=== PATIENT | female | born 1950 | race Caucasian/White ===

== ENCOUNTER 2016-06-18 16:47 | Inpatient (IN) | payer OTHER ==
[~2016-06-18] VITALS: Ht 152.4 cm; Wt 99.0 kg
[~2016-06-18 16:47] MED LIST: AMOX500T3 PO; ASPI81TA28 PO; ATOR-24 PO; BTP80 PO; FURO-85 PO; POTA20TA13 PO; PRED20TA PO; PRLSR20 PO; RAMI2.5C PO; VENL-273 PO; WARF-246 PO
[2016-06-18] MEDS ORDERED: METOPROLOL TARTRATE 1 MG/ML VIAL IV STA ×2 (17:16→17:58)
[2016-06-18] MEDS ORDERED: SODIUM CHLORIDE 0.9% 1000ML 500 ML IV STA (17:16)
[2016-06-18 17:29] LABS: HEMATOCRIT 42.3 % (37-47); MEAN CELL VOLUME 95.5 fL (80-100); MEAN CORPUSCULAR HEMOGLOBIN 33.2 pg (25-34); MEAN CORPUSCULAR HGB CONC 34.8 g/dl (32-36); MEAN PLATELET VOLUME 10.2 fL (7.4-10.4); PLATELET COUNT 221 K/uL (130-400); RED BLOOD COUNT 4.43 M/uL (4.2-5.4); WHITE BLOOD COUNT 7.07 K/uL (4.8-10.8)
--- NOTE | 2016-06-18 17:30 | EMERGENCY ROOM VISIT NOTE ---
History Report prepared by Arlen: Alexander Carcamo Under the Supervision of: Dr. Darin Thakur M.D. First contact with patient: 17:12 Chief Complaint: CARDIAC ASSESSMENT Stated Complaint: CARDIAC HISTORY, SOB, A FIB, HEART POUNDING Nursing Triage Summary: felt like her heart was beating fast and SOB; Hx afib and asthma; denies CP at this time. History of Present Illness The patient is a 65 year old female who presents to the Emergency Room with complaints of an episode of elevated heart rate beginning earlier today. She states she woke up this morning and became short of breath and lightheaded while walking around. She has had atrial fibrillation in the past, most recently about 1 year ago. She admits to having a cough, but denies any fever. She reports taking Sotalol and Warfarin. The patient states her great grandchildren are sick, and thinks her symptoms might be the result of her worry for them. She has just recovered from a cold. She denies taking any thyroid medications. Source of History: patient Onset: earlier today Position: other (heart) Quality: other (elevated heart rate) Timing: other (episode) Associated Symptoms: + SOB, + cough, No chest pain, No fevers Review of Systems See HPI for pertinent positives & negatives. A total of 10 systems reviewed and were otherwise negative. Past Medical & Surgical Medical Problems: (1) Aortic valve disorder (2) Atrial fibrillation with RVR (3) Chronic anticoagulation (4) Dyslipidemia (5) History of asthma (6) History of cardioversion (7) Major depression (8) Paroxysmal atrial fibrillation Surgical Problems: (1) H/O aortic valve replacement using Ross procedure (2) History of carpal tunnel surgery Family History Hypertension Social History Smoking Status: Current Every Day Smoker Current/Historical Medications Scheduled Aspirin (Aspirin Ec), 81 MG PO DAILY Atorvastatin (Lipitor), 40 MG PO HS Fluticasone Prop/Salmeterol (Advair Diskus 250/50 60 Dose), 1 PUFF INH BID Furosemide (Lasix), 20 MG PO DAILY Omeprazole (Prilosec), 20 MG PO DAILY Potassium Chloride Microencaps (Potassium Chloride Er), 20 MEQ PO DAILY Ramipril (Ramipril), 2.5 MG PO DAILY Sotalol HCl (Sotalol HCl), 80 MG PO BID17 Venlafaxine Hcl (Venlafaxine Hcl Er), 75 MG PO HS Warfarin Sodium (Warfarin Sodium), 5 MG PO 5XWK Warfarin Sodium (Warfarin Sodium), 7.5 MG PO 2XWK Scheduled PRN Albuterol Hfa (Ventolin Hfa), 2 PUFFS INH Q4H PRN for SOB/Wheezing Allergies Coded Allergies: Prednisone (Unverified Allergy, Unknown, a-fib, 06/18/16) Physical Exam Vital Signs Date Time Temp Pulse Resp B/P Pulse Ox O2 Delivery O2 Flow Rate FiO2 06/18/16 18:07 117 27 121/65 95 Room Air 06/18/16 18:06 126 121/65 06/18/16 17:36 123 23 121/62 95 Room Air 06/18/16 17:32 96 Room Air 06/18/16 17:25 142 124/71 06/18/16 17:12 134 06/18/16 17:04 95 Room Air 06/18/16 16:52 37.0 112 18 124/90 94 Room Air Physical Exam GENERAL: Patient is in no acute distress. HEENT: No acute trauma, normocephalic atraumatic, mucous membranes moist, no nasal congestion, no scleral icterus. NECK: No stridor, no adenopathy, no meningismus, trachea is midline. LUNGS: Clear to auscultation bilaterally, no wheeze, no rhonchi, breath sounds equal. HEART: Irregular rhythm and tachycardic. No murmurs. ABDOMEN: Soft, nontender, bowel sounds positive, no hernias, no peritonitis. EXTREMITIES: No cyanosis or edema, full range of motion of all the joints without pain or difficulty, no signs for acute trauma. NEUROLOGIC: Oriented x 3, no acute motor or sensory deficits, no focal weakness. SKIN: No rash, no jaundice, no diaphoresis. Medical Decision & Procedures ER Provider Diagnostic Interpretation: X-ray results as stated below per interpretation by me and the radiologist: CHEST ONE VIEW PORTABLE FINDINGS: There are median sternotomy wires. Mild cardiomegaly is unchanged. There is no evidence of pulmonary edema. No consolidation is identified. The appearance of the chest is unchanged. IMPRESSION: No acute cardiopulmonary findings. Electronically signed by: Paddy Esparza M.D. 06/18/2016 6:03 PM Dictated Date/Time: 06/18/2016 6:03 PM Laboratory Results 06/18/16 17:05 06/18/16 17:05 Test 06/18/16 17:05 Red Blood Count 4.43 M/uL (4.2-5.4) Mean Corpuscular Volume 95.5 fL (80-100) Mean Corpuscular Hemoglobin 33.2 pg (25-34) Mean Corpuscular Hemoglobin Concent 34.8 g/dl (32-36) RDW Standard Deviation 45.1 fL (36.4-46.3) RDW Coefficient of Variation 12.9 % (11.5-14.5) Mean Platelet Volume 10.2 fL (7.4-10.4) Prothrombin Time 16.4 SECONDS (9.0-12.0) Prothromb Time International Ratio 1.5 (0.9-1.1) Activated Partial Thromboplast Time 31.1 SECONDS (21.0-31.0) Partial Thromboplastin Ratio 1.2 Anion Gap 7.0 mmol/L (3-11) Est Creatinine Clear Calc Drug Dose 73.6 ml/min Estimated GFR () 87.0 Estimated GFR (Non- 75.0 BUN/Creatinine Ratio 13.4 (10-20) Calcium Level 8.9 mg/dl (8.5-10.1) Magnesium Level 1.9 mg/dl (1.8-2.4) Total Bilirubin 0.6 mg/dl (0.2-1) Aspartate Amino Transf (AST/SGOT) 17 U/L (15-37) Alanine Aminotransferase (ALT/SGPT) 21 U/L (12-78) Alkaline Phosphatase 132 U/L (45-117) Total Creatine Kinase 112 U/L (26-192) Creatine Kinase MB 1.6 ng/ml (0.5-3.6) Creatine Kinase MB Ratio 1.4 (0-3.0) Troponin I < 0.015 ng/ml (0-0.045) Total Protein 7.4 gm/dl (6.4-8.2) Albumin 3.5 gm/dl (3.4-5.0) Globulin 3.9 gm/dl (2.5-4.0) Albumin/Globulin Ratio 0.9 (0.9-2) Thyroid Stimulating Hormone (TSH) 1.760 uIu/ml (0.300-4.500) Laboratory results reviewed by me. Medications Administered Medications (Trade) Dose Ordered Sig/Nichol Route Start Time Stop Time Status Last Admin Dose Admin Sodium Chloride (Nss 1000ml) 500 ml @ 999 mls/hr Q31M STAT IV 06/18/16 17:16 06/18/16 17:46 DC 06/18/16 17:24 999 MLS/HR Metoprolol Tartrate (Lopressor Iv) 5 mg NOW STAT IV 06/18/16 17:16 06/18/16 17:19 DC 06/18/16 17:25 5 MG Metoprolol Tartrate (Lopressor Iv) 5 mg NOW STAT IV 06/18/16 17:58 06/18/16 17:59 DC 06/18/16 18:06 5 MG ECG Indication: other (cardiac assessment) Rate (beats per minute): 135 Rhythm: atrial fibrillation (rapid) Findings: other (nonspecific T wave change diffusely) ED Course 1715: The patient was evaluated in room B11B. A complete history and physical exam was performed. 1716: Ordered Metoprolol Tartrate 5 mg IV, and NSS 500 ml 2 999 mls/hr IV. 1758: Ordered Metoprolol tartrate 5 mg IV. 1805: Discussed the patient's case with Tashia Ochoa PA-C, [facility]. The patient will be evaluated for further management. 1806: I updated the patient and family about admission. 1810: Upon reexamination the patient is hemodynamically stable. I discussed results and treatment plan with the patient. She verbalizes agreement and understanding. The patient will be evaluated for further management. Medical Decision Differentials include rapid atrial fibrillation, LA, anemia, electrolyte imbalance, thyroid disorder, and CHF. There is no leukocytosis or worrisome anemia. No significant electrolyte abnormality, kidney failure or hepatitis. INR is somewhat low for someone using Coumadin. EKG shows rapid A. fib without any acute ischemia. Cardiac enzyme testing times one is not suggestive of acute cardiac injury. Chest x- ray shows no pneumonia or CHF. The patient appears to be in a euthyroid state. The patient was in rapid A. fib, she has had this issue before. She received IV saline and IV Lopressor with a decrease in her heart rate. Given her findings, admission/observation is warranted. I spoke to the patient and case management. The on-call hospitalist was consulted. Consults Time Called: 1754 Consulting Physician: Tashia Ochoa PA-C, [facility] Returned Call: 1805 Discussed the patient's case with Tashia Ochoa PA-C, [facility]. The patient will be evaluated for further management. Impression Primary Impression: Rapid atrial fibrillation Additional Impression: Weakness Scribe Attestation The scribe's documentation has been prepared under my direction and personally reviewed by me in its entirety. I confirm that the note above accurately reflects all work, treatment, procedures, and medical decision making performed by me. Departure Information Dispostion Being Evaluated By Hospitalist Referrals Emerson Hernandez M.D. (PCP) Patient Instructions A Signature Page, My [facility] [address] Problem Qualifiers
[2016-06-18 17:37] LABS: ALT/SGPT 21 U/L (12-78); AST/SGOT 17 U/L (15-37); BLOOD UREA NITROGEN 11 mg/dl (7-18); BUN/CREATININE RATIO 13.4 (10-20); CALCIUM 8.9 mg/dl (8.5-10.1); CARBON DIOXIDE 29 mmol/L (21-32); CHLORIDE 108 mmol/L (98-107); CREATININE 0.83 mg/dl (0.60-1.20); GLUCOSE 130 mg/dl (70-99); MAGNESIUM 1.9 mg/dl (1.8-2.4); POTASSIUM 4.2 mmol/L (3.5-5.1); SODIUM 144 mmol/L (136-145)
[2016-06-18 17:38] LABS: INR 1.5 (0.9-1.1); PARTIAL THROMBOPLASTIN RATIO 1.2; PROTHROMBIN TIME (PATIENT) 16.4 SECONDS (9.0-12.0)
[2016-06-18 17:42] LABS: ALB/GLOB RATIO 0.9 (0.9-2); ALKALINE PHOSPHATASE 132 U/L (45-117); CKMB/CK RATIO 1.4 (0-3.0)
--- NOTE | 2016-06-18 18:05 | DIAGNOSTIC IMAGING REPORT ---
CHEST ONE VIEW PORTABLE CLINICAL HISTORY: Chest pain. COMPARISON STUDY: Chest radiograph December 24, 2015. FINDINGS: There are median sternotomy wires. Mild cardiomegaly is unchanged. There is no evidence of pulmonary edema. No consolidation is identified. The appearance of the chest is unchanged. IMPRESSION: No acute cardiopulmonary findings. Electronically signed by: Paddy Esparza M.D. 06/18/2016 6:03 PM Dictated Date/Time: 06/18/2016 6:03 PM
[2016-06-18] MEDS ORDERED: VNTHFA/IN INH (18:29)
[2016-06-18] MEDS ORDERED: ADVIN25/60 INH (18:29)
[2016-06-18] MEDS ORDERED: WARFARIN SOD 7.5 MG TAB PO ONE (18:42)
[2016-06-18] MEDS ORDERED: ONDANSETRON INJ 2 MG/ML 2 ML VIAL IV PRN (18:45)
[2016-06-18] MEDS ORDERED: NITROGLYCERIN 0.4 MG SL PER TAB CHARGE SL PRN (18:45)
[2016-06-18] MEDS ORDERED: ACETAMINOPHEN 325 MG TAB PO PRN (18:45)
--- NOTE | 2016-06-18 19:00 | History and Physical ---
History & Physical Date & Time of Service: Jun 18, 2016 at 18:47 Chief Complaint: Cardiac History, Sob, A Fib, Heart Pounding Primary Care Physician: Emerson Hernandez M.D. History of Present Illness Source: patient, family, clinic records, hospital records Patient seen and examined. 65 year old female with PMHx of Afib on Coumadin, h/ o AVR with ross procedure, and tobacco abuse presents to the ED complaining of palpitations x 1 day. Patient reports that she wokeup this morning feeling like her heart was racing. When she got up to walk around she became SOB and dizzy. This continued throughout most of the day so she presented to the ED. She denies fevers, chills, URI symptoms, chest pain, nausea, vomiting, diarrhea, dysuria, calf pain and edema. Patient has a history of Afib and was admitted in Jul 2015 with afib with RVR after presenting with similar symptoms. At that time she was started on sotalol, Coumadin and cardioversion successfully converted the patient to NSR. She reports she has not had any episodes of palpitations since then until today. She reports she has been compliant with her medications. In the ED patient's HR was in the 140s on arrival, INR was 1.5. She received Lopressor and HR is now in the 120s. She will be admitted for further workup and treatment. Past Medical/Surgical History Medical Problems: (1) Aortic valve disorder Status: Chronic (2) Chronic anticoagulation Status: Chronic (3) Dyslipidemia Status: Chronic (4) History of cardioversion Status: Chronic (5) Major depression Status: Chronic (6) Paroxysmal atrial fibrillation Status: Chronic Surgical Problems: (1) H/O aortic valve replacement using Ross procedure Status: Chronic (2) History of carpal tunnel surgery Status: Chronic Family History Hypertension Social History Smoking Status: Current Every Day Smoker Drug Use: none Housing status: lives with family Occupational Status: retired Immunizations History of Influenza Vaccine: N/A History of Tetanus Vaccine?: Yes Tetanus Immunization Date: October 14, 2003 History of Pneumococcal: Yes Pneumococcal Date: May 15, 2008 History of Hepatitis B Vaccine: No Allergies Coded Allergies: Prednisone (Unverified Allergy, Unknown, a-fib, 06/18/16) Home Medications Scheduled Aspirin (Aspirin Ec), 81 MG PO DAILY Atorvastatin (Lipitor), 40 MG PO HS Fluticasone Prop/Salmeterol (Advair Diskus 250/50 60 Dose), 1 PUFF INH BID Furosemide (Lasix), 20 MG PO DAILY Omeprazole (Prilosec), 20 MG PO DAILY Potassium Chloride Microencaps (Potassium Chloride Er), 20 MEQ PO DAILY Ramipril (Ramipril), 2.5 MG PO DAILY Sotalol HCl (Sotalol HCl), 80 MG PO BID17 Venlafaxine Hcl (Venlafaxine Hcl Er), 75 MG PO HS Warfarin Sodium (Warfarin Sodium), 5 MG PO 5XWK Warfarin Sodium (Warfarin Sodium), 7.5 MG PO 2XWK Scheduled PRN Albuterol Hfa (Ventolin Hfa), 2 PUFFS INH Q4H PRN for SOB/Wheezing Review of Systems Constitutional: No chills, No fever Eyes: No worsening of vision ENT: No nasal symptoms Respiratory: + dyspnea on exertion, + shortness of breath, No cough Cardiovascular: + palpitations, No chest pain, No edema Abdomen: No constipation, No diarrhea, No nausea, No pain, No vomiting Musculoskeletal: No calf pain, No swelling Genitourinary - Female: No dysuria Neurologic: + vertigo, No numbness/tingling Psychiatric: No anxiety Endocrine: No excessive thirst, No fatigue Hematologic / Lymphatic: No abnormal bleeding/bruising, No clotting problems Integumentary: No itch, No rash Allergic / Immunologic: No environmental allergies Physical Exam Vital Signs Date Time Temp Pulse Resp B/P Pulse Ox O2 Delivery O2 Flow Rate FiO2 06/18/16 18:07 117 27 121/65 95 Room Air 06/18/16 18:06 126 121/65 06/18/16 17:36 123 23 121/62 95 Room Air 06/18/16 17:32 96 Room Air 06/18/16 17:25 142 124/71 06/18/16 17:12 134 06/18/16 17:04 95 Room Air 06/18/16 16:52 37.0 112 18 124/90 94 Room Air General Appearance: + pertinent finding (WD/WN 65 year old female lying in bed in NAD with family at bedside ) Head: normocephalic, atraumatic Eyes: PERRL, EOMI, sclerae normal ENT: hearing grossly normal, pharynx normal Neck: supple, no JVD, trachea midline Respiratory/Chest: chest non-tender, lungs clear, normal breath sounds, no respiratory distress, no accessory muscle use Cardiovascular: no gallop, no JVD, no murmur, normal peripheral pulses, + irregularly irregular (rate 120s) Abdomen/GI: normal bowel sounds, non tender, soft Back: normal inspection, no muscle spasm Extremities/Musculoskelatal: no calf tenderness, normal capillary refill, + pedal edema (trace) Neurologic/Psych: alert, oriented x 3, + pertinent finding (no motor or sensory deficits noted on gross exam ) Skin: normal color, warm/dry, no rash Lymphatic: no adenopathy Diagnostics Laboratory Results Results Past 24 Hours Test 06/18/16 17:05 Range/Units White Blood Count 7.07 4.8-10.8 K/uL Red Blood Count 4.43 4.2-5.4 M/uL Hemoglobin 14.7 12.0-16.0 g/dL Hematocrit 42.3 37-47 % Mean Corpuscular Volume 95.5 80-100 fL Mean Corpuscular Hemoglobin 33.2 25-34 pg Mean Corpuscular Hemoglobin Concent 34.8 32-36 g/dl RDW Standard Deviation 45.1 36.4-46.3 fL RDW Coefficient of Variation 12.9 11.5-14.5 % Platelet Count 221 130-400 K/uL Mean Platelet Volume 10.2 7.4-10.4 fL Prothrombin Time 16.4 9.0-12.0 SECONDS Prothromb Time International Ratio 1.5 0.9-1.1 Activated Partial Thromboplast Time 31.1 21.0-31.0 SECONDS Partial Thromboplastin Ratio 1.2 Sodium Level 144 136-145 mmol/L Potassium Level 4.2 3.5-5.1 mmol/L Chloride Level 108 98-107 mmol/L Carbon Dioxide Level 29 21-32 mmol/L Anion Gap 7.0 3-11 mmol/L Blood Urea Nitrogen 11 7-18 mg/dl Creatinine 0.83 0.60-1.20 mg/dl Est Creatinine Clear Calc Drug Dose 73.6 ml/min Estimated GFR () 87.0 Estimated GFR (Non- 75.0 BUN/Creatinine Ratio 13.4 10-20 Random Glucose 130 70-99 mg/dl Calcium Level 8.9 8.5-10.1 mg/dl Magnesium Level 1.9 1.8-2.4 mg/dl Total Bilirubin 0.6 0.2-1 mg/dl Aspartate Amino Transf (AST/SGOT) 17 15-37 U/L Alanine Aminotransferase (ALT/SGPT) 21 12-78 U/L Alkaline Phosphatase 132 45-117 U/L Total Creatine Kinase 112 26-192 U/L Creatine Kinase MB 1.6 0.5-3.6 ng/ml Creatine Kinase MB Ratio 1.4 0-3.0 Troponin I < 0.015 0-0.045 ng/ml Total Protein 7.4 6.4-8.2 gm/dl Albumin 3.5 3.4-5.0 gm/dl Globulin 3.9 2.5-4.0 gm/dl Albumin/Globulin Ratio 0.9 0.9-2 Thyroid Stimulating Hormone (TSH) 1.760 0.300-4.500 uIu/ml Diagnostic Radiology CXR Per radiologist read: IMPRESSION: No acute cardiopulmonary findings. EKG Afib with RVR 135 BPM, QTc 453 Impression Assessment and Plan 65 year old female with known history of Afib presents to the ED complaining of palpitations, SOB, dizziness beginning this morning ATRIAL FIBRILLATION WITH RVR - known history of Afib -Admit to Telemetry -Received 10mg IV Lopressor in ED - will monitor response and give additional doses as necessary -Is on Sotalol as outpatient - will give evening dose tonight will defer additional dosing to cardiology -INR 1.5 - will start Lovenox and bridge to Coumadin -increase Coumadin to 7.5mg daily -Serial Renetta, EKGs -Cardiology consult for further recommendations input appreciated -AHA diet npo after midnight if Cardioversion is needed in AM. -TSH pending -CBC, PRP, Mg, INR daily SUBTHERAPEUTIC INR -Lovenox bridge -increase Coumadin to 7.5 mg daily -follow INR H/O AVR -Ross procedure in 2000 HLD -continue Statin TOBACCO ABUSE -Cessation counseling given -Nicotine patch ordered -no formal pulmonary diagnosis - continue Advair DEPRESSION -continue Effexor GERD -continue PPI DVT PROPHYLAXIS: Therapeutic dose Lovenox CODE STATUS: FULL CODE DISPO:In my clinical judgment this beneficiary meets acute admission criteria, established by [facility], that includes being hospitalized through two midnights. Patient seen in collaboration with Dr. Cohn ATTENDING NOTE Patient seen & examined at bedside. Reviewed the History & Physical and confirmed the findings in person. Patient with known history of Atrial Fibrillation comes to ED with RVR. Has been taking all her medications as per directions. No recent triggering factor as per history. Is hemodynamically stable. Given Lopressor in ED. She is S/P AVR and INR is not therapeutic. have started on Therapeutic Lovenox for now and increased dose of Coumadin. Requested a Cardiology evaluation. Patient is FULL CODE. DVT Prophylaxis: Sq Lovenox. Patient will be followed by Dr. Angeles in AM. Damian Cohn MD Level of Care Telemetry Resuscitation Status FULL RESUSCITATION VTE Prophylaxis VTE Risk Assessment Done? Y/N: Yes Risk Level: Moderate Given or contraindicated: Enoxaparin (Lovenox)SQ
[2016-06-18 20:10] VITALS: BP 129/81; PULSE 130; TEMP 36.8; O2SAT 95; Ht 152.4 cm; Wt 99.0 kg
[2016-06-18] MEDS: ENOXAPARIN 100 MG/1ML SYR SQ SCH (20:35)
[2016-06-18] MEDS: FLUTICASONE/SALMETEROL 250/50 (ADVAIR) 14 PUFF/1 INHALER INH SCH (20:37)
[2016-06-18] MEDS ORDERED: VENLAFAXINE HCL XR 75 MG CAPXR PO SCH (21:00)
[2016-06-18] MEDS ORDERED: SOTALOL HCL 80 MG TAB PO ONE (21:00)
[2016-06-18] MEDS ORDERED: ATORVASTATIN 40 MG TAB PO SCH (21:00)
[2016-06-18] MEDS ORDERED: METOPROLOL TARTRATE 1 MG/ML VIAL IV PRN (22:30)
[2016-06-18 23:45] VITALS: BP 118/78; PULSE 114; TEMP 36.7; O2SAT 96
[2016-06-19] VITALS: O2SAT 95
[2016-06-19 00:08] LABS: CKMB/CK RATIO 1.3 (0-3.0)
[2016-06-19 03:22] VITALS: BP 99/63; PULSE 70; TEMP 36.6; O2SAT 96
[2016-06-19 04:00] VITALS: O2SAT 95
[2016-06-19 05:34] LABS: HEMATOCRIT 39.4 % (37-47); MEAN CELL VOLUME 96.1 fL (80-100); MEAN CORPUSCULAR HEMOGLOBIN 32.2 pg (25-34); MEAN CORPUSCULAR HGB CONC 33.5 g/dl (32-36); MEAN PLATELET VOLUME 9.8 fL (7.4-10.4); PLATELET COUNT 184 K/uL (130-400); WHITE BLOOD COUNT 6.55 K/uL (4.8-10.8)
[2016-06-19 05:42] LABS: INR 1.4 (0.9-1.1); PARTIAL THROMBOPLASTIN RATIO 1.3; PROTHROMBIN TIME (PATIENT) 15.4 SECONDS (9.0-12.0)
[2016-06-19 05:58] LABS: BLOOD UREA NITROGEN 13 mg/dl (7-18); BUN/CREATININE RATIO 16.4 (10-20); CALCIUM 8.5 mg/dl (8.5-10.1); CARBON DIOXIDE 31 mmol/L (21-32); CHLORIDE 108 mmol/L (98-107); CREATININE 0.81 mg/dl (0.60-1.20); GLUCOSE 92 mg/dl (70-99); POTASSIUM 3.9 mmol/L (3.5-5.1); SODIUM 145 mmol/L (136-145)
[2016-06-19 06:03] LABS: CKMB/CK RATIO 1.4 (0-3.0)
[2016-06-19 07:58] VITALS: BP 120/72; PULSE 63; TEMP 36.8; O2SAT 96
[2016-06-19] MEDS: FLUTICASONE/SALMETEROL 250/50 (ADVAIR) 14 PUFF/1 INHALER INH SCH (08:44)
[2016-06-19] MEDS: ENOXAPARIN 100 MG/1ML SYR SQ SCH (08:46)
[2016-06-19] MEDS ORDERED: ENALAPRIL MALEATE 10 MG TAB PO SCH (09:00)
[2016-06-19] MEDS ORDERED: POTASSIUM CHLORIDE 20 MEQ TABCR PO SCH (09:00)
[2016-06-19] MEDS ORDERED: NICOTINE 14 MG/24 HR TDSY TD SCH (09:00)
[2016-06-19] MEDS ORDERED: FUROSEMIDE 20 MG TAB PO SCH (09:00)
[2016-06-19] MEDS ORDERED: ASPIRIN 81 MG ECTAB PO SCH (09:00)
[2016-06-19] MEDS ORDERED: PANTOprazole SOD 40 MG TAB PO SCH (09:00)
[2016-06-19] MEDS ORDERED: SOTALOL HCL 80 MG TAB PO ONE ×2 (10:46→21:00)
[2016-06-19] MEDS ORDERED: LVNIS100 SQ (11:59)
[2016-06-19] MEDS ORDERED: CMD75 PO (12:01)
--- NOTE | 2016-06-19 12:02 | CARDIOLOGY CONSULTATION ---
DATE OF CONSULTATION: 06/19/2016 HISTORY OF PRESENT ILLNESS: Melissa Ramírez is a 65-year-old female who had last been seen in outpatient cardiology clinic by Mr. Bourgeois of our practice in May of 2016. She iss seen in cardiology consultation per the request of Tashia Ochoa PA-C, for evaluation of recurrent atrial fibrillation with rapid ventricular rate. The patient reports that she has had a recent upper respiratory tract infection with cold symptoms including chest congestion and cough. She is just getting over this. She has multiple sick contacts at home, but several sick children who also have respiratory tract illness. She was actually feeling improved personally when she felt her heart rate increase yesterday with associated dizziness. She took her medications including her sotalol as per her typical routine, but the symptoms persisted and ultimately she presented to the Emergency Room last night, with the initial EKG having been performed on 06/18/2016 at 1702 hours revealing atrial fibrillation with rapid ventricular rate at 135 beats per minute. She received IV metoprolol with improved rate control, and ultimately she spontaneously converted back to sinus rhythm last night at 2051 hours. She received her evening dose of sotalol. This morning, her EKG reveals stable sinus rhythm with the stable corrected QT interval of 451 milliseconds. Electrolytes are stable this morning. Serial cardiac enzymes were stable overnight last night. The patient has a history of atrial fibrillation having presented in July 2015. She stayed in the hospital for sotalol initiation at that time followed by direct current cardioversion and has had no significant atrial fibrillation episode since. She typically follows with the anticoagulation clinic at [facility] regularly. Her INR however, was noted to be subtherapeutic during this admission. PAST MEDICAL HISTORY: 1. History of severe aortic regurgitation and aortic root aneurysm for which the patient underwent Ross procedure and aortic root repair in 2000. 2. Diagnostic cardiac catheterization in 2000 prior to valve surgery revealed normal coronary arteries with no obstructive coronary artery disease observed. 3. Paroxysmal atrial fibrillation. The patient admitted to [facility] in July 2015 with atrial fibrillation with rapid ventricular response following a respiratory tract infection treated with prednisone and amoxicillin. She was seen in consultation by Dr. Lopez at that time, and which at that time the propranolol and digoxin were discontinued, and sotalol and Coumadin were initiated with direct current cardioversion during that admission. 4. Hypertension. 5. Dyslipidemia. 6. Ongoing cigarette smoking. 7. Obesity. PAST SURGICAL HISTORY: 1. Cardiac catheterization as outlined above. 2. Aortic valve replacement/Ross procedure and aortic aneurysm repair and thoracic aortic aneurysm repair at the same time. 3. Carpal tunnel surgery. 4. Direct current cardioversion July 2015. FAMILY HISTORY: Hypertension. SOCIAL HISTORY: The patient continues to smoke daily. She lives with her family. ALLERGIES: PAST INTOLERANCE OF PREDNISONE HAVING HAD ATRIAL FIBRILLATION AFTER A COURSE OF PREDNISONE. HOME MEDICATIONS: Aspirin 81 mg by mouth daily, atorvastatin 40 mg by mouth daily, Advair 250/50 one puff inhaled b.i.d., furosemide 20 mg daily, omeprazole 20 mg daily, potassium chloride 20 mEq daily, Altace 2.5 mg daily, sotalol 80 mg b.i.d., Effexor 75 mg at bedtime, Coumadin 5 mg alternating with 7.5 mg. COMPREHENSIVE REVIEW OF SYSTEMS: A 10-point review of systems was performed and is negative with the exception of that outlined above. PHYSICAL EXAMINATION: VITAL SIGNS: Temperature 36.8, heart rate 63, respiration rate 18, blood pressure 120/72, pulse oximetry 97% on room air. GENERAL APPEARANCE: Awake and oriented x3 in no acute distress. HEENT: Extraocular muscles were intact. Pupils equal and reactive to light. NECK: No bruits or cervical lymphadenopathy. CARDIOVASCULAR: Regular rhythm. No murmurs, rubs or gallops. ABDOMEN: Soft, nontender. EXTREMITIES: No edema. NEUROLOGIC: No focal deficits. The most recent echocardiogram was performed in May 2015 as an outpatient at [facility] revealed normal LVEF. The aortic valve and pulmonic valve gradients were normal. Mild pulmonic regurgitation was noted. The aortic root and proximal ascending aorta were normal in size. INR 1.4 today. EKG tracings as noted above. IMPRESSION: A 65-year-old female. 1. History of paroxysmal atrial fibrillation, with breakthrough event, spontaneously converted back to sinus rhythm after being in atrial fibrillation for about 12 hours yesterday. 2. History of aortic valve regurgitation and ascending aortic aneurysm for which the patient underwent remote Ross procedure. 3. Subtherapeutic INR. RECOMMENDATIONS: Recommend continuing the patient's home dose of sotalol 80 mg by mouth b.i.d. This was reinitiated. Agree with increasing her dose of Coumadin to 7.5 mg daily instead of alternating 7.5 mg with 5 mg. I recommend Lovenox bridge to therapeutic INR given her breakthrough atrial fibrillation and close anticoagulation with clinic followup as an outpatient. I am going to arrange clinic followup with the patient at [facility] within the next 1-4 weeks. At her outpatient followup, will consider updating transthoracic echocardiogram as her last study was in 2014. MARIOLA
--- NOTE | 2016-06-19 12:04 | Discharge Instructions ---
Discharge Instructions Admission Reason for Admission: Rapid Atrial Fibrillation Discharge Discharge Diagnosis / Problem: AFIB RVR Discharge Goals Goal(s): Improve disease control, Diagnostic testing, Therapeutic intervention Activity Recommendations Activity Limitations: resume your previous activity . Instructions / Follow-Up Instructions / Follow-Up COAGULATION CLINIC FOLLOW UP AT [facility] ON FridayJUN 21 @ 11 AM FOR PT/INR CHECK SUB Q LOVENOX WILL BE DISCONTINUED ONCE INR ~2 PLEASE FOLLOW UP WITH COAGULATION CLINIC FOR RECOMMENDATION HOSPITAL FOLLOW UP WITH DR ANDERSON ON Jun @ 12: 50 PM, CARDIOLOGY FOLLOW UP WITH SHANIQUE TINEO PA-C IN 2-3 WEEKS , OFFICE WILL CALL WITH APPOINTMENT Current Hospital Diet Patient's current hospital diet: AHA Diet (Heart Healthy) Discharge Diet Recommended Diet: AHA Diet (Heart Healthy) Pending Studies Studies pending at discharge: yes List of pending studies: OUT PATIENT ECHO WILL BE DONE AT [facility] Medical Emergencies . Who to Call and When: Medical Emergencies: If at any time you feel your situation is an emergency, please call 911 immediately. . Non-Emergent Contact Non-Emergency issues call your: Primary Care Provider . . "Provider Documentation" section prepared by Birdie Angeles. VTE Core Measure Inpt VTE Proph given/why not?: Enoxaparin (Lovenox)SQ
[2016-06-19 12:19] VITALS: BP 105/67; PULSE 68; TEMP 36.7; O2SAT 98
[2016-06-19 14:50] VITALS: BP 105/67; PULSE 68; TEMP 36.7; O2SAT 98
[2016-06-19] MEDS ORDERED: WARFARIN SOD 7.5 MG TAB PO SCH (16:00)
--- NOTE | 2016-06-19 16:33 | Progress Note ---
Internal Med Progress Note Date of Service: Jun 19, 2016. Provider Documentation: SUBJECTIVE: no complain of chest pain or SOB no palpitation or dizzy spell converted to NSR spontaneously feels fine ,evaluated by cardiology no cardiac intervention needed, cont out pt dose of Sotalol 80 mg BID Lovenox bridge tx due to sub therapeutic INR stable to be discharged home OBJECTIVE: Vital Signs-as noted below Exam: General-pleasant, no sign of distress Eyes-sclera non icteric , PERRLA/EOMI ENT-hearing normal ,moist oral mucosa , no erythema or congestion in oropharynx Neck-no thyromegaly , trachea midline Lungs-clear to auscultate , no wheeze or rales Heart-regular S1/S2, no lower ext edema , no JVD Abdomen-soft, non tender Extremities-no rash or deformity Neuro-no focal neurological deficit , Lab data as noted below. ASSESSMENT & PLAN: ATRIAL FIBRILLATION WITH RVR - known history of Afib -converted to sinus rhythm with rate controlled spontaneously -appreciate input form cardiology pt will continue with put pt Sotalol dose 80 mg BID does not have any symptom of dizzy spell or palpitation cont therapeutic sub q Lovenox bridge with Coumadin -Coumadin dose to 7.5mg daily -stable to be discharged home with Lovenox bridge appointment scheduled to follow up with Coagulation clinic on Friday06/21/16 out pt follow up with Cardiology in 2-3 weeks will be scheduled for out pt ECHO at [facility] SUBTHERAPEUTIC INR INR 1.4 today ( goal 2-3 ) -Lovenox bridge-as pt was in Afib > 12 hrs -increased Coumadin to 7.5 mg daily -will be discharged home with Lovenox bridge , Coumadin 7.5 mg PO Daily close follow up with Coag clinic H/O AVR hx of severe aortic regurgitation /aortic root aneurysm -s/p Ross procedure in 2000 HLD -continue Statin TOBACCO ABUSE -Cessation counseling given -Nicotine patch ordered - DEPRESSION -continue Effexor GERD -continue PPI CODE STATUS: FULL CODE DVT PROPHYLAXIS Coumadin /Lovenox bridge DISPOSITION Discharge home today Vital Signs: Date Time Temp Pulse Resp B/P Pulse Ox O2 Delivery O2 Flow Rate FiO2 06/19/16 14:50 36.7 68 20 98 Room Air 06/19/16 12:19 36.7 68 20 105/67 98 Room Air 06/19/16 12:00 Room Air 06/19/16 08:00 Room Air 06/19/16 07:58 36.8 63 18 120/72 96 Room Air 06/19/16 04:00 95 Room Air 06/19/16 03:22 36.6 70 18 99/63 96 Room Air 06/19/16 00:00 95 Room Air 06/18/16 23:45 36.7 114 20 118/78 96 Room Air 06/18/16 20:10 36.8 130 18 129/81 06/18/16 20:10 95 Room Air 06/18/16 19:47 117 21 109/70 95 06/18/16 19:33 117 21 109/70 95 Room Air 06/18/16 18:07 117 27 121/65 95 Room Air 06/18/16 18:06 126 121/65 06/18/16 17:36 123 23 121/62 95 Room Air 06/18/16 17:32 96 Room Air 06/18/16 17:25 142 124/71 06/18/16 17:12 134 06/18/16 17:04 95 Room Air 06/18/16 16:52 37.0 112 18 124/90 94 Room Air Lab Results: Results Past 24 Hours Test 06/18/16 17:05 06/18/16 23:22 06/19/16 05:20 Range/Units White Blood Count 7.07 6.55 4.8-10.8 K/uL Red Blood Count 4.43 4.10 4.2-5.4 M/uL Hemoglobin 14.7 13.2 12.0-16.0 g/dL Hematocrit 42.3 39.4 37-47 % Mean Corpuscular Volume 95.5 96.1 80-100 fL Mean Corpuscular Hemoglobin 33.2 32.2 25-34 pg Mean Corpuscular Hemoglobin Concent 34.8 33.5 32-36 g/dl RDW Standard Deviation 45.1 45.8 36.4-46.3 fL RDW Coefficient of Variation 12.9 13.0 11.5-14.5 % Platelet Count 221 184 130-400 K/uL Mean Platelet Volume 10.2 9.8 7.4-10.4 fL Prothrombin Time 16.4 15.4 9.0-12.0 SECONDS Prothromb Time International Ratio 1.5 1.4 0.9-1.1 Activated Partial Thromboplast Time 31.1 33.0 21.0-31.0 SECONDS Partial Thromboplastin Ratio 1.2 1.3 Sodium Level 144 145 136-145 mmol/L Potassium Level 4.2 3.9 3.5-5.1 mmol/L Chloride Level 108 108 98-107 mmol/L Carbon Dioxide Level 29 31 21-32 mmol/L Anion Gap 7.0 6.0 3-11 mmol/L Blood Urea Nitrogen 11 13 7-18 mg/dl Creatinine 0.83 0.81 0.60-1.20 mg/dl Est Creatinine Clear Calc Drug Dose 73.6 75.4 ml/min Estimated GFR () 87.0 89.6 Estimated GFR (Non- 75.0 77.3 BUN/Creatinine Ratio 13.4 16.4 10-20 Random Glucose 130 92 70-99 mg/dl Calcium Level 8.9 8.5 8.5-10.1 mg/dl Magnesium Level 1.9 2.0 1.8-2.4 mg/dl Total Bilirubin 0.6 0.2-1 mg/dl Aspartate Amino Transf (AST/SGOT) 17 15-37 U/L Alanine Aminotransferase (ALT/SGPT) 21 12-78 U/L Alkaline Phosphatase 132 45-117 U/L Total Creatine Kinase 112 92 90 26-192 U/L Creatine Kinase MB 1.6 1.2 1.3 0.5-3.6 ng/ml Creatine Kinase MB Ratio 1.4 1.3 1.4 0-3.0 Troponin I < 0.015 < 0.015 < 0.015 0-0.045 ng/ml Total Protein 7.4 6.4-8.2 gm/dl Albumin 3.5 3.4-5.0 gm/dl Globulin 3.9 2.5-4.0 gm/dl Albumin/Globulin Ratio 0.9 0.9-2 Thyroid Stimulating Hormone (TSH) 1.760 0.300-4.500 uIu/ml
--- NOTE | 2016-06-19 16:35 | Discharge Summary ---
Discharge Summary Admission Date: Jun 18, 2016 at 18:36 Discharge Date: Jun 19, 2016 Discharge Disposition: Home Principal Diagnosis: Rapid Atrial Fibrillation Consultations: CARDIOLOGY -JOE -DR NICOLAS Pending Studies/Follow-Up: PLEASE SEE DISCHARGE INSTRUCTION Medication Reconciliation New Medications: Enoxaparin (Enoxaparin Sodium) 100 Mg/Ml Inj 100 MG SQ Q12 for 3 Days, #6 EA 4 Refills Warfarin Sod (Coumadin) 7.5 Mg Tab 7.5 MG PO DAILY for 30 Days, #30 TAB Continued Medications: Albuterol Hfa (Ventolin Hfa) 200 Puffs/16580 Mcg Aers 2 PUFFS INH Q4H PRN for SOB/Wheezing, #1 INHALER Aspirin (Aspirin Ec) 81 Mg Tab 81 MG PO DAILY Atorvastatin (Lipitor) 40 Mg Tab 40 MG PO HS, TAB Fluticasone Prop/Salmeterol (Advair Diskus 250/50 60 Dose) 1 Ea Aerp 1 PUFF INH BID, INHALER Furosemide (Lasix) 20 Mg Tab 20 MG PO DAILY, TAB Omeprazole (Prilosec) 20 Mg Capcr 20 MG PO DAILY, CAP Potassium Chloride Microencaps (Potassium Chloride Er) 20 Meq Tab 20 MEQ PO DAILY, TAB Ramipril (Ramipril) 2.5 Mg Cap 2.5 MG PO DAILY, CAP Sotalol HCl (Sotalol HCl) 80 Mg Tab 80 MG PO BID17 for 30 Days, #60 TAB Venlafaxine Hcl (Venlafaxine Hcl Er) 75 Mg Tab 75 MG PO HS Discontinued Medications: Warfarin Sodium (Warfarin Sodium) 5 Mg Tab 5 MG PO 5XWK, TAB TAKE 5 MG EVERYDAY EXCEPT FRIDAY AND FRIDAY. Warfarin Sodium (Warfarin Sodium) 5 Mg Tab 7.5 MG PO 2XWK, TAB TAKE A TABLET AND A HALF (7.5MG) EVERY FRIDAY AND FRIDAY. Referrals At Discharge Follow up Referrals: Physician Referral - Please Call For Appointment with Shanique Tineo PA-C Admission Information HPI (per Admitting provider): Patient seen and examined. 65 year old female with PMHx of Afib on Coumadin, h/ o AVR with ross procedure, and tobacco abuse presents to the ED complaining of palpitations x 1 day. Patient reports that she wokeup this morning feeling like her heart was racing. When she got up to walk around she became SOB and dizzy. This continued throughout most of the day so she presented to the ED. She denies fevers, chills, URI symptoms, chest pain, nausea, vomiting, diarrhea, dysuria, calf pain and edema. Patient has a history of Afib and was admitted in Jul 2015 with afib with RVR after presenting with similar symptoms. At that time she was started on sotalol, Coumadin and cardioversion successfully converted the patient to NSR. She reports she has not had any episodes of palpitations since then until today. She reports she has been compliant with her medications. In the ED patient's HR was in the 140s on arrival, INR was 1.5. She received Lopressor and HR is now in the 120s. She will be admitted for further workup and treatment. Physical Exam (per Admitting): General Appearance: + pertinent finding (WD/WN 65 year old female lying in bed in NAD with family at bedside ) Head: normocephalic, atraumatic Eyes: PERRL, EOMI, sclerae normal ENT: hearing grossly normal, pharynx normal Neck: supple, no JVD, trachea midline Respiratory/Chest: chest non-tender, lungs clear, normal breath sounds, no respiratory distress, no accessory muscle use Cardiovascular: no gallop, no JVD, no murmur, normal peripheral pulses, + irregularly irregular (rate 120s) Abdomen/GI: normal bowel sounds, non tender, soft Back: normal inspection, no muscle spasm Extremities/Musculoskelatal: no calf tenderness, normal capillary refill, + pedal edema (trace) Neurologic/Psych: alert, oriented x 3, + pertinent finding (no motor or sensory deficits noted on gross exam ) Skin: normal color, warm/dry, no rash Lymphatic: no adenopathy Hospital Course ATRIAL FIBRILLATION WITH RVR - known history of Afib -converted to sinus rhythm with rate controlled spontaneously -appreciate input form cardiology pt will continue with put pt Sotalol dose 80 mg BID does not have any symptom of dizzy spell or palpitation cont therapeutic sub q Lovenox bridge with Coumadin -Coumadin dose to 7.5mg daily -stable to be discharged home with Lovenox bridge appointment scheduled to follow up with Coagulation clinic on Friday06/21/16 out pt follow up with Cardiology in 2-3 weeks will be scheduled for out pt ECHO at [facility] SUBTHERAPEUTIC INR INR 1.4 today ( goal 2-3 ) -Lovenox bridge-as pt was in Afib > 12 hrs -increased Coumadin to 7.5 mg daily -will be discharged home with Lovenox bridge , Coumadin 7.5 mg PO Daily close follow up with Coag clinic H/O AVR hx of severe aortic regurgitation /aortic root aneurysm -s/p Ross procedure in 2000 HLD -continue Statin TOBACCO ABUSE -Cessation counseling given -Nicotine patch ordered - DEPRESSION -continue Effexor GERD -continue PPI CODE STATUS: FULL CODE DVT PROPHYLAXIS Coumadin /Lovenox bridge DISPOSITION Discharge home today Total time spent on discharge = 40 mins This includes examination of the patient, discharge planning, medication reconciliation, and communication with other providers. Discharge Instructions DI: Medical v4 Discharge Instructions Admission Reason for Admission: Rapid Atrial Fibrillation Discharge Discharge Diagnosis / Problem: AFIB RVR Discharge Goals Goal(s): Improve disease control, Diagnostic testing, Therapeutic intervention Activity Recommendations Activity Limitations: resume your previous activity . Instructions / Follow-Up Instructions / Follow-Up COAGULATION CLINIC FOLLOW UP AT [facility] ON FridayJUN 21 @ 11 AM FOR PT/INR CHECK SUB Q LOVENOX WILL BE DISCONTINUED ONCE INR ~2 PLEASE FOLLOW UP WITH COAGULATION CLINIC FOR RECOMMENDATION HOSPITAL FOLLOW UP WITH DR ANDERSON ON Jun @ 12: 50 PM, CARDIOLOGY FOLLOW UP WITH SHANIQUE TINEO PA-C IN 2-3 WEEKS , OFFICE WILL CALL WITH APPOINTMENT Current Hospital Diet Patient's current hospital diet: AHA Diet (Heart Healthy) Discharge Diet Recommended Diet: AHA Diet (Heart Healthy) Pending Studies Studies pending at discharge: yes List of pending studies: OUT PATIENT ECHO WILL BE DONE AT [facility] Medical Emergencies . Who to Call and When: Medical Emergencies: If at any time you feel your situation is an emergency, please call 911 immediately. . Non-Emergent Contact Non-Emergency issues call your: Primary Care Provider . . "Provider Documentation" section prepared by Birdie Angeles. VTE Core Measure Inpt VTE Proph given/why not?: Enoxaparin (Lovenox)SQ Additional Copies To Emerson Hernandez M.D. Lombardo, Mark, PA-C
--- NOTE | 2017-03-10 11:51 | PROGRESS NOTE ---
DATE: 03/10/2017 CARDIOLOGY CONSULTATION FOLLOWUP NOTE The patient seen and examined. Chart, medications, telemetry reviewed. SUBJECTIVE: The patient feels well, underwent synchronized electrical cardioversion earlier this morning, is wide awake now, notes no focal complaints and notes no chest pains or discomfort. OBJECTIVE: VITAL SIGNS: Heart rate is 68, blood pressure is 105/67. HEENT: Normocephalic, atraumatic. Nares without discharge. Throat was clear. NECK: Supple. There is no thyromegaly, lymphadenopathy. There is no jugular venous distention. LUNGS: Clear to auscultation. CARDIOVASCULAR: Regular with a grade 2/6 systolic ejection murmur. There is no diastolic murmur. ABDOMEN: Soft, nontender. There is no palpable hepatosplenomegaly. EXTREMITIES: Without cyanosis or clubbing. There is trace pedal edema. DATA: EKG post-cardioversion demonstrated sinus rhythm at a rate of 65 with normal tracing, QT corrected was 453. IMPRESSION AND PLAN: A 66-year-old female with paroxysmal atrial fibrillation, admitted with atrial fibrillation with rapid ventricular response, now status post successful synchronized electrical cardioversion. Sotalol has been increased to 120 mg twice per day. Plan on maintaining in hospital on telemetry an additional 24 hours, anticipated discharge in a.m. with no further arrhythmias and QT interval remains without significant prolongation. The patient is agreeable to plan. INR is therapeutic at 2.0, would continue usual dosing of anticoagulation. Other underlying issues include history of Ross procedure with stable cardiac anatomy.
== END 2016-06-19 16:32 | disposition home or self-care (01) | DRG 309 ==
LOC: ENRESERVTM → ENRESERVDT → C.EDB 16:48 → C.2T 18:36
PROVIDERS: ADMIT Emergency Medicine; ATTEND Hospitalist
DX: I48.0 Paroxysmal atrial fibrillation (principal); Z68.42 Body mass index [BMI] 45.0-49.9, adult; F32.9 Major depressive disorder, single episode, unspecified; F17.210 Nicotine dependence, cigarettes, uncomplicated; K21.9 Gastro-esophageal reflux disease without esophagitis; E78.5 Hyperlipidemia, unspecified; I10 Essential (primary) hypertension; E66.9 Obesity, unspecified; R79.1 Abnormal coagulation profile; Z95.4 Presence of other heart-valve replacement; Z86.79 Personal history of other diseases of the circulatory system; Z79.82 Long term (current) use of aspirin; Z79.51 Long term (current) use of inhaled steroids; Z79.01 Long term (current) use of anticoagulants; Z79.899 Other long term (current) drug therapy

== ENCOUNTER 2017-03-08 18:05 | Inpatient (IN) | payer OTHER ==
[~2017-03-08] VITALS: Ht 152.4 cm; Wt 95.8 kg
[~2017-03-08 18:05] MED LIST changes: +ADVIN25/60 INH; -AMOX500T3 PO; +CMD75 PO; +LVNIS100 SQ; -PRED20TA PO; +VNTHFA/IN INH; -WARF-246 PO
[2017-03-08] MEDS ORDERED: SODIUM CHLORIDE 0.9% 1000ML 1,000 ML IV STA (18:17)
--- NOTE | 2017-03-08 18:37 | EMERGENCY ROOM VISIT NOTE ---
History Report prepared by Arlen: Sascha Zayas Under the Supervision of: Dr. Bradley Zapata D.O. First contact with patient: 18:13 Chief Complaint: CARDIAC ASSESSMENT Stated Complaint: POSSIBLE ATRIAL FIBRILATION History of Present Illness The patient is a 66 year old female who presents to the Emergency Room with complaints of possible atrial fibrillation that began this morning. At this time , she states that her heart began to feel irregular. This has happened to her in the past with her heart going into atrial fibrillation. She states that her symptoms feel similar to her past symptoms. She takes Sotalol 2 times a day and is on Coumadin. She is having some mild shortness of breath without any chest pain. She has chronic lower extremity edema but is not having any leg pain. She has been eating and drinking well and denies any known problems with her thyroid. She has a history of asthma and multiple heart conditions. Last week she had bronchitis and notes that she increased her regular inhaler use. Source of History: patient Onset: this morning Position: other (Heart) Symptom Intensity: moderate Quality: other (Palpitations) Timing: constant Associated Symptoms: + SOB, No chest pain Note: She denies any leg pain. Review of Systems See HPI for pertinent positives & negatives. A total of 10 systems reviewed and were otherwise negative. Past Medical & Surgical Medical Problems: (1) Aortic valve disorder (2) Atrial fibrillation with RVR (3) Chronic anticoagulation (4) Dyslipidemia (5) History of asthma (6) History of cardioversion (7) Major depression (8) Paroxysmal atrial fibrillation (9) Rapid atrial fibrillation Surgical Problems: (1) H/O aortic valve replacement using Ross procedure (2) History of carpal tunnel surgery Family History Hypertension Social History Smoking Status: Current Every Day Smoker Drug Use: none Occupation Status: retired Current/Historical Medications Scheduled Aspirin (Aspirin Ec), 81 MG PO DAILY Atorvastatin (Lipitor), 40 MG PO HS Fluticasone Prop/Salmeterol (Advair Diskus 250/50 60 Dose), 1 PUFF INH BID Furosemide (Lasix), 20 MG PO DAILY Omeprazole (Prilosec), 20 MG PO DAILY Potassium Chloride Microencaps (Potassium Chloride Er), 20 MEQ PO DAILY Ramipril (Ramipril), 2.5 MG PO DAILY Sotalol HCl (Sotalol HCl), 80 MG PO BID17 Venlafaxine Hcl (Venlafaxine Hcl Er), 75 MG PO HS Warfarin Sod (Jantoven), 7.5 MG PO 3XWK Warfarin Sod (Jantoven), 1.5 TAB PO 4XWK Scheduled PRN Albuterol Hfa (Ventolin Hfa), 2 PUFFS INH Q4H PRN for SOB/Wheezing Allergies Coded Allergies: Prednisone (Unverified Allergy, Unknown, a-fib, 06/18/16) Physical Exam Vital Signs Date Time Temp Pulse Resp B/P (MAP) Pulse Ox O2 Delivery O2 Flow Rate FiO2 03/08/17 20:30 112 20 123/90 93 Room Air 03/08/17 19:38 117 20 154/88 95 Room Air 03/08/17 18:35 96 Room Air 03/08/17 18:28 135 18 171/82 96 Room Air 03/08/17 18:25 138 03/08/17 18:20 98 Room Air 03/08/17 18:10 36.4 141 20 161/82 94 Room Air Physical Exam GENERAL: Patient is awake, alert, and in no acute distress. Patient is resting comfortably and showing no signs of anxiety EYES: The conjunctivae are clear. The pupils are round and reactive. EARS, NOSE, MOUTH AND THROAT: The nose is without any evidence of any deformity. Mucous membranes are moist tongue is midline NECK: The neck is nontender and supple. RESPIRATORY: Normal respiratory effort is noted there is no evidence of wheezing rhonchi or rales CARDIOVASCULAR: Tachycardic rate and irregular rhythm noted to auscultation. There are no definite murmurs rubs or gallops normal S1 normal S2 GASTROINTESTINAL: The abdomen is soft. Bowel sounds are present in all quadrants. Abdomen is nontender MUSCULOSKELETAL/EXTREMITIES: There is no evidence of gross deformity full range of motion is noted in the hips and shoulders SKIN: Pedal edema bilaterally. There is no obvious evidence of any rash. There are no petechiae, pallor or cyanosis noted. NEUROLOGIC: Patient is awake alert and oriented x3 Medical Decision & Procedures ER Provider Diagnostic Interpretation: Radiology results as stated below per my review and radiologist interpretation: CHEST ONE VIEW PORTABLE CLINICAL HISTORY: 66 years-old Female presenting with CHEST PAIN. TECHNIQUE: Portable upright AP view of the chest was obtained. COMPARISON: 06/18/2016. FINDINGS: Median sternotomy wires intact. Mildly prominent cardiac silhouette. Atherosclerosis of aortic arch. Lungs and pleural spaces clear. Degenerative changes of the thoracic spine. Upper abdomen normal. IMPRESSION: 1. Mild cardiomegaly. Otherwise no acute cardiopulmonary disease. Electronically signed by: Christopher Bass M.D. 03/08/2017 7:07 PM Dictated Date/Time: 03/08/2017 7:06 PM Laboratory Results Test 03/08/17 18:27 Activated Partial Thromboplast Time 35.5 SECONDS (21.0-31.0) Partial Thromboplastin Ratio 1.4 Magnesium Level 2.0 mg/dl (1.8-2.4) Total Bilirubin 0.5 mg/dl (0.2-1) Direct Bilirubin 0.1 mg/dl (0-0.2) Aspartate Amino Transf (AST/SGOT) 19 U/L (15-37) Alanine Aminotransferase (ALT/SGPT) 23 U/L (12-78) Alkaline Phosphatase 123 U/L (45-117) Total Protein 8.2 gm/dl (6.4-8.2) Albumin 3.7 gm/dl (3.4-5.0) Lipase 89 U/L (73-393) Thyroid Stimulating Hormone (TSH) 1.490 uIu/ml (0.300-4.500) Laboratory results per my review. Medications Administered Medications (Trade) Dose Ordered Sig/Nichol Route Start Time Stop Time Status Last Admin Dose Admin Sodium Chloride 1,000 ml @ 999 mls/hr Q1H1M STAT IV 03/08/17 18:17 03/08/17 19:17 DC 03/08/17 18:25 999 MLS/HR Sotalol HCl (Betapace Tab) 80 mg NOW ONCE PO 03/08/17 19:30 03/08/17 19:31 DC 03/08/17 19:38 80 MG Diltiazem HCl (Cardizem Inj) 10 mg NOW STAT IV 03/08/17 20:21 03/08/17 20:22 DC 03/08/17 20:46 10 MG ECG Indication: palpitations Rate (beats per minute): 141 Rhythm: atrial fibrillation Findings: other (RVR, no STS abnormalities) Comparison ECG Date: 19 Jun 2016 Change: A-fib is new compared to now. ED Course 1812: The patient was evaluated in room B7. A complete history and physical examination were performed. 1816: Ordered NSS 1,000 ml @ 999 mls/hr IV 1929: Ordered Betapace Tab 80 mg PO 2020: Ordered Cardizem Inj 10 mg IV 2021: Upon reevaluation, the patient is resting. I discussed results and treatment plan with her. She verbalizes agreement and understanding. I spoke with Dr. Capps of the [facility]. The patient will be evaluated for further management and care. Medical Decision Differential diagnosis: Etiologies such as premature contractions, electrolyte abnormality, cardiac dysrhythmia, thyroid dysfunction, pulmonary embolism, infection, gastrointestinal, as well as others were entertained. Nursing notes reviewed. The patient is a 66-year-old female who presented to the emergency department for evaluation of palpitations. The patient was found have atrial fibrillation with rapid ventricular response. The patient has had similar episodes in the past. She states that she has been compliant with her medications. She was treated with IV fluids as well as medications for rate control while she is in the emergency department. She was reevaluated multiple times. I discussed the patient's laboratory and radiographic studies with her. Because the degree of symptoms I also discussed her case with the on-call [facility]ist. They' ve agreed to evaluate the patient in emergency department for further management and disposition. Medication Reconcilliation Current Medication List: was personally reviewed by me Blood Pressure Screening Patient's blood pressure: Elevated blood pressure Blood pressure will be addressed during the patient's in patient stay. Consults Consulting Physician: Dr Don Impression Primary Impression: Atrial fibrillation with rapid ventricular response Scribe Attestation The scribe's documentation has been prepared under my direction and personally reviewed by me in its entirety. I confirm that the note above accurately reflects all work, treatment, procedures, and medical decision making performed by me. Departure Information Dispostion Being Evaluated By Hospitalist Referrals Emerson Hernandez M.D. (PCP) Patient Instructions My [facility]
[2017-03-08 18:42] LABS: BASO % 0.6 %; BASO ABS # 0.04 K/uL (0-0.2); COMPLETE YES; EOS % 2.6 %; HEMATOCRIT 46.4 % (37-47); IG% 0.1 %; LYMPH % 33.6 %; LYMPH ABS # 2.44 K/uL (1.2-3.4); MEAN CELL VOLUME 96.7 fL (80-100); MEAN CORPUSCULAR HEMOGLOBIN 31.5 pg (25-34); MEAN CORPUSCULAR HGB CONC 32.5 g/dl (32-36); MEAN PLATELET VOLUME 9.5 fL (7.4-10.4); MONO % 4.1 %; PLATELET COUNT 245 K/uL (130-400); WHITE BLOOD COUNT 7.27 K/uL (4.8-10.8)
[2017-03-08 18:53] LABS: INR 2.1 (0.9-1.1); PARTIAL THROMBOPLASTIN RATIO 1.4; PROTHROMBIN TIME (PATIENT) 23.4 SECONDS (9.0-12.0)
[2017-03-08] MEDS ORDERED: WARF7.5T4 PO ×2 (18:53)
[2017-03-08 19:00] LABS: ALT/SGPT 23 U/L (12-78); BLOOD UREA NITROGEN 13 mg/dl (7-18); BUN/CREATININE RATIO 15.2 (10-20); CALCIUM 9.7 mg/dl (8.5-10.1); CARBON DIOXIDE 26 mmol/L (21-32); CHLORIDE 107 mmol/L (98-107); CREATININE 0.85 mg/dl (0.60-1.20); GLUCOSE 112 mg/dl (70-99); POTASSIUM 4.1 mmol/L (3.5-5.1); SODIUM 140 mmol/L (136-145)
[2017-03-08 19:05] LABS: ALKALINE PHOSPHATASE 123 U/L (45-117); AST/SGOT 19 U/L (15-37)
--- NOTE | 2017-03-08 19:08 | DIAGNOSTIC IMAGING REPORT ---
CHEST ONE VIEW PORTABLE CLINICAL HISTORY: 66 years-old Female presenting with CHEST PAIN. TECHNIQUE: Portable upright AP view of the chest was obtained. COMPARISON: 06/18/2016. FINDINGS: Median sternotomy wires intact. Mildly prominent cardiac silhouette. Atherosclerosis of aortic arch. Lungs and pleural spaces clear. Degenerative changes of the thoracic spine. Upper abdomen normal. IMPRESSION: 1. Mild cardiomegaly. Otherwise no acute cardiopulmonary disease. Electronically signed by: Christopher Bass M.D. 03/08/2017 7:07 PM Dictated Date/Time: 03/08/2017 7:06 PM
[2017-03-08] MEDS ORDERED: SOTALOL HCL 80 MG TAB PO ONE (19:30)
[2017-03-08] MEDS ORDERED: DILTIAZEM HCL 5 MG/ML 5 ML VIAL IV STA (20:21)
[2017-03-08] MEDS ORDERED: LEVALBUTEROL/IPRATROPIUM NEB INH PRN (21:00)
[2017-03-08] MEDS ORDERED: TRAMADOL HCL 50 MG TAB PO PRN (21:00)
[2017-03-08] MEDS ORDERED: ACETAMINOPHEN 325 MG TAB PO PRN (21:00)
[2017-03-08] MEDS ORDERED: NITROGLYCERIN 0.4 MG SL PER TAB CHARGE SL PRN (21:00)
[2017-03-08] MEDS ORDERED: IV FLUIDS COMPLETED PRN (21:45)
[2017-03-08] MEDS ORDERED: LEVALBUTEROL 1.25MG/0.5ML NEB INH PRN (22:00)
[2017-03-08] MEDS ORDERED: IPRATROPIUM BROMIDE NEB SOLN 0.02% 2.5 ML VIAL INH PRN (22:00)
[2017-03-08] MEDS ORDERED: WARFARIN SOD 2 MG TAB PO ONE (22:45)
[2017-03-08 23:30] VITALS: BP 139/82; PULSE 90; TEMP 36.6; O2SAT 95; Ht 152.4 cm; Wt 95.8 kg
[2017-03-08] MEDS: ATORVASTATIN 40 MG TAB PO SCH (23:39)
[2017-03-08] MEDS: VENLAFAXINE HCL XR 75 MG CAPXR PO SCH (23:40)
--- NOTE | 2017-03-08 23:40 | HISTORY & PHYSICAL EXAMINATION ---
DATE OF ADMISSION: 03/08/2017 PRIMARY CARE DOCTOR: Emerson Hernandez MD CHIEF COMPLAINT: Palpitations, AFib. HISTORY OF PRESENT ILLNESS: History obtained from patient and records. Medical history significant for paroxysmal AFib, chronic right-sided CHF as per records, subacute bacterial endocarditis per records, hypertension, arthritis, ongoing tobacco abuse, severe AR sp Ross procedure 2000. Recent confinement on June 2016 for rapid AFib. Patient had spontaneous conversion. A few weeks ago, patient had episode of bronchitis. Px recovering from illness. This morning she woke up w/ palpitations, irregular heartbeat, little short of breath than usual, no actual chest pain, legs are little more swollen than usual. Denies caffeine intake. Compliant with home meds. Inhaler use limited to twice a day Denies unusual stress at home. Patient does not check blood pressure at home. Denies dietary discretion. At the Emergency Room, px noted to be in rapid AFib, heart rate in the 130s. Patient was given her nighttime Sotalol and Cardizem IV. Patient currently comfortable. MEDICAL HISTORY: As above. 2D echo from August 2016 showed EF 55%, grade 2 diastolic dysfunction, status post Ross procedure, mild AVR, mild PV stenosis, moderate LAE. PAST SURGICAL HISTORY: She has had Ross procedure, knee surgery, carpal tunnel surgery. HOME MEDICATIONS: Include Ventolin, aspirin, Lipitor, Advair, Lasix, Prilosec, Coumadin, potassium, ramipril, venlafaxine. ALLERGIES: PREDNISONE. FAMILY HISTORY: Hypertension. PERSONAL AND SOCIAL HISTORY: Half pack daily. No chronic intake of alcoholic beverages. Retired [employer]. REVIEW OF SYSTEMS: As per HPI, all other ROS negative. PHYSICAL EXAMINATION: VITAL SIGNS: Blood pressure was noted to be 161/82 later 136/76; pulse rate 135, later 112; RR 18; temperature 36.4; sats 94 on room air. GENERAL: Noted to be obese, comfortable, no respiratory distress, unkempt. SKIN: Normal color, dry. HEENT: [place]on palpebral conjunctivae. Dry mucosa. NECK: Short neck. Midline trachea. Nontender. LUNGS: Decreased breath sounds. No tenderness. Healed scars. CARDIOVASCULAR: irregular. Palpable pulses. ABDOMEN: Soft, nontender. EXTREMITIES: Minimal LE edema, no tenderness. NEUROLOGIC: No gross focality, coherent. LABORATORY DATA: Hemoglobin was noted to be 15.1, hematocrit 46.4, white cells 7.7, platelets 245. Sodium 140, potassium 4.1, chloride 107, CO2 26, BUN 13, creatinine 0.8, glucose 112. INR noted to be 2.1. Chest x-ray showed cardiomegaly. EKG as per my interpretation, rate 140, AFib, ST depression in the inferior leads. QTc 420 ASSESSMENT: 1. Rapid atrial fibrillation ? precipitated by uncontrolled blood pressure. INR therapeutic. 2. hx RSHF as per records 3. History of aortic valve regurgitation/aortic root aneurysm sp Ross procedure /repair. 4. Ongoing tobacco abuse. 5. Leg swelling, rule out deep venous thrombosis. PLAN: Observation PCU. Monitor heart rate response to initial ER intervention. Continue home Sotalol, may need to increase dose from 80 BID to 120 BID while following QTc Consider increasing lisinopril if blood pressure still uncontrolled. Cardio consult in AM if no improvement in the morning. Patient known to G. Lower extremity Dopplers ro DVT. Nicotine patch. DVT prophylaxis.Coumadin, INR 2-3. Full code. MTDD
[2017-03-08 23:41] VITALS: BP 132/72; PULSE 92; TEMP 36.5; O2SAT 96
[2017-03-08] MEDS: FLUTICASONE/SALMETEROL 250/50 (ADVAIR) 14 PUFF/1 INHALER INH SCH (23:42)
[2017-03-09 02:52] VITALS: BP 127/86; PULSE 110; TEMP 36.6; O2SAT 95
--- NOTE | 2017-03-09 06:49 | DIAGNOSTIC IMAGING REPORT ---
BILATERAL LOWER EXTREMITY VENOUS DOPPLER HISTORY: Acute bilateral lower extremity pain and swelling. leg swelling COMPARISON STUDY: None. FINDINGS: There is normal compressibility, flow, and augmentation within the bilateral lower extremity deep venous systems. IMPRESSION: No sonographic evidence of deep venous thrombosis within the right or left lower extremity. Electronically signed by: Ravi Clement M.D. 03/09/2017 6:48 AM Dictated Date/Time: 03/09/2017 6:47 AM
[2017-03-09 07:37] LABS: BASO % 0.7 %; BASO ABS # 0.04 K/uL (0-0.2); COMPLETE YES; HEMATOCRIT 40.3 % (37-47); LYMPH % 42.5 %; LYMPH ABS # 2.28 K/uL (1.2-3.4); MEAN CELL VOLUME 96.6 fL (80-100); MEAN CORPUSCULAR HEMOGLOBIN 31.9 pg (25-34); NEUT % 48.8 %; PLATELET COUNT 191 K/uL (130-400); RED BLOOD COUNT 4.17 M/uL (4.2-5.4); WHITE BLOOD COUNT 5.36 K/uL (4.8-10.8)
[2017-03-09 07:54] VITALS: BP 144/84; PULSE 130; TEMP 36.9; O2SAT 94
[2017-03-09] MEDS: FLUTICASONE/SALMETEROL 250/50 (ADVAIR) 14 PUFF/1 INHALER INH SCH ×2 (07:55→20:55)
[2017-03-09] MEDS: ASPIRIN 81 MG ECTAB PO SCH (07:55)
[2017-03-09] MEDS: NICOTINE 14 MG/24 HR TDSY TD SCH (07:56)
[2017-03-09] MEDS: PANTOprazole SOD 40 MG TAB PO SCH (07:56)
[2017-03-09] MEDS: ENALAPRIL MALEATE 10 MG TAB PO SCH (07:56)
[2017-03-09 07:59] LABS: BLOOD UREA NITROGEN 13 mg/dl (7-18); BUN/CREATININE RATIO 18.7 (10-20); CALCIUM 8.9 mg/dl (8.5-10.1); CARBON DIOXIDE 26 mmol/L (21-32); CHLORIDE 111 mmol/L (98-107); CREATININE 0.67 mg/dl (0.60-1.20); GLUCOSE 93 mg/dl (70-99); POTASSIUM 3.9 mmol/L (3.5-5.1); SODIUM 144 mmol/L (136-145)
[2017-03-09] MEDS ORDERED: PNEUMOCOCCAL POLYSACCHARIDES 25 MCG/0.5 ML VIAL/SYR IM. ONE (08:00)
[2017-03-09] MEDS ORDERED: INFLUENZA ADMINISTRATION CHARGE ONE (08:00)
[2017-03-09] MEDS ORDERED: INFLUENZA VIRUS QUAD VACCINE 0.5 ML SYR IM. ONE (08:00)
[2017-03-09] MEDS ORDERED: PNEUMOCOCCAL ADMINISTRATION CHARGE ONE (08:00)
[2017-03-09 08:05] LABS: PROTHROMBIN TIME (PATIENT) 22.2 SECONDS (9.0-12.0)
[2017-03-09] MEDS ORDERED: SOTALOL HCL 80 MG TAB PO SCH (09:00)
[2017-03-09 11:17] VITALS: BP 120/83; PULSE 98; TEMP 36.5; O2SAT 95
[2017-03-09] MEDS ORDERED: POTASSIUM CHLORIDE 10 MEQ TABCR PO ONE (12:00)
[2017-03-09] MEDS ORDERED: SOTALOL HCL 80 MG TAB PO ONE (12:00)
[2017-03-09 15:17] VITALS: BP 135/83; PULSE 115; TEMP 36.3; O2SAT 96
[2017-03-09] MEDS ORDERED: WARFARIN SOD 7.5 MG TAB PO SCH (16:00)
[2017-03-09] MEDS: SOTALOL HCL 80 MG TAB PO SCH (16:40)
--- NOTE | 2017-03-09 18:14 | Progress Note ---
Internal Med Progress Note Date of Service: Mar 09, 2017. Provider Documentation: SUBJECTIVE: at present no complain of SOB or palpitation no dizzy spell or lightheadedness OBJECTIVE: Vital Signs-as noted below Exam: General-no sign of distress Eyes-sclera non icteric ENT-NAD Neck-no JVD Lungs-CTA ,no wheeze or rales Heart irregular Abdomen-soft . non tender Extremities-no lower ext edema , no rash or deformity Neuro-no focal deficit Lab data as noted below. ASSESSMENT & PLAN: AFIB RVR : hx of paroxysmal Afib has been rate controlled on Sotalol on 80 mg BID presented with rapid Afib , Sotalol dose increased to 120 mg BID Failed DC Cardioversion on Jul 2015 appreciate input form Cardiology plan for DC Cardioversion in AM cont anticoagulation with Coumadin HX OF VALVULAR HEART DISEASE : hx of severe aortic insufficiency/aortic root aneurysm S/P ROSS Procedure in 2000 , with autograft of pulmonary valve to the aortic position Homograft to pulmonary valve position pre -operative cardiac cath in 2000 -showed non obstructive coronaries HTN : BP stable on Vasotec HYPERLIPIDEMIA : cont statin DVT PROPHYLAXIS on Coumadin DISPOSITION expected to be discharge home when medically stable Vital Signs: Date Time Temp Pulse Resp B/P (MAP) Pulse Ox O2 Delivery O2 Flow Rate FiO2 03/10/17 20:39 36.7 73 18 126/79 (95) 98 Room Air 03/10/17 20:00 Room Air 03/10/17 18:04 76 115/62 (79) 03/10/17 16:00 96 Room Air 03/10/17 15:43 36.5 75 20 115/70 (85) 96 Room Air 03/10/17 12:30 36.4 78 16 129/64 (85) 97 Room Air 03/10/17 12:00 Room Air 03/10/17 11:15 68 103/68 (80) 96 Room Air 03/10/17 10:46 36.7 70 18 98/66 (77) 95 Room Air 03/10/17 10:31 73 16 108/58 (75) 95 Room Air 03/10/17 10:26 71 16 96/55 (69) 95 Room Air 03/10/17 10:21 70 16 91/52 (65) 94 Room Air 03/10/17 10:16 76 16 84/45 (58) 94 Room Air 03/10/17 10:11 71 16 90/56 (67) 94 Room Air 03/10/17 10:05 64 16 86/52 100 Nasal Cannula 6 03/10/17 10:02 68 16 97/56 100 Nasal Cannula 6 03/10/17 10:01 70 16 135/88 100 Nasal Cannula 6 03/10/17 10:00 123 16 144/87 100 Nasal Cannula 6 03/10/17 08:00 Room Air 03/10/17 07:41 36.7 116 18 113/65 (81) 95 Room Air 03/10/17 04:00 Room Air 03/10/17 04:00 36.8 135 18 136/82 (100) 95 03/10/17 00:09 36.5 95 18 133/79 (97) 96 03/10/17 00:00 Room Air Lab Results: Results Past 24 Hours Test 03/10/17 05:38 Range/Units Prothrombin Time 22.1 9.0-12.0 SECONDS Prothromb Time International Ratio 2.0 0.9-1.1 Magnesium Level 2.0 1.8-2.4 mg/dl
[2017-03-09 19:22] VITALS: BP 120/75; PULSE 102; TEMP 36.7; O2SAT 96
[2017-03-09] MEDS: VENLAFAXINE HCL XR 75 MG CAPXR PO SCH (20:55)
[2017-03-09] MEDS: ATORVASTATIN 40 MG TAB PO SCH (20:55)
--- NOTE | 2017-03-09 23:06 | CARDIOLOGY CONSULTATION ---
DATE OF CONSULTATION: 03/09/2017 REFERRING PHYSICIAN: Birdie Angeles MD INDICATIONS: Atrial fibrillation with rapid ventricular response. HISTORY OF PRESENT ILLNESS: The patient is a complex 66-year-old female, whose history is notable for prior Ross procedure and aortic root repair in 2000 with autograft of the pulmonary valve in to the aortic valve position and homograft in to the pulmonary valve position for severe aortic insufficiency and aortic root aneurysm. Preoperative cardiac catheterization in 2000 revealed no obstructive coronary disease. She carries a history of paroxysmal atrial fibrillation, currently controlled, in sinus rhythm with sotalol. The patient required prior synchronized cardioversion in July 2015. Underlying issues include hypertension, dyslipidemia and chronic tobacco use as well as obesity. The patient presents now noting no acute changes; however, was treated for an upper respiratory infection bronchitis in late January. On this day of admission, however, the patient awakened and found she was feeling "out of sorts" and noticed her heart racing throughout the day. She presented to the Emergency Room where she was found to be in atrial fibrillation with elevated ventricular response rate, though minimally symptomatic. She was given a single dose of IV diltiazem and is referred now for further evaluation. She denies fevers, chills, sweats, cough, hoarseness, wheeze or hemoptysis. She notes no changes in medications. She is chronically anticoagulated. She notes no melena, hematochezia, dysuria or hematuria. She notes no rash or arthritic complaints. She has been taking medications as prescribed. Weight has been stable. She notes no sleep disruptions. ALLERGIES: NOTED TO BE PREDNISONE; WITH PREDNISONE RESULTING IN RELAPSE IN ATRIAL FIBRILLATION IN THE PAST. MEDICATIONS: Prior to hospitalization were per list, albuterol inhaler 2 puffs q. 4 hours p.r.n. wheezing, aspirin 81 mg per day, atorvastatin 40 mg at bedtime, Advair Diskus inhaler 1 puff b.i.d., furosemide 20 mg p.o. daily, omeprazole 20 mg p.o. every day, potassium chloride 20 mEq p.o. every day, ramipril 2.5 mg p.o. daily, sotalol 80 mg b.i.d., venlafaxine 75 mg at bedtime, warfarin 7.5 mg three days per week and 1-1/2 tablets of 7.5 mg four days per week PAST SURGICAL HISTORY: As described notable for prior Ross procedure, knee surgeries and carpal tunnel surgery. FAMILY HISTORY: Positive for hypertension and diabetes. SOCIAL HISTORY: The patient is a one-half pack per day smoker. She lives in [place]. 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 She uses no significant alcoholic beverages. PHYSICAL EXAMINATION: GENERAL: The patient is a pleasant, age-appropriate female. VITAL SIGNS: Heart rate is 110-130 and blood pressure is 144/84. HEENT: Normocephalic and atraumatic. Throat is edentulous. NECK: Thick. There is no distinct jugular venous distention. LUNGS: Notable for mildly diminished breath sounds, but are predominantly clear. CARDIOVASCULAR: Irregularly irregular with a grade 1/6 systolic murmur. There is no diastolic murmur. ABDOMEN: Obese, soft and nontender. There is no palpable hepatosplenomegaly. There is no hepatojugular reflux. EXTREMITIES: Without cyanosis or clubbing. There is trace pedal edema only. DATA: Venous duplex of lower extremities; negative. INR is 2.0. EKG reveals atrial fibrillation with rapid ventricular response, rate 141 beats per minute on presentation. Chest x-ray reveals no infiltrate or edema. White cell count is 5.3, hemoglobin is 13.3, sodium is 144, potassium is 3.9, chloride is 111, bicarbonate is 26, BUN is 13, creatinine is 0.67 and TSH is 1.5. IMPRESSION: A 66-year-old female, with a history of complex prior surgical intervention for aortic valve disease with Ross procedure and aortic root repair in 2000, history of paroxysmal atrial fibrillation generally controlled in sinus rhythm with sotalol. She is admitted having lapsed back into atrial fibrillation with mild symptoms of tachy palpitations. She has been appropriately anticoagulated with warfarin. RECOMMENDATIONS: Continue warfarin, increase sotalol to 120 mg twice per day. We will keep patient n.p.o. for consideration of possible synchronized cardioversion in the a.m if no spontaneous conversion. We will supplement potassium. Follow patient in the hospital. [facility]
[2017-03-10] VITALS (15 sets, daily range): BP systolic 86–144; BP diastolic 52–88; PULSE 64–135; TEMP 36.4–36.8; O2SAT 95–100
[2017-03-10 06:19] LABS: PROTHROMBIN TIME (PATIENT) 22.1 SECONDS (9.0-12.0)
[2017-03-10] MEDS: FLUTICASONE/SALMETEROL 250/50 (ADVAIR) 14 PUFF/1 INHALER INH SCH ×2 (08:10→20:07)
[2017-03-10] MEDS: SOTALOL HCL 80 MG TAB PO SCH ×2 (08:10→18:08)
[2017-03-10] MEDS: NICOTINE 14 MG/24 HR TDSY TD SCH (08:11)
[2017-03-10] MEDS: ENALAPRIL MALEATE 10 MG TAB PO SCH (08:11)
[2017-03-10] MEDS: ASPIRIN 81 MG ECTAB PO SCH (08:11)
[2017-03-10] MEDS: PANTOprazole SOD 40 MG TAB PO SCH (08:11)
[2017-03-10] MEDS ORDERED: PROPOFOL IV EMULSION 10 MG/ML 20 ML VIAL IV ONE (09:55)
--- NOTE | 2017-03-10 10:08 | Cardiology Procedure Brief Nt ---
Preliminary Cardiology Note Procedure Date Mar 10, 2017. 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
[2017-03-10] MEDS ORDERED: ATROPINE SULFATE 0.1 MG/ML 5ML SYR IV PRN (10:15)
[2017-03-10] MEDS ORDERED: EpHEDrine SULFATE INJ 50 MG/ML AMP IV PRN (10:15)
--- NOTE | 2017-03-10 10:17 | Anesthesiology Progress Note ---
Anesthesia Post Op Note Date & Time Mar 10, 2017 at 10:17 Vital Signs Pain Intensity: 0 Vital Signs Past 12 Hours Date Time Temp Pulse Resp B/P (MAP) Pulse Ox O2 Delivery O2 Flow Rate FiO2 03/10/17 10:05 64 16 86/52 100 Nasal Cannula 6 03/10/17 10:02 68 16 97/56 100 Nasal Cannula 6 03/10/17 10:01 70 16 135/88 100 Nasal Cannula 6 03/10/17 10:00 123 16 144/87 100 Nasal Cannula 6 03/10/17 08:00 Room Air 03/10/17 07:41 36.7 116 18 113/65 (81) 95 Room Air 03/10/17 04:00 Room Air 03/10/17 04:00 36.8 135 18 136/82 (100) 95 03/10/17 00:09 36.5 95 18 133/79 (97) 96 03/10/17 00:00 Room Air Notes Mental Status: alert / awake / arousable, participated in evaluation Pt Amnestic to Procedure: Yes Nausea / Vomiting: adequately controlled Pain: adequately controlled Airway Patency, RR, SpO2: stable & adequate BP & HR: stable & adequate Hydration State: stable & adequate Anesthetic Complications: no major complications apparent
--- NOTE | 2017-03-10 13:39 | CARDIOVERSION ---
DATE OF OPERATION: 03/10/2017 SYNCHRONIZED ELECTRICAL CARDIOVERSION INDICATIONS: Atrial fibrillation with rapid ventricular response. BRIEF HISTORY: The patient is a 66-year-old female with history of prior Ross procedure in 2000 for severe aortic insufficiency, history of past paroxysmal atrial fibrillation with lapse into atrial fibrillation symptomatic. She is referred now for synchronized electrical cardioversion. PROCEDURE IN DETAIL: After procedure and risks were explained in detail to the patient, informed consent was obtained. The patient was sedated by anesthesia consultation, Dr. Schaffer. Single synchronized electrical cardioversion shock was administered with a 150-joule biphasic countershock with successful conversion to sinus rhythm. Postprocedure the patient aroused, having tolerated well. RECOMMENDATIONS: Continued medical therapy with notable recent increase in sotalol to 120 mg twice per day. I attest to the content of the Intraoperative Record and any orders documented therein. Any exception s are noted below.
[2017-03-10] MEDS ORDERED: WARFARIN SOD 5 MG TAB PO SCH (16:00)
[2017-03-10] MEDS: VENLAFAXINE HCL XR 75 MG CAPXR PO SCH (20:08)
[2017-03-10] MEDS: ATORVASTATIN 40 MG TAB PO SCH (20:08)
--- NOTE | 2017-03-10 21:04 | Progress Note ---
Internal Med Progress Note Date of Service: Mar 10, 2017. Provider Documentation: SUBJECTIVE: no complain of chest pain or SOB s/p cardioversion today remains in normal sinus with rate controlled rhythm OBJECTIVE: Vital Signs-as noted below Exam: General-no sign of distress Eyes-sclera non icteric ENT-NAD Neck-no JVD Lungs-CTA ,no wheeze or rales Heart irregular Abdomen-soft . non tender Extremities-no lower ext edema , no rash or deformity Neuro-no focal deficit Lab data as noted below. ASSESSMENT & PLAN: PAROXYSMAL AFIB s/p synchronized D/c Cardioversion today -successfully cardioverted to sinus presented with rapid Afib , Sotalol dose increased to 120 mg BID ( was on 80 mg BID ) remains in NSR post cardioversion cont anticoagulation with Coumadin HX OF VALVULAR HEART DISEASE : hx of severe aortic insufficiency/aortic root aneurysm S/P ROSS Procedure in 2000 , with autograft of pulmonary valve to the aortic position Homograft to pulmonary valve position pre -operative cardiac cath in 2000 -showed non obstructive coronaries HTN : BP stable on Vasotec HYPERLIPIDEMIA : cont statin DVT PROPHYLAXIS on Coumadin DISPOSITION expected to be discharge home when medically stable Vital Signs: Date Time Temp Pulse Resp B/P (MAP) Pulse Ox O2 Delivery O2 Flow Rate FiO2 03/10/17 20:39 36.7 73 18 126/79 (95) 98 Room Air 03/10/17 20:00 Room Air 03/10/17 18:04 76 115/62 (79) 03/10/17 16:00 96 Room Air 03/10/17 15:43 36.5 75 20 115/70 (85) 96 Room Air 03/10/17 12:30 36.4 78 16 129/64 (85) 97 Room Air 03/10/17 12:00 Room Air 03/10/17 11:15 68 103/68 (80) 96 Room Air 03/10/17 10:46 36.7 70 18 98/66 (77) 95 Room Air 03/10/17 10:31 73 16 108/58 (75) 95 Room Air 03/10/17 10:26 71 16 96/55 (69) 95 Room Air 03/10/17 10:21 70 16 91/52 (65) 94 Room Air 03/10/17 10:16 76 16 84/45 (58) 94 Room Air 03/10/17 10:11 71 16 90/56 (67) 94 Room Air 03/10/17 10:05 64 16 86/52 100 Nasal Cannula 6 03/10/17 10:02 68 16 97/56 100 Nasal Cannula 6 03/10/17 10:01 70 16 135/88 100 Nasal Cannula 6 03/10/17 10:00 123 16 144/87 100 Nasal Cannula 6 03/10/17 08:00 Room Air 03/10/17 07:41 36.7 116 18 113/65 (81) 95 Room Air 03/10/17 04:00 Room Air 03/10/17 04:00 36.8 135 18 136/82 (100) 95 03/10/17 00:09 36.5 95 18 133/79 (97) 96 03/10/17 00:00 Room Air Lab Results: Results Past 24 Hours Test 03/10/17 05:38 Range/Units Prothrombin Time 22.1 9.0-12.0 SECONDS Prothromb Time International Ratio 2.0 0.9-1.1 Magnesium Level 2.0 1.8-2.4 mg/dl
[2017-03-11 03:29] VITALS: BP 116/62; PULSE 67; TEMP 36.5; O2SAT 94
[2017-03-11 06:11] LABS: INR 2.1 (0.9-1.1); PROTHROMBIN TIME (PATIENT) 23.7 SECONDS (9.0-12.0)
[2017-03-11 06:31] LABS: BUN/CREATININE RATIO 19.3 (10-20); CREATININE 0.82 mg/dl (0.60-1.20); POTASSIUM 4.2 mmol/L (3.5-5.1)
[2017-03-11 07:45] VITALS: BP 128/72; PULSE 76; TEMP 37.1; O2SAT 95
[2017-03-11 08:00] VITALS: O2SAT 95
[2017-03-11] MEDS: FLUTICASONE/SALMETEROL 250/50 (ADVAIR) 14 PUFF/1 INHALER INH SCH (09:24)
[2017-03-11] MEDS: SOTALOL HCL 80 MG TAB PO SCH (09:24)
[2017-03-11] MEDS: ENALAPRIL MALEATE 10 MG TAB PO SCH (09:24)
[2017-03-11] MEDS: ASPIRIN 81 MG ECTAB PO SCH (09:25)
[2017-03-11] MEDS: NICOTINE 14 MG/24 HR TDSY TD SCH (09:25)
[2017-03-11] MEDS: PANTOprazole SOD 40 MG TAB PO SCH (09:25)
--- NOTE | 2017-03-11 10:22 | CARDIOLOGY PROGRESS NOTE ---
DATE: 03/11/2017 The patient was seen and examined. Chart, medications, and telemetry were reviewed. SUBJECTIVE: She feels well this morning. She underwent synchronized cardioversion yesterday without difficulty. She has predominantly remained in sinus rhythm and did have a short run of atrial flutter last evening asymptomatically. EKG today reveals sinus without QT prolongation. Overall, feels well. She has been ambulatory in the hallway. OBJECTIVE: VITAL SIGNS: Heart rate is 75. Blood pressure is 128/72. HEENT: Normocephalic and atraumatic. NECK: Thin. There is no jugular venous distention. LUNGS: Clear. CARDIOVASCULAR: Regular. There is no S3 gallop. ABDOMEN: Soft and nontender. EXTREMITIES: Without cyanosis or clubbing. There is no peripheral edema. DATA: EKG today demonstrates sinus rhythm with a rate of 66 with a QT corrected at 463. IMPRESSION: A 66-year-old female with complex history of Ross procedure for aortic insufficiency, history of paroxysmal atrial fibrillation with recent lapse. She has now undergone synchronized electrical cardioversion and remains in sinus rhythm. PLAN: The patient may be discharged to home on sotalol 120 mg twice per day. She has a followup scheduled with Kylee Dinh from [facility] on 03/25/2017. MARIOLA
[2017-03-11 11:06] VITALS: BP 130/73; PULSE 70; TEMP 36.5; O2SAT 95
[2017-03-11] MEDS ORDERED: BTP80 PO (11:58)
[2017-03-11 12:00] VITALS: O2SAT 96
--- NOTE | 2017-03-11 12:02 | Discharge Instructions ---
Discharge Instructions Date of Service Mar 11, 2017. Admission Reason for Admission: Rapid Atrial Fibrillation Discharge Discharge Diagnosis / Problem: RAPID AFIB Discharge Goals Goal(s): Decrease discomfort, Increase independence, Improve disease control, Diagnostic testing, Therapeutic intervention Activity Recommendations Activity Limitations: resume your previous activity . Instructions / Follow-Up Instructions / Follow-Up HOSPITAL FOLLOW UP : 03/14/2017 1:20 PM Emerson Hernandez MD Internal Medicine [facility] CARDIOLOGY FOLLOW UP ; 03/25/2017 2:15 PM Kylee Dinh PA-C Cardiology [facility] MEDICATION CHANGE : Sotalol dose increased to 120 mg twice daily ( was on 80 mg twice daily ) Current Hospital Diet Patient's current hospital diet: AHA Diet (Heart Healthy) Discharge Diet Recommended Diet: AHA Diet (Heart Healthy) Pending Studies Studies pending at discharge: no Medical Emergencies . Who to Call and When: Medical Emergencies: If at any time you feel your situation is an emergency, please call 911 immediately. . Non-Emergent Contact Non-Emergency issues call your: Primary Care Provider . . "Provider Documentation" section prepared by Birdie Angeles. . VTE Core Measure Inpt VTE Proph given/why not?: Warfarin (Coumadin)
[2017-03-11 12:13] VITALS: BP 130/73; PULSE 70; TEMP 36.5; O2SAT 95
--- NOTE | 2017-03-11 12:44 | Progress Note ---
Internal Med Progress Note Date of Service: Mar 11, 2017. Provider Documentation: SUBJECTIVE: no complain of chest pain or SOB HR remains stable in sinus with rate controlled no complain of palpitation and dizzy spell evaluated by Cardiology today stable to be discharged home OBJECTIVE: Vital Signs-as noted below Exam: General-no sign of distress Eyes-sclera non icteric ENT-NAD Neck-no JVD Lungs-CTA ,no wheeze or rales Heart regular Abdomen-soft . non tender Extremities-no lower ext edema , no rash or deformity Neuro-no focal deficit Lab data as noted below. ASSESSMENT & PLAN: PAROXYSMAL AFIB s/p synchronized D/c Cardioversion -successfully cardioverted to sinus remain in sinus with rate controlled presented with rapid Afib , Sotalol dose increased to 120 mg BID ( was on 80 mg BID ) remains in NSR post cardioversion cont anticoagulation with Coumadin INR therapeutic appreciate input from cardiology stable to be discharged home with above dose of Sotalol schedule to have out pt cardiology follow up on 03/25/17 HX OF VALVULAR HEART DISEASE : hx of severe aortic insufficiency/aortic root aneurysm S/P ROSS Procedure in 2000 , with autograft of pulmonary valve to the aortic position Homograft to pulmonary valve position pre -operative cardiac cath in 2000 -showed non obstructive coronaries HTN : BP stable on Vasotec HYPERLIPIDEMIA : cont statin DVT PROPHYLAXIS on Coumadin DISPOSITION stable to be discharged home today Vital Signs: Date Time Temp Pulse Resp B/P (MAP) Pulse Ox O2 Delivery O2 Flow Rate FiO2 03/11/17 12:13 36.5 70 16 95 Room Air 03/11/17 11:06 36.5 70 16 130/73 (92) 95 Room Air 03/11/17 09:08 Room Air 03/11/17 08:00 95 Room Air 03/11/17 07:45 37.1 76 18 128/72 (90) 95 Room Air 03/11/17 04:00 Room Air 03/11/17 03:29 36.5 67 18 116/62 (80) 94 Room Air 03/10/17 23:59 Room Air 03/10/17 23:28 36.5 67 20 112/63 (79) 96 Room Air 03/10/17 20:39 36.7 73 18 126/79 (95) 98 Room Air 03/10/17 20:00 Room Air 03/10/17 18:04 76 115/62 (79) 03/10/17 16:00 96 Room Air 03/10/17 15:43 36.5 75 20 115/70 (85) 96 Room Air Lab Results: Results Past 24 Hours Test 03/11/17 05:21 Range/Units Prothrombin Time 23.7 9.0-12.0 SECONDS Prothromb Time International Ratio 2.1 0.9-1.1 Sodium Level 140 136-145 mmol/L Potassium Level 4.2 3.5-5.1 mmol/L Chloride Level 106 98-107 mmol/L Carbon Dioxide Level 27 21-32 mmol/L Anion Gap 7.0 3-11 mmol/L Blood Urea Nitrogen 16 7-18 mg/dl Creatinine 0.82 0.60-1.20 mg/dl Est Creatinine Clear Calc Drug Dose 72.0 ml/min Estimated GFR () 87.6 Estimated GFR (Non- 75.6 BUN/Creatinine Ratio 19.3 10-20 Random Glucose 98 70-99 mg/dl Calcium Level 9.0 8.5-10.1 mg/dl Magnesium Level 2.0 1.8-2.4 mg/dl
--- NOTE | 2017-03-11 12:47 | Discharge Summary ---
Discharge Summary Date of Service Mar 11, 2017. Discharge Summary Admission Date: Mar 10, 2017 at 12:43 Discharge Date: Mar 11, 2017 Discharge Disposition: Home Principal Diagnosis: Rapid Atrial Fibrillation Procedures: SYNCHRONIZED DC CARDIOVERSION Consultations: [facility] CARDIOLOGY DR PERALTA Medication Reconciliation New Medications: Sotalol HCl (Sotalol HCl) 80 Mg Tab 120 MG PO BID17 for 30 Days, #90 TAB 3 Refills Continued Medications: Albuterol Hfa (Ventolin Hfa) 200 Puffs/34366 Mcg Aers 2 PUFFS INH Q4H PRN for SOB/Wheezing, #1 INHALER Aspirin (Aspirin Ec) 81 Mg Tab 81 MG PO DAILY Atorvastatin (Lipitor) 40 Mg Tab 40 MG PO HS, TAB Fluticasone Prop/Salmeterol (Advair Diskus 250/50 60 Dose) 1 Ea Aerp 1 PUFF INH BID, INHALER Furosemide (Lasix) 20 Mg Tab 20 MG PO DAILY, TAB Omeprazole (Prilosec) 20 Mg Capcr 20 MG PO DAILY, CAP Potassium Chloride Microencaps (Potassium Chloride Er) 20 Meq Tab 20 MEQ PO DAILY, TAB Ramipril (Ramipril) 2.5 Mg Cap 2.5 MG PO DAILY, CAP Venlafaxine Hcl (Venlafaxine Hcl Er) 75 Mg Tab 75 MG PO HS Warfarin Sod (Jantoven) 7.5 Mg Tab 7.5 MG PO 3XWK, TAB TAKE TU, THUR, SAT Warfarin Sod (Jantoven) 7.5 Mg Tab 1.5 TAB PO 4XWK, TAB SUN, MON, WED, FRI Discontinued Medications: Sotalol HCl (Sotalol HCl) 80 Mg Tab 80 MG PO BID17 for 30 Days, #60 TAB Referrals At Discharge Follow up Referrals: [employer]per Referral - 03/25/17 with Kylee Dinh PA-C Physician Referral - 03/14/17 with Emerson Hernandez M.D. Admission Information HPI (per Admitting provider): DATE OF ADMISSION: 03/08/2017 PRIMARY CARE DOCTOR: Emerson Hernandez MD CHIEF COMPLAINT: Palpitations, AFib. HISTORY OF PRESENT ILLNESS: History obtained from patient and records. Medical history significant for paroxysmal AFib, chronic right-sided CHF as per records, subacute bacterial endocarditis per records, hypertension, arthritis, ongoing tobacco abuse, severe AR sp Ross procedure 2000. Recent confinement on June 2016 for rapid AFib. Patient had spontaneous conversion. A few weeks ago, patient had episode of bronchitis. Px recovering from illness. This morning she woke up w/ palpitations, irregular heartbeat, little short of breath than usual, no actual chest pain, legs are little more swollen than usual. Denies caffeine intake. Compliant with home meds. Inhaler use limited to twice a day Denies unusual stress at home. Patient does not check blood pressure at home. Denies dietary discretion. At the Emergency Room, px noted to be in rapid AFib, heart rate in the 130s. Patient was given her nighttime Sotalol and Cardizem IV. Patient currently comfortable. MEDICAL HISTORY: As above. 2D echo from August 2016 showed EF 55%, grade 2 diastolic dysfunction, status post Ross procedure, mild AVR, mild PV stenosis, moderate LAE. PAST SURGICAL HISTORY: She has had Ross procedure, knee surgery, carpal tunnel surgery. HOME MEDICATIONS: Include Ventolin, aspirin, Lipitor, Advair, Lasix, Prilosec, Coumadin, potassium, ramipril, venlafaxine. ALLERGIES: PREDNISONE. FAMILY HISTORY: Hypertension. PERSONAL AND SOCIAL HISTORY: Half pack daily. No chronic intake of alcoholic beverages. Retired [employer]. Physical Exam (per Admitting): REVIEW OF SYSTEMS: As per HPI, all other ROS negative. PHYSICAL EXAMINATION: VITAL SIGNS: Blood pressure was noted to be 161/82 later 136/76; pulse rate 135, later 112; RR 18; temperature 36.4; sats 94 on room air. GENERAL: Noted to be obese, comfortable, no respiratory distress, unkempt. SKIN: Normal color, dry. HEENT: [place] palpebral conjunctivae. Dry mucosa. NECK: Short neck. Midline trachea. Nontender. LUNGS: Decreased breath sounds. No tenderness. Healed scars. CARDIOVASCULAR: irregular. Palpable pulses. ABDOMEN: Soft, nontender. EXTREMITIES: Minimal LE edema, no tenderness. NEUROLOGIC: No gross focality, coherent. Hospital Course PAROXYSMAL AFIB s/p synchronized D/c Cardioversion -successfully cardioverted to sinus remain in sinus with rate controlled presented with rapid Afib , Sotalol dose increased to 120 mg BID ( was on 80 mg BID ) remains in NSR post cardioversion cont anticoagulation with Coumadin INR therapeutic appreciate input from cardiology stable to be discharged home with above dose of Sotalol schedule to have out pt cardiology follow up on 03/25/17 HX OF VALVULAR HEART DISEASE : hx of severe aortic insufficiency/aortic root aneurysm S/P ROSS Procedure in 2000 , with autograft of pulmonary valve to the aortic position Homograft to pulmonary valve position pre -operative cardiac cath in 2000 -showed non obstructive coronaries HTN : BP stable on Vasotec HYPERLIPIDEMIA : cont statin DVT PROPHYLAXIS on Coumadin DISPOSITION stable to be discharged home today Total time spent on discharge = 35 MINS This includes examination of the patient, discharge planning, medication reconciliation, and communication with other providers. Discharge Instructions Discharge Instructions Date of Service Mar 11, 2017. Admission Reason for Admission: Rapid Atrial Fibrillation Discharge Discharge Diagnosis / Problem: RAPID AFIB Discharge Goals Goal(s): Decrease discomfort, Increase independence, Improve disease control, Diagnostic testing, Therapeutic intervention Activity Recommendations Activity Limitations: resume your previous activity . Instructions / Follow-Up Instructions / Follow-Up HOSPITAL FOLLOW UP : 03/14/2017 1:20 PM Emerson Hernandez MD Internal Medicine [facility] CARDIOLOGY FOLLOW UP ; 03/25/2017 2:15 PM Kylee Dinh PA-C Cardiology [facility] MEDICATION CHANGE : Sotalol dose increased to 120 mg twice daily ( was on 80 mg twice daily ) Current Hospital Diet Patient's current hospital diet: AHA Diet (Heart Healthy) Discharge Diet Recommended Diet: AHA Diet (Heart Healthy) Pending Studies Studies pending at discharge: no Medical Emergencies . Who to Call and When: Medical Emergencies: If at any time you feel your situation is an emergency, please call 911 immediately. . Non-Emergent Contact Non-Emergency issues call your: Primary Care Provider . . "Provider Documentation" section prepared by Birdie Angeles. . VTE Core Measure Inpt VTE Proph given/why not?: Warfarin (Coumadin) Additional Copies To Emerson Hernandez M.D. Roan, Kylee Madrid PA-C
[2017-03-11] MEDS ORDERED: WARFARIN SOD 7.5 MG TAB PO SCH (16:00)
== END 2017-03-11 16:01 | disposition home or self-care (01) | DRG 309 ==
LOC: C.EDB 18:09 → C.2T 20:58 → OBSVTOIN 03-10 12:43
PROVIDERS: ADMIT Hospitalist; ATTEND Hospitalist
PROC: 5A2204Z Restoration of Cardiac Rhythm, Single (ICD-10-PCS; principal; 2017-03-10 09:00)
DX: I48.0 Paroxysmal atrial fibrillation (principal); Z68.41 Body mass index [BMI] 40.0-44.9, adult; I11.0 Hypertensive heart disease with heart failure; I50.9 Heart failure, unspecified; R60.0 Localized edema; J45.909 Unspecified asthma, uncomplicated; E78.5 Hyperlipidemia, unspecified; M19.90 Unspecified osteoarthritis, unspecified site; F17.210 Nicotine dependence, cigarettes, uncomplicated; E66.9 Obesity, unspecified; Z23 Encounter for immunization; Z95.4 Presence of other heart-valve replacement; Z79.82 Long term (current) use of aspirin; Z79.51 Long term (current) use of inhaled steroids; Z79.01 Long term (current) use of anticoagulants; Z79.899 Other long term (current) drug therapy

== ENCOUNTER 2017-07-12 17:55 | Observation (INO) | payer OTHER ==
[~2017-07-12] VITALS: Ht 149.9 cm; Wt 98.1 kg
[~2017-07-12 17:55] MED LIST changes: -CMD75 PO; -LVNIS100 SQ
[2017-07-12] MEDS ORDERED: DILTIAZEM HCL 5 MG/ML 5 ML VIAL IV STA ×2 (18:07→23:09)
[2017-07-12 18:26] LABS: BASO % 0.6 %; BASO ABS # 0.05 K/uL (0-0.2); EOS % 2.6 %; HEMATOCRIT 43.3 % (37-47); HEMOGLOBIN 14.9 g/dL (12.0-16.0); IG# 0.01 K/uL (0.00-0.02); LYMPH % 27.1 %; MEAN CELL VOLUME 96.9 fL (80-100); MEAN CORPUSCULAR HEMOGLOBIN 33.3 pg (25-34); MEAN CORPUSCULAR HGB CONC 34.4 g/dl (32-36); MEAN PLATELET VOLUME 10.2 fL (7.4-10.4); MONO % 4.3 %; MONO ABS # 0.33 K/uL (0.11-0.59); NEUT % 65.3 %; NEUT ABS # 5.07 K/uL (1.4-6.5); PLATELET COUNT 217 K/uL (130-400); RED CELL DISTRIBUTION WIDTH CV 13.6 % (11.5-14.5); RED CELL DISTRIBUTION WIDTH SD 48.1 fL (36.4-46.3); WHITE BLOOD COUNT 7.76 K/uL (4.8-10.8)
[2017-07-12 18:34] LABS: INR 2.5 (0.9-1.1); PTT PATIENT 33.4 SECONDS (21.0-31.0)
--- NOTE | 2017-07-12 18:34 | DIAGNOSTIC IMAGING REPORT ---
CHEST ONE VIEW PORTABLE CLINICAL HISTORY: Shortness of breath. COMPARISON STUDY: Chest radiograph March 08, 2017. FINDINGS: Median sternotomy wires are noted. Moderate cardiomegaly is noted without evidence for pulmonary edema. Blunting of the left costophrenic angle is unchanged. No consolidation to suggest pneumonia. IMPRESSION: No acute cardiopulmonary findings. Stable moderate cardiomegaly. Electronically signed by: Paddy Esparza M.D. 07/12/2017 6:33 PM Dictated Date/Time: 07/12/2017 6:32 PM
[2017-07-12 18:42] LABS: CALCIUM 8.8 mg/dl (8.5-10.1); CREATININE 0.9 mg/dl (0.60-1.20); POTASSIUM 3.9 mmol/L (3.5-5.1)
[2017-07-12] MEDS ORDERED: WARF7.5T4 PO ×2 (18:53)
[2017-07-12] MEDS ORDERED: DILTIAZEM BOLUS / DRIP IV STA (19:02)
[2017-07-12] MEDS ORDERED: DILTIAZEM HCL INJ 125 MG in DEXTROSE 5% 100ML IV PRN (19:15)
[2017-07-12] MEDS ORDERED: SOTALOL HCL 80 MG TAB PO ONE (19:15)
[2017-07-12] MEDS ORDERED: POTASSIUM CHLORIDE 20 MEQ TABCR PO STA (19:44)
[2017-07-12] MEDS ORDERED: PROCHLORPERAZINE INJ 5 MG in SYRINGE 4 ML IV PRN (20:15)
[2017-07-12] MEDS ORDERED: WARFARIN SOD 2 MG TAB PO ONE (20:15)
[2017-07-12] MEDS ORDERED: LORAZEPAM INJ 0.5 MG in SYRINGE 0.75 ML IV PRN (20:15)
[2017-07-12] MEDS ORDERED: LORAZEPAM 2 MG/ML 1 ML VIAL IV PRN (20:15)
[2017-07-12] MEDS ORDERED: NITROGLYCERIN 0.4 MG SL PER TAB CHARGE SL PRN (20:15)
[2017-07-12] MEDS ORDERED: TRAMADOL HCL 50 MG TAB PO PRN (20:15)
[2017-07-12] MEDS ORDERED: ACETAMINOPHEN 325 MG TAB PO PRN (20:15)
[2017-07-12] MEDS ORDERED: IV FLUIDS COMPLETED PRN (20:30)
[2017-07-12] MEDS ORDERED: VENLAFAXINE HCL XR 75 MG CAPXR PO SCH (21:00)
[2017-07-12] MEDS ORDERED: ATORVASTATIN 40 MG TAB PO SCH (21:00)
[2017-07-12 21:45] VITALS: BP 142/79; PULSE 112; TEMP 36.7; O2SAT 94; Ht 149.9 cm; Wt 98.1 kg
--- NOTE | 2017-07-12 21:54 | HISTORY & PHYSICAL EXAMINATION ---
DATE OF ADMISSION: 07/12/2017 PRIMARY CARE PHYSICIAN: Emerson Hernandez MD. CHIEF COMPLAINT: Palpitation, shortness of breath. HISTORY OF PRESENT ILLNESS: History obtained from patient and records. Medical history significant for hypertension, PAFib on Coumadin, aortic regurgitation/aneurysm status post Ross procedure repair. ongoing tobacco abuse, chronic right-sided heart failure as per records, arthritis, mood disorder. Patient confined last March 2017 for paroxysmal AFib sp cardioversion. Today patient developed palpitations, shortness of breath while at home. No unusual exertion. She knew she was in A. fib again. No chest pain, no unusual fluid retention, or leg swelling. Compliant with medications. Some personal stress at home. Denies inordinate coffee intake or decongestant intake. No cough symptoms. At the Emergency Room, the patient noted to be in rapid fibrillation. CR 130s. Given Cardizem bolus and her nighttime Sotalol. Heart rate currently down to 90. MEDICAL HISTORY: As above. Last seen [facility] Cardiology office last March 2017. Stable cardiac signs and symptoms at last visit. Sleep medicine evaluation for possible sleep-disordered breathing, weight loss, aerobic exercise recommended. A 2D echo from August 2016 showed EF 55%, grade 2 diastolic dysfunction status post Ross procedure, mild aortic regurgitation, mild pulmonary regurgitation, mild dilatation of ascending aortic, moderate LA enlargement. SURGERIES: She had a Ross procedure, knee surgery, carpal tunnel surgery. HOME MEDICATIONS: Include albuterol p.r.n., sotalol, aspirin, Lipitor, Advair Diskus, Lasix, Prilosec, potassium chloride, ramipril, venlafaxine, Coumadin. ALLERGIES: PREDNISONE. FAMILY HISTORY: There is a family history of hypertension. PERSONAL AND SOCIAL HISTORY: Half pack daily. No chronic intake of alcohol beverages. Retired [employer]. REVIEW OF SYSTEMS: As per HPI, all 10 systems reviewed. All other ROS negative. PHYSICAL EXAMINATION: VITAL SIGNS: Blood pressure was noted to be 150/94, later 140/77, pulse rate 132, later 90, RR 20, temperature 36.9, sats 98 on room. GENERAL: Obese, slightly anxious, no respiratory distress. SKIN: Normal color, warm. HEENT: [place] palpebral conjuctivae. No ptosis. Dry buccal mucosa. NECK: Short, supple. CHEST: CTA, Chronic chest wall tenderness on the left. HEART: Irregular. No murmur. ABDOMEN: Some distention, nontender. EXTREMITIES: Minimal LE edema (chronic as per px), no tenderness. No gross deformities. NEUROLOGIC: Coherent. No gross focality. LABORATORY DATA: Hemoglobin was noted to be 14.9, hematocrit 40, white cells 7.76, platelets 270. Sodium 137, potassium 3.9, chloride 109, CO2 25, BUN 13, creatinine 0.9, glucose 124. Point of care troponin was 0.03. INR 2.5 Chest x-ray cardiomegaly, no infiltrate, no congestion. EKG as per my interpretation, rate 130, AFib, no ischemia, QTC was noted to be 450. ASSESSMENT: 1. Recurrent atrial fibrillation. Patient symptomatic. rapid rate upon arrival at the ER currently controlled after initial intervention. anxiety contributory to symptoms. INR therapeutic 2. Hypertension, slightly elevated. 3. Ongoing tobacco abuse. 4. History of aortic regurgitation/aneurysm status post Ross procedure. PLAN: Observation PCU Facilitate Sotalol. Anxiolytic prn Cardiology consult, recurrent AFib. (ER provider already in touch with Dr. Champion, voltage tester on-call. As per ER provider Dr. Champion recommends IV Cardizem infusion if still uncontrolled and to keep patient n.p.o. after midnight for possible cardioversion in AM if patient does not convert to NSR overnight. ) Nicotine patch. DVT prophylaxis, Coumadin INR 2-3. Full code. MTDD
[2017-07-12] MEDS: FLUTICASONE/SALMETEROL 250/50 (ADVAIR) 14 PUFF/1 INHALER INH SCH (21:55)
[2017-07-12] MEDS ORDERED: MAGNESIUM SULFATE 1GM / D5W 1 GM in PREMIXED IN D5W 100 ML IV ONE (22:00)
[2017-07-12] MEDS ORDERED: NSS + 20MEQ KCL 1000ML 1,000 ML IV ONE (22:00)
[2017-07-12 23:20] VITALS: BP 154/86; PULSE 124; TEMP 36.8; O2SAT 94
--- NOTE | 2017-07-12 23:30 | EMERGENCY ROOM VISIT NOTE ---
History Report prepared by Arlen: Denise Arzate Under the Supervision of: Dr. Gera Matthew M.D. First contact with patient: 18:03 Chief Complaint: CARDIAC ASSESSMENT Stated Complaint: HEART IN AFIB History of Present Illness The patient is a 66 year old female who presents to the Emergency Room with complaints of potential Afib beginning yesterday but worsened today. She developed palpitations last night while doing laundry. The patient feels her stress might have caused her symptoms. She has associated SOB and weakness attributed to her chief complaint. Her shortness of breath worse with exertion. She denies any chest pain, fevers, vomiting, diarrhea, or alcohol, caffeine. She reports she has chronic swelling in her left leg but it does not bother her. She has had knee issues and attributes the swelling to that. She does take Coumadin. Source of History: patient Onset: yesterday, worsened today Position: other (heart ) Modifying Factors (Worsening): other (stress) Associated Symptoms: + SOB, + weakness, No fevers, No chest pain, No vomiting, No diarrhea Note: Constant swelling in her right leg but it does not bother her Review of Systems See HPI for pertinent positives & negatives. A total of 10 systems reviewed and were otherwise negative. Past Medical & Surgical Medical Problems: (1) Aortic valve disorder (2) Atrial fibrillation with RVR (3) Chronic anticoagulation (4) Dyslipidemia (5) History of asthma (6) History of cardioversion (7) Major depression (8) Palpitations (9) Paroxysmal atrial fibrillation (10) Rapid atrial fibrillation Surgical Problems: (1) H/O aortic valve replacement using Ross procedure (2) History of carpal tunnel surgery Family History Hypertension Social History Smoking Status: Current Every Day Smoker Drug Use: none Occupation Status: retired Current/Historical Medications Scheduled Aspirin (Aspirin Ec), 81 MG PO DAILY Atorvastatin (Lipitor), 40 MG PO HS Fluticasone Prop/Salmeterol (Advair Diskus 250/50 60 Dose), 1 PUFF INH BID Furosemide (Lasix), 20 MG PO DAILY Omeprazole (Prilosec), 20 MG PO DAILY Potassium Chloride Microencaps (Potassium Chloride Er), 20 MEQ PO DAILY Ramipril (Ramipril), 2.5 MG PO DAILY Sotalol HCl (Sotalol HCl), 120 MG PO BID17 Venlafaxine Hcl (Venlafaxine Hcl Er), 75 MG PO HS Warfarin Sod (Jantoven), 7.5 MG PO 3XWK Warfarin Sod (Jantoven), 1.5 TAB PO 4XWK Scheduled PRN Albuterol Hfa (Ventolin Hfa), 2 PUFFS INH Q4H PRN for SOB/Wheezing Allergies Coded Allergies: Prednisone (Unverified Allergy, Unknown, a-fib, 06/18/16) Physical Exam Vital Signs Date Time Temp Pulse Resp B/P (MAP) Pulse Ox O2 Delivery O2 Flow Rate FiO2 07/12/17 19:02 90 22 141/77 96 Room Air 07/12/17 18:22 128 07/12/17 18:13 98 Room Air 07/12/17 18:13 98 Room Air 07/12/17 17:58 36.9 142 22 153/94 98 Room Air Physical Exam Constitutional: Vital signs reviewed. Eyes: Pupils are equal round reactive to light. Conjunctiva are noninjected. ENT: Pharynx is clear without erythema or exudate. Mucous membranes are moist. Neck supple without meningeal signs. Respiratory: Clear to auscultation bilaterally. Breath sounds are equal bilaterally. Cardiovascular: Irregular irregular rhythm and tachycardic. No rubs or gallops. GI: Soft, nondistended and nontender. Bowel sounds are present. Musculoskeletal: Nonpitting edema bilaterally No lower extremity tenderness. Integumentary: No cyanosis. Neurological: The patient is awake and alert. No focal deficits. Psychiatric: Normal affect. Medical Decision & Procedures ER Provider Diagnostic Interpretation: Radiology results as stated below per my review and the radiologist's interpretation: CHEST ONE VIEW PORTABLE CLINICAL HISTORY: Shortness of breath. COMPARISON STUDY: Chest radiograph March 08, 2017. FINDINGS: Median sternotomy wires are noted. Moderate cardiomegaly is noted without evidence for pulmonary edema. Blunting of the left costophrenic angle is unchanged. No consolidation to suggest pneumonia. IMPRESSION: No acute cardiopulmonary findings. Stable moderate cardiomegaly. Electronically signed by: Paddy Esparza M.D. 07/12/2017 6:33 PM Dictated Date/Time: 07/12/2017 6:32 PM Laboratory Results 07/12/17 18:15 Red Blood Count 4.47, Mean Corpuscular Volume 96.9, Mean Corpuscular Hemoglobin 33.3, Mean Corpuscular Hemoglobin Concent 34.4, Mean Platelet Volume 10.2, Neutrophils (%) (Auto) 65.3, Lymphocytes (%) (Auto) 27.1, Monocytes (%) (Auto) 4.3, Eosinophils (%) (Auto) 2.6, Basophils (%) (Auto) 0.6, Neutrophils # (Auto) 5.07, Lymphocytes # (Auto) 2.10, Monocytes # (Auto) 0.33, Eosinophils # (Auto) 0.20, Basophils # (Auto) 0.05 07/12/17 18:15 Test 07/12/17 18:15 07/12/17 18:17 White Blood Count 7.76 K/uL (4.8-10.8) Red Blood Count 4.47 M/uL (4.2-5.4) Hemoglobin 14.9 g/dL (12.0-16.0) Hematocrit 43.3 % (37-47) Mean Corpuscular Volume 96.9 fL (80-100) Mean Corpuscular Hemoglobin 33.3 pg (25-34) Mean Corpuscular Hemoglobin Concent 34.4 g/dl (32-36) Platelet Count 217 K/uL (130-400) Mean Platelet Volume 10.2 fL (7.4-10.4) Neutrophils (%) (Auto) 65.3 % Lymphocytes (%) (Auto) 27.1 % Monocytes (%) (Auto) 4.3 % Eosinophils (%) (Auto) 2.6 % Basophils (%) (Auto) 0.6 % Neutrophils # (Auto) 5.07 K/uL (1.4-6.5) Lymphocytes # (Auto) 2.10 K/uL (1.2-3.4) Monocytes # (Auto) 0.33 K/uL (0.11-0.59) Eosinophils # (Auto) 0.20 K/uL (0-0.5) Basophils # (Auto) 0.05 K/uL (0-0.2) RDW Standard Deviation 48.1 fL (36.4-46.3) RDW Coefficient of Variation 13.6 % (11.5-14.5) Immature Granulocyte % (Auto) 0.1 % Immature Granulocyte # (Auto) 0.01 K/uL (0.00-0.02) Prothrombin Time 26.1 SECONDS (9.0-12.0) Prothromb Time International Ratio 2.5 (0.9-1.1) Activated Partial Thromboplast Time 33.4 SECONDS (21.0-31.0) Partial Thromboplastin Ratio 1.3 Anion Gap 6.0 mmol/L (3-11) Est Creatinine Clear Calc Drug Dose 65.0 ml/min Estimated GFR () 78.3 Estimated GFR (Non- 67.6 BUN/Creatinine Ratio 14.3 (10-20) Calcium Level 8.8 mg/dl (8.5-10.1) Magnesium Level 1.8 mg/dl (1.8-2.4) Thyroid Stimulating Hormone (TSH) 1.190 uIu/ml (0.300-4.500) Bedside Troponin I < 0.030 ng/ml (0-0.045) Laboratory results as reviewed by me. Medications Administered Medications (Trade) Dose Ordered Sig/Nichol Route Start Time Stop Time Status Last Admin Dose Admin Diltiazem HCl (Cardizem Inj) 10 mg NOW STAT IV 07/12/17 18:07 07/12/17 18:09 DC 07/12/17 18:18 10 MG Sotalol HCl (Betapace Tab) 120 mg NOW ONCE PO 07/12/17 19:15 07/12/17 19:16 DC 07/12/17 19:14 120 MG Potassium Chloride (Klor-Con Tab) 20 meq NOW STAT PO 07/12/17 19:44 07/12/17 21:29 DC 07/12/17 21:56 20 MEQ ECG Indication: palpitations, other Rate (beats per minute): 131 Rhythm: atrial fibrillation (with RVR) Findings: other (Nonspecific STT changes, QRS is 78 milliseconds ) Change: no significant change (March 11, 2017 ) Change: Patient's electrocardiogram per my interpretation. ED Course 1803: The patient was evaluated in room B6. A complete history and physical exam was performed. \ 180: Ordered Cardizem Inj 10 mg IV 1837: I checked on the patient at this time. Her heart is in the 90s and she has no symptoms currently. 1840: The following is the patient's ECG. The indication is Afib with a rate of 94. There is nonspecific STT wave changes and no ectopy. The patient's electrocardiogram was interpreted by me. 185: I checked on the patient at this time. Her heart rate is still in the 90s. I am currently waiting for cardiology to call back. 1855: I spoke with Dr. Champion of Cardiology. We discussed the patient and her results. He said to give her her sotalol right now, and start her on a low Cardizem drip and admit her to the hospital. Her heart rate now is 105 and she agrees with the plan. The patient will be further evaluated. 1901: Ordered Cardizem Bolus / Drip 1 ea IV 1914: Ordered Sotalol HCl 120 mg PO 1919: I spoke with Dr. Pride and he will further evaluate it the patient. 1943: Ordered potassium chloride 20 meq PO 1944: Ordered Magnesium Sulfate 1 gm/Prmx 100 ml @ 250 mls/hr IV 2014: Ordered Potassium Chloride/Sodium chloride 1000 ml @ 100 mls/hr IV Medical Decision This is a 66-year-old female presents with shortness of breath and palpitations. Differential diagnosis includes dysrhythmia, A. fib with RVR, pulmonary embolism, pneumonia, acute coronary syndrome, pneumonia. I did perform a limited focused review of portions of the patient's old chart on the electronic medical record. The patient was admitted in March 2017 for Afib with RVR and underwent electro cardioversion. I did evaluate the patient as noted above. Patient is presenting with palpitations shortness of breath with exertion. She is on Coumadin for paroxysmal A. fib. IV access was established. The patient was placed on a continuous cardiac nurse specialist. I did order and personally review the patient's 12- lead EKG and chest x-ray as described above. Her twelve-lead EKG demonstrates A. fib with RVR. I did treat her with Cardizem 10 mg IV. I did order and review the patient's blood work as noted in the electronic medical record. Her labs are unremarkable. I did reassess the patient. Her heart rate is in the 90s. I did repeat a twelve-lead EKG as described above. Per my interpretation there are no acute ischemic changes. I did discuss case with Dr. Gaspar of cardiology. He recommended giving the patient her sotalol early tonight and starting her on a Cardizem drip at 5 mg per hour. Should she not spontaneously convert overnight she will be cardioverted electrically tomorrow morning. I did discuss the case with the hospitalist and social work case manager. I did discuss the plan with the patient. Medication Reconcilliation Current Medication List: was personally reviewed by me Blood Pressure Screening Patient's blood pressure: Elevated blood pressure Blood pressure disposition: Elevated BP felt to be situational Consults Time Called: 1851 Consulting Physician: Dr. Gaspar, Cardiology Returned Call: 1855 We discussed the patient and her results. He said to give her her sotalol right now, and start her on a low Cardizem drip and admit her to the hospital. Her heart rate now is 105 and she agrees with the plan. The patient will be further evaluated. Additional Consults: Time Called: 1914 Consulted Physician: Dr. Pride Returned Call: 1919 Additional Comments: The patient will be further evaluated. Impression Primary Impression: Atrial fibrillation with rapid ventricular response Critical Care I have personally spent 33 minutes of critical care time in the direct management of this patient. This includes bedside care, interpretation of diagnostic studies and testing, discussion with consultants and patient, and other required patient management activities. This time is in excess of all separately billable procedures. Scribe Attestation The scribe's documentation has been prepared under my direct and personally reviewed by me in its entirety. I confirm that the note above accurately reflects all work, treatment, procedures, and medical decision making performed by me. Departure Information Dispostion Being Evaluated By Hospitalist Referrals Emerson Hernandez M.D. (PCP) Forms IMPORTANT VISIT INFORMATION Patient Instructions [facility]
[2017-07-13] MEDS ORDERED: NSS + 20MEQ KCL 1000ML 1,000 ML IV SCH (02:00)
[2017-07-13 04:12] VITALS: BP 133/94; PULSE 88; TEMP 36.6; O2SAT 96
[2017-07-13 06:13] LABS: BASO % 0.5 %; BASO ABS # 0.03 K/uL (0-0.2); EOS % 3.1 %; EOS ABS # 0.18 K/uL (0-0.5); HEMATOCRIT 38.1 % (37-47); HEMOGLOBIN 12.9 g/dL (12.0-16.0); IG# 0.01 K/uL (0.00-0.02); LYMPH % 43.2 %; LYMPH ABS # 2.49 K/uL (1.2-3.4); MEAN CELL VOLUME 97.7 fL (80-100); MEAN CORPUSCULAR HEMOGLOBIN 33.1 pg (25-34); MEAN CORPUSCULAR HGB CONC 33.9 g/dl (32-36); MONO % 4.9 %; MONO ABS # 0.28 K/uL (0.11-0.59); NEUT % 48.1 %; NEUT ABS # 2.78 K/uL (1.4-6.5); PLATELET COUNT 168 K/uL (130-400); RED CELL DISTRIBUTION WIDTH CV 13.9 % (11.5-14.5); RED CELL DISTRIBUTION WIDTH SD 49.9 fL (36.4-46.3); WHITE BLOOD COUNT 5.77 K/uL (4.8-10.8)
[2017-07-13 06:41] LABS: CALCIUM 8.1 mg/dl (8.5-10.1); CREATININE 0.74 mg/dl (0.60-1.20); POTASSIUM 4.1 mmol/L (3.5-5.1)
[2017-07-13 06:43] LABS: INR 2.5 (0.9-1.1)
[2017-07-13 08:02] VITALS: BP 124/69; PULSE 80; TEMP 36.5; O2SAT 96
[2017-07-13] MEDS ORDERED: SOTALOL HCL 80 MG TAB PO SCH (09:00)
[2017-07-13] MEDS ORDERED: PANTOprazole SOD 40 MG TAB PO SCH (09:00)
[2017-07-13] MEDS ORDERED: NICOTINE 14 MG/24 HR TDSY TD SCH (09:00)
[2017-07-13] MEDS ORDERED: POTASSIUM CHLORIDE 20 MEQ TABCR PO SCH (09:00)
[2017-07-13] MEDS ORDERED: ASPIRIN 81 MG ECTAB PO SCH (09:00)
[2017-07-13] MEDS ORDERED: ENALAPRIL MALEATE 10 MG TAB PO SCH (09:00)
--- NOTE | 2017-07-13 09:15 | Cardiology Consultation ---
Cardiology Consultation Date of Consultation: Jul 13, 2017 History of Present Illness Melissa Ramírez is a 66 year old female seen in cardiology consultation per the request of Dr. Pride for the evaluation of atrial fibrillation. The patient is well-known to our cardiology service with a past history of Ross procedure for aortic valve regurgitation as well as symptomatic recurrent paroxysmal atrial fibrillation. She had most recently been hospitalized for atrial fibrillation in March 2017 at which time her sotalol dose was increased from 80 mg twice a day to 120 mg twice a day and she underwent synchronized direct- current cardioversion performed by Dr. Lopez of our practice. She is doing well from an atrial fibrillation standpoint in the interim until 2 days ago, when on Friday afternoon she felt that her heart rate was elevated and irregular and had associated exertional shortness of breath. She remained on her medications including Coumadin sotalol. Her symptoms persisted prompting presentation to the emergency room last evening. Her initial vital signs taken on 07/12/17 included a heart rate of 142 bpm. EKG performed at 0 confirmed the presence of atrial fibrillation with rapid ventricular response of 131 bpm with with borderline ST segment depression in the anteroseptal leads. She received a dose of IV diltiazem and her rates it improved to 90 beat per minute range. I spoke to Dr. Owens of the emergency room. We discussed proceeding with direct-current cardioversion however the patient had recently had tea and not been nothing by mouth long enough so therefore it was determined that the best course of action would be to keep her for further observation. An IV diltiazem infusion was initiated, but was discontinued due to atrial fibrillation with relatively slow rates overnight last night. She remains in atrial fibrillation this morning with rates in the 90-100 beat per minute range. She denies any recent anginal symptoms but does note exertional shortness of breath that coincides with the suspected onset of her atrial fibrillation. History Past Medical History: 1. History of severe aortic valve regurgitation and aortic root aneurysm for which the patient underwent a Ross procedure and aortic repair in 2000 at [facility] 2. Diagnostic cardiac catheterization in 2000 prior to valve surgery revealed normal coronary arteries with no obstructive CAD 3. Recurrent paroxysmal atrial fibrillation with past admissions in July 2015 at which time sotalol was added with dose of 80 mg twice a day, recurrent admission June 2016, March 2017-with increasing sotalol to 120 mg twice a day and cardioversion at that time 4. Hypertension 5. Dyslipidemia 6. Ongoing cigarette smoking 7. Obesity Past Surgical History: 1. Aortic valve replacement, Ross procedure, aortic aneurysm repair 2000 2. Cardiac catheterization 2000 3. Direct-current cardioversion July,, March 2017 4. Carpal tunnel release surgery Social History: Patient continues to smoke. She lives with her family Family History: Hypertension Review Of Systems The patient denies any recent fevers or chills. 10 point review of systems is negative with exception of that noted in the history of present illness. Allergies Coded Allergies: Prednisone (Unverified Allergy, Unknown, a-fib, 06/18/16) Medications Reported Home Medications Medications Dose Route/Sig Max Daily Dose Days Date Category Dose Instructions Sotalol HCl 80 Mg Tab 120 Mg PO BID17 30 03/11/17 Rx Jantoven (Warfarin Sodium) 7.5 Mg Tab 1.5 Tab PO 4XWK 03/08/17 Reported SUN, MON, WED, FRI Jantoven (Warfarin Sodium) 7.5 Mg Tab 7.5 Mg PO 3XWK 03/08/17 Reported TAKE TUES, THUR, SAT Advair Diskus 250/50 60 Dose (Fluticasone Prop/Salmeterol) 1 Ea Aerp 1 Puff INH BID 06/18/16 Reported Ventolin Hfa (Albuterol) 200 Puffs/85118 Mcg Aers 2 Puffs INH Q4H PRN 06/18/16 Reported Lasix (Furosemide) 20 Mg Tab 20 Mg PO DAILY 07/25/15 Reported Lipitor (Atorvastatin Calcium) 40 Mg Tab 40 Mg PO HS 07/25/15 Reported Aspirin Ec (Aspirin) 81 Mg Tab 81 Mg PO DAILY 07/25/15 Reported Venlafaxine Hcl Er (Venlafaxine Hcl) 75 Mg Tab 75 Mg PO HS 07/25/15 Reported Ramipril 2.5 Mg Cap 2.5 Mg PO DAILY 07/25/15 Reported Potassium Chloride Er (Potassium Chloride Microencaps) 20 Meq Tab 20 Meq PO DAILY 07/25/15 Reported Prilosec (Omeprazole) 20 Mg Capcr 20 Mg PO DAILY 07/25/15 Reported Physical Exam Vital Signs (Last 8hrs): Last 8 Hrs Date Time Temp Pulse Resp B/P (MAP) Pulse Ox O2 Delivery O2 Flow Rate FiO2 07/13/17 08:02 36.5 80 18 124/69 (87) 96 2/4/18 08:00 Room Air 07/13/17 04:12 36.6 88 18 133/94 (107) 96 Room Air 07/13/17 04:00 Room Air General Appearance: Alert and Oriented x3. NAD. Head: Normocephalic Atraumatic. Eyes: PERRLA, EOMI, conjunctiva and sclera clear Neck: Supple. No carotid bruits noted. No JVD. No HJD. Respiratory: Breath sounds clear to auscultation bilaterally. No w/r/r. Cardiovascular: Reg rate and rhythm. S1 and S2 noted. No murmurs, rubs, gallops. PMI non displace. Abdomen: Normal bowel sounds, soft nontender. no abdominal bruits. Extremities: No edema, no clubbing or cyanosis. distal pulses 2/4 bilaterally. Neuro: No focal deficits. Psychiatric: Normal affect. Data Last Resulted 07/13/17 05:43 Red Blood Count 3.90, Mean Corpuscular Volume 97.7, Mean Corpuscular Hemoglobin 33.1, Mean Corpuscular Hemoglobin Concent 33.9, Mean Platelet Volume 10.0, Neutrophils (%) (Auto) 48.1, Lymphocytes (%) (Auto) 43.2, Monocytes (%) (Auto) 4.9, Eosinophils (%) (Auto) 3.1, Basophils (%) (Auto) 0.5, Neutrophils # (Auto) 2.78, Lymphocytes # (Auto) 2.49, Monocytes # (Auto) 0.28, Eosinophils # (Auto) 0.18, Basophils # (Auto) 0.03 Last Resulted 07/13/17 05:43 Past 24 Hours Test 07/12/17 18:15 07/13/17 05:43 Range/Units Prothromb Time International Ratio 2.5 H 2.5 H 0.9-1.1 Prothrombin Time 26.1 H 26.1 H 9.0-12.0 SECONDS EKG as per history of present illness Telemetry reveals recurrent controlled atrial fibrillation Assessment & Plan Impression: 66-year-old female 1. Recurrent symptomatic paroxysmal atrial fibrillation, rates her rapid on initial presentation at the emergency room last evening 2. History of Ross procedure with aortic valve replacement utilizing homograft( the patient's [place] pulmonic valve transposed to the aortic valve position), and allograft PVR, along with aortic root repair Recommendations: The patient's INR is within the therapeutic range. I reviewed her recent outpatient INR readings, and she has been within the therapeutic range for well over the last month. The patient has remained in atrial fibrillation despite having taken her home dose of sotalol 120 mg twice a day. Recommend proceeding with direct-current cardioversion. I have counseled that anesthesia, and we are going to try to perform cardioversion this am. Since it is a weekend, will transfer patient to the first floor ICU for the procedure. Patient has been NPO since last night at Midnight except medications.
[2017-07-13] MEDS ORDERED: PROPOFOL IV EMULSION 10 MG/ML 20 ML VIAL IV ONE (10:59)
[2017-07-13 11:10] VITALS: BP 123/91; PULSE 103; O2SAT 96
[2017-07-13 11:18] VITALS: BP 105/54; PULSE 63; O2SAT 96
[2017-07-13 11:23] VITALS: BP 111/56; PULSE 54; O2SAT 98
--- NOTE | 2017-07-13 11:26 | Cardioversion ---
Electricial Cardioversion Rpt Date of Service: 07/13/17 Electrical Cardioversion Rprt Pre-Procedure Diagnosis symptomatic atrial fibrillation Post-Procedure Diagnosis successful conversion to sinus rhythm Procedure(s) Performed synchronized direct current cardioversion Marketing Content Manager Mariam Champion DO Spray Drier Operator(s) not applicable Estimated Blood Loss none Preliminary Findings After informed consent was obtained and a time out was performed the patient underwent synchronized direct current cardioversion. A first dose of 200 J of biphasic energy with the pads in the right infraclavicular space and left lateral positions was unsuccessful. A second attempt was performed with pads in the anterior posterior position, with dose of 200 J of biphasic energy with successful conversion to sinus rhythm. Patient received 100 mg of IV propofol, administered by the anesthesia team. Recommendations Continue home dose of sotalol and coumadin. Will reassess in 1 hour, if stable, will plan for DC to home. Specimens none Anesthesia Propofol 100 mg IV. Complication(s) None Disposition Surgical ICU
[2017-07-13] MEDS ORDERED: ATROPINE SULFATE 0.1 MG/ML 5ML SYR IV PRN (11:30)
[2017-07-13] MEDS ORDERED: EpHEDrine SULFATE INJ 50 MG/ML AMP IV PRN (11:30)
--- NOTE | 2017-07-13 11:31 | Anesthesiology Progress Note ---
Anesthesia Post Op Note Date & Time Jul 13, 2017 at 11:31 Vital Signs Pain Intensity: 0.0 Vital Signs Past 12 Hours Date Time Temp Pulse Resp B/P (MAP) Pulse Ox O2 Delivery O2 Flow Rate FiO2 07/13/17 11:10 103 14 123/91 96 Oxymask 6.0 07/13/17 08:02 36.5 80 18 124/69 (87) 96 07/13/17 08:00 Room Air 07/13/17 04:12 36.6 88 18 133/94 (107) 96 Room Air 07/13/17 04:00 Room Air 07/13/17 00:00 Room Air Notes Mental Status: alert / awake / arousable, participated in evaluation Pt Amnestic to Procedure: Yes Nausea / Vomiting: adequately controlled Pain: adequately controlled Airway Patency, RR, SpO2: stable & adequate BP & HR: stable & adequate Hydration State: stable & adequate Anesthetic Complications: no major complications apparent
--- NOTE | 2017-07-13 11:51 | Cardiology Progress Note ---
Cardiology Progress Note Date of Service Jul 13, 2017. Cardiology Progress Note EKG reviewed post cardioversion revealing stable sinus rhythm at 65 bpm with stable corrected QT interval 463 ms. Patient to be transferred back from the first floor intensive care unit to room 219 for recovery. Her diet will be advanced per protocol, she is feeling well, discharge be considered later today.
[2017-07-13] MEDS: FLUTICASONE/SALMETEROL 250/50 (ADVAIR) 14 PUFF/1 INHALER INH SCH (12:10)
--- NOTE | 2017-07-13 13:47 | Progress Note ---
Medicine Progress Note Date & Time of Visit: Jul 13, 2017 at 13:31. Subjective Pt was seen and examined Lying in bed comfortable with no distress with son and daughter in law at bedside Pt said that she feels fine She was successfully cardiovert this morning Denies any chest pain, palpitation, dizziness and SOB Objective Last 8 Hrs Date Time Temp Pulse Resp B/P (MAP) Pulse Ox O2 Delivery O2 Flow Rate FiO2 07/13/17 12:00 Room Air 07/13/17 11:23 54 14 111/56 98 Room Air 07/13/17 11:18 63 14 105/54 96 Room Air Oxymask 07/13/17 11:10 103 14 123/91 96 Oxymask 6.0 07/13/17 08:02 36.5 80 18 124/69 (87) 96 07/13/17 08:00 Room Air Physical Exam: General- No acute distress Head- atraumatic Eyes- PERRL, EOMI ENT- oropharynx clear Neck- supple, no JVD Lungs- No wheezing Heart- regular rhythm Abdomen- normal bowel sounds, soft Extremities- no calf tenderness Neuro- alert, oriented x 3; PERRL, EOMI; no facial palsy Skin- warm & dry Laboratory Results: Last 24 Hours Test 07/12/17 18:15 07/12/17 18:17 07/13/17 05:43 White Blood Count 7.76 K/uL 5.77 K/uL Red Blood Count 4.47 M/uL 3.90 M/uL Hemoglobin 14.9 g/dL 12.9 g/dL Hematocrit 43.3 % 38.1 % Mean Corpuscular Volume 96.9 fL 97.7 fL Mean Corpuscular Hemoglobin 33.3 pg 33.1 pg Mean Corpuscular Hemoglobin Concent 34.4 g/dl 33.9 g/dl Platelet Count 217 K/uL 168 K/uL Mean Platelet Volume 10.2 fL 10.0 fL Neutrophils (%) (Auto) 65.3 % 48.1 % Lymphocytes (%) (Auto) 27.1 % 43.2 % Monocytes (%) (Auto) 4.3 % 4.9 % Eosinophils (%) (Auto) 2.6 % 3.1 % Basophils (%) (Auto) 0.6 % 0.5 % Neutrophils # (Auto) 5.07 K/uL 2.78 K/uL Lymphocytes # (Auto) 2.10 K/uL 2.49 K/uL Monocytes # (Auto) 0.33 K/uL 0.28 K/uL Eosinophils # (Auto) 0.20 K/uL 0.18 K/uL Basophils # (Auto) 0.05 K/uL 0.03 K/uL RDW Standard Deviation 48.1 fL 49.9 fL RDW Coefficient of Variation 13.6 % 13.9 % Immature Granulocyte % (Auto) 0.1 % 0.2 % Immature Granulocyte # (Auto) 0.01 K/uL 0.01 K/uL Prothrombin Time 26.1 SECONDS 26.1 SECONDS Prothromb Time International Ratio 2.5 2.5 Activated Partial Thromboplast Time 33.4 SECONDS Partial Thromboplastin Ratio 1.3 Sodium Level 139 mmol/L 143 mmol/L Potassium Level 3.9 mmol/L 4.1 mmol/L Chloride Level 109 mmol/L 112 mmol/L Carbon Dioxide Level 25 mmol/L 27 mmol/L Anion Gap 6.0 mmol/L 4.0 mmol/L Blood Urea Nitrogen 13 mg/dl 11 mg/dl Creatinine 0.90 mg/dl 0.74 mg/dl Est Creatinine Clear Calc Drug Dose 65.0 ml/min 79.0 ml/min Estimated GFR () 78.3 99.2 Estimated GFR (Non- 67.6 85.6 BUN/Creatinine Ratio 14.3 15.1 Random Glucose 124 mg/dl 88 mg/dl Calcium Level 8.8 mg/dl 8.1 mg/dl Magnesium Level 1.8 mg/dl Thyroid Stimulating Hormone (TSH) 1.190 uIu/ml Bedside Troponin I < 0.030 ng/ml Assessment & Plan Recurrent Paroxysmal atrial fibrillation. Present to the ER with SOB and AFIB with rapid rate on EKG Starting on Cardizem drip last night INR therapeutic (2.5) Successful cardioversion after 2 attempts Remain on NSR on telemonitor Case discussed with Cardiology Dr. Champion recommend to continue outpatient meds Continue aspirin/sotalol and coumadin OK from cardiology standpoint to d/c home today Follow up with the coag clinic Follow up with your primary care provider Dr. Hernandez on 07/17 @ 11:05 AM Hypertension BP stable Continue home dose BP meds Tobacco abuse Counseling on smoking cessation History of aortic regurgitation/aneurysm status post Ross procedure. Stable Dyslipidemia Continue statin DVT px on Coumadin INR therapeutic CODE STATUS FULL CODE Disposition Discharge home today Follow up with the coag clinic Follow up with your primary care provider Dr. Hernandez on 07/17 @ 11:05 AM Follow up with cardiology tech: cardiology Current Inpatient Medications: Current Inpatient Medications Medications (Trade) Dose Ordered Sig/Nichol Route Start Time Stop Time Status Last Admin Dose Admin Potassium Chloride/Sodium Chloride 1,000 ml @ 50 mls/hr Q20H IV 07/13/17 02:00 08/12/17 01:59 07/13/17 01:46 50 MLS/HR Acetaminophen (Tylenol Tab) 650 mg Q4H PRN PO 07/12/17 20:15 08/11/17 20:14 Nitroglycerin (Nitrostat Tab) 0.4 mg UD PRN SL 07/12/17 20:15 08/11/17 20:14 Nicotine (Nicoderm Cq 14MG Patch) 1 patch QAM TD 07/13/17 09:00 08/12/17 08:59 Lorazepam (Ativan Inj) 0.5 mg Q4H PRN IV 07/12/17 20:15 08/11/17 20:14 Tramadol HCl (Ultram Tab) 25 mg Q6H PRN PO 07/12/17 20:15 08/11/17 20:14 Prochlorperazine Edisylate 5 mg/ Syringe 5 ml @ 5 mls/min Q6H PRN IV 07/12/17 20:15 08/11/17 20:14 Miscellaneous (Remove Nicoderm Patch) 1 ea HS N/A 07/13/17 21:00 08/12/17 20:59 Aspirin (Ecotrin Tab) 81 mg DAILY PO 07/13/17 09:00 08/12/17 08:59 07/13/17 12:09 81 MG Atorvastatin Calcium (Lipitor Tab) 40 mg HS PO 07/12/17 21:00 08/11/17 20:59 07/12/17 21:56 40 MG Salmeterol Xinafoate/ Fluticasone (Advair Diskus 250/50 Inh) 1 puff BID INH 07/12/17 21:00 08/11/17 20:59 07/13/17 12:10 1 PUFF Potassium Chloride (Klor-Con Tab) 20 meq DAILY PO 07/13/17 09:00 08/12/17 08:59 07/13/17 12:09 20 MEQ Sotalol HCl (Betapace Tab) 120 mg BID17 PO 07/13/17 09:00 08/12/17 08:59 07/13/17 12:09 120 MG Venlafaxine HCl (effeXOR EXTENDED REL CAP) 75 mg HS PO 07/12/17 21:00 08/11/17 20:59 07/12/17 21:57 75 MG Pantoprazole Sodium (Protonix Tab) 40 mg DAILY PO 07/13/17 09:00 08/12/17 08:59 07/13/17 12:10 40 MG Enalapril Maleate (Vasotec Tab) 10 mg DAILY PO 07/13/17 09:00 08/12/17 08:59 07/13/17 12:10 10 MG Lorazepam 0.5 mg/ Syringe 1 ml @ 1 mls/min Q4H PRN IV 07/12/17 20:15 08/11/17 20:14 Miscellaneous (Iv Fluids Completed) 1 ea PRN PRN N/A 07/12/17 20:30 07/12/18 20:29 Ephedrine Sulfate (EpHEDrine SULFATE INJ) 5 mg Q5M PRN IV 07/13/17 11:30 07/13/17 16:30 Atropine Sulfate (Atropine Sulfate 0.1mg/ml Inj) 0.5 mg Q1M PRN IV 07/13/17 11:30 07/13/17 16:30
--- NOTE | 2017-07-13 13:53 | Discharge Instructions ---
Discharge Instructions Date of Service Jul 13, 2017. Admission Reason for Admission: Palpitations Discharge Discharge Diagnosis / Problem: Recurrent Paroxysmal atrial fibrillation successful cardioversion Discharge Goals Goal(s): Decrease discomfort, Improve function, Improve disease control Activity Recommendations Activity Limitations: resume your previous activity (as tolerated) . Instructions / Follow-Up Instructions / Follow-Up Follow up with your primary care provider Dr. Hernandez on 07/17 @ 11:05 AM Follow up with cardiology (please call to schedule for the follow appointment Follow up with the Coumadin clinic (INR today 2.5) Counseling on smoking cessation Fall precaution Current Hospital Diet Patient's current hospital diet: AHA Diet (Heart Healthy) Discharge Diet Recommended Diet: AHA Diet (Heart Healthy) Pending Studies Studies pending at discharge: no Medical Emergencies . Who to Call and When: Medical Emergencies: If at any time you feel your situation is an emergency, please call 911 immediately. . Non-Emergent Contact Non-Emergency issues call your: Primary Care Provider, Portfolio Architect Call Non-Emergent contact if: you have any medication questions . . "Provider Documentation" section prepared by Yong Orellana. . VTE Core Measure Inpt VTE Proph given/why not?: Warfarin (Coumadin)
[2017-07-13 13:56] VITALS: BP 111/56; PULSE 54; TEMP 36.5; O2SAT 98
--- NOTE | 2017-07-13 17:46 | Discharge Summary ---
Discharge Summary Date of Service Jul 13, 2017. Discharge Summary Admission Date: Jul 12, 2017 at 19:51 Discharge Date: Jul 13, 2017 Discharge Disposition: Home Principal Diagnosis: Recurrent Paroxysmal atrial fibrillation. Secondary Diagnoses/Problems: Hypertension History of aortic regurgitation/aneurysm status post Ross procedure. Tobacco abuse Dyslipidemia Procedures: Successful Cardioversion Consultations: cardiology Medication Reconciliation Continued Medications: Albuterol Hfa (Ventolin Hfa) 200 Puffs/39110 Mcg Aers 2 PUFFS INH Q4H PRN for SOB/Wheezing, #1 INHALER Aspirin (Aspirin Ec) 81 Mg Tab 81 MG PO DAILY Atorvastatin (Lipitor) 40 Mg Tab 40 MG PO HS, TAB Fluticasone Prop/Salmeterol (Advair Diskus 250/50 60 Dose) 1 Ea Aerp 1 PUFF INH BID, INHALER Furosemide (Lasix) 20 Mg Tab 20 MG PO DAILY, TAB Omeprazole (Prilosec) 20 Mg Capcr 20 MG PO DAILY, CAP Potassium Chloride Microencaps (Potassium Chloride Er) 20 Meq Tab 20 MEQ PO DAILY, TAB Ramipril (Ramipril) 2.5 Mg Cap 2.5 MG PO DAILY, CAP Sotalol HCl (Sotalol HCl) 80 Mg Tab 120 MG PO BID17 for 30 Days, #90 TAB 3 Refills Venlafaxine Hcl (Venlafaxine Hcl Er) 75 Mg Tab 75 MG PO HS Warfarin Sod (Jantoven) 7.5 Mg Tab 7.5 MG PO 3XWK, TAB TAKE TU, THUR, SAT Warfarin Sod (Jantoven) 7.5 Mg Tab 1.5 TAB PO 4XWK, TAB SUN, MON, WED, FRI Admission Information HPI (per Admitting provider): CHIEF COMPLAINT: Palpitation, shortness of breath. HISTORY OF PRESENT ILLNESS: History obtained from patient and records. Medical history significant for hypertension, PAFib on Coumadin, aortic regurgitation/aneurysm status post Ross procedure repair. ongoing tobacco abuse, chronic right-sided heart failure as per records, arthritis, mood disorder. Patient confined last March 2017 for paroxysmal AFib sp cardioversion. Today patient developed palpitations, shortness of breath while at home. No unusual exertion. She knew she was in A. fib again. No chest pain, no unusual fluid retention, or leg swelling. Compliant with medications. Some personal stress at home. Denies inordinate coffee intake or decongestant intake. No cough symptoms. At the Emergency Room, the patient noted to be in rapid fibrillation. CR 130s. Given Cardizem bolus and her nighttime Sotalol. Heart rate currently down to 90. Physical Exam (per Admitting): VITAL SIGNS: Blood pressure was noted to be 150/94, later 140/77, pulse rate 132, later 90, RR 20, temperature 36.9, sats 98 on room. GENERAL: Obese, slightly anxious, no respiratory distress. SKIN: Normal color, warm. HEENT: [place] palpebral conjuctivae. No ptosis. Dry buccal mucosa. NECK: Short, supple. CHEST: CTA, Chronic chest wall tenderness on the left. HEART: Irregular. No murmur. ABDOMEN: Some distention, nontender. EXTREMITIES: Minimal LE edema (chronic as per px), no tenderness. No gross deformities. NEUROLOGIC: Coherent. No gross focality. Hospital Course Recurrent Paroxysmal atrial fibrillation. Present to the ER with SOB and AFIB with rapid rate on EKG Starting on Cardizem drip last night INR therapeutic (2.5) Successful cardioversion after 2 attempts Remain on NSR on telemonitor Case discussed with Cardiology Dr. Champion recommend to continue outpatient meds Continue aspirin/sotalol and coumadin OK from cardiology standpoint to d/c home today Follow up with the coag clinic Follow up with your primary care provider Dr. Hernandez on 07/17 @ 11:05 AM Hypertension BP stable Continue home dose BP meds Tobacco abuse Counseling on smoking cessation History of aortic regurgitation/aneurysm status post Ross procedure. Stable Dyslipidemia Continue statin DVT px on Coumadin INR therapeutic CODE STATUS FULL CODE Disposition Discharge home today Follow up with the coag clinic Follow up with your primary care provider Dr. Hernandez on 07/17 @ 11:05 AM Follow up with cardiology Total time spent on discharge = 35 minutes This includes examination of the patient, discharge planning, medication reconciliation, and communication with other providers. Discharge Instructions Discharge Instructions Date of Service Jul 13, 2017. Admission Reason for Admission: Palpitations Discharge Discharge Diagnosis / Problem: Recurrent Paroxysmal atrial fibrillation successful cardioversion Discharge Goals Goal(s): Decrease discomfort, Improve function, Improve disease control Activity Recommendations Activity Limitations: resume your previous activity (as tolerated) . Instructions / Follow-Up Instructions / Follow-Up Follow up with your primary care provider Dr. Hernandez on 07/17 @ 11:05 AM Follow up with cardiology (please call to schedule for the follow appointment Follow up with the Coumadin clinic (INR today 2.5) Counseling on smoking cessation Fall precaution Current Hospital Diet Patient's current hospital diet: AHA Diet (Heart Healthy) Discharge Diet Recommended Diet: AHA Diet (Heart Healthy) Pending Studies Studies pending at discharge: no Medical Emergencies . Who to Call and When: Medical Emergencies: If at any time you feel your situation is an emergency, please call 911 immediately. . Non-Emergent Contact Non-Emergency issues call your: Primary Care Provider, Discotheque Dancer Call Non-Emergent contact if: you have any medication questions . . "Provider Documentation" section prepared by Yong Orellana. . VTE Core Measure Inpt VTE Proph given/why not?: Warfarin (Coumadin) Additional Copies To Emerson Hernandez M.D.
== END 2017-07-13 14:45 | disposition home or self-care (01) ==
LOC: C.EDB 17:56 → C.2T 19:51 → ENRESERV 20:03
PROVIDERS: ADMIT Internal Medicine; ATTEND Internal Medicine
DX: I48.0 Paroxysmal atrial fibrillation (principal); I35.8 Other nonrheumatic aortic valve disorders; E78.5 Hyperlipidemia, unspecified; F32.9 Major depressive disorder, single episode, unspecified; F17.200 Nicotine dependence, unspecified, uncomplicated; I10 Essential (primary) hypertension; E66.9 Obesity, unspecified; J44.9 Chronic obstructive pulmonary disease, unspecified; I50.9 Heart failure, unspecified; M19.90 Unspecified osteoarthritis, unspecified site; F39 Unspecified mood [affective] disorder; Z79.01 Long term (current) use of anticoagulants; Z79.82 Long term (current) use of aspirin; Z82.49 Family history of ischemic heart disease and other diseases of the circulatory system; Z95.2 Presence of prosthetic heart valve

== ENCOUNTER → 2017-09-18 | Outpatient (CLI) | payer OTHER ==
[~2017-09-18] VITALS: Ht 149.9 cm; Wt 98.2 kg
[~2017-09-18] MED LIST changes: +WARF7.5T4 PO
[2017-09-18 15:59] VITALS: BP 144/70; PULSE 87; Ht 149.9 cm; Wt 98.2 kg
== END | disposition home or self-care (01) ==
LOC: C.NEUR 15:35
PROVIDERS: ATTEND Internal Medicine Pulmonary Disease
DX: G47.33 Obstructive sleep apnea (adult) (pediatric) (principal); I48.0 Paroxysmal atrial fibrillation; F45.8 Other somatoform disorders; G25.81 Restless legs syndrome

== ENCOUNTER → 2018-01-29 | Outpatient (CLI) | payer OTHER ==
--- NOTE | 2018-01-30 06:10 | PAP/PSG TECHNICIAN REPORT ---
[facility] [employer] Polysomnogram Report Study name: None Report date: 01/30/2018 Study date: 01/29/2018 Referring Physician: Name: AYE KIM Interpreting Physician: Admin Date of : 1950 [employer]: Marcelle Diallo, PSGT. Sex: Female Age: 67 StudyType: PSG Weight: 216.4 lbs Height: 67 years, Height 4' 11" Neck Circum:13 inches BMI: 43.7 Medications: Advair, Aspirin 81 mg, Atrovastatin 40 mg, Benzonatate 100 mg, Furosemide 20 mg, Klor-Con M20 20 mg, Prilosec OTC 20 mg, ProAir, Ramipril 2.5 mg, Sotalol HCI 120 mg, Veniafaxine HCI ER 75 mg, Warfarin Sodium 5 mg. Patient History 67-year-old female her for a split night study. Patient complains of daytime fatigue, wakes gasping and has a lot of leg movement.Patient also has periods of Afib.Ess= 13, Neck= 15 inches. Patient was SOB when she arrived and wheezing was heard while she walking down the [address]. Parameters Monitored NPSG: E1-M2, E2-M1, Fp1-M2, Fp2-M1, F3-M2, F4-M2, F4-M1, C3-M2, C4-M2, C4-M1, O1-M2, O2-M2, O2-M1, T3-M2, T4-M1, P3-M2, P4-M1, CHIN1, CHIN2, HR, EKG, Legs, PFLOW, SNOR, FLOW, CFLOW, Tidal Volume, THOR, ABDO, SpO2, PLTH, CPRESS, ETCO2 Wave, ETCO2, pH Sleep Architecture Sleep Stages Time at Lights Off 10:12:44 PM STAGES Time (min.) TST (%) Time at Lights On 5:47:44 AM Wake 162.0 -- Total Recording Time (TRT) 456.50 min. N1 18.5 6 Total Sleep Period (TSP) 399.5 min. N2 193.0 66 Total Sleep Time (TST) 293.0min. N3 0.0 0 Awake Time 162.0 min. REM 81.5 28 Wake after Sleep Onset 106.5 min. Sleep Efficiency (SE) 64 % Sleep Onset Latency (AMISHA) 55.5 min. Number of Stage 1 Shifts None Awakenings 19 Stage Changes 59 Number of REM periods 7 REM 81.5 28 REM Latency 56.5 min. NREM 211.5 72 Body Position Analysis Supine Right Left Side Prone Vertical Total Sleep Time (min.) 0.0 0.0 0.0 0.00 0.0 455.0 Total Sleep Time (%) 0% 0% 0% 0 0% 100% Total Sleep Time REM (min.) 0.0 0.0 0.0 None 0.0 81.5 Total Sleep Time NREM (min.) 0.0 0.0 0.0 None 0.0 211.5 Intermittent Wake (min.) 0.0 0.0 0.0 None 0.0 162.0 Total Sleep Period (%) 0% None None None None None Arousals Myoclonus (PLM) * Events Count Index Events Count Index Spontaneous 169 35 Events Awake (PLMW) 4 1.5 Respiratory 8 1.6 Events Asleep w/ Arousal (PLMA) 22 4.5 PLM 22 5 Events Asleep w/o Arousal (PLMS) 193 39.5 Snoring 13 3 Total Asleep 215 44.0 Total 212 43 Total 219 29 Respiratory Analysis * CA OA MA CH H RERA Total Count 0 0 0 0 65 0 65 Index 0.0 0.0 0.0 0 13.3 0 13.3 Mean Duration 0.0 0.0 0.0 0.00 17.7 0.0 17.7 Longest Duration 0.0 0.0 0.0 0.00 0.0 0.0 40.9 Respiratory Event Summary Total Supine ~Supine Right Left Prone REM NREM Apneas Count 0 N/A 0 N/A N/A N/A 0 0 Index 0.0 N/A 0 N/A N/A N/A 0 0 Hypopneas (4% Desat) Count 65 N/A 65 N/A N/A N/A 35 30 Index 13.3 N/A 13 N/A N/A N/A 25.8 8.5 Apneas & All Hypopneas Count 65 N/A 65 N/A N/A N/A 35 30 Index 13.3 N/A 13 N/A N/A N/A 25.8 8.5 Respiratory Events (Shredder/Granulator Operator+All Hyp+RERA) Count 65 N/A 65 N/A N/A N/A 35 30 Index 13.3 N/A 13 N/A N/A N/A 25.8 8.5 Respiratory Related Arousal Count 8 N/A 8 N/A N/A N/A 3 5 Index 1.6 N/A 2 N/A N/A N/A 2 1 Snoring Analysis Supine Right Left Prone REM NREM Total Snore duration 5.3 min Snores count N/A N/A N/A N/A 26 89 115 Snore mean duration 2.7 Sec Snores index N/A N/A N/A N/A 19.1 25.2 23.5 TST with snoring (%) 1.8% Desaturation Event Summary: Minimum %SpO2 Event Count Mean/Min/Max Duration(sec.) Desaturation Index % Time In Bed > 90 68 24.9 / 11.0 / 57.5 33.5 26.9 86 - 90 75 22.4 / 7.0 / 57.5 14.3 69.2 81 - 85 13 15.8 / 7.0 / 33.8 52.9 3.3 76 - 80 1 13.5 / 13.5 / 13.5 21.6 0.6 71 - 75 0 N/A 0.0 0.0 66 - 70 0 N/A 0.0 0.0 61 - 65 0 N/A 0.0 0.0 56 - 60 0 N/A 0.0 0.0 51 - 55 0 N/A 0.0 0.0 < 50 0 N/A 0.0 0.0 Total REM NREM Awake <50% 0.0 min. 0.0 min. 0.0 min. 0.0 min. 51 - 60% 0.0 min. 0.0 min. 0.0 min. 0.0 min. 61 - 70% 0.0 min. 0.0 min. 0.0 min. 0.0 min. 71 - 80% 2.8 min. 2.8 min. 0.0 min. 0.0 min. 81 - 90% 328.5 min. 68.8 min. 168.4 min. 91.3 min. 91 - 100% 121.8 min. 9.9 min. 43.0 min. 68.9 min. Average 89 87 89 90 Minimum SpO2 76 76 85 84 Desaturation Event Index 12.8 31.7 15.3 0.4 # Desat. Events below 89% 96 43 53 0 Time(%) with Saturation below 89% 24.9 10.6 8.8 5.5 Time(min.) with Saturation below 89% 112.6 48.1 39.7 24.8 Time (mins) REM (mins) NREM (mins) % of TST SpO2 Below 90% 97 43 N54 56.8 SpO2 Below 88% 36 0 0 15 Heart Rate Analysis Min (bpm) Max (bpm) Average (bpm) Awake 54 127 61 NREM 53 89 59 REM 55 72 63 Overall 53 89 60 Supplemental O2 Values Minimum O2 level: None Value Start Time End Time [employer] Comments PSG Study MS. Kim slept in supine upright positions. Cardiac arrhythmia displayed, No PLM's noted. No bruxism noted. Snoring was noted and scored as a 2 on a scale of 1 through 5. (0=no snoring, 5=snoring loud enough to be heard through a closed door or down the [address]) awoke to use the restroom zero times during the night. Ms. Kim stated, I did not sleep as well as I do when I sleep in my chair. The final report will be interpreted and signed by a sleep physician. The completed physician report will then be placed in the patient medical record Ms. Kim slept upright in the bed, stating that she could not lay flat, she said she always sleeps sitting up in her recliner. She did not meet split night requirements. Patient did display low oxygen saturations, mild snoring, and woke often. Therapy (cm H2O) 0 TIB (min.) 455.0 TST (min.) 293.0 Sleep Onset (min.) 55.5 REM Onset From Sleep (min.) 56.5 Sleep Efficiency % 64 Wakefulness (%) 36 Wakefulness (min.) 162.0 NREM 1 (%) 6 NREM 1 (min.) 18.5 NREM 2 (%) 66 NREM 2 (min.) 193.0 NREM 3 (%) 0 NREM 3 (min.) 0.0 REM (%) 28 REM (min.) 81.5 # Arousals 212 Arousal Index 43 # Snore 115 Snore Index 23.5 AHI 13.3 AHI Supine N/A AHI Non-Supine 13 NREM AHI 8.5 REM AHI 25.8 RDI 13.3 # Obstructive Apnea 0 # Central Apnea 0 # Mixed Apnea 0 # Hypopneas 65 RERAs 0 Total Respiratory Events 68 Time Below SpO2 89% (min.) 87.8 Mean NREM SpO2 (%) 89 Mean REM SpO2 (%) 87 Mean Sleep SpO2 (%) 89 Min NREM SpO2 (%) 85 Min REM SpO2 (%) 76 Position Supine (min.) 0.0 Position Non-supine (min.) 293.0 LM Index Sleep 44.0 LM Index NREM 44.5 LM Index REM 42.7 Mean Heart Rate (bpm) 60 Min Heart Rate (bpm) 53
--- NOTE | 2018-02-03 10:39 | POLYSOMNOGRAPH REPORT ---
CLINICAL DATA: The patient is a 67-year-old female who has a history of recurring atrial fibrillation and asthma. Her symptoms include snoring, decreased energy, and excessive daytime somnolence. The Blanchard sleepiness scale score is 13 out of a possible 24. This was an in-lab overnight polysomnography. SLEEP ARCHITECTURE: The total sleep period was 399.5 minutes. The total sleep time was 293 minutes. The sleep efficiency was moderately reduced to 64%. The sleep latency was prolonged to 55.5 minutes. Wake after sleep onset was increased to 106.5 minutes. The REM latency was normal at 56.5 minutes. There were 2 REM periods during the night. Sleep consisted of stage N1 6%, stage N2 66%, stage N3 0%, stage REM 28%. AROUSAL DATA: The patient had a total of 212 arousals including 169 spontaneous, 8 respiratory, 22 PLM, and 13 snoring arousals. The arousal index was elevated at 43. PLM DATA: The patient had 215 periodic limb movements of sleep for a PLM index of 44. There were 22 arousals, associated with limb movements for a PLM arousal index of 4.5. EKG: The underlying cardiac rhythm was normal sinus. There were infrequent extrasystoles. The cardiac rates ranged from 53-89 beats per minute with an average of 60 beats per minute. RESPIRATORY DATA: The patient had a total of 65 respiratory events, all hypopneas. Hypopneas were scored according to the 4% desaturation rule. The mean duration of the hypopneas was 17.7 seconds. The apnea hypopnea index was elevated at 13.3. This reflects mild sleep apnea. OXIMETRY DATA: The average saturation for the night was 89%. The minimum saturation was 76%. This did occur during REM sleep. There was a total of 112.6 minutes with saturations less than 89%. [employer] ASSISTANT MANAGER COMMENTS: Ms. Ramírez slept upright in the bed, stating that she always sleeps sitting up in her recliner. Cardiac arrhythmia was noted. No bruxism noted. Snoring was noted and scored as a 2 on a scale of 1 through 5. She did not awaken to use the restroom during the night. She stated she did not sleep as well as she does in her chair. IMPRESSION: 1. Obstructive sleep apnea. 2. Periodic limb movement disorder. COMMENTS: The patient had a decreased sleep efficiency. She had a difficult time initiating sleep. At times her sleep was not well consolidated. She had a fairly prolonged episode of wake in the final one-third of the night. She did have increased respiratory events, particularly in the final 1 hour of sleep when she was in REM sleep. Her REM apnea hypopnea index is elevated at 25.8. Oxygenation was markedly decreased, particularly when she was having respiratory events in REM sleep near the end of the study. There were increased spontaneous arousals. This could be reflective of some degree of upper airway resistance. RECOMMENDATIONS: 1. It is advised that the patient be treated with nasal CPAP. This could be done either by a CPAP titration in the lab or alternatively by auto CPAP. 2. Weight loss is advised in light of the elevation of body mass index at 43.7. 3. No treatment is necessary at present for the underlying limb movement disorder. 4. Sleep apnea should be treated first.
== END | disposition home or self-care (01) ==
LOC: C.NEUR 20:00
PROVIDERS: ATTEND Internal Medicine Pulmonary Disease
DX: G47.33 Obstructive sleep apnea (adult) (pediatric) (principal); G47.61 Periodic limb movement disorder

== ENCOUNTER 2024-04-07 10:21 | Inpatient (IN) ==
--- NOTE | 2024-04-07 10:51 | Emergency Department Note ---
Impression & Plan Anemia Admission ED Provider Note HPI: History obtained from patient. The patient is a 73-year-old female with history of atrial fibrillation, currently on Coumadin, presents the emergency department with progressive shortness of breath over the past week. Patient states several weeks ago she also had some bright red blood per rectum. She had a workup performed in the outpatient setting by the cardiology clinic including lab work and an x-ray yesterday. Today her lab work showed a hemoglobin of 8.7 (in comparison to 10.3 from March 18, 2024) and therefore she was referred to the ER for further management. She reportedly had a chest x-ray that also showed a possible infiltrate. Patient denies any cough or fever but states she has been more short of breath, particularly with exertion. Patient denies any further rectal bleeding after her episode several weeks ago for which she was seen by PCP and this was attributed to hemorrhoids. On arrival here to the ED the patient is hemodynamically stable, she is saturating well on 3 L nasal cannula oxygen on arrival. ROS: - Per HPI Differential Diagnosis: Symptomatic anemia, pneumonia, lower GI bleeding, pulmonary edema, acute CHF exacerbation, amongst other potential pathologies. *Outpatient medications and allergy history reviewed. PE: General: Alert, no acute distress HEENT: Normocephalic, trachea midline Eyes: Extraocular eye movement is intact, no scleral erythema Pulmonary: Clear to auscultation bilaterally, no wheezing Cardio: Regular rate and irregular rhythm GI: Abdomen is soft to palpation, rectal examination performed with female RN at the bedside does not show any evidence of active bleeding or external hemorrhoids, occult stool testing is negative : No suprapubic tenderness MSK: No evidence of trauma or malformation of the extremities, no edema Skin: No evidence of rash Neuro: Alert, no focal deficits Psychiatric: Cooperative INDEPENDENT INTERPRETATIONS: monitoring tech: (As interpreted by myself): - An order was placed for continuous cardiac monitoring - Patient was noted to be in atrial fibrillation with a rate of 85 EKG: (As interpreted by myself): Rate: 97 Rhythm: Atrial fibrillation Intervals: QRS 122 ms, QTc [address] changes: No ST elevation Time: 1052 Chest x-ray: (As interpreted by myself): No focal infiltrate Interventions provided in ED: -IV fluid bolus Medical Decision Making: IV was established and lab work obtained, patient was placed on laboratory monitor. Lab work shows a mild leukopenia at 4.59, hemoglobin is low at 8.1 (hemoglobin was 10.3 per chart review and [facility] system records on 03/18/2024). Platelet count is noted to be normal. INR is subtherapeutic at 1.7. CMP does not show any evidence of any critical findings however creatinine is mildly elevated at 1.62, baseline is normal. Troponin is mildly elevated at 18.2. Viral panel testing is negative. Chest x-ray does not show any obvious pneumonia per my interpretation. Patient is stable on her baseline nasal cannula oxygen here in the ED however given her steadily downtrending hemoglobin from earlier this month with reported GI bleeding, I do feel she should be admitted for further care as she is having dyspnea suggestive of symptomatic anemia. Will hold on transfusion given at this point that her hemoglobin is greater than 8 and she is otherwise hemodynamically stable. I did not find any obvious bleeding on rectal exam or obvious external hemorrhoids. I discussed the above findings with the admitting midlevel provider for [facility] and the patient was admitted to the hospitalist service in stable condition to the service of Dr. Eden for further care. Consultants/Discussions held with other healthcare providers: -Hospitalist, Dr. Eden Disposition discussion held by myself with: -Patient Diagnosis: 1. Symptomatic anemia, acute 2. Dyspnea, acute 3. Subtherapeutic INR 4. History of atrial fibrillation, on Coumadin 5. Elevated creatinine, acute Disposition: Admission Wes Helton DO Emergency Medicine Past Med/Surg History Problem List Anemia (Acute) Symptomatic anemia Major depression (Chronic) Atrial fibrillation with rapid ventricular response (Acute) Chronic right-sided heart failure (Chronic) Asthma (Chronic) Acute respiratory failure with hypoxia (Acute) Hypothyroidism (Chronic) Encounter for pre-operative examination H/O aortic valve replacement using Ross procedure (Chronic) 2000 AT [facility] Hypertension (Chronic) H/O aortic valve repair (Chronic) [place] [facility] Dyslipidemia (Chronic) Paroxysmal atrial fibrillation (Chronic) Chronic anticoagulation (Chronic) History of cardioversion (Chronic) x3 History of carpal tunnel surgery (Chronic) RT Medical History Chronic kidney disease Creatinine levels between 1.7-2.1 dating back to 08/2021 [facility] labs Aortic valve, bicuspid S/p remote Ross procedure and then on "06/18/2018 she underwent redo surgery for findings of an ascending thoracic aortic aneurysm with Bentall procedure with a [address] Varun Epic bioprosthetic valve and a 28 mm Gelweave Valsalva graft" Ascending aortic aneurysm S/p repair Degenerative disc disease Arthritis GERD (gastroesophageal reflux disease) Hypothyroidism CHF (congestive heart failure) On home oxygen therapy 3L with exertion and occasional HS Chronic obstructive pulmonary disease daily/prn inh Sleep apnea 3L NIGHT ("SOMETIMES") Surgical History Hx of inguinal hernia repair ~age 5, bilateral hernia repair History of section X 1 History of tooth extraction History of cardiac cath X 2 (NO STENTS) Most recent 2017 H/O transesophageal echocardiography (NIRMAL) for monitoring Nausea and vomiting after administration of anesthetic agent History of total knee replacement RIGHT Family History Grandfather (Paternal) Family history of diabetes mellitus Mother Coronary heart disease Father No problems noted. Other No family history of adverse response to anesthesia Social History Smoking Status: Former smoker Tobacco Type: Cigarettes Second Hand Exposure: No; Do You Dip or Chew Tobacco: No; Hx Alcohol Use: No Hx Substance Use: No Preferred Language: Mongolian Communication Ability: Effective Modeling Manager Required: No Beliefs That Will Affect Care: None Current Living Situation: Alone Feels Safe at Home: Yes Safety Concerns: Feels Safe At This Time Assistive Devices: Oxygen - Continuous and Walker Allergies Allergies Allergy/AdvReac Type Severity Reaction Status Date / Time prednisone Allergy Intermediate a-fib Verified 04/07/24 11:43 Home Meds Home Medications Medication Instructions Recorded Confirmed albuterol sulfate 90 mcg/actuation 2 puff inhalation Q4H PRN sob 02/10/18 04/07/24 aerosol inhaler (Ventolin HFA) venlafaxine 75 mg capsule,extended 75 mg PO HS 02/10/18 04/07/24 release 24 hr potassium chloride 20 mEq 20 meq PO QAM 07/30/18 04/07/24 tablet,extended release aspirin 81 mg tablet,delayed 81 mg PO QAM 09/01/18 04/07/24 release atorvastatin 40 mg tablet 40 mg PO HS 10/17/20 04/07/24 metoprolol succinate 50 mg 75 mg PO BID 10/17/20 04/07/24 tablet,extended release 24 hr omeprazole 20 mg capsule,delayed 20 mg PO QAM 10/17/20 04/07/24 release spironolactone 25 mg tablet 12.5 mg PO QAM 10/17/20 04/07/24 tiotropium bromide 2.5 2 inh inhalation QAM 10/17/20 04/07/24 mcg/actuation mist for inhalation (Spiriva Respimat) torsemide 20 mg tablet 20 mg PO QAM 10/17/20 04/07/24 warfarin 5 mg tablet (Jantoven) See Rx Instructions .Route .COMPLEX 10/17/20 04/07/24 levothyroxine 100 mcg tablet 100 mcg PO QAM 02/14/22 04/07/24 (Synthroid) allopurinol 100 mg tablet 200 mg PO QAM 04/07/24 04/07/24 cholecalciferol (vitamin D3) 50 4,000 unit PO QAM 04/07/24 04/07/24 mcg (2,000 unit) capsule (Vitamin D3) warfarin 2.5 mg tablet 2.5 mg PO DAILY 04/07/24 04/07/24 Results & Data (ED) Vital Signs Vital Signs - 24 hr 04/07/24 10:30 04/07/24 10:57 04/07/24 11:00 Temperature 36.3 C L Temperature Source Temporal Artery Scan Pulse Rate 102 H 97 H 84 Pulse Rate from SpO2 Sensor 90 91 H Respiratory Rate 24 17 23 Respiratory Effort / Characteristics Non-Labored Spontaneous Respiratory Depth Normal Blood Pressure 111/70 Blood Pressure Mean 83 Pulse Oximetry 96 92 100 Oxygen Delivery Method Nasal Cannula Oxygen Flow Rate 3 Sepsis Recent Fever Within 48 Hours No Sepsis New/Unexplained Change in Mental Status No Sepsis Action Taken by Nursing No Action Required 04/07/24 11:45 04/07/24 11:51 04/07/24 12:00 Temperature Temperature Source Pulse Rate 87 97 H 95 H Pulse Rate from SpO2 Sensor 91 H 95 H 94 H Respiratory Rate 18 18 24 Respiratory Effort / Characteristics Respiratory Depth Blood Pressure Blood Pressure Mean Pulse Oximetry 100 95 100 Oxygen Delivery Method Oxygen Flow Rate Sepsis Recent Fever Within 48 Hours Sepsis New/Unexplained Change in Mental Status Sepsis Action Taken by Nursing 04/07/24 12:12 04/07/24 12:27 Temperature Temperature Source Pulse Rate 99 H 81 Pulse Rate from SpO2 Sensor 94 H 88 Respiratory Rate 13 16 Respiratory Effort / Characteristics Respiratory Depth Blood Pressure Blood Pressure Mean Pulse Oximetry 98 100 Oxygen Delivery Method Oxygen Flow Rate Sepsis Recent Fever Within 48 Hours Sepsis New/Unexplained Change in Mental Status Sepsis Action Taken by Nursing Laboratory Data 04/07/24 11:12 04/07/24 11:12 Lab Results 04/07/24 04/07/24 Range/Units 10:56 11:12 WBC 4.59 L (4.8-10.8) K/ul RBC 2.81 L (4.20-5.40) M/uL Hgb 8.1 L (12.0-16.0) g/dl Hct 26.1 L (37.0-47.0) % MCV 92.9 (80.0-100.0) fL MCH 28.8 (25.0-34.0) pg MCHC 31.0 L (32.0-36.0) g/dL RDW Std Deviation 52.2 H (36.4-46.3) fL RDW Coeff of Joanie 15.2 H (11.5-14.5) % Plt Count 245 (130-400) K/uL MPV 9.2 L (9.4-12.4) fL Immature Gran % (Auto) 0.0 % Neut % (Auto) 71.4 % Lymph % (Auto) 17.9 % [place] % (Auto) 4.8 % Eos % (Auto) 4.4 % Baso % (Auto) 1.5 % Neut # (Auto) 3.28 (1.40-6.50) K/uL Lymph # (Auto) 0.82 L (1.20-3.40) K/uL [place] # (Auto) 0.22 (0.11-0.59) K/uL Eos # (Auto) 0.20 (0.00-0.50) K/uL Baso # (Auto) 0.07 (0.00-0.20) K/uL Immature Gran # (Auto) 0.00 L (0.01-0.20) K/uL PT 17.7 H (9.0-12.0) Seconds INR 1.7 H (0.9-1.1) Sodium 136 (136-145) mmol/L Potassium 3.4 L (3.5-5.1) mmol/L Chloride 100 (98-107) mmol/L Carbon Dioxide 30 (21-32) mmol/L Anion Gap 6 (3-11) BUN 22 (6-23) mg/dl Creatinine 1.62 H (0.6-1.2) mg/dl Est Cr Clr Drug Dosing Not Reportable eGFR 33.76 BUN/Creatinine Ratio 13.6 (10-20) Glucose 146 H (70-99(Fasting)) mg/dl Calcium 9.2 (8.6-10.3) mg/dl Total Bilirubin 0.7 (0.2-1.0) mg/dl AST 14 (13-39) U/L ALT 9 (7-52) U/L Alkaline Phosphatase 139 H (34-104) U/L Troponin I High Sens 18.2 H (0-14) pg/ml Total Protein 7.2 (6.0-8.3) gm/dl Albumin 4.0 (3.4-5.0) gm/dl Globulin 3.2 (2.5-4.0) gm/dl Albumin/Globulin Ratio 1.3 (0.9-2) Lipase 13 (11-82) U/L SARS-CoV-2 (PCR) NEGATIVE (Negative) Influenza Type A (PCR) Negative (Neg) Influenza Type B (PCR) Negative (Neg) RSV (RT-PCR) Negative (Neg) Blood Type O Positive Antibody Screen NEGATIVE Administered Medications Discontinued Medications Lactated Ringer's (Lr) 1,000 mls @ 999 mls/hr IV .Q1H1M ONE Stop: 04/07/24 13:05 Last Infusion: 04/07/24 14:35 Dose: Infused Documented By: Admin: 04/07/24 12:45 Dose: 999 mls/hr Documented By: BULL Imaging Data Radiologist's Impression: Chest X-Ray 04/07/24 10:46 XR chest 1V portable CLINICAL HISTORY: Chest pain, nonspecific TECHNIQUE: Single frontal radiograph of the chest was obtained. Comparison: Comparison is made to chest radiograph 09/01/2018 FINDINGS: Median sternotomy wires are unchanged. Cardiomegaly is noted. The lungs are clear. No evidence of pleural effusion or pneumothorax. IMPRESSION: No acute chest disease. Cardiomegaly is noted. ACT 112: Negative or not required by law. Electronically signed by: Tay Vincent M.D. 04/07/2024 11:09 AM Discharge Plan Visit Data Chief Complaint: Abnormal Labs/Diagnostic Testing Stated Complaint: SOMETHING FOUND IN LUNG ON SCAN, DOC REF ED Provider: Wes Helton Discharge Problem: Anemia Patient Disposition: Admitted As Inpatient Discharge Instructions Interventions: ED Discharge Assessment Last Done: 04/07/24 14:12 Discharge Problem: Anemia Qualifiers: Anemia type: unspecified type Qualified Code(s): D64.9 - Anemia, unspecified
--- NOTE | 2024-04-07 11:10 | XRay Report ---
XR chest 1V portable CLINICAL HISTORY: Chest pain, nonspecific TECHNIQUE: Single frontal radiograph of the chest was obtained. Comparison: Comparison is made to chest radiograph 09/01/2018 FINDINGS: Median sternotomy wires are unchanged. Cardiomegaly is noted. The lungs are clear. No evidence of ple ural effusion or pneumothorax. IMPRESSION: No acute chest disease. Cardiomegaly is noted. ACT 112: Negative or not required by law. Electronically signed by: Tay Vincent M.D. 04/07/2024 11:09 AM
[2024-04-07 11:37] LABS: Basophils # (auto) 0.07 K/uL (0.00-0.20); Basophils % (auto) 1.5 %; Eosinophils % (auto) 4.4 %; Hematocrit (blood only) 26.1 % (37.0-47.0); Hemoglobin 8.1 g/dl (12.0-16.0); Lymphocytes # (auto) 0.82 K/uL (1.20-3.40); Lymphocytes % (auto) 17.9 %; Mean Corpuscular Hemoglobin 28.8 pg (25.0-34.0); Mean Corpuscular Volume 92.9 fL (80.0-100.0); Mean Platelet Volume 9.2 fL (9.4-12.4); Monocytes # (auto) 0.22 K/uL (0.11-0.59); Monocytes % (auto) 4.8 %; Neutrophils # (auto) 3.28 K/uL (1.40-6.50); Neutrophils % (auto) 71.4 %; Platelet Count 245 K/uL (130-400); RDW Coefficient of Variation 15.2 % (11.5-14.5); RDW Standard Deviation 52.2 fL (36.4-46.3); Red Blood Count 2.81 M/uL (4.20-5.40); White Blood Count 4.59 K/ul (4.8-10.8)
[2024-04-07 11:39] LABS: Influenza A virus by PCR Negative (Neg); Influenza B virus by PCR Negative (Neg); RSV by PCR Negative (Neg); SARS CoV2 RNA(COVID-19) Ceph NEGATIVE (Negative)
[2024-04-07 11:48] LABS: Alanine Aminotransferase 9 U/L (7-52); Albumin Globulin Ratio 1.3 (0.9-2); Alkaline Phosphatase 139 U/L (34-104); Anion Gap 6 (3-11); Aspartate Aminotransferase 14 U/L (13-39); BUN Creatinine Ratio 13.6 (10-20); Bilirubin,Total 0.7 mg/dl (0.2-1.0); Blood Urea Nitrogen 22 mg/dl (6-23); Calcium 9.2 mg/dl (8.6-10.3); Carbon Dioxide 30 mmol/L (21-32); Chloride 100 mmol/L (98-107); Globulin 3.2 gm/dl (2.5-4.0); Glucose 146 mg/dl (70-99(Fasting)); Lipase 13 U/L (11-82); Potassium 3.4 mmol/L (3.5-5.1); Sodium 136 mmol/L (136-145); Total Protein 7.2 gm/dl (6.0-8.3)
[2024-04-07 11:54] LABS: Troponin I High Sensitivity 18.2 pg/ml (0-14)
[2024-04-07 12:01] LABS: INR 1.7 (0.9-1.1); Prothrombin Time 17.7 Seconds (9.0-12.0)
--- NOTE | 2024-04-07 12:38 | History & Physical Report ---
Date of Service April 07, 2024 Assessment & Plan (1) Symptomatic anemia: (2) Paroxysmal atrial fibrillation: (3) Chronic anticoagulation: (4) History of cardioversion: (5) Dyslipidemia: (6) H/O aortic valve repair: (7) Hypertension: (8) H/O aortic valve replacement using Ross procedure: (9) Chronic right-sided heart failure: (10) Hypothyroidism: (11) Chronic kidney disease: (12) Chronic obstructive pulmonary disease: (13) Asthma: Plan Symptomatic anemia Possible GI blood loss Dyspnea on exertion -Admit to [facility] with telemetry -Trend H&H, acute blood loss from hemoglobin of 10.3 down to 8.1 within the past 2 weeks, occult stool testing in the ER was negative -Blood consent obtained at bedside -S/p 1 LR in ER, hold further fluids for now -Colonoscopy previously scheduled for May 13, 2024, outpatient. -GI consult for possible endoscopic procedure during this admission, maintain n.p.o. -BP is stable at 111/70, pulse low 100s on chart, is rate controlled -IV Protonix 40 mg BID Paroxysmal atrial fibrillation Chronic anticoagulation -INR 1.7 today, hold Coumadin with possible procedure and GI bleeding as above -Rate controlled with metoprolol succinate 75 mg BID, continue Chronic diastolic CHF History of bicuspid aortic valve with history of severe aortic regurg s/p Ross procedure and aortic root repair in 2000 s/p repair of ascending thoracic aortic aneurysm with Bentall procedure in 2019 -Was instructed to increase diuretic per cardiology yesterday for possible fluid congestion along with potassium supplementation with diuresis - Torsemide 60 mg/day x 3 days then resume 40 mg/day thereafter. - Spironolactone 12.5 mg QAM - K 3.4, will replace - CXR with possible infiltrate noted yesterday -- today repeat CXR: there is no pleural effusion or pneumothorax noted, lungs are clear. CKD Stage III - Cr noted to be elevated at 1.6 today, was 1.8 yesterday, possibly improved with diuresis as above - Trend BMP COPD Chronic hypoxic respiratory failure -Continue O2 via NC, at baseline wears 3L which is what she is currently on - Symbicort, Spiriva Hypothyroidism - TSH 2.61 on most recent labs yesterday on outpatient epic review - Continue levothyroxine DVT ppx: teds, scds Lines: 2 PIV FEN/GI: N.p.o. CODE: Full Dispo: From home, likely to remain in the hospital x 1-2 days, possible endosc opic procedure A total of 77 minutes were spent with greater than 50% of that time face to face with the patient, personally reviewing all current laboratories, imaging studies, past medication reconciliation, outpatient chart review, and discussion with specialists to collaborate care for the patient with attending. Please see attending documentation for corrections and/or additions. History of Present Illness Chief Complaint: Shortness of breath Primary Care Provider: Nat Nick MD This is a 73-year-old female with PMHx of paroxysmal A-fib on Coumadin, chronic diastolic CHF, history of bicuspid aortic valve with history of severe aortic regurg, s/p Ross procedure and aortic root repair in 2000, status post repair of ascending thoracic aortic aneurysm with Bentall procedure in 2019, chronic hypoxic respiratory failure, COPD, DESHAUN intolerant to CPAP, hyperlipidemia, hypothyroidism, history of AAA repair, vitamin D deficiency, CKD stage III who presents to the hospital with worsening shortness of breath x 1 week as well as noted hemoglobin drop on outpatient labs from 10-8.1 within the past 2 weeks. Daughter and son in law are present at bedside. Melissa notably had experienced significant bright red blood per rectum approximately 2 weeks ago and was seen by her PCP, and bleeding was attributed to hemorrhoids which cleared up with topical cream. She denies visualizing any BRBPR since that time, melana, hematochezia, abd pain, nausea, vomiting, lightheadedness or dizziness. Main complaint remains progressive shortness of breath with minimal walking or exertion. Colonoscopy is scheduled for May 13, 2024. Her hemoglobin on March 18, 2024 was 10.3, down from 14.1 in April 2023. She presented to routine cardiology appointment on 04/06 and complained of progressive acute on chronic dyspnea over the last 1 week. Initially thought that she was retaining water, therefore started taking an extra water pill for a day or 2 which she thinks may have helped. Patient does wear 3L supplemental O2 at baseline, feels weak, is coughing up thick phlegm occasionally but states this is chronic. She denies fever, chills, sweats, sick contacts of feeling ill otherwise. Basic laboratories and chest x-ray were ordered as outpatient. CXR shows findings including a retrocardiac opacity, suggesting infiltrate, no pleural fluid or pneumothorax. Hemoglobin of 8.7 on 04/06, this morning on repeat blood work here at hospital hemoglobin is 8.1. The patient will be admitted for further workup of anemia, possible needs for transfusion, as well as GI evaluation for possible endoscopic procedure. Allergies Allergy/AdvReac Type Severity Reaction Status Date / Time prednisone Allergy Intermediate a-fib Verified 04/07/24 11:43 Home Medications Medication Instructions Recorded Confirmed Type albuterol sulfate 90 mcg/actuation 2 puff inhalation Q4H PRN sob 02/10/18 04/07/24 History aerosol inhaler (Ventolin HFA) venlafaxine 75 mg capsule,extended 75 mg PO HS 02/10/18 04/07/24 History release 24 hr potassium chloride 20 mEq 20 meq PO QAM 07/30/18 04/07/24 History tablet,extended release aspirin 81 mg tablet,delayed 81 mg PO QAM 09/01/18 04/07/24 History release atorvastatin 40 mg tablet 40 mg PO HS 10/17/20 04/07/24 History metoprolol succinate 50 mg 75 mg PO BID 10/17/20 04/07/24 History tablet,extended release 24 hr omeprazole 20 mg capsule,delayed 20 mg PO QAM 10/17/20 04/07/24 History release spironolactone 25 mg tablet 12.5 mg PO QAM 10/17/20 04/07/24 History tiotropium bromide 2.5 2 inh inhalation QAM 10/17/20 04/07/24 History mcg/actuation mist for inhalation (Spiriva Respimat) torsemide 20 mg tablet 20 mg PO QAM 10/17/20 04/07/24 History warfarin 5 mg tablet (Jantoven) See Rx Instructions .Route .COMPLEX 10/17/20 04/07/24 History levothyroxine 100 mcg tablet 100 mcg PO QAM 02/14/22 04/07/24 History (Synthroid) allopurinol 100 mg tablet 200 mg PO QAM 04/07/24 04/07/24 History cholecalciferol (vitamin D3) 50 4,000 unit PO QAM 04/07/24 04/07/24 History mcg (2,000 unit) capsule (Vitamin D3) warfarin 2.5 mg tablet 2.5 mg PO DAILY 04/07/24 04/07/24 History Past Med/Surg History Problem List Anemia (Acute) Symptomatic anemia Major depression (Chronic) Atrial fibrillation with rapid ventricular response (Acute) Chronic right-sided heart failure (Chronic) Asthma (Chronic) Acute respiratory failure with hypoxia (Acute) Hypothyroidism (Chronic) Encounter for pre-operative examination H/O aortic valve replacement using Ross procedure (Chronic) 2000 AT [facility] Hypertension (Chronic) H/O aortic valve repair (Chronic) Redo of AVR with ascending [place] [facility] [place] Dyslipidemia (Chronic) Paroxysmal atrial fibrillation (Chronic) Chronic anticoagulation (Chronic) History of cardioversion (Chronic) x3 History of carpal tunnel surgery (Chronic) RT Medical History Chronic kidney disease Creatinine levels between 1.7-2.1 dating back to 08/2021 [facility] labs Aortic valve, bicuspid S/p remote Ross procedure and then on "06/18/2018 she underwent redo surgery for findings of an ascending thoracic aortic aneurysm with Bentall procedure with a [address] Varun Epic bioprosthetic valve and a 28 mm Gelweave Valsalva graft" Ascending aortic aneurysm S/p repair Degenerative disc disease Arthritis GERD (gastroesophageal reflux disease) Hypothyroidism CHF (congestive heart failure) On home oxygen therapy 3L with exertion and occasional HS Chronic obstructive pulmonary disease daily/prn inh Sleep apnea 3L NIGHT ("SOMETIMES") Surgical History Hx of inguinal hernia repair ~age 5, bilateral hernia repair History of section X 1 History of tooth extraction History of cardiac cath X 2 (NO STENTS) Most recent 2018 H/O transesophageal echocardiography (NIRMAL) for monitoring Nausea and vomiting after administration of anesthetic agent History of total knee replacement RIGHT Family History Grandfather (Paternal) Family history of diabetes mellitus Mother Coronary heart disease Father No problems noted. Other No family history of adverse response to anesthesia Social History Smoking Status: Former smoker Tobacco Type: Cigarettes Second Hand Exposure: No; Do You Dip or Chew Tobacco: No; Hx Alcohol Use: No Hx Substance Use: No Preferred Language: Citizen Of [place] Communication Ability: Effective Manager Department Required: No Beliefs That Will Affect Care: None Current Living Situation: Alone Feels Safe at Home: Yes Safety Concerns: Feels Safe At This Time Assistive Devices: Oxygen - Continuous and Walker Review of Systems Review of Systems: Constitutional: No fever, sweats or chills Eyes: No diplopia, no worsening or blurred vision ENT: normal hearing, no trouble swallowing Respiratory: + Dyspnea with minimal exertion, no dyspnea at rest, + cough, + occasional thick yellow sputum Cardiovascular: No chest pain, tightness or palpitations, no lightheadedness or dizziness Abdomen: No pain, nausea, vomiting, diarrhea or constipation Musculoskeletal: No joint pain, calf pain, sometimes has lower extremity swelling but none currently Neurologic: No weakness, numbness/tingling, or balance problems Psychiatric: No anxiety or depression Skin: No rash or itch Physical Exam Physical Exam: General: awake, alert, no apparent distress, obese white female, no pallor Head: Normocephalic, atraumatic ENT: PERRL, EOMI, no pharyngeal exudate, mucous membranes moist Chest: Clear to auscultation, on room air, no adventitious breath sounds Cardiac: Irregular rhythm, rate controlled, no murmur, no JVD, normal peripheral pulses, good capillary refill Abdominal: NABS x 4 quadrants, soft, nondistended, nontender to palpation, no rebound or guarding Extremities: Normal inspection, no peripheral edema or erythema, calfs nontender to palpation Psych: Normal mood and affect Neuro: AAO x 3, strength intact bilaterally and rated 5/5, no motor deficits, speech is clear, no peripheral sensory deficits Results & Data Results & Data Vital Signs (Past 12 Hours) Vital Signs Temp Pulse Resp BP Pulse Ox O2 Del Method O2 Flow Rate 04/07/24 10:30 36.3 C L 102 H 24 111/70 96 Nasal Cannula 3 Laboratory Results 04/07/24 04/07/24 11:12 10:56 WBC 4.59 L RBC 2.81 L Hgb 8.1 L Hct 26.1 L MCV 92.9 MCH 28.8 MCHC 31.0 L RDW Std Deviation 52.2 H RDW Coeff of Joanie 15.2 H Plt Count 245 MPV 9.2 L Immature Gran % (Auto) 0.0 Neut % (Auto) 71.4 Lymph % (Auto) 17.9 Walker % (Auto) 4.8 Eos % (Auto) 4.4 Baso % (Auto) 1.5 Neut # (Auto) 3.28 Lymph # (Auto) 0.82 L Walker # (Auto) 0.22 Eos # (Auto) 0.20 Baso # (Auto) 0.07 Immature Gran # (Auto) 0.00 L PT 17.7 H INR 1.7 H Sodium 136 Potassium 3.4 L Chloride 100 Carbon Dioxide 30 Anion Gap 6 BUN 22 Creatinine 1.62 H Est Cr Clr Drug Dosing Not Reportable eGFR 33.76 BUN/Creatinine Ratio 13.6 Glucose 146 H Calcium 9.2 Total Bilirubin 0.7 AST 14 ALT 9 Alkaline Phosphatase 139 H Troponin I High Sens 18.2 H Total Protein 7.2 Albumin 4.0 Globulin 3.2 Albumin/Globulin Ratio 1.3 Lipase 13 SARS-CoV-2 (PCR) NEGATIVE Influenza Type A (PCR) Negative Influenza Type B (PCR) Negative RSV (RT-PCR) Negative Blood Type O Positive Antibody Screen NEGATIVE Diagnostic Findings Chest X-Ray 04/07/24 10:46 XR chest 1V portable CLINICAL HISTORY: Chest pain, nonspecific TECHNIQUE: Single frontal radiograph of the chest was obtained. Comparison: Comparison is made to chest radiograph 09/01/2018 FINDINGS: Median sternotomy wires are unchanged. Cardiomegaly is noted. The lungs are clear. No evidence of pleural effusion or pneumothorax. IMPRESSION: No acute chest disease. Cardiomegaly is noted. ACT 112: Negative or not required by law. Electronically signed by: Tay Vincent M.D. 04/07/2024 11:09 AM Code Status & VTE Plan Code Status Full code-discussed with the patient at bedside VTE Prophylaxis Plan VTE Prophylaxis will be ordered: Yes Supervising Physician Co-Signing Physician Notes Attending Addendum: Case reviewed with the advanced practitioner. I have personally performed a history and physical examination on the patient. I have reviewed the advanced practitioner's documentation on the date of service referenced in note, and I agree with, and take responsibility for the plan of care. please refer to her notes for full details patient seen and examined, records reviewed by myself as well on exam, patient seen resting in bed, comfortable, on 3 L NC states she feels fine at rest but has dyspnea on minimal exertion no active chest pain No recurrence of melena or hematochezia since admission, no abdominal pain, nausea or vomiting no other symptoms VS noted and reviewed oriented x3, not in distress, speaks in sentences with no effort nor accessory muscle use normal rate, regular rhythm, no murmurs clear breath sounds bilaterally non distended, soft, nontender no bipedal edema, erythema, warmth no neuro deficits all labs, imaging noted and reviewed ASSESSMENT AND PLAN Acute blood loss anemia Secondary to hematochezia In the setting of chronic Coumadin use for paroxysmal atrial fibrillation Hemoglobin decreased from 11-->8.1 INR 1.7 Transfuse for hemoglobin below 8 Hold diuretics GI consulted, plan for EGD and colonoscopy tomorrow GI requested cardiology to perform a preprocedure evaluation other diagnoses and plan of care as per advanced practitioner's notes Chronic diastolic CHF Appears to be euvolemic at this time Hold diuretics in light of GI bleed Bull Eden MD
[2024-04-07] MEDS: LACTATED RINGER'S 1,000 ML IV ONE (12:45)
--- OUTSIDE RECORDS SUMMARY | 2024-04-07 13:10 | External Medical Summary ---
Author Name Unknown Address Unknown Organization [id number]:LABORATORY [facility] [place] - [address] [place] [id number] Laboratory Report Ordering Provider Test Date Status [place] 04/06/2024 16:19:35 Final Observation Date Value Abnormality Reference (Units ) Status Folic Acid 04/06/2024 16:19:35 8.2 >4.5 (ng/ mL) Final Performing Location LABORATORY [facility] - [address] [place] [id number]
--- OUTSIDE RECORDS SUMMARY | 2024-04-07 13:10 | External Medical Summary | Summary of Care ---
Author Name Unknown Organization [facility] Address [address] [place] [address] Phone [phone] Care Team Providers Care Felled Seam Operator Name Role Phone Nat Salter MD Primary Care Prov ider Reason for Visit * Reason Onset Date Comments Test Results 04/07/2024 Encounter Details Date Type Department Care Team (Late st Contact Info) Description 04/07/2024 Telephone Cardiology, [facility] [address] [place] [id number] Wes Bourgeois PA-C [address] [facility], [place] [id number] Test Results Allergies Active Allergy Reactions Criticality Noted Date Comments Prednisone Other (Please comment) Medium 12/28/2015 Stated it caused her to go into AFib documented as of this encounter (statuses as of 04/07/2024) Medications Medication Sig Dispensed Refills Start Date End Date Status DIURETIC TITRATION PLANIndications:Chr onic right-sided CHF (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 1 Each 9 Active Aspirin 81 MG Oral Tablet Delayed Release Take 1 Tablet by mouth in the morning. 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 1 Each 2 Active Budesonide-Formoter ol Fumarate 160-4.5 MCG/ACT Inhalation Aerosol (Symbicort)Indicati ons:COPD, group B, by GOLD 2017 classification ([facility]) Inhale 2 Puffs by mouth in the morning and 2 Puffs before bedtime. 10.2 g 12 3 Active Additional Information Patient not taking.Reported on 04/06/2024 Potassium Chloride Stefania ER 20 MEQ Oral Tablet Extended ReleaseIndications: Paroxysmal atrial fibrillation ([facility]),Chronic diastolic heart failure ([facility]),Chronic right-sided CHF (congestive heart failure) ([facility]) TAKE ONE TABLET BY MOUTH IN THE MORNING AND TAKE THREE TABLETS ON DAYS WHEN TAKING METALAZONE 90 Tablet 3 4 Active Allopurinol 100 MG Oral Tablet (Zyloprim)Indicatio ns:Kidney disease, chronic, stage IV (GFR 15-29 ml/min) ([facility]),Hyperuricemia Take 2 Tablets by mouth in the morning. 60 Tablet 11 4 Active Vitamin D 50 MCG (2000 UT) Oral CapsuleIndications: Vitamin D deficiency Take 4,000 Units by mouth in the morning. 4,000 units daily. 60 Capsule 11 4 Active Metoprolol Succinate ER 50 MG Oral Tablet Extended Release 24 Hour (toPROL XL)Indications:Paro xysmal atrial fibrillation ([facility]) 1 1/2 tablets in the morning and 1 1/2 tablets in the evening 270 Tablet 3 4 Active Spiriva Respimat 2.5 MCG/ACT Inhalation Aerosol Solution (Tiotropium [place] Monohydrate)Indicat ions:COPD, group B, by GOLD 2017 classification ([facility]) Inhale 2 Puffs by mouth in the morning. 4 g 11 4 Active Venlafaxine HCl ER 75 MG Oral Capsule Extended Release 24 Hour (Effexor XR)Indications:Adju stment disorder with depressed mood TAKE ONE CAPSULE BY MOUTH EVERY DAY DO NOT CUT, CRUSH, OR CHEW, 90 Capsule 2 4 Active Torsemide 20 MG Oral Tablet (Demadex)Indication s:Acute on chronic diastolic (congestive) heart failure (HCC) Take 1 Tablet by mouth in the morning and 1 Tablet before bedtime. 180 Tablet 2 4 Active Atorvastatin Calcium 40 MG Oral Tablet (Lipitor)Indication s:Dyslipidemia, goal LDL below 100 Take 1 Tablet by mouth in the morning. 90 Tablet 3 4 Active Warfarin Sodium 2.5 MG Oral Tablet (Coumadin)Indicatio ns:Paroxysmal atrial fibrillation (HCC),Anticoagulati on management encounter Take 1-2 tablets by mouth daily as directed by anticoagulation clinic 180 Tablet 3 4 Active Levothyroxine Sodium 100 MCG Oral Tablet (Levoxyl)Indication s:Acquired hypothyroidism TAKE ONE TABLET BY MOUTH EVERY MORNING 30 minutes BEFORE breakfast OR other meds 90 Tablet 1 4 Active Albuterol Sulfate HFA 108 (90 Base) MCG/ACT Inhalation Aerosol SolutionIndications :COPD, group B, by GOLD 2017 classification ([facility]) Inhale 2 Puffs by mouth every 6 hours as needed for Cough, Shortness of Breath or Wheezing. 18 g 11 4 Active Spironolactone 25 MG Oral Tablet (Aldactone)Indicati ons:Chronic right-sided CHF (congestive heart failure) (HCC) TAKE 1/2 TABLET BY MOUTH IN THE MORNING 45 Tablet 3 4 Active Hydrocortisone Acetate 25 MG Rectal Suppository (Anusol-HC)Indicati ons:Bright red rectal bleeding Administer into the rectum 2 times a day in the morning and at bedtime as needed for Hemorrhoids. Up to 2 weeks. 24 Suppository 1 4 Active Additional Information Patient not taking.Reported on 04/06/2024 Omeprazole 20 MG Oral Capsule Delayed Release (PriLOSEC)Indicatio ns:Gastroesophageal reflux disease with esophagitis take 1 capsule every day 1 hour before the first meal of the day. 90 Capsule 1 4 Active documented as of this encounter (statuses as of 04/07/2024) Active Problems Problem Noted Date Diagnosed Date Body mass index (BMI) of 45.0 to 49.9 in adult 0 09/06/2021 Body mass index (BMI) of 40.0 to 44.9 in adult 0 07/23/2021 Overview: Per Obesity protocol - Per Obesity protocol COPD, group B, by GOLD 2017 classification 09/18 Overview: Per COPD GOLD Classification Menopause 11/13/2018 Chronic diastolic heart failure 10/22/2018 Acquired hypothyroidism 10/01/2018 Chronic hypoxemic respiratory failure 10/01/2018 HINSON (dyspnea on exertion) 09/18/2018 S/P AVR (aortic valve replacement) 06/25/2018 S/P ascending aortic aneurysm repair 06/25/2018 Chronic right-sided CHF (congestive heart failur e) 12/13/2016 Paroxysmal atrial fibrillation 07/31/2015 Essential tremor 10/28/2013 Vitamin D deficiency 10/12/2009 Overview: Vitamin D 20.1 Elevated C-reactive protein (CRP) 06/28/2008 Overview: CRP 9.31 ADVANCE DIRECTIVE INFORMATION 03/14/2005 Overview: No, Advance Directive brochure given to patient at 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 superintendent terminal current use of anticoagulant therapy 0 12/25/2004 Overview: ICD-10 update of inactive term S/P Ross procedure 05/04/2002 Pre-op testing Dyslipidemia, goal LDL below 100 Total knee replacement status Adjustment disorder with depressed mood SBE (subacute bacterial endocarditis) prophylaxi s candidate History of tobacco use documented as of this encounter (statuses as of 04/07/2024) Resolved Problems Problem Noted Date Diagnosed Date Resolved Date Stage 3a chronic kidney disease 09/06/2021 07/27/2023 Chronic kidney disease, stage 3b 04/16/2021 07/27/2023 Overview: Per CKD protocol Chronic kidney disease, stage 3 unspecified 07/20/2020 10/19/2020 Stage 3a chronic kidney disease 04/17/2020 04/19/2021 Overview: Per CKD protocol - Per CKD protocol Body mass index (BMI) of 45. 0 to 49.9 in adult 03/22/2019 07/25/2021 Overview: Per Obesity protocol Controlled substance agreement signed 02/18/2019 01/18/2020 Kidney disease, chronic, sta ge III (GFR 30-59 ml/min) 02/15/2019 04/20/2020 Overview: Per CKD protocol COPD, moderate 10/01/2018 09/21/2020 Overview: Per COPD GOLD Classification Body mass index (BMI) of 40. 0 to 44.9 in adult 07/20/2018 08/18/2018 Overview: Per Obesity protocol #1 Morbid obesity due to excess calories 07/01/2018 07/31/2018 Severe aortic insufficiency 06/25/2018 07/31/2018 Postoperative anemia due to acute blood loss 9 07/31/2018 Ascending aorta enlargement 07/31/2017 07/31/2018 Atrial fibrillation with rap id ventricular response 06/18/2016 12/13/2016 Overview: admitted [facility] pulse 140s OBESITY, BMI 30-34 (SEE ACTUAL BMI) 08/31/2009 10/12/2009 Overview: Per Obesity Taxonomy MEDICATION USE AGREEMENT 08/20/200611/2009 Other internal derangement of knee(717.89) 07/03/2006 08/26/2013 Overview: n=medial meniscus tear with cyst and probable loose body Atrial fibrillation 07/25/2004 06/26/19 17 Overview: sudden onset AF with rate 152 Anticoagulation management encounter 07/25/2004 07/31/2018 PROPHYLACTIC MEASURE NEC Aortic valve disorder 2018 Major depressive disorder, s enrico episode, moderate 08/26/2013 Obesity, BMI not known 08/31 Overview: Per Obesity Taxonomy Tobacco use disorder 019 Adult body mass index 37.0-37.9 12/02/2011 Overview: ICD-10 update of inactive term BMI 34.0-34.9,adult 08/31/19 14 BMI 40.0-44.9, adult 019 Morbid obesity with BMI of 40.0-44.9, adult 03/24/2019 Overview: Per Obesity protocol documented as of this encounter (statuses as of 04/07/2024) Immunizations Name Administration Dates Next Due COVID-19 mRNA, LNP-s, No Pre serve, 2-Dose Series (Quickcue) 07/24/2021,01/30/2021,01/05/2021 COVID-19, LNP-s, No Preserve , Vito-sucrose, Ages 12+ (Pfizer) 07/24/2021 COVID-19, MRNA-LNP, 23-24, P F, 30 MCG/0.3 mL, 12 YRS AND ABOVE, IM ([facility]) 05/06/2023 Covid-19, Mrna, Lnp-s, Pf, B ivalent, 30 Mcg, IM, 12 yrs and above (Quickcue) 04/30/2022 Pneumococcal Conjugate Vacc, 13 Valent (Prevnar) 10/21/2017 Pneumococcal Polysaccharide PPV23 (Pneumovax) 11/13/2018,03/10/2008,03/10/2008 Season Influenza, Quad, PF, Adjuvanted, 65+ Yrs, IM (FLUAD) 07/06/2020 Seasonal Influenza Vac., MDV , IM, 0.5 mL (Fluzone) 03/09/2017,03/31/2014,05/09/2013,05/23,05/24/2011,04/07/2008,04/07/2007 Seasonal Influenza, High Dos e, Trivalent, PF, IM (Fluzone HD) 03/18/2024 Seasonal Influenza, Quadriva lent Hd (Fluzone Hd) 03/18/2023,03/14/2022,02/23/2021 Seasonal Influenza, Quadriva lent, No Preserve, IM 05/13/2018,06/26/2016,05/26/2015 Seasonal Influenza, Trivalen t, Adjuvanted, 65+ YRS, PF, (Fluad) 02/18/2019 TDAP, Age 7 and older, IM (Adacel) 06/15/2007 documented as of this encounter Social History Tobacco Use Types Packs/Day Years Used Date Smoking Tobacco: Former Cigarettes 1 50 0 09/08/1967 - 09/07/2017 Smokeless Tobacco: Never Alcohol Use Standard Drinks/Week Comments No 0 (1 standard drink = 0.6 oz pur e alcohol) PHQ-2 Answer Date Recorded PHQ Adult Total Score 0 08/21/2023 Hunger Vital Sign Answer Date Recorded Within the past 12 months, y ou worried that your food would run out before you got the money to buy more. Never true 11/27/19 24 Within the past 12 months, t he food you bought just didn't last and you didn't have money to get more. Never true 11/27/2023 Childcare Answer Date Recorded Do you feel overwhelmed with taking care of a child, family member or friend? No 11/27/2023 Does your family need help f inding childcare? (Household - for ages 0-17 years) Not on file 11/27/2023 Clothing Answer Date Recorded Have you been unable to get clothing when it was really needed? No 11/27/2023 Is your family able to get c lothes or diapers when needed? (Household - for ages 0-17 years) Not on file 11/27/2023 Personal Safety Answer Date Recorded Do you feel unsafe or have concerns for your saf ety? No 11/27/2023 Do you have concerns for you r family's safety? (Household - for ages 0-17 years) Not on file 11/27/2023 Utilities Answer Date Recorded Do you have trouble paying y our heating, water, or electric bill? No 11/27/2023 Is your family able to pay t he heat, water, or electric bill? (Household - for ages 0-17 years) Not on file 11/27/2023 Does your family have access to good internet? (Household - for ages 0-17 years) Not on file 11/27/2023 Employment Status Answer Date Recorded Are you unemployed or without regular income? No 11/27/2023 Does the household have a re gular source of income? (Household - for ages 0-17 years) Not on file 11/27/2023 Social Connections Answer Date Recorded How often do you feel lonely or isolated from th ose around you? Never 11/27/2023 Financial Resource Strain Answer Date R ecorded Do you have any trouble payi ng for your medications, or do you think you might in the future? No 11/27/2023 Does your family have troubl e paying for medicine? (Household - for ages 0-17 years) Not on file 11/27/2023 Transportation Needs Answer Date Record ed READ ONLY Do you have troubl e getting a ride to medical visits or work? Never True 11/27/2023 Does your family have a hard time getting a ride to doctors visits? (Household - for ages 0-17 years) Not on file 11/27/2023 Has lack of transportation k ept you from medical appointments, meetings, work, or from getting things needed for daily living? Check all that apply. No 11/27/2023 Do you (or your family) have trouble finding or paying for a ride (transportation)? (Household - for ages 0-17 years) Not on file 11/27/2023 Housing Stability Answer Date Recorded Do you currently live in a s helter or have no steady place to sleep at night? No 11/27/2023 READ ONLY Do you think you a re at risk of becoming homeless? No 11/27/2023 Does your family worry about paying for your home or becoming homeless? (Household - for ages 0-17 years) Not on file 0 11/27/2023 Are you homeless or worried that you might be in the future? No 11/27/2023 Are you (or your family) jane eless or worried that you might be in the future? (Household - for ages 0-17 years) Not on file Food Insecurity Answer Date Recorded Do you need food for this week? No 11/27/2023 Are you able to get enough f ood for your family? (Household - for ages 0-17 years) Not on file 11/27/2023 Does your family need food t his week? (Household - for ages 0-17 years) Not on file 11/27/2023 Do you always have enough fo od for your family? (Household - for ages 0-17 years) Not on file 11/27/2023 Sex and Gender Information Value Date Recorded Sex Assigned at Female 07/02/2021 2:26 PM EST Gender Identity Female 07/02/2021 2:26 PM EST Sexual Orientation Straight 07/02/2021 2: 26 PM EST Job Start Date Occupation Industry Not on file Not on file Not on file documented as of this encounter Miscellaneous Notes * Telephone Encounter - Pradip Ramirez LPN - 04/07/2024 8:46 AM EDT Called patient and informed of Wes's message. Patient verbalized understanding. Faxed results to [facility] ED. ----- Message from Wes Bourgeois sent at 04/07/2024 7:07 AM EDT ----- Chest x-ray with possible infiltrate. Laboratory work with significant anemia, hemoglobin down to 8.7 g/dL. Recommend referral to [facility] ER today for further evaluation and treatment. * Telephone Encounter - Pradip Ramirez LPN - 04/07/2024 8:45 AM EDT ----- Message from Wes Bourgeois sent at 04/07/2024 7:07 AM EDT ----- Chest x-ray with possible infiltrate. Laboratory work with significant anemia, hemoglobin down to 8.7 g/dL. Recommend referral to [facility] ER today for further evaluation and treatment. documented in this encounter Plan of Treatment Upcoming Encounters Date Type Department Care Team (Late st Contact Info) Description 05/04/2024 3:30 PM EST Anticoagulation Pharmacy, [address] [place] [address] [place] [address] 08/24/2024 2:30 PM EDT Nurse Only Ancillary [address] [place] [address] [place], Nurse [address] [place] [address] 09/02/2024 3:20 PM EDT Office Visit Nephrology [address] [place] [address] Vivien Diez MD [address] [facility] [place] [address] Health Maintenance Due Date Last Done Comments Colonoscopy 1997 Fecal Occult Blood Test 1997 Sigmoidoscopy 1997 Zoster Vaccines (1 of 2) 2002 DTap/Tdap Vaccines (2 - Td or Tdap) 06/15/2017 06/15/2007 Cologuard 10/01/2021 10/01/2018 Colorectal Cancer Screening 10/01/2021 COVID-19 Vaccine ( season) 2024 05/06/2023, 04/30/2022, 07/24/2021, Additional history exists Mammogram 08/04/2024 08/04/2023, 07/11, 03/11/2022, Additional history exists Adult Wellness Visit 08/20/2024 08/21/2023, 07/22/2022, 07/02/2021 Depression Screening 11/26/2024 11/27/2023 O2 ASSESSMENT COMPLETED IN PAST YEAR FOR COPD 04/06/2025 04/06/2024 TSH 04/06/2025 04/06/2024, 12/0 01/2023, 04/30/2023, Additional history exists DXA Scan 03/09/2026 03/09/2019 Lipid Panel 02/05/2029 02/06/2024, 12/0 01/2023, 10/30/2022, Additional history exists Pneumococcal Vaccine: 65+ Years Completed 11/13/2018, 10/21/2017, 03/10/2008, Additional history exists Alpha-1 Antitrypsin Completed 10/10/2020 Albumin/Creatinine Ratio Discontinued 023, 01/03/2022, 03/26/2021 Lung Cancer Screening Completed 11/17/2023 , 11/05/2022, 06/07/2022, Additional history exists Influenza Vaccine (FLU shot) Completed 03/18/2024, 03/18/2023, 03/14/2022, Additional history exists HPV (Gardasil) Vaccine Aged Out No lo nger eligible based on patient's age to complete this topic Hepatitis B Vaccine Aged Out No longe r eligible based on patient's age to complete this topic MENINGOCOCCAL (MENACTRA/MENVEO) Aged Out No longer eligible based on patient's age to complete this topic documented as of this encounter Medical Devices Implanted Type Area Consumer Electronics Merchandiser Device Identifier Shelf Expiration Date Model / Serial / Lot Suture Steel 6 B&S19 [id number] - [id number] Implanted:Qty : 4 on 06/18/2018 by Handy Farmer MD at [place] [facility] [place] N/A: Sternum JNJ : [employer] 01/06/2023 [id number] / / [id number] Valve Heart Aortic Epic 23mm - [id number] Implanted:03/2019 by Handy Farmer MD at [place] [facility] [place] (Quantity not on file) N/A: Heart [facility] KERRI : CARDIOVASCULAR 12/28/2021 [id number] / [id number] / LOT NA Graft Gelweave Valsalva 28mm - [id number] - [id number] Implanted:Qty : 1 on 06/18/2018 by Handy Farmer MD at [place] [facility] [place] N/A: Aorta [employer] 04/08/2021 [id number] / [id number] / [id number] [place] Ptfe 6x6in X5 - [id number] Implanted:Qty : 1 on 06/18/2018 by Handy Farmer MD at [place] [facility] [place] N/A: Aorta CR BARD : PERIPHERAL VASCULAR 12/04/2022 [id number] / / [id number] 6in X 6in (15cm X 15cm) Ptfe [place], 1.65mm Thick Implanted:Qty : 1 on 06/18/2018 by Handy Farmer MD at [place] [facility] [place] N/A: Aorta CR BARD : PERIPHERAL VASCULAR 12/04/2022 [id number] / / [id number] 6in X 6in (15cm X 15cm) Ptfe [place], 1.65mm Thick Implanted:Qty : 1 on 06/18/2018 by Handy Farmer MD at [place] [facility] [place] N/A: Aorta CR BARD : PERIPHERAL VASCULAR 12/04/2022 [id number] / / [id number] 6in X 6in (15cm X 15cm) Ptfe [place], 1.65mm Thick Implanted:Qty : 1 on 06/18/2018 by Handy Farmer MD at [place] [facility] [place] N/A: Aorta CR BARD : PERIPHERAL VASCULAR 12/04/2022 [id number] / / [id number] documented as of this encounter Advance Directives * Full Code (Latest Code Status on File) Date Activated Date Inactivated Comments 06/18/2018 6:43 PM 06/25/2018 6:16 PM This order r eflects the patients wishes and were consensually agreed upon. Care Teams Felled Seam Operator Relationship Specialty Start Date End Date Nat Salter MD [address] [place] [address] [place] [address] PCP - General Family Medicine 11/13/18 documented as of this encounter
--- OUTSIDE RECORDS SUMMARY | 2024-04-07 13:10 | External Medical Summary ---
Author Name Unknown Address Unknown Organization [id number]:[facility] [place] - [address] [place] [address] Laboratory Report Ordering Provider Test Date Status [place] 04/06/2024 16:19:35 Final Observation Date Value Abnormality Reference (Units ) Status Iron 04/06/2024 16:19:35 19 Below low normal 33-151 (ug/dL) Final Iron-binding capacity 04/06/2024 16:19:35 410 250-425 (ug/dL) Final Transferrin Sat % 04/06/2024 16:19:35 5 Below low normal 15-55 (%) Final Performing Location [facility] - [address] [place] [address]
--- OUTSIDE RECORDS SUMMARY | 2024-04-07 13:10 | External Medical Summary | Summary of Care ---
Author Name Unknown Organization [facility] Address [address] [place] [address] Phone [phone] Care Team Providers Care Tree Driller Name Role Phone Nat Salter MD Primary Care Prov ider Reason for Visit * Reason Comments Dosage Adjustment In Person (Anticoag Cl inic) Encounter Details Date Type Department Care Team (Latest Contact Info) Description 04/06/2024 3:10 PM EDT Anticoagulation Pharmacy, [address] [place] [address] [place] [address] Anticoagulation management encounter*; Paroxysmal atrial fibrillation (HCC) Allergies Active Allergy Reactions Criticality Noted Date Comments Prednisone Other (Please comment) Medium 12/28/2015 Stated it caused her to go into AFib documented as of this encounter (statuses as of 04/06/2024) Medications Medication Sig Dispensed Refills Start Date End Date Status DIURETIC TITRATION PLANIndications:Chr onic right-sided CHF (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 1 Each 9 Active Aspirin 81 MG Oral Tablet Delayed Release Take 1 Tablet by mouth in the morning. 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 1 Each 2 Active Budesonide-Formoter ol Fumarate 160-4.5 MCG/ACT Inhalation Aerosol (Symbicort)Indicati ons:COPD, group B, by GOLD 2017 classification ([facility]) Inhale 2 Puffs by mouth in the morning and 2 Puffs before bedtime. 10.2 g 12 3 Active Potassium Chloride Stefania ER 20 MEQ Oral Tablet Extended ReleaseIndications: Paroxysmal atrial fibrillation ([facility]),Chronic diastolic heart failure ([facility]),Chronic right-sided CHF (congestive heart failure) ([facility]) TAKE ONE TABLET BY MOUTH IN THE MORNING AND TAKE THREE TABLETS ON DAYS WHEN TAKING METALAZONE 90 Tablet 3 4 Active Allopurinol 100 MG Oral Tablet (Zyloprim)Indicatio ns:Kidney disease, chronic, stage IV (GFR 15-29 ml/min) ([facility]),Hyperuricemia Take 2 Tablets by mouth in the morning. 60 Tablet 11 4 Active Vitamin D 50 MCG (2000 UT) Oral CapsuleIndications: Vitamin D deficiency Take 4,000 Units by mouth in the morning. 4,000 units daily. 60 Capsule 11 4 Active Metoprolol Succinate ER 50 MG Oral Tablet Extended Release 24 Hour (toPROL XL)Indications:Paro xysmal atrial fibrillation (HCC) 1 1/2 tablets in the morning and 1 1/2 tablets in the evening 270 Tablet 3 4 Active Spiriva Respimat 2.5 MCG/ACT Inhalation Aerosol Solution (Tiotropium [place] Monohydrate)Indicat ions:COPD, group B, by GOLD 2017 classification ([facility]) Inhale 2 Puffs by mouth in the morning. 4 g 11 4 Active Venlafaxine HCl ER 75 MG Oral Capsule Extended Release 24 Hour (Effexor XR)Indications:Adju stment disorder with depressed mood TAKE ONE CAPSULE BY MOUTH EVERY DAY DO NOT CUT, CRUSH, OR CHEW, 90 Capsule 2 4 Active Torsemide 20 MG Oral Tablet (Demadex)Indication s:Acute on chronic diastolic (congestive) heart failure ([facility]) Take 1 Tablet by mouth in the [...] :COPD, group B, by GOLD 2017 classification ([facility]) Inhale 2 Puffs by mouth every 6 [...] 2 weeks. 24 Suppository 1 4 Active Omeprazole 20 MG Oral Capsule Delayed Release (PriLOSEC)Indicatio ns:Gastroesophageal reflux disease with esophagitis take 1 capsule every day 1 hour before the first meal of the day. 90 Capsule 1 4 Active documented as of this encounter (statuses as of 04/06/2024) Active Problems Problem Noted Date Diagnosed Date [...] brochure given to patient at 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 Pre-op testing Dyslipidemia, goal LDL below 100 Total knee replacement status Adjustment disorder with depressed mood SBE (subacute bacterial endocarditis) prophylaxi s candidate History of tobacco use documented as of this encounter (statuses as of 04/06/2024) Resolved Problems Problem Noted Date Diagnosed Date [...] id ventricular response 06/18/2016 12/13/2016 Overview: admitted [facility] pulse 140s OBESITY, BMI 30-34 (SEE ACTUAL [...] as of this encounter (statuses as of 04/06/2024) Immunizations Name Administration Dates Next Due COVID-19 mRNA, LNP-s, No Pre serve, 2-Dose Series ([employer]) 07/24/2021,01/30/2021,01/05/2021 COVID-19, LNP-s, No Preserve , Vito-sucrose, Ages 12+ (Pfizer) 07/24/2021 COVID-19, MRNA-LNP, 23-24, P F, 30 MCG/0.3 mL, 12 YRS AND ABOVE, IM ([employer]Com[employer]) 05/06/2023 Covid-19, Mrna, Lnp-s, Pf, B ivalent, 30 Mcg, IM, 12 yrs and above (Pfizer) 04/30/2022 Pneumococcal Conjugate Vacc, 13 Valent (Prevnar) [...] on file documented as of this encounter Progress Notes * Cass Dorsey, [facility] - 04/06/2024 3:05 PM EDT Medication Therapy Disease Management - Anticoagulation Patient: Melissa Figueroa | : 1950 Subjective Patient-Reported Symptoms: Patient Findings Positives: Signs/symptoms of bleeding, Upcoming invasive procedure Negatives: Signs/symptoms of thrombosis, Change in health, Change in alcohol use, Change in activity, Missed doses, Extra doses, Change in medications, Change in diet/appetite, Bruising Objective Current Warfarin Dose As of 04/06/2024 Warfarin maintenance plan: 3.75 mg (2.5 mg x 1.5) every Mon, Fri; 2.5 mg (2.5 mg x 1) all other days INR Result As of 04/06/2024 INR goal: 2.0-3.0 INR used for dosin.0 (04/06/2024) Assessment & Plan Warfarin Plan As of 04/06/2024 Full warfarin instructions: 3.75 mg every Mon, Fri; 2.5 mg all other days No change documented: Cass Dorsey RPh Next INR check: 05/04/2024 Repeat PT/INR in 4 week(s) Weekly dose: not changed Additional Dosing Information: Patient notes to having rectal bleeding last month. Saw provider at on 03/18. Suspected to be due to hemorrhoids. Reports no bleeding since. Does note to upcoming colonoscopy May 13. Planning to discuss warfarin hold with cardiology today. Will review procedure instructions at next visit. Description Amiodarone 200 mg BID (01/03/22) --> DAILY after DCC 02/19/22 --> STOPPED by Cardio on 08/06/23 I spent a total of 10-19 minutes (exact time 15 mins) on the date of service in preparation, delivery, and documentation of the care provided to Melissa Figueroa excluding any time spent in the performance of separately billed services or time spent by another provider/QHP. Cass Dorsey RPh Clinical Pharmacist 04/06/2024, 3:05 PM documented in this encounter Plan of Treatment Upcoming Encounters Date Type Department Care Team (Late st Contact Info) Description 05/04/2024 3:30 PM EST Anticoagulation Pharmacy, [address] [place] [address] [place], [address] [place] [address] 08/24/2024 2:30 PM EDT Nurse Only Ancillary [address] [place] [address] [place], Nurse [address] [place] [address] 09/02/2024 3:20 PM EDT Office Visit Nephrology [address] [place] [address] Vivien Diez MD [address] [facility] [place] [address] Health Maintenance Due Date Last Done Comments Colonoscopy 1997 Fecal Occult Blood Test 1997 Sigmoidoscopy 1997 Zoster Vaccines (1 of 2) 2002 DTap/Tdap Vaccines (2 - Td or Tdap) 06/15/2017 06/15/2007 Cologuard 10/01/2021 10/01/2018 Colorectal Cancer Screening 10/01/2021 COVID-19 Vaccine ( season) 2024 05/06/2023, 04/30/2022, 07/24/2021, Additional history exists TSH 05/16/2024 05/16/2023, 04/10, 10/30/2022, Additional history exists Mammogram 08/04/2024 08/04/2023, 07/11, 03/11/2022, Additional history exists Adult Wellness Visit 08/20/2024 08/21/2023, 07/22/2022, 07/02/2021 Depression Screening 11/26/2024 11/27/2023 O2 ASSESSMENT COMPLETED IN PAST YEAR FOR COPD 03/18/2025 03/18/2024 DXA Scan 03/09/2026 03/09/2019 Lipid Panel 02/05/2029 02/06/2024, 01/2023, 10/30/2022, Additional history exists Pneumococcal Vaccine: [...] this encounter Medical Devices Implanted Type Area Towel Cabinet Repairer Device Identifier Shelf Expiration Date Model / Serial / Lot Suture Steel 6 B&S19 M654g - [id number] Implanted:Qty : 4 on 06/18/2018 by Handy Farmer MD at [facility] N/A: Sternum JNJ : [employer] 01/06/2023 [id number] / / [id number] Valve Heart Aortic Epic 23mm - [id number] Implanted:03/2019 by Handy Farmer MD at [place] [facility] (Quantity not on file) N/A: Heart ST KERRI : CARDIOVASCULAR 12/28/2021 [id number] 00 / [id number] / LOT NA Graft Gelweave Valsalva 28mm - [id number] - [id number] Implanted:Qty : 1 on 06/18/2018 by Handy Farmer MD at [place] [facility] N/A: Aorta [employer] 04/08/2021 [id number] / [id number] / [id number] [place] Ptfe 6x6in X5 - [id number] Implanted:Qty : 1 on 06/18/2018 by Handy Farmer MD at [place] [facility] N/A: Aorta CR BARD : PERIPHERAL VASCULAR 12/04/2022 [id number] / / [id number] 6in X 6in (15cm X 15cm) Ptfe [place], 1.65mm Thick Implanted:Qty : 1 on 06/18/2018 by Handy Farmer MD at [place] [facility] N/A: Aorta CR BARD : PERIPHERAL VASCULAR 12/04/2022 [id number] / / [id number] 6in X 6in (15cm X 15cm) Ptfe [place], 1.65mm Thick Implanted:Qty : 1 on 06/18/2018 by Handy Farmer MD at [place] [facility] N/A: Aorta CR BARD : PERIPHERAL VASCULAR 12/04/2022 [id number] / / [id number] 6in X 6in (15cm X 15cm) Ptfe [place], 1.65mm Thick Implanted:Qty : 1 on 06/18/2018 by Handy Farmer MD at [place] [facility] N/A: Aorta CR BARD : PERIPHERAL VASCULAR 12/04/2022 [id number] / / [id number] documented as of this encounter Procedures Procedure Name Priority Date/Time Associated Diagnosis Comments INR FINGERSTICK, POINT OF CARE STAT 04/06/2024 3:09 PM EDT Paroxysmal atrial fibrillation (HCC) Anticoagulation management encounter documented in this encounter Results * INR FINGERSTICK, POINT OF CARE (04/06/2024 3:09 PM EDT) Fingerstick INR 2.0 INR 3:12 PM EDT [facility] [place] 55-00 Blood 04/06/2024 3:09 PM EDT 04/06/2024 3:12 PM EDT Narrative [facility] [place] 55-00 - 04/06/2024 3:12 PM EDT Therapeutic ranges for non-operative patients: Prophylaxsis/treatment of DVT: (Range:2.0-3.0) Treatment of pulmonary embolism:(Range:2.0-3.0) Prevention of systemic embolism from: -tissue heart valves -acute myocardial infarction -valvular heart disease -atrial fibrillation (Range: 2.0-3.0) Mechanical prosthetic valves: (Range: 2.5-3.5) Cass Dorsey [facility] POINT OF CARE TEST DOCKED DEVICE UNSOLICITED RESULTS [facility] [address] [place] [address] [place] [address] documented in this encounter Visit Diagnoses Diagnosis Anticoagulation management encounter- Primary Encounter for therapeutic drug monitoring Paroxysmal atrial fibrillation (HCC) Atrial fibrillation documented in this encounter Advance Directives * Full Code (Latest Code Status on File) Date Activated Date Inactivated Comments 06/18/2018 6:43 PM 06/25/2018 6:16 PM This order r eflects the patients wishes and were consensually agreed upon. Care Teams Tree Driller Relationship Specialty Start Date End Date Nat Salter MD [address] [place] [address] [place] [address] PCP - General Family Medicine 11/13/18 documented as of this encounter"
--- OUTSIDE RECORDS SUMMARY | 2024-04-07 13:10 | External Medical Summary | Summary of Care ---
Author Name Unknown Organization [facility] Address [address] [place] [address] Phone [phone] Care Team Providers Care Weaving Machine Operator Name Role Phone Nat Salter MD Primary Care Prov ider Reason for Visit * Reason Onset Date Comments Test Results 04/06/2024 Unexpected or In determinate Result Encounter Details Date Type Department Care Team (Late st Contact Info) Description 04/06/2024 Telephone Cardiology, [facility] [address] [place] [address] Wes Bourgeois PA-C [address] [place] [id number] Test Results (Unexpected or Indeterminate ... Allergies Active Allergy Reactions Criticality Noted Date [...] mouth in the morning. 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 1 Each 2 Active Budesonide-Formoter ol Fumarate 160-4.5 MCG/ACT Inhalation Aerosol (Symbicort)Indicati ons:COPD, group B, by GOLD 2017 classification ([facility]) Inhale 2 Puffs by mouth in the morning and 2 Puffs before bedtime. 10.2 g 12 3 Active Additional Information Patient not taking.Reported on 04/06/2024 Potassium Chloride Stefania ER 20 MEQ Oral Tablet Extended ReleaseIndications: Paroxysmal atrial fibrillation ([facility]),Chronic diastolic heart failure ([facility]),Chronic right-sided CHF (congestive heart failure) ([facility]) TAKE ONE TABLET BY MOUTH IN THE MORNING AND TAKE THREE TABLETS ON DAYS WHEN TAKING METALAZONE 90 Tablet 3 4 Active Allopurinol 100 MG Oral Tablet (Zyloprim)Indicatio ns:Kidney disease, chronic, stage IV (GFR 15-29 ml/min) ([facility]),Hyperuricemia Take 2 Tablets by mouth in the morning. 60 Tablet 11 4 Active Vitamin D 50 MCG (2000 UT) Oral CapsuleIndications: Vitamin D deficiency Take 4,000 Units by mouth in the morning. 4,000 units daily. 60 Capsule 11 4 Active Metoprolol Succinate ER 50 MG Oral Tablet Extended Release 24 Hour (toPROL XL)Indications:Paro xysmal atrial fibrillation ([facility]) 1 1/2 tablets in the morning and 1 1/2 tablets in the evening 270 Tablet 3 4 Active Spiriva Respimat 2.5 MCG/ACT Inhalation Aerosol Solution (Tiotropium [place] Monohydrate)Indicat ions:COPD, group B, by GOLD 2017 classification ([facility]) Inhale 2 Puffs by mouth in the [...] :COPD, group B, by GOLD 2017 classification ([facility]) Inhale 2 Puffs by mouth every 6 [...] brochure given to patient at 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 0 12/25/2004 [...] id ventricular response 06/18/2016 12/13/2016 Overview: admitted [facility] [place] pulse 140s OBESITY, BMI 30-34 (SEE ACTUAL [...] mRNA, LNP-s, No Pre serve, 2-Dose Series ([employer]) 07/24/2021,01/30/2021,01/05/2021 COVID-19, LNP-s, No Preserve , Vito-sucrose, Ages 12+ ([employer]) 07/24/2021 COVID-19, MRNA-LNP, 23-24, P F, 30 MCG/0.3 mL, 12 YRS AND ABOVE, IM ([employer]) 05/06/2023 Covid-19, Mrna, Lnp-s, Pf, B ivalent, 30 Mcg, IM, 12 yrs and above ([employer]) 04/30/2022 Pneumococcal Conjugate Vacc, 13 Valent (Prevnar) [...] encounter Miscellaneous Notes * Telephone Encounter - Wes Bourgeois PA-C - 04/07/2024 7:02 AM EDT Message received. Results reviewed. Refer to Result Note. Wes Bourgeois PA-C Department of Cardiology * Telephone Encounter - Juju Smith OSA - 04/06/2024 10:10 PM EDT Hello- The radiologist discovered an unexpected or indeterminate finding on Melissa Figueroa ([id number]) and asks that you review the following report. Study Type:XR CHEST 2 VIEWS Date of Study: 04/06/2024 IMPRESSION IMPRESSION Mild retrocardiac opacity, suggesting infiltrate. Please respond to this encounter to acknowledge receipt of this message and take responsibility to ensure this report is reviewed. Thank you, DESHAUN Beatty Client Service Rep [facility] documented in this encounter Plan of Treatment Upcoming Encounters Date Type Department Care Team (Late st Contact Info) Description 05/04/2024 3:30 PM EST Anticoagulation Pharmacy, [address] [place] [address] [place] [address] 08/24/2024 2:30 PM EDT Nurse Only Ancillary [address] [place] [address] [place], Nurse [address] [place] [address] 09/02/2024 3:20 PM EDT Office Visit Nephrology [address] [place] [address] Vivien Diez MD [address] [place] [address] [place] [address] Health Maintenance Due Date Last Done Comments [...] this encounter Medical Devices Implanted Type Area Railroad Switchman Device Identifier Shelf Expiration Date Model / Serial / Lot Suture Steel 6 B&S19 M654g - [id number] Implanted:Qty : 4 on 06/18/2018 [place] Handy [place] [facility]A: Sternum JNJ : [employer] 01/06/2023 M654G / / [id number] Valve Heart Aortic Epic 23mm - [id number] Implanted:03/2019 by Handy Farmer [place] [facility] (Quantity not on file) N/A: Heart ST KERRI : CARDIOVASCULAR 12/28/2021 [id number] 00 / [id number] / LOT NA Graft Gelweave Valsalva 28mm - [id number] - [id number] Implanted:Qty : 1 on 06/18/2018 by Handy Farmer [place] [facility] N/A: Aorta [employer] 04/08/2021 [id number] / [id number] / [id number] [place] Ptfe 6x6in X5 - [id number] Implanted:Qty : 1 on 06/18/2018 by Handy Farmer MD [place] [facility] N/A: Aorta CR BARD : PERIPHERAL VASCULAR 12/04/2022 [id number] / / [id number] 6in X 6in (15cm X 15cm) Ptfe [place], 1.65mm Thick Implanted:Qty : 1 on 06/18/2018 by Handy Farmer [place] [facility] [place]/A: Aorta CR BARD : PERIPHERAL VASCULAR 12/04/2022 [id number] / / [id number] 6in X 6in (15cm X 15cm) Ptfe [place], 1.65mm Thick Implanted:Qty : 1 on 06/18/2018 by Handy Farmer MD [place] [facility] N/A: Aorta CR BARD : PERIPHERAL VASCULAR 12/04/2022 [id number] / / [id number] 6in X 6in (15cm X 15cm) Ptfe [place], 1.65mm Thick Implanted:Qty : 1 on 06/18/2018 by Handy Farmer MD [place] [facility] N/A: Aorta CR BARD : PERIPHERAL VASCULAR 12/04/2022 [id number] / / [id number] documented as of this encounter Advance Directives * Full Code (Latest Code Status on File) Date Activated Date Inactivated Comments 06/18/2018 6:43 PM 06/25/2018 6:16 PM This order r eflects the patients wishes and were consensually agreed upon. Care Teams Weaving Machine Operator Relationship Specialty Start Date End Date Nat Salter MD [address] [place] [address] [place] [address] PCP - General Family Medicine 11/13/18 documented as of this encounter
--- OUTSIDE RECORDS SUMMARY | 2024-04-07 13:10 | External Medical Summary ---
Author Name Unknown Address Unknown Organization [id number]:[facility] - [address] [facility] [address] Laboratory Report Ordering Provider Test Date Status [place] 04/06/2024 16:19:35 Final Observation Date Value Abnormality Reference (Units ) Status Ferritin 04/06/2024 16:19:35 24 13-150 (ng /mL) Final Postmenopausal women have hi gher ferritin levels than pre-menopausal women. The above reference interval is based on pre-menopausal women. Performing Location [facility] [address] [facility] [address]
--- OUTSIDE RECORDS SUMMARY | 2024-04-07 13:10 | External Medical Summary | Summary of Care ---
Author Name Unknown Organization [facility] Address [address] [place] [address] Phone [phone] Care Team Providers Care Machine Attendant Name Role Phone Nat Salter MD Primary Care Prov ider Reason for Visit * Reason Onset Date Comments Test Results 04/06/2024 Unexpected or In determinate Result Encounter Details Date Type Department Care Team (Late st Contact Info) Description 04/06/2024 Telephone Cardiology, [facility] [address] [place] [id number] Wes Bourgeois PA-C [address] [place] [id number] Test Results (Unexpected or Indeterminate ... Allergies [...] mouth in the morning. 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 1 Each 2 Active Budesonide-Formoter ol Fumarate 160-4.5 MCG/ACT Inhalation Aerosol (Symbicort)Indicati ons:COPD, group B, by GOLD 2017 classification ([facility]) Inhale 2 Puffs by mouth in the morning and 2 Puffs before bedtime. 10.2 g 12 3 Active Additional Information Patient not taking.Reported on 04/06/2024 Potassium Chloride Stefania ER 20 MEQ Oral Tablet Extended ReleaseIndications: Paroxysmal atrial fibrillation ([facility]),Chronic diastolic heart failure ([facility]),Chronic right-sided CHF (congestive heart failure) ([facility]) TAKE ONE TABLET BY MOUTH IN THE MORNING AND TAKE THREE TABLETS ON DAYS WHEN TAKING METALAZONE 90 Tablet 3 4 Active Allopurinol 100 MG Oral Tablet (Zyloprim)Indicatio ns:Kidney disease, chronic, stage IV (GFR 15-29 ml/min) ([facility]),Hyperuricemia Take 2 Tablets by mouth in the morning. 60 Tablet 11 4 Active Vitamin D 50 MCG (2000 UT) Oral CapsuleIndications: Vitamin D deficiency Take 4,000 Units by mouth in the morning. 4,000 units daily. 60 Capsule 11 4 Active Metoprolol Succinate ER 50 MG Oral Tablet Extended Release 24 Hour (toPROL XL)Indications:Paro xysmal atrial fibrillation ([facility]) 1 1/2 tablets in the morning and 1 1/2 tablets in the evening 270 Tablet 3 4 Active Spiriva Respimat 2.5 MCG/ACT Inhalation Aerosol Solution (Tiotropium [place] Monohydrate)Indicat ions:COPD, group B, by GOLD 2017 classification ([facility]) Inhale 2 Puffs by mouth in [...] B, by GOLD 2017 classification ([facility]) Inhale 2 Puffs by mouth every [...] brochure given to patient at 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 anticoagulant therapy 0 [...] id ventricular response 06/18/2016 12/13/2016 Overview: admitted [facility] pulse 140s OBESITY, BMI 30-34 (SEE ACTUAL [...] mRNA, LNP-s, No Pre serve, 2-Dose Series ([employer]) 07/24/2021,01/30/2021,01/05/2021 COVID-19, LNP-s, No Preserve , Vito-sucrose, Ages 12+ ([employer]) 07/24/2021 COVID-19, MRNA-LNP, 23-24, P F, 30 MCG/0.3 mL, 12 YRS AND ABOVE, IM ([facility]) 05/06/2023 Covid-19, Mrna, Lnp-s, Pf, B ivalent, 30 Mcg, IM, 12 yrs and above ([employer]) 04/30/2022 Pneumococcal Conjugate Vacc, 13 Valent (Prevnar) [...] encounter Miscellaneous Notes * Telephone Encounter - Juju Smith OSA - 04/06/2024 10:10 PM EDT Hello- The radiologist discovered an unexpected or indeterminate finding on Melissa Figueroa ([id number]) and asks that you review the following report. Study Type:XR CHEST 2 VIEWS Date of Study: 04/06/2024 IMPRESSION IMPRESSION Mild retrocardiac opacity, suggesting infiltrate. Please respond to this encounter to acknowledge receipt of this message and take responsibility to ensure this report is reviewed. Thank you, DESHAUN Beatty Client Service Rep [facility] [place] documented in this encounter Plan of Treatment Upcoming Encounters Date Type Department Care Team (Late st Contact Info) Description 05/04/2024 3:30 PM EST Anticoagulation Pharmacy, [address] [place] [address] [place] [address] 08/24/2024 2:30 PM EDT Nurse Only Ancillary [address] [place] [address] [place], Nurse Annual [address] [place] [address] 09/02/2024 3:20 PM EDT Office Visit Nephrology [address] [place] [address] Vivien Diez MD [address] [facility] [place] [address] Health Maintenance Due Date Last Done Comments [...] IN PAST YEAR FOR COPD 04/06/2025 04/06/2024 DXA Scan 03/09/2026 03/09/2019 Lipid Panel 02/05/2029 02/06/2024, 12/01/2023, 10/30/2022, Additional history exists Pneumococcal Vaccine: 65+ [...] this encounter Medical Devices Implanted Type Area Still Operator Gin Device Identifier Shelf Expiration Date Model / Serial / Lot Suture Steel 6 B&S19 M654g - [id number] Implanted:Qty : 4 on 06/18/2018 by Hadny Farmer MD at OR [facility] N/A: Sternum JNJ : [employer] 01/06/2023 [id number] / / [id number] Valve Heart Aortic Epic 23mm - [id number] Implanted:03/2019 by Handy Farmer MD at OR [facility] (Quantity not on file) N/A: Heart ST KER[employer] : CARDIOVASCULAR 12/28/2021 [id number] / [id number] / LOT NA Graft Gelweave Valsalva 28mm - [id number] - [id number] Implanted:Qty : 1 on 06/18/2018 by Handy Farmer MD at OR [facility] N/A: Aorta [employer] CHANTAL 04/08/2021 [id number] / [id number] / [id number] [place] Ptfe 6x6in X5 - [id number] Implanted:Qty : 1 on 06/18/2018 by Handy Farmer MD at OR [facility] N/A: Aorta CR BARD : PERIPHERAL VASCULAR 12/04/2022 [id number] / / [id number] 6in X 6in (15cm X 15cm) Ptfe [place], 1.65mm Thick Implanted:Qty : 1 on 06/18/2018 by Handy Farmer MD at OR [facility] N/A: Aorta CR BARD : PERIPHERAL VASCULAR 12/04/2022 [id number] / / [id number] 6in X 6in (15cm X 15cm) Ptfe [place], 1.65mm Thick Implanted:Qty : 1 on 06/18/2018 by Handy Farmer MD at OR [facility] N/A: Aorta CR BARD : PERIPHERAL VASCULAR 12/04/2022 [id number] / / [id number] 6in X 6in (15cm X 15cm) Ptfe [place], 1.65mm Thick Implanted:Qty : 1 on 06/18/2018 by Handy Farmer MD at OR [facility] N/A: Aorta CR BARD : PERIPHERAL VASCULAR 12/04/2022 [id number] / / [id number] documented as of this encounter Advance Directives * Full Code (Latest Code Status on File) Date Activated Date Inactivated Comments 06/18/2018 6:43 PM 06/25/2018 6:16 PM This order r eflects the patients wishes and were consensually agreed upon. Care Teams Machine Attendant Relationship Specialty Start Date End Date Nat Salter MD [address] [place] [address] [place] [address] PCP - General Family Medicine 11/13/18 documented as of this encounter
--- OUTSIDE RECORDS SUMMARY | 2024-04-07 13:10 | External Medical Summary | Summary of Care ---
Author Name Unknown Organization [facility] Address [address] [place] [address] Phone [phone] Care Team Providers Care High Frequency Mill Operator Name Role Phone Nat Salter MD Primary Care Prov ider Reason for Visit * Reason Comments Outpatient Testing Encounter Details Date Type Department Care Team (Late st Contact Info) Description 04/06/2024 4:10 PM EDT Laboratory Laboratory [address] [place] [id number] [facility] [address] [place] [address] SOBOE (shortness of breath on exertion); Dyspnea on exertion; Anemia, unspecified type; Unspecified disturbances of skin sensation Allergies Active Allergy Reactions Criticality Noted Date [...] mouth in the morning. 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 1 Each 2 Active Budesonide-Formoter ol Fumarate 160-4.5 MCG/ACT Inhalation Aerosol (Symbicort)Indicati ons:COPD, group B, by GOLD 2017 classification ([facility]) Inhale 2 Puffs by mouth in the morning and 2 Puffs before bedtime. 10.2 g 12 3 Active Additional Information Patient not taking.Reported on 04/06/2024 Potassium Chloride Stefania ER 20 MEQ Oral Tablet Extended ReleaseIndications: Paroxysmal atrial fibrillation ([facility]),Chronic diastolic heart failure ([facility]),Chronic right-sided CHF (congestive heart failure) ([facility]) TAKE ONE TABLET BY MOUTH IN THE MORNING AND TAKE THREE TABLETS ON DAYS WHEN TAKING METALAZONE 90 Tablet 3 4 Active Allopurinol 100 MG Oral Tablet (Zyloprim)Indicatio ns:Kidney disease, chronic, stage IV (GFR 15-29 ml/min) ([facility]),Hyperuricemia Take 2 Tablets by mouth in the morning. 60 Tablet 11 4 Active Vitamin D 50 MCG (2000 UT) Oral CapsuleIndications: Vitamin D deficiency Take 4,000 Units by mouth in the morning. 4,000 units daily. 60 Capsule 11 4 Active Metoprolol Succinate ER 50 MG Oral Tablet Extended Release 24 Hour (toPROL XL)Indications:Paro xysmal atrial fibrillation ([facility]) 1 1/2 tablets in the morning and 1 1/2 tablets in the evening 270 Tablet 3 4 Active Spiriva Respimat 2.5 MCG/ACT Inhalation Aerosol Solution (Tiotropium [place] Monohydrate)Indicat ions:COPD, group B, by GOLD 2017 classification ([facility]) Inhale 2 Puffs by mouth in the morning. 4 g 4 Active Venlafaxine HCl ER 75 MG [...] group B, by GOLD 2017 classification ([facility]) Inhale 2 Puffs by mouth [...] brochure given to patient at 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 pulse 140s OBESITY, BMI 30-34 (SEE [...] mRNA, LNP-s, No Pre serve, 2-Dose Series ([employer]) 07/24/2021,01/30/2021,01/05/2021 COVID-19, LNP-s, No Preserve , Vito-sucrose, Ages 12+ ([employer]) 07/24/2021 COVID-19, MRNA-LNP, 23-24, P F, 30 MCG/0.3 mL, 12 YRS AND ABOVE, IM ([facility]) 05/06/2023 Covid-19, Mrna, Lnp-s, Pf, B ivalent, 30 Mcg, IM, 12 yrs and above ([employer]) 04/30/2022 Pneumococcal Conjugate Vacc, 13 Valent (Prevnar) [...] on file documented as of this encounter Plan of Treatment Upcoming Encounters Date Type Department Care Team (Late st Contact Info) Description 05/04/2024 3:30 PM EST Anticoagulation Pharmacy, [address] [place] [address] [place], [address] [place] [address] 08/24/2024 2:30 PM EDT Nurse Only Ancillary [address] [place] [address] [place], Nurse [address] [place] [address] 09/02/2024 3:20 PM EDT Office Visit Nephrology [address] [place] [address] Vivien Diez MD [address] [facility] [address] Pending Results Name Type Priority Associated Diagnoses Date /Time CBC Lab Routine SOBOE (shortness of breath on exertion) 04/06/2024 4:19 PM EDT BASIC METABOLIC PANEL Lab Routine SOBOE (shortness of breath on exertion) 04/06/2024 4:19 PM EDT BNP, NT-PRO Lab Routine SOBOE (shortness of breath on exertion) 04/06/2024 4:19 PM EDT TSH Lab Routine SOBOE (shortness of breath on exertion) Dyspnea on exertion 04/06/2024 4:19 PM EDT FERRITIN Lab Routine Anemia, unspecified type 04/06/2024 4:19 PM EDT FOLIC ACID Lab Routine Anemia, unspecified type Unspecified disturbances of skin sensation 04/06/2024 4:19 PM EDT IRON SCREEN, INCLUDING TIBC Lab Routine Anemia, unspecified type 04/06/2024 4:19 PM EDT RETICULOCYTE PANEL Lab Routine Anemia, unspecified type 04/06/2024 4:19 PM EDT VITAMIN B12 Lab Routine Anemia, unspecified type Unspecified disturbances of skin sensation 04/06/2024 4:19 PM EDT Health Maintenance Due Date Last Done Comments [...] this encounter Medical Devices Implanted Type Area Quarrying Manager Device Identifier Shelf Expiration Date Model / Serial / Lot Suture Steel 6 B&S19 M654g - [id number] Implanted:Qty : 4 on 06/18/2018 by Handy Farmer MD at [place] [facility] N/A: Sternum JNJ : [employer] 01/06/2023 [id number] / / [id number] Valve Heart Aortic Epic 23mm - [id number] Implanted:03/2019 by Handy Farmer MD at OR [facility] (Quantity not on file) N/A: Heart ST KERRI : CARDIOVASCULAR 12/28/2021 [id number] 00 / [id number] / LOT NA Graft Gelweave Valsalva 28mm - [id number] - [id number] Implanted:Qty : 1 on 06/18/2018 by Handy Farmer MD at OR [facility] N/A: Aorta [employer] CHANTAL 04/08/2021 [id number] / [id number] / [id number] [place] Ptfe 6x6in X5 - [id number] Implanted:Qty : 1 on 06/18/2018 by Handy Farmer MD at OR [facility] N/A: Aorta CR BARD : PERIPHERAL VASCULAR 12/04/2022 [id number] / / [id number] 6in X 6in (15cm X 15cm) Ptfe [place], 1.65mm Thick Implanted:Qty : 1 on 06/18/2018 by Handy Farmer MD at OR [facility] N/A: Aorta CR BARD : PERIPHERAL VASCULAR 12/04/2022 [id number] / / [id number] 6in X 6in (15cm X 15cm) Ptfe [place], 1.65mm Thick Implanted:Qty : 1 on 06/18/2018 by Handy Farmer MD at OR [facility] N/A: Aorta CR BARD : PERIPHERAL VASCULAR 12/04/2022 [id number] / / [id number] 6in X 6in (15cm X 15cm) Ptfe [place], 1.65mm Thick Implanted:Qty : 1 on 06/18/2018 by Handy Farmer MD at OR [facility] N/A: Aorta CR BARD : PERIPHERAL VASCULAR 12/04/2022 [id number] / / [id number] documented as of this encounter Visit Diagnoses Diagnosis SOBOE (shortness of breath on exertion) Shortness of breath Dyspnea on exertion Other dyspnea and respiratory abnormality Anemia, unspecified type Unspecified disturbances of skin sensation documented in this encounter Advance Directives * Full Code (Latest Code Status on File) Date Activated Date Inactivated Comments 06/18/2018 6:43 PM 06/25/2018 6:16 PM This order r eflects the patients wishes and were consensually agreed upon. Care Teams High Frequency Mill Operator Relationship Specialty Start Date End Date Nat Salter MD [address] [place] [address] [place] [address] PCP - General Family Medicine 11/13/18 documented as of this encounter
--- OUTSIDE RECORDS SUMMARY | 2024-04-07 13:10 | External Medical Summary | Summary of Care ---
Author Name Unknown Organization [facility] Address [address] [place] [address] Phone [phone] Care Team Providers Care Oyster Shucker Name Role Phone Nat Salter MD Primary Care Prov ider Reason for Visit * Reason Comments Follow Up 6 1/2 month follow u p. SOB is worse then prior with any exertion. Can hear heart beating in her head- in afib. Dizziness only when coughing. Possible edema in LE but unsure. Denies chest pain and palpitations. Encounter Details Date Type Department Care Team (Late st Contact Info) Description 04/06/2024 3:30 PM EDT Office Visit Cardiology [address] [place] [address] Wes Bourgeois PA-C [address] [place] [phone] Persistent atrial fibrillation (HCC)*; SOBOE (shortness of breath on exertion); Generalized weakness; Anemia, unspecified type; Dyspnea on exertion; Unspecified disturbances of skin sensation Allergies Active Allergy Reactions Criticality Noted Date Comments Prednisone Other (Please comment) Medium 12/28/2015 Stated it caused her to go into AFib documented as of this encounter (statuses as of 04/07/2024) Medications Medication Sig Dispensed Refills Start Date End Date Status DIURETIC TITRATION PLANIndications:Chr onic right-sided CHF (congestive heart failure) ([facility]) If no improvement on day 3, contact heart failure managing provider. 1 Each 9 Active Aspirin 81 MG Oral Tablet Delayed Release Take 1 Tablet by mouth in the morning. 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 1 Each 2 Active Budesonide-Formoter ol Fumarate 160-4.5 MCG/ACT Inhalation Aerosol (Symbicort)Indicati ons:COPD, group B, by GOLD 2017 classification ([facility]) Inhale 2 Puffs by mouth in the morning and 2 Puffs before bedtime. 10.2 g 12 3 Active Additional Information Patient not taking.Reported on 04/06/2024 Potassium Chloride Stefania ER 20 MEQ Oral Tablet Extended ReleaseIndications: Paroxysmal atrial fibrillation (HCC),Chronic diastolic heart failure (HCC),Chronic right-sided CHF (congestive heart failure) ([facility]) TAKE ONE TABLET BY MOUTH IN THE MORNING AND TAKE THREE TABLETS ON DAYS WHEN TAKING METALAZONE 90 Tablet 3 4 Active Allopurinol 100 MG Oral Tablet (Zyloprim)Indicatio ns:Kidney disease, chronic, stage IV (GFR 15-29 ml/min) ([facility]),Hyperuricemia Take 2 Tablets by mouth in the morning. 60 Tablet 11 4 Active Vitamin D 50 MCG (1999 UT) Oral CapsuleIndications: Vitamin D deficiency Take [...] Respimat 2.5 MCG/ACT Inhalation Aerosol Solution (Tiotropium Erick Monohydrate)Indicat ions:COPD, group B, by GOLD 2017 classification ([facility]) Inhale 2 Puffs by mouth [...] :COPD, group B, by GOLD 2017 classification ([facility]) Inhale 2 Puffs by mouth [...] brochure given to patient at 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 0 12/25/2004 [...] id ventricular response 06/18/2016 12/13/2016 Overview: admitted [facility] pulse 140s OBESITY, BMI 30-34 (SEE ACTUAL [...] mRNA, LNP-s, No Pre serve, 2-Dose Series ([employer]) 07/24/2021,01/30/2021,01/05/2021 COVID-19, LNP-s, No Preserve , Vito-sucrose, Ages 12+ (Pfizer) 07/24/2021 COVID-19, MRNA-LNP, 23-24, P F, 30 MCG/0.3 mL, 12 YRS AND ABOVE, IM ([employer]) 05/06/2023 Covid-19, Mrna, Lnp-s, Pf, B ivalent, 30 Mcg, IM, 12 yrs and above ([employer]) 04/30/2022 Pneumococcal Conjugate Vacc, 13 Valent (Prevnar) [...] on file documented as of this encounter Last Filed Vital Signs Vital Sign Reading Time Taken Comments Blood Pressure 110/60 04/06/2024 3:25 PM EDT Pulse 104 04/06/2024 3:25 PM EDT Temperature - - Respiratory Rate 18 04/06/2024 3:25 PM EDT Oxygen Saturation 99% 04/06/2024 3:25 PM EDT 3L o2 Inhaled Oxygen Concentration - - Weight 92.2 kg (203 lb 3.2 oz) 04/06/2024 3:25 P M EDT Height - - Body Mass Index 39.68 08/21/2023 2:54 PM EDT documented in this encounter Progress Notes * Wes Bourgeois PA-C - 04/06/2024 3:43 PM EDT History of Present Illness: Melissa Figueroa is a 73 year old female followed by Dr. Champion. Evaluated in July 2023, presenting at that time with recurrent atrial fibrillation. Via shared decision-making with the patient and Dr. Champion, we changed from a rhythm control strategy to a rate control strategy. Amiodarone was discontinued. Metoprolol dosing increased. Patient chronically prescribed anticoagulation. Two weeks ago the patient experienced significant bright red blood per rectum per her description. At that time she was evaluated by Dr. Hernandez. Bleeding attributed to hemorrhoids. Colonoscopy scheduled for May 13, 2024. Hemoglobin on March 18, 2024 was 10.3 g/dL which is down from 14.1 g/dLin April 2023 Patient presents today with complaints of progressive acute on chronic dyspnea over the last week. Patient notes initially thinking she was retaining water, taking an extra water pill for a day or 2 which may have helped some. Her weight is up 7 lb from last evaluation in this office. She notes experiencing dyspnea with activities of daily living, i.e, walking across the living room. Patient is chronically prescribed supplemental oxygen. She can feel a pounding in her head and chest from time to time. She feels weak. No pica. She has thick phlegm that is light yellow, without fevers or chills. She denies chest pain. She denies orthopnea or PND. No dizziness. No syncope. Problem List: Bicuspid aortic valve with history of severe aortic regurgitation and aortic root aneurysm Status post Ross procedure and aortic root repair in 2000 Status post June 18, 2018 redo surgery for findings of an ascending thoracic aortic aneurysm with Bentall procedure - [address] Varun Epic bioprosthetic valve and a 28 mm Gelweave Valsalva graft with Dr. Farmer. Diagnostic cardiac catheterization in 2000 revealed normal coronaries Preoperative cardiac catheterization May 2018 also demonstrated normal coronaries Paroxysmal atrial fibrillation with rapid ventricular response Previously treated with sotalol initially prescribed in July 2015 Amiodarone initiated in June 2018 Status post direct current cardioversions in July 2015, July 2018, August 2018, October 2020, February 2022 Recurrence in July 2023, changing from rhythm control to rate control strategy. Amiodarone discontinued. Metoprolol increased. Chronic coumadin anticoagulation Chronic diastolic heart failure Hypertension Dyslipidemia Chronic tobacco abuse, reformed circa 2015 Chronic respiratory failure with hypoxia, COPD, pulmonary nodules, chronic oxygen supplementation. Obesity Obstructive sleep apnea intolerant to CPAP therapy Acquired hypothyroidism Patient Active Problem List Diagnosis Date Noted Body mass index (BMI) of 45.0 to 49.9 in adult ([facility]) [Z68.42] 09/06/2021 Body mass index (BMI) of 40.0 to 44.9 in adult ([facility]) [Z68.41] 07/23/2021 Per Obesity protocol - Per Obesity protocol COPD, group B, by GOLD 2017 classification ([facility]) [J44.9] 09/18/2020 Per COPD GOLD Classification Menopause [Z78.0] 11/13/2018 Chronic diastolic heart failure ([facility]) [I50.32] 10/22/2018 Acquired hypothyroidism [E03.9] 10/01/2018 Chronic hypoxemic respiratory failure ([facility]) [J96.11] 10/01/2018 HINSON (dyspnea on exertion) [R06.09] 09/18/2018 History of tobacco use [Z87.891] S/P AVR (aortic valve replacement) [Z95.2] 06/25/2018 S/P ascending aortic aneurysm repair [Z98.890, Z86.79] 06/25/2018 Chronic right-sided CHF (congestive heart failure) (HCC) [I50.812] 12/13/2016 Paroxysmal atrial fibrillation (HCC) [I48.0] 07/31/2015 SBE (subacute bacterial endocarditis) prophylaxis candidate [Z29.89] Essential tremor [G25.0] 10/28/2013 Total knee replacement status [Z96.659] Adjustment disorder with depressed mood [F43.21] Vitamin D deficiency [E55.9] 10/12/2009 Vitamin D 20.1 Dyslipidemia, goal LDL below 100 [E78.5] Elevated C-reactive protein (CRP) [R79.82] 06/28/2008 CRP 9.31 ADVANCE DIRECTIVE INFORMATION 03/14/2005 No, Advance Directive brochure given to patient at 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 [Z79.01] 12/25/2004 ICD-10 update of inactive term S/P Ross procedure [Z95.4] 05/04/2002 Pre-op testing [Z01.818] Past Medical History: Diagnosis Date Adjustment disorder with depressed mood Aortic valve disorder Had Ross procedure Atrial fibrillation (HCC) 07/25/2004 sudden onset AF with rate 152 Atrial fibrillation with rapid ventricular response (HCC) 07/26/2015 [facility] Atrial fibrillation with rapid ventricular response (HCC) 06/18/2016 admitted [facility] pulse 140s, converted back to NSR Atrial fibrillation with RVR (HCC) 07/12/2017 [facility] BMI 36.0-36.9,adult COPD (chronic obstructive pulmonary disease) (HCC) Dyslipidemia, goal LDL below 100 Elevated C-reactive protein (CRP) 06/28/2008 CRP 9.31 Essential and other specified forms of tremor 10/28/2013 History of tobacco use Kidney disease, chronic, stage III (GFR 30-59 ml/min) (HCC) 02/15/2019 Per CKD protocol Loss of teeth due to trauma, extraction, or periodontal disease upper and lower dentures Lung nodule Major depressive disorder, single episode, moderate (HCC) MEDICATION USE AGREEMENT 08/20/2006 hydrocodone for knee Morbid obesity with BMI of 40.0-44.9, adult ([facility]) Need for hepatitis C screening test 08/27/2013 Hepatitis C negative Other internal derangement of knee(717.89) 07/03/2006 right medial meniscus tear with cyst and probable loose body Other specified prophylactic or treatment measure Needs SBE prophylaxis Paroxysmal atrial fibrillation (HCC) 03/11/2017 cardioverted, sotalol 120 mg BID Pneumonia SBE (subacute bacterial endocarditis) prophylaxis candidate Sleep apnea, obstructive Tobacco use disorder Total knee replacement status right Vitamin D deficiency 10/12/2009 Vitamin D 20.1 Past Surgical History: Procedure Laterality Date ARTHROPLASTY KNEE TOTAL 10/13/08 right knee, Dr Alcaraz BREAST LESION,OTHER,EXCISION Left benign CARDIAC SURGERY PROCEDURE NEC N/A 06/18/2018 TREVOR clip performed by Handy Farmer MD at [place] [facility] [place] CARPAL TUNNEL SURGERY 1988 right wrist CV ECHO, NIRMAL INTRAOPERATIVE N/A 06/18/2018 ECHOCARDIOGRAPHY, TRANSESOPHAGEAL; INCLUDING PROBE PLACEMENT, IMAGE ACQUISITION, INTERPRETATION ANDREPORT performed by Handy Farmer MD at [place] [facility] [place] DEFIB/CARDIOVERSION 07/26/15 [facility] ECHO, COMPLETE (2D), TRANS-THORACIC 09/30/08 1+ AI and PI, NL LV wall motion and thickness, EF 50-55%, stable,S/P Ross procedure ECHO,TTE W/O SPECTRAL + COLOR-FLOW DOPPLER 07/31/04 EF normal, bioprosthesis in Aortic position looks stable, Pulmonic bioprosthesis not well seen HEART ELECTROCONVERSION, EXTERNAL 07/13/2017 [facility] MAMMOGRAM SCREENING BILATERAL Bilateral 05/26/15 almost entirely fat, focal asymmetries noted bilateraly, Category 0 more studies needed MAMMOGRAM SCREENING BILATERAL Bilateral 06/08/15 almost entirely fat, subcentimeter lymph node, repeat 6 months, category 3 MAMMOGRAM SCREENING-BILATERAL Bilateral 10/14/2005 right breast asymmetrical, category 0, left category 1 MRI KNEE WO CONTRAST 07/03/06 probable small medial meniscal tear with cyst, marked thinning articular cartilage, right knee NM BONE SCAN WHOLEBODY 05/03/15 degenerative changes in spine NURSING FACILITY CARE, LEVEL 1, SUBSEQUENT 10/21/06 EF 60-65% S/P Ross procedure. PFT/BA BRONCHODILATOR 02/02/16 nonspecific, did not improve with bronchodilators REOPERATION, CORONARY ARTERY BYPASS PROCEDURE OR VALVE PROCEDURE N/A 06/18/2018 REOPERATION CABG OR VALVE MORE THAN 1 MONTH AFTER SURGERY performed by Handy Farmer MD at [place] [facility] [place] REPLACEMENT AORTIC VALVE, BYPASS WITH PROSTHETIC VALVE N/A 06/18/2018 Aortic Root replacement performed by Handy Farmer MD at [place] [facility] [place] REPLACEMENT OF AORTIC VALVE (ROSS) 12/20/99 Ross Procedure, [facility] [place] TRANSESOPHAGEAL ECHO (COMPLETE) 09/03/2018 LA moderately dilated, mild conc LVF with no wall motion abnormalities, EF 55- 60%, Aortic valve well seated XR FOOT 2 VIEWS 12/24/02 PAH-undisplaced frature of the distal phalanx of the great toe XR HAND 3 OR MORE VIEWS 04/08/03 PAH- no fracture Family History Problem Relation Name Age of Onset Hypertension Mother Other (Heart problems, dialysis) Mother Hypertension Father 85 massive OR Other ( of OR age 87) Father Other (DESHAUN) Sister Other (Healthy) Brother Breast Cancer Grandmother (Maternal) Renal Hx Son Joseph kidney stones Other (DESHAUN) Son Joseph Renal Hx Son [place] kidney stones Social History Social History Narrative 1974 Complete Review of Systems is as stated above, negative, or noncontributory. Review of patient's allergies indicates: Allergen Reactions Prednisone Other (Please comment) Stated it caused her to go into AFib Current Outpatient Medications Medication Sig Dispense Refill Aspirin 81 MG Oral Tablet Delayed Release Take 1 Tablet by mouth in the morning. oxygen IN GAS Use 3 L/min(Oxygen) as directed continuous. 1 Each 0 Potassium Chloride Stefania ER 20 MEQ Oral Tablet Extended Release TAKE ONE TABLET BY MOUTH IN THE MORNING AND TAKE THREE TABLETS ON DAYS WHEN TAKING METALAZONE 90 Tablet 3 Allopurinol 100 MG Oral Tablet (Zyloprim) Take 2 Tablets by mouth in the morning. 60 Tablet 11 Vitamin D 50 MCG (2000 UT) Oral Capsule Take 4,000 Units by mouth in the morning. 4,000 units daily. 60 Capsule 11 Metoprolol Succinate ER 50 MG Oral Tablet Extended Release 24 Hour (toPROL XL) 1 1/2 tablets in themorning and 1 1/2 tablets in the evening 270 Tablet 3 Spiriva Respimat 2.5 MCG/ACT Inhalation Aerosol Solution (Tiotropium Erick Monohydrate) Inhale 2 Puffs by mouth in the morning. 4 g 11 Venlafaxine HCl ER 75 MG Oral Capsule Extended Release 24 Hour (Effexor XR) TAKE ONE CAPSULE BY MOUTH EVERY DAY DO NOT CUT, CRUSH, OR CHEW, 90 Capsule 2 Torsemide 20 MG Oral Tablet (Demadex) Take 1 Tablet by mouth in the morning and 1 Tablet before bedtime. 180 Tablet 2 Atorvastatin Calcium 40 MG Oral Tablet (Lipitor) Take 1 Tablet by mouth in the morning. 90 Tablet 3 Warfarin Sodium 2.5 MG Oral Tablet (Coumadin) Take 1-2 tablets by mouth daily as directed by anticoagulation clinic 180 Tablet 3 Levothyroxine Sodium 100 MCG Oral Tablet (Levoxyl) TAKE ONE TABLET BY MOUTH EVERY MORNING 30 minutes BEFORE breakfast OR other meds 90 Tablet 1 Albuterol Sulfate HFA 108 (90 Base) MCG/ACT Inhalation Aerosol Solution Inhale 2 Puffs by mouth every 6 hours as needed for Cough, Shortness of Breath or Wheezing. 18 g 11 Spironolactone 25 MG Oral Tablet (Aldactone) TAKE 1/2 TABLET BY MOUTH IN THE MORNING 45 Tablet 3 Omeprazole 20 MG Oral Capsule Delayed Release (PriLOSEC) take 1 capsule every day 1 hour before thefirst meal of the day. 90 Capsule 1 DIURETIC TITRATION PLAN If no improvement on day 3, contact heart failure managing provider. 1 Each0 Budesonide-Formoterol Fumarate 160-4.5 MCG/ACT Inhalation Aerosol (Symbicort) Inhale 2 Puffs by mouth in the morning and 2 Puffs before bedtime. (Patient not taking: Reported on 04/06/2024) 10.2 g 12 Hydrocortisone Acetate 25 MG Rectal Suppository (Anusol-HC) Administer into the rectum 2 times a day in the morning and at bedtime as needed for Hemorrhoids. Up to 2 weeks. (Patient not taking: Reported on 04/06/2024) 24 Suppository 1 No current facility-administered medications for this visit. OBJECTIVE/PHYSICAL EXAMINATION: BP 110/60 | Pulse 104 | Resp 18 | Wt 92.2 kg (203 lb 3.2 oz) | SpO2 99% Comment: 3L o2 | BMI 39.68 kg/m | BSA 1.98 m General: Alert and no distress Skin: No rash Eyes: PER. Conjunctiva pink, sclera clear. HENT: Normocephalic. Atraumatic. Neck: No carotid bruits. No JVD. No HJR. Heart: Irregularly irregular at 100 bpm. Grade I-II/ early systolic murmur. No diastolic murmur. No rub. Lungs: Decreased. Diminished. Clear. Abdomen: +BS. Soft. Nontender. No masses. No organomegaly. Extremities: trace to 1+ pretibial edema. Varicosities. No clubbing. No cyanosis Limited neurological examination: No focal deficit. Data: August 14, 2023 TTE Interpretation Summary (as per Dr. Lopez): There was atrial fibrillation during the examination. The left ventricular cavity size is normal. The LV wall thickness is normal. The septal motion is abnormal consistent with intrventricular conduction delay. The regional left ventricular wall motion is otherwise normal. The qualitative LV ejection fraction is 50-54% (normal). The left ventricular diastolic function is abnormal by 2-D findings. The left atrium is mildly enlarged. There is an aortic valve bioprosthetic present. The aortic valve prosthesis systolic gradients are normal for this type prosthesis. Moderate tricuspid regurgitation is present. Compared to prior study of October 17, 2020, there is no significant change. September 2023 Zio Monitor (while on metoprolol succinate 75 mg in the morning and 50 mg in the evening) revealed continuous atrial fibrillation with an average heart rate of 91 bpm April 06, 2024 EKG: Atrial fibrillation. Ventricular rate 97 bpm. Low-voltage QRS. Incomplete right bundle branch block. Diffuse ST-T wave abnormality worse in the lateral leads compared to prior. QTc mildly prolonged at 477 ms. IMPRESSION: Complex 73-year-old female presenting today in routine Cardiology follow-up. Patient presents today with a main complaint of significant dyspnea over the last week. Patient notes concern that her symptoms are secondary to atrial fibrillation however this has been present since at least July 2023 at which time a decision was made to no longer pursue a rhythm control strategy. Patient's dose of metoprolol the same since September. She is chronically anticoagulated and has had a therapeutic INR since February 06, 2024. Her examination does reveal mild hypervolemia however I am primarily concerned about progressive symptomatic anemia as well as possible bronchitis/pneumonia. Op tions of management discussed with patient and daughter who present for the entire visit. She requests attempt at outpatient evaluation and treatment. Check CBC, basic anemia workup, metabolic panel and a BNP though this test may not be reliable withher GFR Check PA and lateral chest x-ray today Increase torsemide transiently, 60 mg/day x3 days then resume 40 mg/day thereafter. Increase potassium chloride dosing transiently, 20 mEq/day x 3 days then back to 10 mEq/day Further workup to transpire if above unyielding ER with persistent or progressive symptoms Wes Bourgeois PA-C. Department of Cardiology I spent a total of 40-54 minutes (exact time 43 mins) on the date of service in preparation, delivery, and documentation of the care provided to Melissa Figueroa excluding any time spent in the performance of separately billed services. This visit involved medical care services related to at leastone serious condition or complex condition requiring ongoing care. This chart was completed in partutilizing e-Zassi Speech Voice Recognition Software. Grammatical errors, random word insertions, prounoun errors, and incomplete sentences are an occasional consequence of this system due to software limitations, ambient noise, and hardware issues. Any formal questions or concerns about the content, text, or information contained within the body of this dictation should be directly addressed to the provider for clarification. documented in this encounter Nursing Notes * Pradip Ramirez LPN - 04/06/2024 3:25 PM EDT Patient identified by full name and date of Chief Complaint Patient presents with Follow Up 6 1/2 month follow up. SOB is worse then prior with any exertion. Can hear heart beating in her head- in afib. Dizziness only when coughing. Possible edema in LE but unsure. Denies chest pain and palpitations. Examination Room: 4 Name: Melissa Figueroa Date of : (1950). Reason for Visit: Follow up Interim Hospitalization(s): Denies Problems/Concerns: See chief complaint Chest Pain/SOB: See chief complaint [facility] Discussed: Not applicable My [employer] is a way you can talk to your provider online through e-mail. Would you like to sign up? I can activate it for you? ALREADY ACTIVE Patient was instructed to not get up on the exam table until directed and assisted by their provider; patient is to remain seated in the chair/ wheelchair/ exam table for fall prevention and safety reasons. Patient is aware to have assistance to step down off exam table with personnel. Patient voiced full comprehension of instructions. documented in this encounter Miscellaneous Notes * Result Encounter Note - Wes Bourgeois PA-C - 04/07/2024 7:07 AM EDT Chest x-ray with possible infiltrate. Laboratory work with significant anemia, hemoglobin down to 8.7 g/dL. Recommend referral to [facility] ER today for further evaluation and treatment. documented in this encounter Plan of Treatment Upcoming Encounters Date Type Department Care Team (Late st Contact Info) Description 05/04/2024 3:30 PM EST Anticoagulation Pharmacy, [address] [place] [address] [place] [address] 08/24/2024 2:30 PM EDT Nurse Only Ancillary [address] [place] [address] [place], Nurse Annual [address] [place] [address] 09/02/2024 3:20 PM EDT Office Visit Nephrology [address] [place] [address] Vivien Diez MD [address] [place] [address] Scheduled Orders Name Type Priority Associated Diagnoses Orde r Schedule EKG EKG Routine Persistent atrial fibrillation (HCC) Ordered: 04/06/2024 Health Maintenance Due Date Last Done Comments [...] Scan 03/09/2026 03/09/2019 Lipid Panel 02/05/2029 02/06/2024, 120 01/2023, 10/30/2022, Additional history exists Pneumococcal Vaccine: [...] this encounter Medical Devices Implanted Type Area Child Protection Specialist Device Identifier Shelf Expiration Date Model / Serial / Lot Suture Steel 6 B&S19 [id number] - [id number] Implanted:Qty : 4 on 06/18/2018 by Handy Farmer MD at [place] [facility] [place] N/A: Sternum JNJ : [employer] 01/06/2023 [id number] / / [id number] Valve Heart Aortic Epic 23mm - [id number] Implanted:03/2019 by Handy Farmer MD at [place] [facility] [place] (Quantity not on file) N/A: Heart ST VARUN : CARDIOVASCULAR 12/28/2021 [id number] / [id number] / LOT NA Graft Gelweave Valsalva 28mm - [id number] - [id number] Implanted:Qty : 1 on 06/18/2018 by Handy Farmer MD at [place] [facility] [place] N/A: Aorta [employer] 04/08/2021 [id number] / [id number] / [id number] [place] Ptfe 6x6in X5 - [id number] Implanted:Qty : 1 on 06/18/2018 by Handy Farmer MD at [place] [facility] [place] N/A: Aorta CR BARD : PERIPHERAL VASCULAR 12/04/2022 [id number] / / [id number] 6in X 6in (15cm X 15cm) Ptfe [place], 1.65mm Thick Implanted:Qty : 1 on 06/18/2018 by Handy Farmer MD at [place] [facility] [place] N/A: Aorta CR BARD : PERIPHERAL VASCULAR 12/04/2022 [id number] / / [id number] 6in X 6in (15cm X 15cm) Ptfe [place], 1.65mm Thick Implanted:Qty : 1 on 06/18/2018 by Handy Farmer MD at [place] [facility] [place] N/A: Aorta CR BARD : PERIPHERAL VASCULAR 12/04/2022 [id number] / / [id number] 6in X 6in (15cm X 15cm) Ptfe [place], 1.65mm Thick Implanted:Qty : 1 on 06/18/2018 by Handy Farmer MD [place] [facility] [place]A: Aorta CR BARD : PERIPHERAL VASCULAR 12/04/2022 [id number] / / [id number] documented as of this encounter Procedures Procedure Name Priority Date/Time Associated Diagnosis Comments XR CHEST 2 VIEWS Routine 04/06/2024 4:19 PM EDT SOBOE (shortness of breath on exertion) documented in this encounter Results * XR CHEST 2 VIEWS (04/06/2024 4:19 PM EDT) Anatomical Region Laterality Modality Chest Computed Radiogr aphy 04/06/2024 9:54 PM EDT Impressions 04/06/2024 9:52 PM EDT IMPRESSION Mild retrocardiac opacity, suggesting infiltrate. Narrative 04/06/2024 9:52 PM EDT EXAM XR CHEST 2 VIEWS - 04/06/2024 4:19 pm HISTORY "sob" TECHNIQUE Frontal and lateral views of the chest were obtained. COMPARISON 10/30/2022 FINDINGS There is a retrocardiac opacity, suggesting infiltrate. No pleural fluid or pneumothorax. Stable cardiomediastinal silhouette. Median sternotomy wires. Procedure Note Miah Brambila MD - 04/06/2024 EXAM XR CHEST 2 VIEWS - 04/06/2024 4:19 pm HISTORY "sob" TECHNIQUE Frontal and lateral views of the chest were obtained. COMPARISON 10/30/2022 FINDINGS There is a retrocardiac opacity, suggesting infiltrate. No pleural fluidor pneumothorax. Stable cardiomediastinal silhouette. Median sternotomywires. IMPRESSION IMPRESSION Mild retrocardiac opacity, suggesting infiltrate. Wes Bourgeois PA-C RADIOLOGY ([facility]) * VITAMIN B12 (04/06/2024 4:19 PM EDT) Pathologist [facility] Vitamin B12 773 232 - 1,245 pg/mL 04/07/2024 2:15 AM EDT LABORATORY [facility] [place] Blood Venous blood specimen / Unknown Venipuncture / Unknown 04/06/2024 4:19 PM EDT 04/06/2024 4:19 PM EDT Wes Bourgeois PA-C LAB BLOOD ORDERABLE S LABORATORY [facility] [place] [address] [place] [address] * (ABNORMAL) RETICULOCYTE PANEL (04/06/2024 4:19 PM EDT) Pathologist [facility] Reticulocyte Percent 2.17(H) 0.80 - 1.90 % 04/06/2024 11:58 PM EDT LABORATORY [facility] [place] Absolute Reticulocyte 63.8 31.3 - 100.1 K/uL 04/06/2024 11:58 PM EDT [facility] Immature Reticuloctye Fraction 29.0(H) 2.5 - 20.6 % 04/06/2024 11:58 PM EDT [facility] Reticulocyte Hemoglobin 21.4(L) 29.7 - 37.4 pg 04/06/2024 11:58 PM EDT [facility] Blood Venous blood specimen / Unknown Venipuncture / Unknown 04/06/2024 4:19 PM EDT 04/06/2024 4:19 PM EDT Wes Maso PA-C LAB BLOOD ORDERABLE S Performing Organization Address City/[facility]/ZIP Co de Phone Number LABORATORY [facility] [place] [address] [place] [address] * (ABNORMAL) IRON SCREEN, INCLUDING TIBC (04/06/2024 4:19 PM EDT) Iron 19(L) 33 - 151 ug/dL 04/07/2024 1:21 AM EDT [facility] Iron Binding Capacity 410 250 - 425 ug/dL 04/07/2024 1:21 AM EDT [facility] Transferrin Saturation Percent 5(L) 15 - 55 % 04/07/2024 1:21 AM EDT [facility] Blood Venous blood specimen / Unknown Venipuncture / Unknown 04/06/2024 4:19 PM EDT 04/06/2024 4:19 PM EDT Wes Maso PA-C LAB BLOOD ORDERABLE S LABORATORY [facility] [place] [address] [place] [address] * FOLIC ACID (04/06/2024 4:19 PM EDT) Folic Acid 8.2 >4.5 ng/mL 04/07/2024 2:15 AM EDT [facility] Blood Venous blood specimen / Unknown Venipuncture / Unknown 04/06/2024 4:19 PM EDT 04/06/2024 4:19 PM EDT Wes KIRK-C LAB BLOOD ORDERABLE S Performing Organization Address City/[facility]/ZIP Co de Phone Number LABORATORY [facility] [place] [address] [place] [address] * FERRITIN (04/06/2024 4:19 PM EDT) Pathologist [facility] Ferritin 24 13 - 150 ng/mL 04/07/2024 2:15 AM EDT LABORATORY [facility] [place] Comment:Postmenopausal women have higher ferritin levels than pre-menopausal women. The above reference interval is based on pre-menopausal women. Blood Venous blood specimen / Unknown Venipuncture / Unknown 04/06/2024 4:19 PM EDT 04/06/2024 4:19 PM EDT Wes KIRK-C LAB BLOOD ORDERABLE S Performing Organization Address [facility] Co de Phone Number LABORATORY [facility] [place] [address] [place] [address] * TSH (04/06/2024 4:19 PM EDT) Pathologist [facility] TSH 2.61 0.27 - 4.20 uIU/mL 04/07/2024 2:15 AM EDT LABORATORY [facility] [place] Blood Venous blood specimen / Unknown Venipuncture / Unknown 04/06/2024 4:19 PM EDT 04/06/2024 4:19 PM EDT Wes KIRK-C LAB BLOOD ORDERABLE S Performing Organization Address City/[facility] Co de Phone Number LABORATORY [facility] [place] [address] [place] [address] * (ABNORMAL) BNP, NT-PRO (04/06/2024 4:19 PM EDT) Pathologist [facility] BNP, NT-Pro 2,187(H) <300 pg/mL 04/07/2024 2:15 AM EDT LABORATORY [facility] [place] Blood Venous blood specimen / Unknown Venipuncture / Unknown 04/06/2024 4:19 PM EDT 04/06/2024 4:19 PM EDT Narrative LABORATORY [facility] [place] - 04/07/2024 2:15 AM EDT Exclude Heart Failure: <300 pg/mL Diagnose Heart Failure: Age <50 yr: >450 pg/mL 50-75 yr: >900 pg/mL >75 yr: >1800 pg/mL GFR is 30-59 mL/min: >1200 pg/mL or Age-adjusted values GFR <30 mL/min: do not use, not reliable Prognostic threshold: 1000 pg/mL Wes Bourgeois PA-C LAB BLOOD ORDERABLE S LABORATORY [facility] [place] [address] [place] [address] * (ABNORMAL) BASIC METABOLIC PANEL (04/06/2024 4:19 PM EDT) BUN 21(H) 6 - 20 mg/dL 04/07/2024 1:21 AM EDT LABORATORY [facility] [place] CREATININE 1.8(H) 0.5 - 1.0 mg/dL 04/07/2024 1:21 AM EDT LABORATORY [facility] [place] EGFR 30(L) >=60 mL/min 04/07/2024 1:21 AM EDT LABORATORY [facility] [place] Comment:eGFR is calculated b ased on the CKD-EPI 2020 equation. SODIUM 138 135 - 146 mmol/L 04/07/2024 1:21 AM EDT LABORATORY [facility] [place] POTASSIUM 4.1 3.5 - 5.1 mmol/L 04/07/2024 1:21 AM EDT LABORATORY [facility] [place] CHLORIDE 99 98 - 107 mmol/L 04/07/2024 1:21 AM EDT LABORATORY [facility] [place] CO2 27 22 - 32 mmol/L 04/07/2024 1:21 AM EDT LABORATORY [facility] [place] ANION GAP 12 7 - 15 mmol/L 04/07/2024 1:21 AM EDT LABORATORY [facility] [place] GLUCOSE 114 70 - 120 mg/dL 04/07/2024 1:21 AM EDT LABORATORY [facility] [place] CALCIUM 9.2 8.4 - 10.2 mg/dL 04/07/2024 1:21 AM EDT LABORATORY [facility] [place] Blood Venous blood specimen / Unknown Venipuncture / Unknown 04/06/2024 4:19 PM EDT 04/06/2024 4:19 PM EDT Wes Ramirez Christelle BEJARANO LAB BLOOD ORDERABLE S LABORATORY [facility] [address] [place] [address] * (ABNORMAL) CBC (04/06/2024 4:19 PM EDT) WBC 5.60 4.00 - 10.80 K/uL 04/06/2024 11:58 PM EDT [facility] RBC 2.94 3.85 - 5.15 M/uL 04/06/2024 11:58 PM EDT [facility] HGB 8.7(L) 12.0 - 15.3 g/dL 04/06/2024 11:58 PM EDT [facility] HCT 29.3(L) 36.0 - 45.2 % 04/06/2024 11:58 PM EDT [facility] MCV 99.7 81.5 - 97.5 fL 04/06/2024 11:58 PM EDT LABORATORY C MCH 29.6 27.0 - 34.0 pg 04/06/2024 11:58 PM EDT LABORATORY [facility] [place] MCHC 29.7 32.0 - 36.0 g/dL 04/06/2024 11:58 PM EDT LABORATORY [facility] [place] RDW 15.4 11.5 - 15.5 % 04/06/2024 11:58 PM EDT LABORATORY [facility] [place] PLT 289 140 - 400 K/uL 04/06/2024 11:58 PM EDT LABORATORY [facility] MPV 9.4 6.6 - 11.1 fL 04/06/2024 11:58 PM EDT LABORATORY [facility] nRBCs 0 <=0 /100 WBCs 04/06/2024 11:58 PM EDT LABORATORY [facility] Blood Venous blood specimen / Unknown Venipuncture / Unknown 04/06/2024 4:19 PM EDT 04/06/2024 4:19 PM EDT Wes Ramirez Christelle BEJARANO LAB BLOOD ORDERABLE S LABORATORY [facility] [place] [address] [place] [address] documented in this encounter Visit Diagnoses Diagnosis Persistent atrial fibrillation (HCC)- Primary Atrial fibrillation SOBOE (shortness of breath on exertion) Shortness of breath Generalized weakness Other malaise and fatigue Anemia, unspecified type Dyspnea on exertion Other dyspnea and respiratory abnormality Unspecified disturbances of skin sensation documented in this encounter Advance Directives * Full Code (Latest Code Status on File) Date Activated Date Inactivated Comments 06/18/2018 6:43 PM 06/25/2018 6:16 PM This order r eflects the patients wishes and were consensually agreed upon. Care Teams Oyster Shucker Relationship Specialty Start Date End Date Nat Salter MD [address] [place] [address] [place] [address] PCP - General Family Medicine 11/13/18 documented as of this encounter
--- OUTSIDE RECORDS SUMMARY | 2024-04-07 13:11 | External Medical Summary | Summary of Care ---
Author Name Unknown Organization [facility] Address [address] [place] [address] Phone [phone] Care Team Providers Care Train Controller Name Role Phone Nat Salter MD Primary Care Prov ider Reason for Visit * Reason Onset Date Comments Appointment 03/18/2024 Encounter Details Date Type Department Care Team (Late st Contact Info) Description 03/18/2024 Telephone Family Medicine [address] [phone] Emerson Hernandez MD [address] [place] [address] [place] [address] Appointment Allergies Active Allergy Reactions Criticality Noted Date Comments Prednisone Other (Please comment) Medium 12/28/2015 Stated it caused her to go into AFib documented as of this encounter (statuses as of 03/24/2024) Medications Medication Sig Dispensed Refills Start Date End Date Status DIURETIC TITRATION PLANIndications:Chr onic right-sided CHF (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 1 Each 9 Active Aspirin 81 MG Oral Tablet Delayed Release Take 1 Tablet by mouth in the morning. Active oxygen IN GASIndications:Category Development Manager otf right-sided CHF (congestive heart failure) (HCC),Chronic hypoxemic respiratory failure (HCC),COPD, group B, by GOLD 2017 classification ([facility]) Use 3 L/min(Oxygen) as directed continuous. 1 Each 2 Active Budesonide-Formoter ol Fumarate 160-4.5 MCG/ACT Inhalation Aerosol (Symbicort)Indicati ons:COPD, group B, by GOLD 2017 classification ([facility]) Inhale 2 Puffs by mouth in the morning and 2 Puffs before bedtime. 10.2 g 12 3 Active Potassium Chloride Stefania ER 20 MEQ Oral Tablet Extended ReleaseIndications: Paroxysmal atrial fibrillation ([facility]),Chronic diastolic heart failure ([facility]),Chronic right-sided CHF (congestive heart failure) ([facility]) TAKE ONE TABLET BY MOUTH IN THE MORNING AND TAKE THREE TABLETS ON DAYS WHEN TAKING METALAZONE 90 Tablet 3 4 Active Allopurinol 100 MG Oral Tablet (Zyloprim)Indicatio ns:Kidney disease, chronic, stage IV (GFR 15-29 ml/min) ([facility]),Hyperuricemia Take 2 Tablets by mouth in the morning. 60 Tablet 4 Active Vitamin D 50 MCG (2000 UT) Oral CapsuleIndications: Vitamin D deficiency Take 4,000 Units by mouth in the morning. 4,000 units daily. 60 Capsule 4 Active Omeprazole 20 MG Oral Capsule Delayed Release (PriLOSEC)Indicatio ns:Gastroesophageal reflux disease with esophagitis take 1 capsule every day 1 hour before the first meal of the day. 90 Capsule 1 4 Active Metoprolol Succinate ER 50 MG Oral Tablet Extended Release 24 Hour (toPROL XL)Indications:Paro xysmal atrial fibrillation ([facility]) 1 1/2 tablets in the morning and 1 1/2 tablets in the evening 270 Tablet 3 4 Active Spiriva Respimat 2.5 MCG/ACT Inhalation Aerosol Solution (Tiotropium [place] Monohydrate)Indicat ions:COPD, group B, by GOLD 2017 classification ([facility]) Inhale 2 Puffs by mouth [...] :COPD, group B, by GOLD 2017 classification ([facility]) Inhale 2 Puffs by mouth [...] 2 weeks. 24 Suppository 1 4 Active documented as of this encounter (statuses as of 03/24/2024) Active Problems Problem Noted Date Diagnosed Date [...] brochure given to patient at 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 Pre-op testing Dyslipidemia, goal LDL below 100 Total knee replacement status Adjustment disorder with depressed mood SBE (subacute bacterial endocarditis) prophylaxi s candidate History of tobacco use documented as of this encounter (statuses as of 03/24/2024) Resolved Problems Problem Noted Date Diagnosed Date [...] id ventricular response 06/18/2016 12/13/2016 Overview: admitted [facility] pulse 140s OBESITY, BMI 30-34 (SEE [...] as of this encounter (statuses as of 03/24/2024) Immunizations Name Administration Dates Next Due COVID-19 mRNA, LNP-s, No Pre serve, 2-Dose Series (Mixify) 07/24/2021,01/30/2021,01/05/2021 COVID-19, LNP-s, No Preserve , Vito-sucrose, Ages 12+ (Pfizer) 07/24/2021 COVID-19, MRNA-LNP, 23-24, P F, 30 MCG/0.3 mL, 12 YRS AND ABOVE, IM ([facility] 05/06/2023 Covid-19, Mrna, Lnp-s, Pf, B ivalent, [...] encounter Miscellaneous Notes * Telephone Encounter - Zuleika Ham OSA - 03/24/2024 1:20 PM EDT Colonoscopy order faxed to [facility] Colonoscopy scheduling at [phone]. * Telephone Encounter - Nat Salter MD - 03/24/2024 12:22 PM EDT Fwd to schedulers * Telephone Encounter - Whitney Vazquez OSA - 03/23/2024 4:26 PM EDT Pt will need an OR setting since she is on 24 hour O2. Pt would like to go to [facility] Please send to them for scheduling Thank you DESHAUN Mancuso 03/23/2024 4:34 PM * Telephone Encounter - Zuleika Ham OSA - 03/18/2024 2:49 PM EDT Melissa needs scheduled for colonoscopy for: Bright red rectal bleeding [K62.5] - Primary documented in this encounter Plan of Treatment Upcoming Encounters Date Type Department Care Team (Late st Contact Info) Description 04/06/2024 3:10 PM EDT Anticoagulation Pharmacy, [address] [place] [address] [place] [address] 04/06/2024 3:30 PM EDT Office Visit Cardiology [address] [place] [address] Wes Bourgeois PA-C [address] [place] [address] 08/24/2024 2:30 PM EDT Nurse Only Ancillary [address] [place] [address] [place], Nurse [address] [place] [address] 09/02/2024 3:20 PM EDT Office Visit Nephrology [address] [place] [address] Vivien Diez MD [address] [facility] [place] [address] Health Maintenance Due Date Last Done Comments [...] this encounter Medical Devices Implanted Type Area Value Analyst Device Identifier Shelf Expiration Date Model / Serial / Lot Suture Steel 6 B&S19 [id number] - [id number] Implanted:Qty : 4 on 06/18/2018 by Handy Farmer MD [place] [facility] [place]A: Sternum JNJ : [employer] 01/06/2023 [id number] / / [id number] Valve Heart Aortic Epic 23mm - [id number] Implanted:03/2019 by Handy Farmer MD [place] [facility] [place] (Quantity not on file) N/A: Heart [facility] KERRI : CARDIOVASCULAR 12/28/2021 [id number] / [id number] / LOT NA Graft Gelweave Valsalva 28mm - [id number] - [id number] Implanted:Qty : 1 on 06/18/2018 by Handy Farmer MD [place] [facility] [place]/A: Aorta [employer] 04/08/2021 [id number] / [id number] / [id number] [place] Ptfe 6x6in X5 - [id number] Implanted:Qty : 1 on 06/18/2018 by Handy Farmer MD [place] [facility] [place] N/A: Aorta CR BARD : PERIPHERAL VASCULAR 12/04/2022 [id number] / / [id number] 6in X 6in (15cm X 15cm) Ptfe [place], 1.65mm Thick Implanted:Qty : 1 on 06/18/2018 by Handy Farmer MD [place] [facility] [place]A: Aorta CR BARD : PERIPHERAL VASCULAR 12/04/2022 [id number] / / [id number] 6in X 6in (15cm X 15cm) Ptfe [place], 1.65mm Thick Implanted:Qty : 1 on 06/18/2018 by Handy Farmer MD [place] [facility] [place]A: Aorta CR BARD : PERIPHERAL VASCULAR 12/04/2022 [id number] / / [id number] 6in X 6in (15cm X 15cm) Ptfe [place], 1.65mm Thick Implanted:Qty : 1 on 06/18/2018 by Handy Farmer MD [place] [facility] [place]/A: Aorta CR BARD : PERIPHERAL VASCULAR 12/04/2022 [id number] / / [id number] documented as of this encounter Advance Directives * Full Code (Latest Code Status on File) Date Activated Date Inactivated Comments 06/18/2018 6:43 PM 06/25/2018 6:16 PM This order r eflects the patients wishes and were consensually agreed upon. Care Teams Train Controller Relationship Specialty Start Date End Date Nat Salter MD [address] [place] [address] [place] [address] PCP - General Family Medicine 11/13/18 documented as of this encounter
--- OUTSIDE RECORDS SUMMARY | 2024-04-07 13:11 | External Medical Summary ---
Author Name Unknown Address Unknown Organization K01:LABORATORY [facility] - [address] [place] [address] Laboratory Report Ordering Provider Test Date Status [place] 04/06/2024 16:19:35 Final Observation Date Value Abnormality Reference (Units ) Status TSH 04/06/2024 16:19:35 2.61 0.27-4.20 (uIU/mL) Final Performing Location [facility] - [address] [place] [address]
--- OUTSIDE RECORDS SUMMARY | 2024-04-07 13:11 | External Medical Summary ---
Author Name Unknown Address Unknown Organization K01:[facility] [place] [facility] [address] [place] [address] Laboratory Report Ordering Provider Test Date Status [place] 04/06/2024 16:19:35 Final Observation Date Value Abnormality Reference (Units ) Status BUN 04/06/2024 16:19:35 21 Above high normal 6-20 (mg/dL) Final Creatinine 04/06/2024 16:19:35 1.8 Above high normal 0.5-1.0 (mg/dL) Final Glomerular filtration rate/1.73 sq M.predicted [Volume Rate/Area] in Serum, Plasma or Blood by Creatinine-based formula (CKD-EPI) 04/06/2024 16:19:35 30 Below low normal >=60 (mL/min) Final eGFR is calculated based on the CKD-EPI 2020 equation. Sodium 04/06/2024 16:19:35 138 135-146 (m mol/L) Final Potassium 04/06/2024 16:19:35 4.1 3.5-5.1 (m mol/L) Final Cl 04/06/2024 16:19:35 99 98-107 (mm ol/L) Final CO2 04/06/2024 16:19:35 27 22-32 (mmo l/L) Final Anion gap 04/06/2024 16:19:35 12 7-15 (mmol /L) Final Glucose 04/06/2024 16:19:35 114 70-120 (mg /dL) Final Calcium 04/06/2024 16:19:35 9.2 8.4-10.2 ( mg/dL) Final Performing Location [facility] [place] [facility] [place] [address]
--- OUTSIDE RECORDS SUMMARY | 2024-04-07 13:11 | External Medical Summary | Summary of Care ---
Author Name Unknown Organization [facility] Address [address] [place] [address] Phone [phone] Care Team Providers Care Ceramic Maker Demonstrator Name Role Phone Nat Sarmiento MD Primary Care Prov ider Reason for Visit * Reason Comments eRx-Medication Refill Encounter Details Date Type Department Care Team (Late st Contact Info) Description 03/24/2024 Refill Family Medicine [address] [phone] Nat Sarmiento MD [address] [place] [address] [place] [address] Gastroesophageal reflux disease with esophagitis Allergies Active Allergy Reactions Criticality Noted Date Comments Prednisone Other (Please comment) Medium 12/28/2015 Stated it caused her to go into AFib documented as of this encounter (statuses as of 03/25/2024) Medications Medication Sig Dispensed Refills Start Date End Date Status DIURETIC TITRATION PLANIndications:C hronic right-sided CHF (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 1 Each 02/19/20 19 Active Aspirin 81 MG Oral Tablet Delayed Release Take 1 Tablet by mouth in the morning. Active oxygen IN GASIndications:Ch ronic right-sided CHF (congestive heart failure) ([facility]),Chronic hypoxemic respiratory failure (HCC),COPD, group B, by GOLD 2017 classification ([facility]) Use 3 L/min(Oxygen) as directed continuous. 1 Each 04/23/20 22 Active Budesonide-Formot carmen Fumarate 160-4.5 MCG/ACT Inhalation Aerosol (Symbicort)Indica tions:COPD, group B, by GOLD 2017 classification ([facility]) Inhale 2 Puffs by mouth in the morning and 2 Puffs before bedtime. 10.2 g 08/06/19 23 Active Potassium Chloride Stefania ER 20 MEQ Oral Tablet Extended ReleaseIndication s:Paroxysmal atrial fibrillation ([facility]),Chronic diastolic heart failure ([facility]),Chronic right-sided CHF (congestive heart failure) ([facility]) TAKE ONE TABLET BY MOUTH IN THE MORNING AND TAKE THREE TABLETS ON DAYS WHEN TAKING METALAZONE 90 Tablet 3 08/07/19 24 Active Allopurinol 100 MG Oral Tablet (Zyloprim)Indicat ions:Kidney disease, chronic, stage IV (GFR 15-29 ml/min) ([facility]),Hyperuricem ia Take 2 Tablets by mouth in the morning. 60 Tablet 08/07/19 24 Active Vitamin D 50 MCG (2000 UT) Oral CapsuleIndication s:Vitamin D deficiency Take 4,000 Units by mouth in the morning. 4,000 units daily. 60 Capsule 08/07/19 24 Active Metoprolol Succinate ER 50 MG Oral Tablet Extended Release 24 Hour (toPROL XL)Indications:Pa roxysmal atrial fibrillation ([facility]) 1 1/2 tablets in the morning and 1 1/2 tablets in the evening 270 Tablet 3 10/03/19 24 Active Spiriva Respimat 2.5 MCG/ACT Inhalation Aerosol Solution (Tiotropium [place] Monohydrate)Indic ations:COPD, group B, by GOLD 2017 classification ([facility]) Inhale 2 Puffs by mouth in the morning. 4 g 11/04/19 24 Active Venlafaxine HCl ER 75 MG Oral Capsule Extended Release 24 Hour (Effexor XR)Indications:Ad justment disorder with depressed mood TAKE ONE CAPSULE BY MOUTH EVERY DAY DO NOT CUT, CRUSH, OR CHEW, 90 Capsule 2 11/05/19 24 Active Torsemide 20 MG Oral Tablet (Demadex)Indicati ons:Acute on chronic diastolic (congestive) heart failure ([facility]) Take 1 Tablet by mouth in the morning and 1 Tablet before bedtime. 180 Tablet 2 11/05/19 24 Active Atorvastatin Calcium 40 MG Oral Tablet (Lipitor)Indicati ons:Dyslipidemia, goal LDL below 100 Take 1 Tablet by mouth in the morning. 90 Tablet 3 11/04/19 24 Active Warfarin Sodium 2.5 MG Oral Tablet (Coumadin)Indicat ions:Paroxysmal atrial fibrillation (HCC),Anticoagula tion management encounter Take 1-2 tablets by mouth daily as directed by anticoagulation clinic 180 Tablet 3 11/18/19 24 Active Levothyroxine Sodium 100 MCG Oral Tablet (Levoxyl)Indicati ons:Acquired hypothyroidism TAKE ONE TABLET BY MOUTH EVERY MORNING 30 minutes BEFORE breakfast OR other meds 90 Tablet 1 01/16/20 24 Active Albuterol Sulfate HFA 108 (90 Base) MCG/ACT Inhalation Aerosol SolutionIndicatio ns:COPD, group B, by GOLD 2017 classification ([facility]) Inhale 2 Puffs by mouth every 6 hours as needed for Cough, Shortness of Breath or Wheezing. 18 g 11 02/06/20 24 Active Spironolactone 25 MG Oral Tablet (Aldactone)Indica tions:Chronic right-sided CHF (congestive heart failure) ([facility]) TAKE 1/2 TABLET BY MOUTH IN THE MORNING 45 Tablet 3 02/18/20 24 Active Hydrocortisone Acetate 25 MG Rectal Suppository (Anusol-HC)Indica tions:Bright red rectal bleeding Administer into the rectum 2 times a day in the morning and at bedtime as needed for Hemorrhoids. Up to 2 weeks. 24 Suppository 1 03/18/20 24 Active Omeprazole 20 MG Oral Capsule Delayed Release (PriLOSEC)Indicat ions:Gastroesopha geal reflux disease with esophagitis take 1 capsule every day 1 hour before the first meal of the day. 90 Capsule 1 03/25/20 24 Active Omeprazole 20 MG Oral Capsule Delayed Release (PriLOSEC)Indicat ions:Gastroesopha geal reflux disease with esophagitis take 1 capsule every day 1 hour before the first meal of the day. 90 Capsule 1 10/01/19 24 024 Discontinued documented as of this encounter (statuses as of 03/25/2024) Active Problems Problem Noted Date Diagnosed Date [...] brochure given to patient at 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 Pre-op testing Dyslipidemia, goal LDL below 100 Total knee replacement status Adjustment disorder with depressed mood SBE (subacute bacterial endocarditis) prophylaxi s candidate History of tobacco use documented as of this encounter (statuses as of 03/25/2024) Resolved Problems Problem Noted Date Diagnosed Date [...] ventricular response 06/18/2016 12/13/2016 Overview: admitted [facility] pulse 140s OBESITY, BMI 30-34 (SEE ACTUAL [...] as of this encounter (statuses as of 03/25/2024) Immunizations Name Administration Dates Next Due COVID-19 mRNA, LNP-s, No Pre serve, 2-Dose Series ([employer]) 07/24/2021,01/30/2021,01/05/2021 COVID-19, LNP-s, No Preserve , Vito-sucrose, Ages 12+ (Pfizer) 07/24/2021 COVID-19, MRNA-LNP, 23-24, P F, 30 MCG/0.3 mL, 12 YRS AND ABOVE, IM ([facility]) 05/06/2023 Covid-19, Mrna, Lnp-s, Pf, B ivalent, 30 Mcg, IM, 12 yrs and above ([employer]) 04/30/2022 Pneumococcal Conjugate Vacc, 13 Valent (Prevnar) [...] encounter Miscellaneous Notes * Telephone Encounter - Ruth Sneed RPh - 03/25/2024 2:10 PM EDTSigned Prescriptions: Disp Refills Omeprazole 20 MG Oral Capsule Delayed Rele*90 Cap*1 Sig: take 1 capsule every day 1 hour before the first meal of the day.Authorizing Provider: Tammy SARMIENTO User: RUTH SNEED -------- documented in this encounter Plan of Treatment Upcoming Encounters Date Type Department Care Team (Late st Contact Info) Description 04/06/2024 3:10 PM EDT Anticoagulation Pharmacy, [address] [place] [address] [place] [address] 04/06/2024 3:30 PM EDT Office Visit Cardiology [address] [place] [address] Wes Bourgeois PA-C [address] [place] [address] 08/24/2024 2:30 PM EDT Nurse Only Ancillary [address] [place] [address] Angy, Nurse [address] [place] [address] 09/02/2024 3:20 PM EDT Office Visit Nephrology [address] [place] [address] Vivien Diez MD [address] [facility] [place], [place] [phone] Health Maintenance Due Date Last Done Comments [...] this encounter Medical Devices Implanted Type Area Drug Safety Assistant Device Identifier Shelf Expiration Date Model / Serial / Lot Suture Steel 6 B&S19 M654g - [id number] Implanted:Qty : 4 on 06/18/2018 by Handy Farmer MD at OR [facility] [place] N/A: Sternum JNJ : [employer] 01/06/2023 [id number] / / [id number] Valve Heart Aortic Epic 23mm - [id number] Implanted:03/2019 by Handy Farmer MD at OR [facility] [place] (Quantity not on file) N/A: Heart ST KERRI : CARDIOVASCULAR 12/28/2021 [id number] / [id number] / LOT NA Graft Gelweave Valsalva 28mm - [id number] - [id number] Implanted:Qty : 1 on 06/18/2018 by Handy Farmer MD at OR [facility] [place] N/A: Aorta [employer] CHANTAL 04/08/2021 [id number] / [id number] / [id number] [place] Ptfe 6x6in X5 - [id number] Implanted:Qty : 1 on 06/18/2018 by Handy Farmer MD at OR [facility] [place] N/A: Aorta CR BARD : PERIPHERAL VASCULAR 12/04/2022 [id number] / / [id number] 6in X 6in (15cm X 15cm) Ptfe [place], 1.65mm Thick Implanted:Qty : 1 on 06/18/2018 by Handy Farmer MD at OR [facility] [place] N/A: Aorta CR BARD : PERIPHERAL VASCULAR 12/04/2022 [id number] / / [id number] 6in X 6in (15cm X 15cm) Ptfe [place], 1.65mm Thick Implanted:Qty : 1 on 06/18/2018 by Handy Farmer MD at OR [facility] [place] N/A: Aorta CR BARD : PERIPHERAL VASCULAR 12/04/2022 [id number] / / [id number] 6in X 6in (15cm X 15cm) Ptfe [place], 1.65mm Thick Implanted:Qty : 1 on 06/18/2018 by Handy Farmer MD at OR [facility] [place] N/A: Aorta CR BARD : PERIPHERAL VASCULAR 12/04/2022 [id number] / / [id number] documented as of this encounter Visit Diagnoses Diagnosis Gastroesophageal reflux disease with esophagitis documented in this encounter Advance Directives * Full Code (Latest Code Status on File) Date Activated Date Inactivated Comments 06/18/2018 6:43 PM 06/25/2018 6:16 PM This order r eflects the patients wishes and were consensually agreed upon. Care Teams Ceramic Maker Demonstrator Relationship Specialty Start Date End Date Nat Sarmiento MD [address] [place] [address] [place] [address] PCP - General Family Medicine 11/13/18 documented as of this encounter
--- OUTSIDE RECORDS SUMMARY | 2024-04-07 13:11 | External Medical Summary ---
Author Name Unknown Address Unknown Organization K01:[facility] [address] [place] [address] Laboratory Report Ordering Provider Test Date Status [place] 04/06/2024 16:19:35 Final Observation Date Value Abnormality Reference (Units ) Status WBC, Total 04/06/2024 16:19:35 5.60 4.00-10.80 (K/uL) Final RBC 04/06/2024 16:19:35 2.94 3.85-5.15 (M/uL) Final Hemoglobin 04/06/2024 16:19:35 8.7 Below low normal 12.0-15.3 (g/dL) Final HCT 04/06/2024 16:19:35 29.3 Below low normal 36.0-45.2 (%) Final MCV 04/06/2024 16:19:35 99.7 81.5-97.5 (fL) Final MCH 04/06/2024 16:19:35 29.6 27.0-34.0 (pg) Final MCHC 04/06/2024 16:19:35 29.7 32.0-36.0 (g/dL) Final RDW 04/06/2024 16:19:35 15.4 11.5-15.5 (%) Final Platelets 04/06/2024 16:19:35 289 140-400 (K/uL) Final MPV 04/06/2024 16:19:35 9.4 6.6-11.1 (fL) Final Nucleated erythrocytes/100 leukocytes [Ratio] in Blood by Automated count 04/06/2024 16:19:35 0 <=0 (/100 WBCs) Final Performing Location [facility] [place] [address] [place] [address]
--- OUTSIDE RECORDS SUMMARY | 2024-04-07 13:11 | External Medical Summary ---
Author Name Unknown Address Unknown Organization : Laboratory Report Ordering Provider Test Date Status LIUS GALLEGOS 04/06/2024 15:09:41 Final Therapeutic ranges for non-o perative patients:
Prophylaxsis/treatment of DVT: (Range:2.0-3.0)
Treatment of pulmonary embolism:(Range:2.0-3.0)
Prevention of systemic embolism from:
-tissue heart valves
-acute myocardial infarction
-valvular heart disease
-atrial fibrillation
(Range: 2.0-3.0)
Mechanical prosthetic valves: (Range: 2.5-3.5) Observation Date Value Abnormality Reference (Units ) Status INR in Capillary blood by Coagulation assay 04/06/2024 15:09:41 2.0 (INR) Final Performing Location
--- OUTSIDE RECORDS SUMMARY | 2024-04-07 13:11 | External Medical Summary | Summary of Care ---
Author Name Unknown Organization [facility] Address [address] [place] [address] Phone [phone] Care Team Providers Care Ham Rolling Machine Operator Name Role Phone Nat Salter MD Primary Care Prov ider Reason for Visit * Reason Onset Date Comments Appointment 03/18/2024 Encounter Details Date Type Department Care Team (Late st Contact Info) Description 03/18/2024 Telephone Family Medicine [address] [address] Emerson Hernandez MD [address] [place] [address] [place] [address] Appointment Allergies Active Allergy Reactions Criticality Noted Date Comments Prednisone Other (Please comment) Medium 12/28/2015 Stated it caused her to go into AFib documented as of this encounter (statuses as of 03/18/2024) Medications Medication Sig Dispensed Refills Start Date End Date Status DIURETIC TITRATION PLANIndications:Chr onic right-sided CHF (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 1 Each 9 Active Aspirin 81 MG Oral Tablet Delayed Release Take 1 Tablet by mouth in the morning. 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 1 Each 2 Active Budesonide-Formoter ol Fumarate 160-4.5 MCG/ACT Inhalation Aerosol (Symbicort)Indicati ons:COPD, group B, by GOLD 2017 classification ([facility]) Inhale 2 Puffs by mouth in the morning and 2 Puffs before bedtime. 10.2 g 12 3 Active Potassium Chloride Stefania ER 20 MEQ Oral Tablet Extended ReleaseIndications: Paroxysmal atrial fibrillation ([facility]),Chronic diastolic heart failure ([facility]),Chronic right-sided CHF (congestive heart failure) ([facility]) TAKE ONE TABLET BY MOUTH IN THE MORNING AND TAKE THREE TABLETS ON DAYS WHEN TAKING METALAZONE 90 Tablet 3 4 Active Allopurinol 100 MG Oral Tablet (Zyloprim)Indicatio ns:Kidney disease, chronic, stage IV (GFR 15-29 ml/min) ([facility]),Hyperuricemia Take 2 Tablets by mouth [...] 24 Hour (toPROL XL)Indications:Paro xysmal atrial fibrillation ([facility]) 1 1/2 tablets in the morning and 1 1/2 tablets in the evening 270 Tablet 3 4 Active Spiriva Respimat 2.5 MCG/ACT Inhalation Aerosol Solution (Tiotropium [place] Monohydrate)Indicat ions:COPD, group B, by GOLD 2017 classification ([facility]) Inhale 2 Puffs by mouth [...] :COPD, group B, by GOLD 2017 classification ([facility]) Inhale 2 Puffs by mouth [...] as of this encounter (statuses as of 03/18/2024) Active Problems Problem Noted Date Diagnosed Date [...] as of this encounter (statuses as of 03/18/2024) Resolved Problems Problem Noted Date Diagnosed Date [...] id ventricular response 06/18/2016 12/13/2016 Overview: admitted [facility] pulse 140s OBESITY, BMI 30-34 [...] as of this encounter (statuses as of 03/18/2024) Immunizations Name Administration Dates Next Due COVID-19 mRNA, LNP-s, No Pre serve, 2-Dose Series ([employer]) 07/24/2021,01/30/2021,01/05/2021 COVID-19, LNP-s, No Preserve , Vito-sucrose, Ages 12+ (Pfizer) 07/24/2021 COVID-19, MRNA-LNP, 23-24, P F, 30 MCG/0.3 mL, 12 YRS AND ABOVE, IM ([facility]) 05/06/2023 Covid-19, Mrna, Lnp-s, Pf, B [...] Miscellaneous Notes * Telephone Encounter - Zuleika aHm OSA - 03/18/2024 2:49 PM EDT Melissa needs scheduled for colonoscopy for: Bright red rectal bleeding [K62.5] - Primary documented in this encounter Plan of Treatment Upcoming Encounters Date Type Department Care Team (Late st Contact Info) Description 04/06/2024 3:10 PM EDT Anticoagulation Pharmacy, [address] [place] [address] [place] [address] 04/06/2024 3:30 PM EDT Office Visit Cardiology [address] [place] [address] Wes Bourgeois PA-C [address] [place] [address] 08/24/2024 2:30 PM EDT Nurse Only Ancillary [address] [place] [address] [place], Nurse Annual [address] [place] [address] 09/02/2024 3:20 PM EDT Office Visit Nephrology [address] [place] [address] Vivien Diez MD [address] [place] [address] Health Maintenance Due Date Last Done Comments [...] this encounter Medical Devices Implanted Type Area Reel Film Inspector Device Identifier Shelf Expiration Date Model / Serial / Lot Suture Steel 6 B&S19 M654g - [id number] Implanted:Qty : 4 on 06/18/2018 by Handy Farmer MD at OR [facility] [place] N/A: Sternum JNJ : [employer] 01/06/2023 M654G / / [id number] Valve Heart Aortic Epic 23mm - [id number] Implanted:03/2019 by Handy Farmer MD at OR [facility] [place] (Quantity not on file) N/A: Heart ST KERRI : CARDIOVASCULAR 12/28/2021 [id number] 00 / [id number] / LOT NA Graft Gelweave Valsalva 28mm - [id number] - [id number] Implanted:Qty : 1 on 06/18/2018 by Handy Farmer MD at OR [facility] [place] N/A: Aorta [employer] CHANTAL 04/08/2021 [id number] / [id number] / [id number] [place] Ptfe 6x6in X5 - [id number] Implanted:Qty : 1 on 06/18/2018 by Hadny Farmer MD at OR [facility] [place] N/A: Aorta CR BARD : PERIPHERAL VASCULAR 12/04/2022 [id number] / / [id number] 6in X 6in (15cm X 15cm) Ptfe [place], 1.65mm Thick Implanted:Qty : 1 on 06/18/2018 by Handy Farmer MD at OR [facility] [place] N/A: Aorta CR BARD : PERIPHERAL VASCULAR 12/04/2022 [id number] / / [id number] 6in X 6in (15cm X 15cm) Ptfe [place], 1.65mm Thick Implanted:Qty : 1 on 06/18/2018 by Handy Farmer MD at OR [facility] [place] N/A: Aorta CR BARD : PERIPHERAL VASCULAR 12/04/2022 [id number] / / [id number] 6in X 6in (15cm X 15cm) Ptfe [place], 1.65mm Thick Implanted:Qty : 1 on 06/18/2018 by Handy Farmer MD at OR [facility] [place] N/A: Aorta CR BARD : PERIPHERAL VASCULAR 12/04/2022 [id number] / / [id number] documented as of this encounter Advance Directives * Full Code (Latest Code Status on File) Date Activated Date Inactivated Comments 06/18/2018 6:43 PM 06/25/2018 6:16 PM This order r eflects the patients wishes and were consensually agreed upon. Care Teams Ham Rolling Machine Operator Relationship Specialty Start Date End Date Nat Salter MD [address] [place] [address] [place] [address] PCP - General Family Medicine 11/13/18 documented as of this encounter
--- OUTSIDE RECORDS SUMMARY | 2024-04-07 13:11 | External Medical Summary | Summary of Care ---
Author Name Unknown Organization [facility] Address [address] [place] [address] Phone [phone] Care Team Providers Care Chemistry Specialist Name Role Phone Nat Salter MD Primary Care Prov ider Reason for Visit * Reason Onset Date Comments Appointment 03/18/2024 Encounter Details Date Type Department Care Team (Late st Contact Info) Description 03/18/2024 Telephone Family Medicine [address] [phone] Emerson Hernandez MD [address] [place] [address] [place] [address] Appointment Allergies Active Allergy Reactions [...] in the morning. 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 1 Each 2 Active Budesonide-Formoter ol Fumarate 160-4.5 MCG/ACT Inhalation Aerosol (Symbicort)Indicati ons:COPD, group B, by GOLD 2017 classification ([facility]) Inhale 2 Puffs by mouth in the morning and 2 Puffs before bedtime. 10.2 g 12 3 Active Potassium Chloride Stefania ER 20 MEQ Oral Tablet Extended ReleaseIndications: Paroxysmal atrial fibrillation ([facility]),Chronic diastolic heart failure ([facility]),Chronic right-sided CHF (congestive heart failure) ([facility]) TAKE ONE TABLET BY MOUTH IN THE MORNING AND TAKE THREE TABLETS ON DAYS WHEN TAKING METALAZONE 90 Tablet 3 4 Active Allopurinol 100 MG Oral Tablet (Zyloprim)Indicatio ns:Kidney disease, chronic, stage IV (GFR 15-29 ml/min) ([facility]),Hyperuricemia Take 2 Tablets by mouth [...] 24 Hour (toPROL XL)Indications:Paro xysmal atrial fibrillation ([facility]) 1 1/2 tablets in the morning and 1 1/2 tablets in the evening 270 Tablet 3 4 Active Spiriva Respimat 2.5 MCG/ACT Inhalation Aerosol Solution (Tiotropium [place] Monohydrate)Indicat ions:COPD, group B, by GOLD 2017 classification ([facility]) Inhale 2 Puffs by mouth [...] :COPD, group B, by GOLD 2017 classification ([facility]) Inhale 2 Puffs by mouth [...] brochure given to patient at 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 0 12/25/2004 [...] ventricular response 06/18/2016 12/13/2016 Overview: admitted [facility] pulse 140s OBESITY, BMI 30-34 (SEE ACTUAL [...] mRNA, LNP-s, No Pre serve, 2-Dose Series ([employer]) 07/24/2021,01/30/2021,01/05/2021 COVID-19, LNP-s, No Preserve , Vito-sucrose, Ages 12+ (Pfizer) 07/24/2021 COVID-19, MRNA-LNP, 23-24, P F, 30 MCG/0.3 mL, 12 YRS AND ABOVE, IM ([facility]) 05/06/2023 Covid-19, Mrna, Lnp-s, Pf, B [...] encounter Miscellaneous Notes * Telephone Encounter - Nat Salter MD - 03/24/2024 12:22 PM EDT Fwd to schedulers * Telephone Encounter - Whitney Vazquez OSA - 03/23/2024 4:26 PM EDT Pt will need an OR setting since she is on 24 hour O2. Pt would like to go to [place] Please send to them for scheduling Thank you DESHAUN Mancuso 03/23/2024 4:34 PM * Telephone Encounter - Zuleika Ham OSA - 03/18/2024 2:49 PM EDT Melissa needs scheduled for colonoscopy for: Bright red rectal bleeding [K62.5] - Primary documented in this encounter Plan of Treatment Upcoming Encounters Date Type Department Care Team (Late st Contact Info) Description 04/06/2024 3:10 PM EDT Anticoagulation Pharmacy, [address] [place] [address] [place] [address] 04/06/2024 3:30 PM EDT Office Visit Cardiology [address] [place] [address] Wes Bourgeois PA-C [address] [place] [address] 08/24/2024 2:30 PM EDT Nurse Only Ancillary [address] [place] [address] [place], Nurse [address] [place] [address] 09/02/2024 3:20 PM EDT Office Visit Nephrology [address] [place] [address] Vivien Diez MD [address] [facility] [place], [place] [address] Health Maintenance Due Date Last Done Comments [...] this encounter Medical Devices Implanted Type Area Sleeve Tailor Device Identifier Shelf Expiration Date Model / Serial / Lot Suture Steel 6 B&S19 M654g - [id number] Implanted:Qty : 4 on 06/18/2018 by Handy Farmer MD [place] [facility] [place]A: Sternum JNJ : [employer] 01/06/2023 [id number] / / [id number] Valve Heart Aortic Epic 23mm - [id number] Implanted:03/2019 by Handy Farmer MD at [place] [facility] [place] (Quantity not on file) N/A: Heart ST KERRI : CARDIOVASCULAR 12/28/2021 [id number] 00 / [id number] / LOT NA Graft Gelweave Valsalva 28mm - [id number] - [id number] Implanted:Qty : 1 on 06/18/2018 by Handy Farmer MD [place] [facility] [place] N/A: Aorta [employer] 04/08/2021 [id number] / [id number] / [id number] [place] Ptfe 6x6in X5 - [id number] Implanted:Qty : 1 on 06/18/2018 by Handy Farmer MD [place] [facility] [place] N/A: Aorta CR BARD : PERIPHERAL VASCULAR 12/04/2022 [id number] / / [id number] 6in X 6in (15cm X 15cm) Ptfe [place], 1.65mm Thick Implanted:Qty : 1 on 06/18/2018 by Handy Farmer MD [place] [facility] [place]/A: Aorta CR BARD : PERIPHERAL VASCULAR 12/04/2022 [id number] / / [id number] 6in X 6in (15cm X 15cm) Ptfe [place], 1.65mm Thick Implanted:Qty : 1 on 06/18/2018 by Handy Farmer MD [place] [facility] [place] N/A: Aorta CR BARD : PERIPHERAL VASCULAR 12/04/2022 [id number] / / [id number] 6in X 6in (15cm X 15cm) Ptfe [place], 1.65mm Thick Implanted:Qty : 1 on 06/18/2018 by Handy Farmer MD [place] [facility] [place] N/A: Aorta CR BARD : PERIPHERAL VASCULAR 12/04/2022 [id number] / / [id number] documented as of this encounter Advance Directives * Full Code (Latest Code Status on File) Date Activated Date Inactivated Comments 06/18/2018 6:43 PM 06/25/2018 6:16 PM This order r eflects the patients wishes and were consensually agreed upon. Care Teams Chemistry Specialist Relationship Specialty Start Date End Date Nat Salter MD [address] [place] [address] [place] [phone] PCP - General Family Medicine 11/13/18 documented as of this encounter
--- OUTSIDE RECORDS SUMMARY | 2024-04-07 13:11 | External Medical Summary | Summary of Care ---
Author Name Unknown Organization [facility] Address [address] [place] [address] Phone [phone] Care Team Providers Care Ecommerce Manager Name Role Phone Nat Salter MD Primary Care Prov ider Reason for Visit * Reason Comments Outpatient Testing Encounter Details Date Type Department Care Team (Late st Contact Info) Description 03/18/2024 3:00 PM EDT Laboratory Laboratory [address] [place] [phone] [facility] [address] [place] [address] Bright red rectal bleeding Allergies Active Allergy Reactions Criticality Noted Date [...] mouth in the morning. 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 1 Each 2 Active Budesonide-Formoter ol Fumarate 160-4.5 MCG/ACT Inhalation Aerosol (Symbicort)Indicati ons:COPD, group B, by GOLD 2017 classification ([facility]) Inhale 2 Puffs by mouth in the morning and 2 Puffs before bedtime. 10.2 g 12 3 Active Potassium Chloride Stefania ER 20 MEQ Oral Tablet Extended ReleaseIndications: Paroxysmal atrial fibrillation ([facility]),Chronic diastolic heart failure ([facility]),Chronic right-sided CHF (congestive heart failure) ([facility]) TAKE ONE TABLET BY MOUTH IN THE MORNING AND TAKE THREE TABLETS ON DAYS WHEN TAKING METALAZONE 90 Tablet 3 4 Active Allopurinol 100 MG Oral Tablet (Zyloprim)Indicatio ns:Kidney disease, chronic, stage IV (GFR 15-29 ml/min) ([facility]),Hyperuricemia Take 2 Tablets by mouth in the [...] 24 Hour (toPROL XL)Indications:Paro xysmal atrial fibrillation ([facility]) 1 1/2 tablets in the morning and 1 1/2 tablets in the evening 270 Tablet 3 4 Active Spiriva Respimat 2.5 MCG/ACT Inhalation Aerosol Solution (Tiotropium [place] Monohydrate)Indicat ions:COPD, group B, by GOLD 2017 classification ([facility]) Inhale 2 Puffs by mouth in the [...] :COPD, group B, by GOLD 2017 classification ([facility]) Inhale 2 Puffs by mouth every 6 [...] brochure given to patient at 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 half-way current use of anticoagulant therapy 0 12/25/2004 [...] id ventricular response 06/18/2016 12/13/2016 Overview: admitted [facility] pulse 140s OBESITY, BMI 30-34 [...] mRNA, LNP-s, No Pre serve, 2-Dose Series ([employer]) 07/24/2021,01/30/2021,01/05/2021 COVID-19, LNP-s, No Preserve , Vito-sucrose, Ages 12+ (Pfizer) 07/24/2021 COVID-19, MRNA-LNP, 23-24, P F, 30 MCG/0.3 mL, 12 YRS AND ABOVE, IM ([facility]) 05/06/2023 Covid-19, Mrna, Lnp-s, Pf, B ivalent, 30 Mcg, IM, 12 yrs and above ([employer]) 04/30/2022 Pneumococcal Conjugate Vacc, 13 Valent (Prevnar) [...] Description 04/06/2024 3:10 PM EDT Anticoagulation Pharmacy, [address] [place] [address] [place] [address] 04/06/2024 3:30 PM EDT Office Visit Cardiology [address] [place] [address] Wes Bourgeois PA-C [address] [place] [address] 08/24/2024 2:30 PM EDT Nurse Only Ancillary [address] [place] [address] [place], Nurse [address] [place] [address] 09/02/2024 3:20 PM EDT Office Visit Nephrology [address] [place] [address] Vivien Diez MD [address] [facility] [address] Pending Results Name Type Priority Associated Diagnoses Date /Time HGB Lab Routine Bright red rectal bleeding 03/18/2024 2:43 PM EDT Health Maintenance Due Date Last [...] this encounter Medical Devices Implanted Type Area Coffee Plantation Worker Device Identifier Shelf Expiration Date Model / Serial / Lot Suture Steel 6 B&S19 M654g - [id number] Implanted:Qty : 4 on 06/18/2018 [place]y Farmer [place] [facility] [place] Sternum JNJ : [employer] 01/06/2023 M654G / / [id number] Valve Heart Aortic Epic 23mm - [id number] Implanted:03/2019 by Handy Farmer [place] [facility] [place] not on file) N/A: Heart ST KERRI : CARDIOVASCULAR 12/28/2021 [id number]- 00 / [id number] / LOT NA Graft Gelweave Valsalva 28mm - [id number] - [id number] Implanted:Qty : 1 on 06/18/2018 by Handy Farmer [place] [facility] [place]A: Aorta [employer] 04/08/2021 [id number] / [id number] / [id number] Ptfe 6x6in X5 - [id number] Implanted:Qty : 1 on 06/18/2018 by Handy Farmer MD [place] [facility] [place]A: Aorta CR BARD : PERIPHERAL VASCULAR 12/04/2022 [id number] / / [id number] 6in X 6in (15cm X 15cm) Ptfe [place], 1.65mm Thick Implanted:Qty : 1 on 06/18/2018 by Handy Farmer [place] [facility] [place]A: Aorta CR BARD : PERIPHERAL VASCULAR 12/04/2022 [id number] / / [id number] 6in X 6in (15cm X 15cm) Ptfe [place], 1.65mm Thick Implanted:Qty : 1 on 06/18/2018 by Handy Farmer MD [place] [facility] [place]A: Aorta CR BARD : PERIPHERAL VASCULAR 12/04/2022 [id number] / / [id number] 6in X 6in (15cm X 15cm) Ptfe [place]vor, 1.65mm Thick Implanted:Qty : 1 on 06/18/2018 by Handy Farmer MD [place] [facility] [place]A: Aorta CR BARD : PERIPHERAL VASCULAR 12/04/2022 [id number] / / [id number] documented as of this encounter Visit Diagnoses Diagnosis Bright red rectal bleeding Hemorrhage of rectum and anus documented in this encounter Advance Directives * Full Code (Latest Code Status on File) Date Activated Date Inactivated Comments 06/18/2018 6:43 PM 06/25/2018 6:16 PM This order r eflects the patients wishes and were consensually agreed upon. Care Teams Ecommerce Manager Relationship Specialty Start Date End Date Nat Salter MD [address] [place] [address] [place] [address] PCP - General Family Medicine 11/13/18 documented as of this encounter
--- OUTSIDE RECORDS SUMMARY | 2024-04-07 13:11 | External Medical Summary ---
Author Name Unknown Address Unknown Organization K01:[facility] [place] [address] [place] [address] Laboratory Report Ordering Provider Test Date Status [place] 04/06/2024 16:19:35 Final Observation Date Value Abnormality Reference (Units ) Status Vitamin B12 04/06/2024 16:19:35 [phone] (pg/mL) Final Performing Location LABORATORY [facility] - [address] [place] [address]
--- OUTSIDE RECORDS SUMMARY | 2024-04-07 13:11 | External Medical Summary | Summary of Care ---
Author Name Unknown Organization [facility] Address [address] [place] [address] Phone [phone] Care Team Providers Care Coatings Inspector Name Role Phone Nat Salter MD Primary Care Prov ider Reason for Visit * Reason Onset Date Comments Appointment 03/18/2024 Encounter Details Date Type Department Care Team (Late st Contact Info) Description 03/18/2024 Telephone Family Medicine [address] [phone] Emerson Hernandez MD [address] [place] [address] [place] [address] Appointment Allergies Active Allergy Reactions Criticality Noted Date Comments Prednisone Other (Please comment) Medium 12/28/2015 Stated it caused her to go into AFib documented as of this encounter (statuses as of 03/23/2024) Medications Medication Sig Dispensed Refills Start Date End Date Status DIURETIC TITRATION PLANIndications:Chr onic right-sided CHF (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 1 Each 9 Active Aspirin 81 MG Oral Tablet Delayed Release Take 1 Tablet by mouth in the morning. 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 Pre-op testing Dyslipidemia, goal LDL below 100 Total knee replacement status Adjustment disorder with depressed mood SBE (subacute bacterial endocarditis) prophylaxi s candidate History of tobacco use documented as of this encounter (statuses as of 03/23/2024) Resolved Problems Problem Noted Date Diagnosed Date [...] id ventricular response 06/18/2016 12/13/2016 Overview: admitted [facility] pulse 140s OBESITY, BMI 30-34 (SEE [...] as of this encounter (statuses as of 03/23/2024) Immunizations Name Administration Dates Next Due COVID-19 mRNA, LNP-s, No Pre serve, 2-Dose Series ([employer]) 07/24/2021,01/30/2021,01/05/2021 COVID-19, LNP-s, No Preserve , Vito-sucrose, Ages 12+ (Pfizer) 07/24/2021 COVID-19, MRNA-LNP, 23-24, P F, 30 MCG/0.3 mL, 12 YRS AND ABOVE, IM ([facility]) 05/06/2023 Covid-19, Mrna, Lnp-s, Pf, B ivalent, [...] encounter Miscellaneous Notes * Telephone Encounter - Whitney Vazquez, DESHAUN - 03/23/2024 4:26 PM EDT lmm * Telephone Encounter - Zuleika Ham OSA - 03/18/2024 2:49 PM EDT Melissa needs scheduled for colonoscopy for: Bright red rectal bleeding [K62.5] - Primary documented in this encounter Plan of Treatment Upcoming Encounters Date Type Department Care Team (Late st Contact Info) Description 04/06/2024 3:10 PM EDT Anticoagulation Pharmacy, [address] [place] [address] [place] [address] 04/06/2024 3:30 PM EDT Office Visit Cardiology [address] [place] [address] Wes Bourgeois PA-C [address] [place] [address] 08/24/2024 2:30 PM EDT Nurse Only Ancillary [address] [place] [address] [place], Nurse [address] [place] [address] 09/02/2024 3:20 PM EDT Office Visit Nephrology [address] [place] [address] [facility] Diez [facility] [address] Health Maintenance Due Date Last Done Comments [...] this encounter Medical Devices Implanted Type Area Fudger Device Identifier Shelf Expiration Date Model / Serial / Lot Suture Steel 6 B&S19 M654g - [id number] Implanted:Qty : 4 on 06/18/2018 [place] Handy Farmer [place] [facility] [place] Sternum JNJ : [employer] 01/06/2023 M654G / / [id number] Valve Heart Aortic Epic 23mm - [id number] Implanted:03/2019 by Handy Farmer [place] [facility] [place] file) N/A: Heart ST KERRI : CARDIOVASCULAR 12/28/2021 [id number]- 00 / [id number] / LOT NA Graft Gelweave Valsalva 28mm - [id number] - [id number] Implanted:Qty : 1 on 06/18/2018 by Handy Farmer [place] [facility] [place]: Aorta [employer] CH[employer]AL 04/08/2021 [id number] / [id number] / [id number] [place] Ptfe 6x6in X5 - [id number] Implanted:Qty : 1 on 06/18/2018 by Handy Farmer [place] [facility] [place]A: Aorta CR BARD : PERIPHERAL VASCULAR 12/04/2022 [id number] / / [id number] 6in X 6in (15cm X 15cm) Ptfe [place], 1.65mm Thick Implanted:Qty : 1 on 06/18/2018 by Handy Farmer [place] [facility] [place]: Aorta CR BARD : PERIPHERAL VASCULAR 12/04/2022 [id number] / / [id number] 6in X 6in (15cm X 15cm) Ptfe [place], 1.65mm Thick Implanted:Qty : 1 on 06/18/2018 by Handy Farmer [place] [facility] [place]A: Aorta CR BARD : PERIPHERAL VASCULAR 12/04/2022 [id number] / / [id number] 6in X 6in (15cm X 15cm) Ptfe [place], 1.65mm Thick Implanted:Qty : 1 on 06/18/2018 by Handy Farmer [place] [facility] [place]A: Aorta CR BARD : PERIPHERAL VASCULAR 12/04/2022 [id number] / / [id number] documented as of this encounter Advance Directives * Full Code (Latest Code Status on File) Date Activated Date Inactivated Comments 06/18/2018 6:43 PM 06/25/2018 6:16 PM This order r eflects the patients wishes and were consensually agreed upon. Care Teams Coatings Inspector Relationship Specialty Start Date End Date Nat Salter MD [address] [place] [address] [place] [phone] PCP - General Family Medicine 11/13/18 documented as of this encounter
--- OUTSIDE RECORDS SUMMARY | 2024-04-07 13:11 | External Medical Summary | Summary of Care ---
Author Name Unknown Organization [facility] Address [address] [place] [address] Phone [phone] Care Team Providers Care Seam Taper Machine Name Role Phone Nat Salter MD Primary Care Prov ider Reason for Visit * Reason Onset Date Comments Appointment 03/18/2024 Encounter Details Date Type Department Care Team (Late st Contact Info) Description 03/18/2024 Telephone Family Medicine [address] [address] Emerson Hernandez MD [address] [place] [address] [place] [address] Appointment Allergies Active Allergy Reactions [...] mouth in the morning. 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 1 Each 2 Active Budesonide-Formoter ol Fumarate 160-4.5 MCG/ACT Inhalation Aerosol (Symbicort)Indicati ons:COPD, group B, by GOLD 2017 classification ([facility]) Inhale 2 Puffs by mouth in the morning and 2 Puffs before bedtime. 10.2 g 12 3 Active Potassium Chloride Stefania ER 20 MEQ Oral Tablet Extended ReleaseIndications: Paroxysmal atrial fibrillation ([facility]),Chronic diastolic heart failure ([facility]),Chronic right-sided CHF (congestive heart failure) ([facility]) TAKE ONE TABLET BY MOUTH IN THE MORNING AND TAKE THREE TABLETS ON DAYS WHEN TAKING METALAZONE 90 Tablet 3 4 Active Allopurinol 100 MG Oral Tablet (Zyloprim)Indicatio ns:Kidney disease, chronic, stage IV (GFR 15-29 ml/min) ([facility]),Hyperuricemia Take 2 Tablets by mouth in the [...] 24 Hour (toPROL XL)Indications:Paro xysmal atrial fibrillation ([facility]) 1 1/2 tablets in the morning and 1 1/2 tablets in the evening 270 Tablet 3 4 Active Spiriva Respimat 2.5 MCG/ACT Inhalation Aerosol Solution (Tiotropium [place] Monohydrate)Indicat ions:COPD, group B, by GOLD 2017 classification ([facility]) Inhale 2 Puffs by mouth in the [...] :COPD, group B, by GOLD 2017 classification ([facility]) Inhale 2 Puffs by mouth every 6 [...] brochure given to patient at 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 0 12/25/2004 [...] id ventricular response 06/18/2016 12/13/2016 Overview: admitted [facility] pulse 140s OBESITY, BMI 30-34 [...] mRNA, LNP-s, No Pre serve, 2-Dose Series ([employer]) 07/24/2021,01/30/2021,01/05/2021 COVID-19, LNP-s, No Preserve , Vito-sucrose, Ages 12+ (Pfizer) 07/24/2021 COVID-19, MRNA-LNP, 23-24, P F, 30 MCG/0.3 mL, 12 YRS AND ABOVE, IM ([facility]) 05/06/2023 Covid-19, Mrna, Lnp-s, Pf, B ivalent, [...] Miscellaneous Notes * Telephone Encounter - Whitney Vazqeuz, DESHAUN - 03/23/2024 4:26 PM EDT Pt will [...] 04/06/2024 3:10 PM EDT Anticoagulation Pharmacy, [address] [place] [address] [place] [address] 04/06/2024 3:30 PM EDT Office Visit Cardiology [address] [place] [address] Wes Bourgeois PA-C [address] [place] [address] 08/24/2024 2:30 PM EDT Nurse Only Ancillary [address] [place] [address] [place], Nurse Annual [address] [place] [address] 09/02/2024 3:20 PM EDT Office Visit Nephrology [address] [place] [address] Vivien Diez MD [address] [facility] [place] [address] Health Maintenance Due Date Last Done Comments [...] this encounter Medical Devices Implanted Type Area Production Maintenance Mechanic Device Identifier Shelf Expiration Date Model / Serial / Lot Suture Steel 6 B&S19 M654g - [id number] Implanted:Qty : 4 on 06/18/2018 by Handy Farmer MD [place] [facility] N/A: Sternum JNJ : [employer] 01/06/2023 [id number] / / [id number] Valve Heart Aortic Epic 23mm - [id number] Implanted:03/2019 by Handy Farmer MD [place] [facility] (Quantity not on file) N/A: Heart ST KERRI : CARDIOVASCULAR 12/28/2021 [id number] / [id number] / LOT NA Graft Gelweave Valsalva 28mm - [id number] - [id number] Implanted:Qty : 1 on 06/18/2018 by Handy Farmer MD [place] [facility] N/A: Aorta [employer] 04/08/2021 [id number] / [id number] / [id number] [place] Ptfe 6x6in X5 - [id number] Implanted:Qty : 1 on 06/18/2018 by Handy Farmer MD [place] [facility] N/A: Aorta CR BARD : PERIPHERAL VASCULAR 12/04/2022 [id number] / / [id number] 6in X 6in (15cm X 15cm) Ptfe [place], 1.65mm Thick Implanted:Qty : 1 on 06/18/2018 by Handy Farmer MD [place] [facility] N/A: Aorta CR BARD : PERIPHERAL VASCULAR 12/04/2022 [id number] / / [id number] 6in X 6in (15cm X 15cm) Ptfe [place], 1.65mm Thick Implanted:Qty : 1 on 06/18/2018 by Handy Farmer MD [place] [facility] N/A: Aorta CR BARD : PERIPHERAL VASCULAR 12/04/2022 [id number] / / [id number] 6in X 6in (15cm X 15cm) Ptfe [place], 1.65mm Thick Implanted:Qty : 1 on 06/18/2018 by Handy Farmer MD [place] [facility] N/A: Aorta CR BARD : PERIPHERAL VASCULAR 12/04/2022 [id number] / / [id number] documented as of this encounter Advance Directives * Full Code (Latest Code Status on File) Date Activated Date Inactivated Comments 06/18/2018 6:43 PM 06/25/2018 6:16 PM This order r eflects the patients wishes and were consensually agreed upon. Care Teams Seam Taper Machine Relationship Specialty Start Date End Date Nat Salter MD [address] [place] [address] [place] [phone] PCP - General Family Medicine 11/13/18 documented as of this encounter
--- OUTSIDE RECORDS SUMMARY | 2024-04-07 13:11 | External Medical Summary | Summary of Care ---
Author Name Unknown Organization [facility] Address [address] [place] [address] Phone [phone] Care Team Providers Care Sales Performance Manager Name Role Phone Nat Salter MD Primary Care Prov ider Reason for Visit * Reason Onset Date Comments Order Request 01/02/2024 Encounter Details Date Type Department Care Team (Late st Contact Info) Description 01/02/2024 Telephone Family [address] [address] Nat Salter MD [address] [place], [place] [address] [address] Order Request Allergies Active Allergy Reactions Criticality Noted Date Comments Prednisone Other (Please comment) Medium 12/28/2015 Stated it caused her to go into AFib documented as of this encounter (statuses as of 04/02/2024) Medications Medication Sig Dispensed Refills Start Date End Date Status DIURETIC TITRATION PLANIndications:C hronic right-sided CHF (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 1 Each 02/19/20 19 Active Aspirin 81 MG Oral Tablet Delayed Release Take 1 Tablet by mouth in the morning. Active oxygen IN GASIndications:Ch ronic right-sided CHF (congestive heart failure) ([facility]),Chronic hypoxemic respiratory failure (HCC),COPD, group B, by GOLD 2017 classification ([facility]) Use 3 L/min(Oxygen) as directed continuous. 1 Each 04/23/20 22 Active Budesonide-Formot carmen Fumarate 160-4.5 MCG/ACT Inhalation Aerosol (Symbicort)Indica tions:COPD, group B, by GOLD 2017 classification ([facility]) Inhale 2 Puffs by mouth in the morning and 2 Puffs before bedtime. 10.2 g 12 08/06/19 23 Active Potassium Chloride Stefania ER 20 MEQ Oral Tablet Extended ReleaseIndication s:Paroxysmal atrial fibrillation ([facility]),Chronic diastolic heart failure ([facility]),Chronic right-sided CHF (congestive heart failure) ([facility]) TAKE ONE TABLET BY MOUTH IN THE MORNING AND TAKE THREE TABLETS ON DAYS WHEN TAKING METALAZONE 90 Tablet 3 08/07/19 24 Active Allopurinol 100 MG Oral Tablet (Zyloprim)Indicat ions:Kidney disease, chronic, stage IV (GFR 15-29 ml/min) ([facility]),Hyperuricem ia Take 2 Tablets by mouth in the morning. 60 Tablet 08/07/19 24 Active Vitamin D 50 MCG (2000 UT) Oral CapsuleIndication s:Vitamin D deficiency Take 4,000 Units by mouth in the morning. 4,000 units daily. 60 Capsule 08/07/19 24 Active Metoprolol Succinate ER 50 MG Oral Tablet Extended Release 24 Hour (toPROL XL)Indications:Pa roxysmal atrial fibrillation ([facility]) 1 1/2 tablets in the morning and 1 1/2 tablets in the evening 270 Tablet 3 10/03/19 24 Active Spiriva Respimat 2.5 MCG/ACT Inhalation Aerosol Solution (Tiotropium [place] Monohydrate)Indic ations:COPD, group B, by GOLD 2017 classification ([facility]) Inhale 2 Puffs by [...] ons:Acute on chronic diastolic (congestive) heart failure ([facility]) Take 1 Tablet by mouth [...] clinic 180 Tablet 3 11/18/19 24 Active Albuterol Sulfate HFA 108 (90 Base) MCG/ACT Inhalation Aerosol SolutionIndicatio ns:COPD, group B, by GOLD 2017 classification ([facility]) Inhale 2 Puffs by mouth every 6 hours as needed for Cough, Shortness of Breath or Wheezing. 18 g 11 08/06/19 23 024 Discontinued(Re fill) Spironolactone 25 MG Oral Tablet (Aldactone)Indica tions:Chronic right-sided CHF (congestive heart failure) (HCC) Take 0.5 Tablets by mouth in the morning. 17 Tablet 11 01/24/20 23 024 Discontinued Levothyroxine Sodium 100 MCG Oral Tablet (Levoxyl)Indicati ons:Acquired hypothyroidism TAKE ONE TABLET BY MOUTH EVERY MORNING 30 minutes BEFORE breakfast OR other meds 90 Tablet 1 05/06/20 23 024 Discontinued Omeprazole 20 MG Oral Capsule Delayed Release (PriLOSEC)Indicat ions:Gastroesopha geal reflux disease with esophagitis take 1 capsule every day 1 hour before the first meal of the day. 90 Capsule 1 10/01/19 24 024 Discontinued documented as of this encounter (statuses as of 04/02/2024) Active Problems Problem Noted Date Diagnosed Date [...] brochure given to patient at 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 Pre-op testing Dyslipidemia, goal LDL below 100 Total knee replacement status Adjustment disorder with depressed mood SBE (subacute bacterial endocarditis) prophylaxi s candidate History of tobacco use documented as of this encounter (statuses as of 04/02/2024) Resolved Problems Problem Noted Date Diagnosed Date [...] id ventricular response 06/18/2016 12/13/2016 Overview: admitted [facility] pulse 140s OBESITY, BMI [...] as of this encounter (statuses as of 04/02/2024) Immunizations Name Administration Dates Next Due COVID-19 mRNA, LNP-s, No Pre serve, 2-Dose Series ([employer]) 07/24/2021,01/30/2021,01/05/2021 COVID-19, LNP-s, No Preserve , Vito-sucrose, Ages 12+ (Pfizer) 07/24/2021 COVID-19, MRNA-LNP, 23-24, P F, 30 MCG/0.3 mL, 12 YRS AND ABOVE, IM ([facility] 05/06/2023 Covid-19, Mrna, Lnp-s, Pf, B ivalent, 30 Mcg, IM, 12 yrs and above ([employer]) 04/30/2022 Pneumococcal Conjugate Vacc, 13 Valent (Prevnar) 10/21/2017 Pneumococcal Polysaccharide PPV23 (Pneumovax) 11/13/2018,03/10/2008,03/10/2008 Season Influenza, Quad, PF, Adjuvanted, 65+ Yrs, IM (FLUAD) 07/06/2020 Seasonal Influenza Vac., MDV , IM, 0.5 mL (Fluzone) 03/09/2017,03/31/2014,05/09/2013,05/23,05/24/2011,04/07/2008,04/07/2007 Seasonal Influenza, Quadriva lent Hd (Fluzone Hd) [...] encounter Miscellaneous Notes * Telephone Encounter - Rain Daly RN - 01/05/2024 6:09 PM EDT Faxed order * Telephone Encounter - Nat Salter MD - 01/05/2024 5:18 PM EDT DME order signed * Telephone Encounter - Una Lombardo OSA - 01/02/2024 9:29 AM EDT An order was requested for this patient. Name of Requesting Provider: Patient Requesting Order Requested: New Order for Orly walker Diagnosis/Reason for Request: Mobility purposes, patient old one had broke. If order request is for Mammogram: Is the patient having any breast symptoms? N/A Is there a chance of ? N/A Has the patient had any breast problems in the past? NA What location AND department does the patient wish to have their order completed at? [facility] Fax Number, if applicable: [phone] If the caller is not a current patient, please advise the patient to call their current PCP to havethe order's prior to being seen in our office. The patient was informed that our providers would not order anything (medication, labs, etc.) prior to being seen. documented in this encounter Plan of Treatment Upcoming Encounters Date Type Department Care Team (Late st Contact Info) Description 04/06/2024 3:10 PM EDT Anticoagulation Pharmacy, [address] [place] [address] [place] [address] 04/06/2024 3:30 PM EDT Office Visit Cardiology [address] [place] [address] Wes Bourgeois PA-C [address] [place] [address] 08/24/2024 2:30 PM EDT Nurse Only Ancillary [address] [place] [address] [place], Nurse Annual Wellness [address] [place] [address] [place] [address] 09/02/2024 3:20 PM EDT Office Visit Nephrology [address] [place] [address] Vivien Diez MD [address] [facility] [place] [address] Health Maintenance Due Date Last Done Comments [...] this encounter Medical Devices Implanted Type Area Fisher Device Identifier Shelf Expiration Date Model / Serial / Lot Suture Steel 6 B&S19 M654g - [id number] Implanted:Qty : 4 on 06/18/2018 by Handy Farmer MD at [place] [facility] N/A: Sternum JNJ : [employer] 01/06/2023 M654G / / [id number] Valve Heart Aortic Epic 23mm - [id number] Implanted:03/2019 by Handy Farmer MD at [place] [facility] (Quantity not on file) N/A: Heart ST KERRI : CARDIOVASCULAR 12/28/2021 [id number] / [id number] / LOT NA Graft Gelweave Valsalva 28mm - [id number] - [id number] Implanted:Qty : 1 on 06/18/2018 by Handy Farmer MD at [place] [facility] N/A: Aorta [employer] 04/08/2021 [id number] / [id number] / [id number] [place] Ptfe 6x6in X5 - [id number] Implanted:Qty : 1 on 06/18/2018 by Handy Farmer MD at [place] [facility] N/A: Aorta CR BARD : PERIPHERAL VASCULAR 12/04/2022 [id number] / / [id number] 6in X 6in (15cm X 15cm) Ptfe [place], 1.65mm Thick Implanted:Qty : 1 on 06/18/2018 by Handy Farmer MD at [place] [facility] N/A: Aorta CR BARD : PERIPHERAL VASCULAR 12/04/2022 [id number] / / [id number] 6in X 6in (15cm X 15cm) Ptfe [place], 1.65mm Thick Implanted:Qty : 1 on 06/18/2018 by Handy Farmer MD at [place] [facility] N/A: Aorta CR BARD : PERIPHERAL VASCULAR 12/04/2022 [id number] / / [id number] 6in X 6in (15cm X 15cm) Ptfe [place], 1.65mm Thick Implanted:Qty : 1 on 06/18/2018 by Handy Farmer MD at [place] [facility] N/A: Aorta CR BARD : PERIPHERAL VASCULAR 12/04/2022 [id number] / / [id number] documented as of this encounter Visit Diagnoses Diagnosis Chronic diastolic heart failure (HCC)- Primary Chronic diastolic heart failure documented in this encounter Advance Directives * Full Code (Latest Code Status on File) Date Activated Date Inactivated Comments 06/18/2018 6:43 PM 06/25/2018 6:16 PM This order r eflects the patients wishes and were consensually agreed upon. Care Teams Sales Performance Manager Relationship Specialty Start Date End Date Nat Salter MD [address] [place] [address] [place] [address] PCP - General Family Medicine 11/13/18 documented as of this encounter
--- OUTSIDE RECORDS SUMMARY | 2024-04-07 13:11 | External Medical Summary ---
Author Name Unknown Address Unknown Organization [id number]:[facility]ORY [facility] [place] - [address] [place] [address] Laboratory Report Ordering Provider Test Date Status [place] 04/06/2024 16:19:35 Final Exclude Heart Failure: <300 pg/mL
Diagnose Heart Failure:
Age <50 yr: >450 pg/mL
50-75 yr: >900 pg/mL
>75 yr: >1800 pg/mL
GFR is 30-59 mL/min: >1200 pg/mL or Age- adjusted values
GFR <30 mL/min: do not use, not reliable

Prognostic threshold: 1000 pg/mL Observation Date Value Abnormality Reference (Units ) Status BNP, Pro-hormone 04/06/2024 16:19:35 2187 Above high no rmal <300 (pg/mL) Final Performing Location [facility] [place] - [facility] [address] [place] [address]
--- OUTSIDE RECORDS SUMMARY | 2024-04-07 13:11 | External Medical Summary ---
Author Name Unknown Address Unknown Organization [id number]:[facility] [place] [address] [place] [address] Laboratory Report Ordering Provider Test Date Status [place] 04/06/2024 16:19:35 Final Observation Date Value Abnormality Reference (Units ) Status Retic, % (auto) 04/06/2024 16:19:35 2.17 Above high normal 0.80-1.90 (%) Final Reticulocytes, Absolute 04/06/2024 16:19:35 63.8 31.3-100.1 (K/uL) Final Reticulocyte fraction, immature 04/06/2024 16:19:35 29.0 Above high normal 2.5-20.6 (%) Final Reticulocyte HGB 04/06/2024 16:19:35 21.4 Below low normal 29.7-37.4 (pg) Final Performing Location [facility] [place] [address] [place] [address]
--- OUTSIDE RECORDS SUMMARY | 2024-04-07 13:12 | External Medical Summary ---
Author Name Unknown Address Unknown Organization [id number]:LABORATORY [facility] - [address] [facility] [address] Laboratory Report Ordering Provider Test Date Status RACHEL MICHAEL 02/06/2024 11:48:35 Final Observation Date Value Abnormality Reference (Units ) Status Triglyceride 02/06/2024 11:48:35 66 <=174 ( mg/dL) Final Triglyceride Reference Range s (mg/dL):
<150 Acceptable
150-174 Borderline high
175-499 High
>=500 Very high Cholesterol 02/06/2024 11:48:35 122 <200 (mg /dL) Final Total Cholesterol Reference Ranges (mg/dL):
<200 Desirable
200-239 Borderline high
>=240 High HDL 02/06/2024 11:48:35 58 >49 (mg/dL ) Final HDL Cholesterol Reference Ra nges (mg/dL):
>=60 High (Desirable)
<50 Low (Undesirable) For Females
<40 Low (Undesirable) For Males NON-HDL CHOLESTEROL 02/06/2024 11:48:35 64 <=159 (mg/dL) Final Non-HDL Cholesterol Referenc e Range (mg/dL):
<100 Target level for high risk ASCVD patient
<130 Optimal for general population
130-159 Near optimal for general population
160-189 Borderline High
190-219 High
>=220 Very High LDL, (calculated) 02/06/2024 11:48:35 51 <= 129 (mg/dL) Final LDL Cholesterol Reference Ra nges (mg/dL):
<70 Target level for high risk ASCVD patient
<100 Optimal for general population
100-129 Near optimal for general population
130-159 Borderline high
160-189 High
>=190 Very high Performing Location LAB[facility]ATORY [facility] [place] - [address] [facility] [address]
--- OUTSIDE RECORDS SUMMARY | 2024-04-07 13:12 | External Medical Summary | Summary of Care ---
Author Name Unknown Organization [facility] Address [address] [place] [address] Phone [phone] Care Team Providers Care Inspector Tool Name Role Phone Nat Salter MD Primary Care Prov ider Reason for Visit * Reason Comments Dosage Adjustment In Person (Anticoag Cl inic) Encounter Details Date Type Department Care Team (Latest Contact Info) Description 03/04/2024 3:30 PM EDT Anticoagulation Pharmacy, [address] [place] [address] [place] [address] Anticoagulation management encounter*; Paroxysmal atrial fibrillation (HCC) Allergies Active Allergy Reactions Criticality Noted Date Comments Prednisone Other (Please comment) Medium 12/28/2015 Stated it caused her to go into AFib documented as of this encounter (statuses as of 03/04/2024) Medications Medication Sig Dispensed Refills Start Date End Date Status DIURETIC TITRATION PLANIndications:Chr onic right-sided CHF (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 1 Each 02/18/2019 Active Aspirin 81 MG Oral Tablet Delayed Release Take 1 Tablet by mouth in the morning. 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 1 Each 04/23/2022 Active Budesonide-Formoter ol Fumarate 160-4.5 MCG/ACT Inhalation Aerosol (Symbicort)Indicati ons:COPD, group B, by GOLD 2017 classification ([facility]) Inhale 2 Puffs by mouth in the morning and 2 Puffs before bedtime. 10.2 g 08/06/2022 Active Potassium Chloride Stefania ER 20 MEQ Oral Tablet Extended ReleaseIndications: Paroxysmal atrial fibrillation ([facility]),Chronic diastolic heart failure ([facility]),Chronic right-sided CHF (congestive heart failure) ([facility]) TAKE ONE TABLET BY MOUTH IN THE MORNING AND TAKE THREE TABLETS ON DAYS WHEN TAKING METALAZONE 90 Tablet 3 08/07/2023 Active Allopurinol 100 MG Oral Tablet (Zyloprim)Indicatio ns:Kidney disease, chronic, stage IV (GFR 15-29 ml/min) ([facility]),Hyperuricemia Take 2 Tablets by mouth in the morning. 60 Tablet 08/07/2023 Active Vitamin D 50 MCG (2000 UT) Oral CapsuleIndications: Vitamin D deficiency Take 4,000 Units by mouth in the morning. 4,000 units daily. 60 Capsule 08/07/2023 Active Omeprazole 20 MG Oral Capsule Delayed Release (PriLOSEC)Indicatio ns:Gastroesophageal reflux disease with esophagitis take 1 capsule every day 1 hour before the first meal of the day. 90 Capsule 1 10/01/2023 Active Metoprolol Succinate ER 50 MG Oral Tablet Extended Release 24 Hour (toPROL XL)Indications:Paro xysmal atrial fibrillation ([facility]) 1 1/2 tablets in the morning and 1 1/2 tablets in the evening 270 Tablet 3 10/03/2023 Active Spiriva Respimat 2.5 MCG/ACT Inhalation Aerosol Solution (Tiotropium Davis Monohydrate)Indicat ions:COPD, group B, by GOLD 2017 classification ([facility]) Inhale 2 Puffs by mouth in the morning. 4 g 11/04/2023 Active Venlafaxine HCl ER 75 MG Oral Capsule Extended Release 24 Hour (Effexor XR)Indications:Adju stment disorder with depressed mood TAKE ONE CAPSULE BY MOUTH EVERY DAY DO NOT CUT, CRUSH, OR CHEW, 90 Capsule 2 11/05/2023 Active Torsemide 20 MG Oral Tablet (Demadex)Indication s:Acute on chronic diastolic (congestive) heart failure (HCC) Take 1 Tablet by mouth in the morning and 1 Tablet before bedtime. 180 Tablet 2 11/05/2023 Active Atorvastatin Calcium 40 MG Oral Tablet (Lipitor)Indication s:Dyslipidemia, goal LDL below 100 Take 1 Tablet by mouth in the morning. 90 Tablet 3 11/04/2023 Active Warfarin Sodium 2.5 MG Oral Tablet (Coumadin)Indicatio ns:Paroxysmal atrial fibrillation (HCC),Anticoagulati on management encounter Take 1-2 tablets by mouth daily as directed by anticoagulation clinic 180 Tablet 3 11/18/2023 Active Levothyroxine Sodium 100 MCG Oral Tablet (Levoxyl)Indication s:Acquired hypothyroidism TAKE ONE TABLET BY MOUTH EVERY MORNING 30 minutes BEFORE breakfast OR other meds 90 Tablet 1 01/16/2024 Active Albuterol Sulfate HFA 108 (90 Base) MCG/ACT Inhalation Aerosol SolutionIndications :COPD, group B, by GOLD 2017 classification ([facility]) Inhale 2 Puffs by mouth every 6 hours as needed for Cough, Shortness of Breath or Wheezing. 18 g 11 02/06/2024 Active Spironolactone 25 MG Oral Tablet (Aldactone)Indicati ons:Chronic right-sided CHF (congestive heart failure) (HCC) TAKE 1/2 TABLET BY MOUTH IN THE MORNING 45 Tablet 3 02/18/2024 Active documented as of this encounter (statuses as of 03/04/2024) Active Problems Problem Noted Date Diagnosed Date [...] brochure given to patient at 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 Pre-op testing Dyslipidemia, goal LDL below 100 Total knee replacement status Adjustment disorder with depressed mood SBE (subacute bacterial endocarditis) prophylaxi s candidate History of tobacco use documented as of this encounter (statuses as of 03/04/2024) Resolved Problems Problem Noted Date Diagnosed Date [...] response 06/18/2016 12/13/2016 Overview: admitted [facility] pulse 140s OBESITY, BMI 30-34 (SEE [...] as of this encounter (statuses as of 03/04/2024) Immunizations Name Administration Dates Next Due COVID-19 mRNA, LNP-s, No Pre serve, 2-Dose Series ([employer]) 07/24/2021,01/30/2021,01/05/2021 COVID-19, LNP-s, No Preserve , Vito-sucrose, Ages 12+ (Pfizer) 07/24/2021 COVID-19, MRNA-LNP, 23-24, P F, 30 MCG/0.3 mL, 12 YRS AND ABOVE, IM (PFIZER-Comirnaty) 05/06/2023 Covid-19, Mrna, Lnp-s, Pf, B ivalent, 30 Mcg, IM, 12 yrs and above (Pfizer) 04/30/2022 Pneumococcal Conjugate Vacc, 13 Valent (Prevnar) 10/21/2017 Pneumococcal Polysaccharide PPV23 (Pneumovax) 11/13/2018,03/10/2008,03/10/2008 Season Influenza, Quad, PF, Adjuvanted, 65+ Yrs, IM (FLUAD) 07/06/2020 Seasonal Influenza, Quadriva lent Hd (Fluzone Hd) 03/18/2023,03/14/2022,02/23/2021 Seasonal Influenza, Quadriva lent, No Preserve, IM 05/13/2018,06/26/2016,05/26/2015 Seasonal Influenza, Trivalen t, (IIV3), with Preserv, (Fluzone) 03/09/2017,03/31/2014,05/09/2013,05/23,05/24/2011,04/07/2008,04/07/2007 Seasonal Influenza, Trivalen t, Adjuvanted, 65+ YRS, [...] 11/27/2023 Does the household have a re lar source of income? (Household - for ages [...] this encounter Progress Notes * Cass Dorsey, [facility] - 03/04/2024 3:29 PM EDT Medication Therapy Disease Management - Anticoagulation Patient: Melissa Figueroa | : 1950 Subjective Patient-Reported Symptoms: Patient Findings Negatives: Signs/symptoms of thrombosis, Signs/symptoms of bleeding, Change in health, Change in alcohol use, Change in activity, Upcoming invasive procedure, Missed doses, Extra doses, Change in medications, Change in diet/appetite, Bruising Objective Current Warfarin Dose As of 03/04/2024 Warfarin maintenance plan: 3.75 mg (2.5 mg x 1.5) every Mon, Fri; 2.5 mg (2.5 mg x 1) all other days INR Result As of 03/04/2024 INR goal: 2.0-3.0 INR used for dosin.7 (03/04/2024) Assessment & Plan Warfarin Plan As of 03/04/2024 Full warfarin instructions: 3.75 mg every Mon, Fri; 2.5 mg all other days No change documented: Cass Dorsey RPh Next INR check: 04/06/2024 Repeat PT/INR in 5 week(s) Weekly dose: not changed Additional Dosing Information: Description Amiodarone 200 mg BID (01/03/22) --> DAILY after DCC 02/19/22 --> STOPPED by Cardio on 08/06/23 I spent a total of 10-19 minutes (exact time 10 mins) on the date of service in preparation, delivery, and documentation of the care provided to Melissa Figueroa excluding any time spent in the performance of separately billed services or time spent by another provider/QHP. Cass Dorsey RP Clinical Pharmacist 03/04/2024, 3:29 PM documented in this encounter Plan of Treatment Upcoming Encounters Date Type Department Care Team (Late st Contact Info) Description 04/06/2024 3:10 PM EDT Anticoagulation Pharmacy, [address] [place] [address] [place] [address] 04/06/2024 3:30 PM EDT Office Visit Cardiology [address] [place] [address] Wes Bourgeois PA-C [address] [place] [phone] 08/24/2024 2:30 PM EDT Nurse Only Ancillary [address] [place] [address] [place], Nurse [facility] [address] [place] [address] [place] [address] 09/02/2024 3:20 PM EDT Office Visit Nephrology [address] [place] [address] Vivien Diez [facility] [address] [facility] [place] [address] Health Maintenance Due Date Last Done Comments Colonoscopy 1997 Fecal Occult Blood Test 1997 Sigmoidoscopy 1997 Zoster Vaccines (1 of 2) 2002 DTap/Tdap Vaccines (2 - Td or Tdap) 06/15/2017 06/15/2007 Cologuard 10/01/2021 10/01/2018 Colorectal Cancer Screening 10/01/2021 COVID-19 Vaccine ( season) 2024 05/06/2023, 04/30/2022, 07/24/2021, Additional history exists Influenza Vaccine (FLU shot) (#1) 2024 03/18/2023, 03/14/2022, 02/23/2021, Additional history exists TSH 05/16/2024 05/16/2023, 04/10, 10/30/2022, Additional history exists Mammogram 08/04/2024 08/04/2023, 07/11, 03/11/2022, Additional history exists Adult Wellness Visit 08/20/2024 08/21/2023, 07/22/2022, 07/02/2021 Depression Screening 11/26/2024 11/27/2023 O2 ASSESSMENT COMPLETED IN PAST YEAR FOR COPD 02/05/2025 02/06/2024 DXA Scan 03/09/2026 03/09/2019 Lipid Panel 02/05/2029 02/06/2024, 12/0 01/2023, 10/30/2022, Additional history exists Pneumococcal Vaccine: 65+ Years Completed 11/13/2018, 10/21/2017, 03/10/2008, Additional history exists Alpha-1 Antitrypsin Completed 10/10/2020 Albumin/Creatinine Ratio Discontinued 023, 01/03/2022, 03/26/2021 Lung Cancer Screening Completed 11/17/2023 , 11/05/2022, 06/07/2022, Additional history exists HPV (Gardasil) Vaccine Aged Out No lo nger eligible based on patient's age to complete this topic Hepatitis B Vaccine Aged Out No longe r eligible based on patient's age to complete this topic MENINGOCOCCAL (MENACTRA/MENVEO) Aged Out No longer eligible based on patient's age to complete this topic documented as of this encounter Medical Devices Implanted Type Area Head Lineman Device Identifier Shelf Expiration Date Model / Serial / Lot Suture Steel 6 B&S19 M654g - [id number] Implanted:Qty : 4 on 06/18/2018 by Handy Farmer MD at OR [facility] N/A: Sternum JNJ : [employer] 01/06/2023 [id number] / / [id number] Valve Heart Aortic Epic 23mm - [id number] Implanted:03/2019 by Handy Farmer MD at OR [facility] (Quantity not on file) N/A: Heart [facility] KERRI : CARDIOVASCULAR 12/28/2021 [id number] / [id number] / LOT NA Graft Gelweave Valsalva 28mm - [id number] - [id number] Implanted:Qty : 1 on 06/18/2018 by Handy Farmer MD at OR [facility] N/A: Aorta [employer] 04/08/2021 [id number] / [id number] / [id number] [place] Ptfe 6x6in X5 - [id number] Implanted:Qty : 1 on 06/18/2018 by Handy Farmer MD at OR [facility] N/A: Aorta CR BARD : PERIPHERAL VASCULAR 12/04/2022 [id number] / / [id number] 6in X 6in (15cm X 15cm) Ptfe [place], 1.65mm Thick Implanted:Qty : 1 on 06/18/2018 by Handy Farmer MD at OR [facility] N/A: Aorta CR BARD : PERIPHERAL VASCULAR 12/04/2022 [id number] / / [id number] 6in X 6in (15cm X 15cm) Ptfe [place], 1.65mm Thick Implanted:Qty : 1 on 06/18/2018 by Handy Farmer MD at OR [facility] N/A: Aorta CR BARD : PERIPHERAL VASCULAR 12/04/[id number] / / [id number] 6in X 6in (15cm X 15cm) Ptfe [place], 1.65mm Thick Implanted:Qty : 1 on 06/18/2018 by Handy Farmer MD at OR [facility] N/A: Aorta CR BARD : PERIPHERAL VASCULAR 12/04/2022 [id number] / / [id number] documented as of this encounter Procedures Procedure Name Priority Date/Time Associated Diagnosis Comments INR FINGERSTICK, POINT OF CARE STAT 03/04/2024 3:34 PM EDT Paroxysmal atrial fibrillation (HCC) Anticoagulation management encounter documented in this encounter Results * INR FINGERSTICK, POINT OF CARE (03/04/2024 3:34 PM EDT) Fingerstick INR 2.7 INR 3:36 PM EDT [facility] [place] [id number] Blood 03/04/2024 3:34 PM EDT 03/04/2024 3:36 PM EDT Narrative [facility] [place] [id number] - 03/04/2024 3:36 PM EDT Therapeutic ranges for non-operative patients: Prophylaxsis/treatment of DVT: (Range:2.0-3.0) Treatment of pulmonary embolism:(Range:2.0-3.0) Prevention of systemic embolism from: -tissue heart valves -acute myocardial infarction -valvular heart disease -atrial fibrillation (Range: 2.0-3.0) Mechanical prosthetic valves: (Range: 2.5-3.5) Cass Dorsey [facility] POINT OF CARE TEST DOCKED DEVICE UNSOLICITED RESULTS [facility] [place] [id number] [address] [place] [id number] documented in this encounter Visit Diagnoses Diagnosis Anticoagulation management encounter- Primary Encounter for therapeutic drug monitoring Paroxysmal atrial fibrillation (HCC) Atrial fibrillation documented in this encounter Advance Directives * Full Code (Latest Code Status on File) Date Activated Date Inactivated Comments 06/18/2018 6:43 PM 06/25/2018 6:16 PM This order r eflects the patients wishes and were consensually agreed upon. Care Teams Inspector Tool Relationship Specialty Start Date End Date Nat Salter MD [address] [place] [address] [place] [address] PCP - General Family Medicine 11/13/18 documented as of this encounter"
--- OUTSIDE RECORDS SUMMARY | 2024-04-07 13:12 | External Medical Summary ---
Author Name Unknown Address Unknown Organization K01:[facility] - [address] [place] [address] Laboratory Report Ordering Provider Test Date Status VIJAYAROCHELLE 03/18/2024 14:43:31 Final Observation Date Value Abnormality Reference (Units ) Status Hemoglobin 03/18/2024 14:43:31 10.3 Below low normal 12 .0-15.3 (g/dL) Final Performing Location [facility] - [address] [place] [address]
--- OUTSIDE RECORDS SUMMARY | 2024-04-07 13:12 | External Medical Summary ---
Author Name Unknown Address Unknown Organization [facility] [address] [place] [address] Laboratory Report Ordering Provider Test Date Status CLARK QUINTANA 02/06/2024 11:48:35 Final Observation Date Value Abnormality Reference (Units ) Status Magnesium 02/06/2024 11:48:35 2.6 1.5-2.6 (m g/dL) Final Performing Location [facility] - [address] [place] [address]
--- OUTSIDE RECORDS SUMMARY | 2024-04-07 13:12 | External Medical Summary ---
Author Name Unknown Address Unknown Organization : Laboratory Report Ordering Provider Test Date Status LUIS GALLEGOS 02/06/2024 11:20:54 Final Therapeutic ranges for non-o perative patients:
Prophylaxsis/treatment of DVT: (Range:2.0-3.0)
Treatment of pulmonary embolism:(Range:2.0-3.0)
Prevention of systemic embolism from:
-tissue heart valves
-acute myocardial infarction
-valvular heart disease
-atrial fibrillation
(Range: 2.0-3.0)
Mechanical prosthetic valves: (Range: 2.5-3.5) Observation Date Value Abnormality Reference (Units ) Status INR in Capillary blood by Coagulation assay 02/06/2024 11:20:54 2.5 (INR) Final Performing Location
--- OUTSIDE RECORDS SUMMARY | 2024-04-07 13:12 | External Medical Summary | Summary of Care ---
Author Name Unknown Organization [facility] Address [address] [place] [address] Phone [phone] Care Team Providers Care Roadmaster Name Role Phone Nat Salter MD Primary Care Prov ider Reason for Visit * Reason Comments Dosage Adjustment In Person (Anticoag Cl inic) Encounter Details Date Type Department Care Team (Latest Contact Info) Description 01/19/2024 3:00 PM EDT Anticoagulation Pharmacy, [address] [place] [address] [place] [address] Anticoagulation management encounter*; Paroxysmal atrial fibrillation (HCC) Allergies Active Allergy Reactions Criticality Noted Date Comments Prednisone Other (Please comment) Medium 12/28/2015 Stated it caused her to go into AFib documented as of this encounter (statuses as of 01/19/2024) Medications Medication Sig Dispensed Refills Start Date End Date Status DIURETIC TITRATION PLANIndications:Chr onic right-sided CHF (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 1 Each 02/18/2019 Active Aspirin 81 MG Oral Tablet Delayed Release Take 1 Tablet by mouth in the morning. Active oxygen IN GASIndications:Lmsw otf right-sided CHF (congestive heart failure) (HCC),Chronic hypoxemic respiratory failure (HCC),COPD, group B, by GOLD 2017 classification ([facility]) Use 3 L/min(Oxygen) as directed continuous. 1 Each 04/23/2022 Active Budesonide-Formoter ol Fumarate 160-4.5 MCG/ACT Inhalation Aerosol (Symbicort)Indicati ons:COPD, group B, by GOLD 2017 classification ([facility]) Inhale 2 Puffs by mouth in the morning and 2 Puffs before bedtime. 10.2 g 12 08/06/2022 Active Additional Information Patient not taking.Reported on 11/27/2023 Albuterol Sulfate HFA 108 (90 Base) MCG/ACT Inhalation Aerosol SolutionIndications :COPD, group B, by GOLD 2017 classification ([facility]) Inhale 2 Puffs by mouth every 6 hours as needed for Cough, Shortness of Breath or Wheezing. 18 g 08/06/2022 Active Spironolactone 25 MG Oral Tablet (Aldactone)Indicati ons:Chronic right-sided CHF (congestive heart failure) (HCC) Take 0.5 Tablets by mouth in the morning. 17 Tablet 11 01/23/2023 Active Potassium Chloride Stefania ER 20 MEQ Oral Tablet Extended ReleaseIndications: Paroxysmal atrial fibrillation (HCC),Chronic diastolic heart failure (HCC),Chronic right-sided CHF (congestive heart failure) (HCC) TAKE ONE TABLET BY MOUTH IN THE [...] Respimat 2.5 MCG/ACT Inhalation Aerosol Solution (Tiotropium [place] Monohydrate)Indicat ions:COPD, group B, by GOLD 2017 classification ([facility]) Inhale 2 Puffs by mouth in the morning. 4 g 11 11/04/2023 Active Venlafaxine HCl ER 75 MG [...] other meds 90 Tablet 1 01/16/2024 Active documented as of this encounter (statuses as of 01/19/2024) Active Problems Problem Noted Date Diagnosed Date [...] brochure given to patient at 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/04/2002 Pre-op testing Dyslipidemia, goal LDL below 100 Total knee replacement status Adjustment disorder with depressed mood SBE (subacute bacterial endocarditis) prophylaxi s candidate History of tobacco use documented as of this encounter (statuses as of 01/19/2024) Resolved Problems Problem Noted Date Diagnosed Date [...] response 06/18/2016 12/13/2016 Overview: admitted [facility] pulse 140s OBESITY, BMI 30-34 (SEE ACTUAL [...] as of this encounter (statuses as of 01/19/2024) Immunizations Name Administration Dates Next Due COVID-19 mRNA, LNP-s, No Pre serve, 2-Dose Series (Application [employer]) 07/24/2021,01/30/2021,01/05/2021 COVID-19, LNP-s, No Preserve , Vito-sucrose, Ages 12+ (Pfizer) 07/24/2021 COVID-19, MRNA-LNP, 23-24, P F, 30 MCG/0.3 mL, 12 YRS AND ABOVE, IM ([facility]) 05/06/2023 Covid-19, Mrna, Lnp-s, Pf, B ivalent, 30 Mcg, IM, 12 yrs and above (Application Craft) 04/30/2022 Pneumococcal Conjugate Vacc, 13 Valent (Prevnar) 10/21/2017 Pneumococcal Polysaccharide PPV23 (Pneumovax) 11/13/2018,03/10/2008,03/10/2008 Season Influenza, Quad, PF, Adjuvanted, 65+ Yrs, IM (FLUAD) 07/06/2020 Seasonal Influenza, Quadriva lent Hd (Fluzone Hd) 03/18/2023,03/14/2022,02/23/2021 Seasonal Influenza, Quadriva lent, No Preserve, IM 05/13/2018,06/26/2016,05/26/2015 Seasonal Influenza, Split, I IV3, With Preserve, Inj 03/09/2017,03/31/2014,05/09/2013,05/23,05/24/2011,04/07/2008,04/07/2007 Seasonal Influenza, Trivalen t, Adjuvanted, 65+ yrs 02/18/2019 TDAP, Age 7 and older, IM [...] this encounter Progress Notes * Cass Dorsey, [facility] - 01/19/2024 2:57 PM EDT Images from the original note were not included. Medication Therapy Disease Management - Anticoagulation Patient: Melissa Figueroa | : 1950 Subjective Patient-Reported Symptoms: Patient Findings Negatives: Signs/symptoms of thrombosis, Signs/symptoms of bleeding, Change in health, Change in alcohol use, Change in activity, Upcoming invasive procedure, Missed doses, Extra doses, Change in medications, Change in diet/appetite, Bruising Objective Current Warfarin Dose As of 01/19/2024 Warfarin maintenance plan: 3.75 mg (2.5 mg x 1.5) every Mon, Fri; 2.5 mg (2.5 mg x 1) all other days INR Result As of 01/19/2024 INR goal: 2.0-3.0 INR used for dosin.8 (01/19/2024) Assessment & Plan Warfarin Plan As of 01/19/2024 Full warfarin instructions: 01/18: 5 mg; Otherwise 3.75 mg every Mon, Fri; 2.5 mg all other days Next INR check: 02/06/2024 Repeat PT/INR in 2 week(s) Weekly dose: not changed Additional Dosing Information: Patient unsure if she missed any doses. Not currently utilizing pill box but states she does have one. Encouraged to utilize for warfarin adherence. Description Amiodarone 200 mg BID (01/03/22) --> [...] time spent by another provider/QHP. Cass Dorsey [facility] Clinical Pharmacist 01/19/2024, 2:57 PM documented in this encounter Plan of Treatment Upcoming Encounters Date Type Department Care Team (Late st Contact Info) Description 02/06/2024 11:40 AM EDT Anticoagulation Pharmacy, [address] [place] [address] [place] [address] 02/06/2024 12:00 PM EDT Office Visit Family Medicine [address] [place] [phone] Daniella Brito PA-C [address] [place] [address] [place] [address] 04/06/2024 3:30 PM EDT Office Visit Cardiology [address] [place] [address] Wes Bourgeois PA-C [address] [place] [address] 08/24/2024 2:30 PM EDT Nurse Only Ancillary [address] [place] [address] [place], Nurse [address] [place] [id number] 09/02/2024 3:20 PM EDT Office Visit Nephrology [address] [place] [address] [facility]z [facility] [address] [facility] [address] Health Maintenance Due Date Last Done Comments Colonoscopy 1997 Fecal Occult Blood Test 1997 Sigmoidoscopy 1997 Zoster Vaccines (1 of 2) 2002 DTaP,Tdap,and Td Vaccines (2 - Td or Tdap) 06/15/2017 06/15/2007 Cologuard 10/01/2021 10/01/2018 Colorectal Cancer Screening 10/01/2021 COVID-19 Vaccine ( season) 2023 05/06/2023, 04/30/2022, 07/24/2021, Additional history exists Influenza Vaccine (FLU shot) (#1) 2024 03/18/2023, 03/14/2022, 02/23/2021, Additional history exists TSH 05/16/2024 05/16/2023, 04/10, 10/30/2022, Additional history exists Mammogram 08/04/2024 08/04/2023, 07/11, 03/11/2022, Additional history exists Adult Wellness Visit 08/20/2024 08/21/2023, 07/22/2022, 07/02/2021 O2 ASSESSMENT COMPLETED IN PAST YEAR FOR COPD 08/20/2024 08/21/2023 Depression Screening 11/26/2024 11/27/2023 DXA Scan 03/09/2026 03/09/2019 Lipid Panel 05/16/2028 05/16/2023, 10/08, 01/03/2022, Additional history exists Pneumococcal Vaccine: 65+ Years [...] this encounter Medical Devices Implanted Type Area Vision Rehabilitation Therapist Device Identifier Shelf Expiration Date Model / Serial / Lot Suture Steel 6 B&S19 [id number] - [id number] Implanted:Qty : 4 on 06/18/2018 by Handy Farmer MD at [facility] N/A: Sternum JNJ : [employer] 01/06/2023 [id number] / / [id number] Valve Heart Aortic Epic 23mm - [id number] Implanted:03/2019 by Handy Farmer MD at [facility] (Quantity not on file) N/A: Heart [facility] KERRI : CARDIOVASCULAR 12/28/2021 [id number] / [id number] / LOT NA Graft Gelweave Valsalva 28mm - [id number] - [id number] Implanted:Qty : 1 on 06/18/2018 by Handy Farmer MD at OR [facility] N/A: Aorta Enventum CHANTAL 04/08/2021 [id number] / [id number] / [id number] [place] Ptfe 6x6in X5 - [id number] Implanted:Qty : 1 on 06/18/2018 by Handy Farmer MD at OR [facility] N/A: Aorta CR BARD : PERIPHERAL VASCULAR 12/04/2022 [id number] / / [id number] 6in X 6in (15cm X 15cm) Ptfe [place], 1.65mm Thick Implanted:Qty : 1 on 06/18/2018 by Handy Farmer MD at OR [facility] N/A: Aorta CR BARD : PERIPHERAL VASCULAR 12/04/2022 [id number] / / [id number] 6in X 6in (15cm X 15cm) Ptfe [place], 1.65mm Thick Implanted:Qty : 1 on 06/18/2018 by Handy Farmer MD at OR [facility] N/A: Aorta CR BARD : PERIPHERAL VASCULAR 12/04/2022 [id number] / / [id number] 6in X 6in (15cm X 15cm) Ptfe [place], 1.65mm Thick Implanted:Qty : 1 on 06/18/2018 by Handy Farmer MD at OR [facility] N/A: Aorta CR BARD : PERIPHERAL VASCULAR 12/04/2022 [id number] / / [id number] documented as of this encounter Procedures Procedure Name Priority Date/Time Associated Diagnosis Comments INR FINGERSTICK, POINT OF CARE STAT 01/19/2024 3:02 PM EDT Paroxysmal atrial fibrillation (HCC) Anticoagulation management encounter documented in this encounter Results * INR FINGERSTICK, POINT OF CARE (01/19/2024 3:02 PM EDT) Fingerstick INR 1.8 INR 3:03 PM EDT LAB[facility] [place] 55-00 Blood 01/19/2024 3:02 PM EDT 01/19/2024 3:03 PM EDT Narrative [facility] [place] 55-00 - 01/19/2024 3:03 PM EDT Therapeutic ranges for non-operative patients: Prophylaxsis/treatment of DVT: (Range:2.0-3.0) Treatment of pulmonary embolism:(Range:2.0-3.0) Prevention of systemic embolism from: -tissue heart valves -acute myocardial infarction -valvular heart disease -atrial fibrillation (Range: 2.0-3.0) Mechanical prosthetic valves: (Range: 2.5-3.5) Cass Dorsey [facility] LAB POINT OF CARE TEST DOCKED DEVICE UNSOLICITED RESULTS [facility] [place] [address] [place] [address] [place] [address] documented in this encounter Visit Diagnoses Diagnosis Anticoagulation management encounter- Primary Encounter for therapeutic drug monitoring Paroxysmal atrial fibrillation (HCC) Atrial fibrillation documented in this encounter Advance Directives * Full Code (Latest Code Status on File) Date Activated Date Inactivated Comments 06/18/2018 6:43 PM 06/25/2018 6:16 PM This order r eflects the patients wishes and were consensually agreed upon. Care Teams Roadmaster Relationship Specialty Start Date End Date Nat Salter MD [address] [place] [address] [place] [address] PCP - General Family Medicine 11/13/18 documented as of this encounter"
--- OUTSIDE RECORDS SUMMARY | 2024-04-07 13:12 | External Medical Summary | Summary of Care ---
Author Name Unknown Organization [facility] Address [address] [place] [address] Phone [phone] Care Team Providers Care Double Back Operator Name Role Phone Nat Salter MD Primary Care Prov ider Reason for Visit * Reason Comments Dosage Adjustment In Person (Anticoag Cl inic) Encounter Details Date Type Department Care Team (Latest Contact Info) Description 02/06/2024 11:40 AM EDT Anticoagulation Pharmacy, [address] [place] [address] [place] [address] Anticoagulation management encounter*; Paroxysmal atrial fibrillation (HCC) Allergies Active Allergy Reactions Criticality Noted Date Comments Prednisone Other (Please comment) Medium 12/28/2015 Stated it caused her to go into AFib documented as of this encounter (statuses as of 02/06/2024) Medications Medication Sig Dispensed Refills Start Date End Date Status DIURETIC TITRATION PLANIndications:Ch ronic right-sided CHF (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 1 Each 9 Active Aspirin 81 MG Oral Tablet Delayed Release Take 1 Tablet by mouth in the morning. Active oxygen IN GASIndications:Chr onic right-sided CHF (congestive heart failure) (HCC),Chronic hypoxemic respiratory failure (HCC),COPD, group B, by GOLD 2017 classification ([facility]) Use 3 L/min(Oxygen) as directed continuous. 1 Each 2 Active Budesonide-Formote rol Fumarate 160-4.5 MCG/ACT Inhalation Aerosol (Symbicort)Indicat ions:COPD, group B, by GOLD 2017 classification ([facility]) Inhale 2 Puffs by mouth in the morning and 2 Puffs before bedtime. 10.2 g 12 3 Active Additional Information Patient not taking.Reported on 11/27/2023 Spironolactone 25 MG Oral Tablet (Aldactone)Indicat ions:Chronic right-sided CHF (congestive heart failure) ([facility]) Take 0.5 Tablets by mouth in the morning. 17 Tablet 11 3 Active Potassium Chloride Stefania ER 20 MEQ Oral Tablet Extended ReleaseIndications :Paroxysmal atrial fibrillation ([facility]),Chronic diastolic heart failure ([facility]),Chronic right-sided CHF (congestive heart failure) ([facility]) TAKE ONE TABLET BY MOUTH IN THE MORNING AND TAKE THREE TABLETS ON DAYS WHEN TAKING METALAZONE 90 Tablet 3 4 Active Allopurinol 100 MG Oral Tablet (Zyloprim)Indicati ons:Kidney disease, chronic, stage IV (GFR 15-29 ml/min) ([facility]),Hyperuricemi a Take 2 Tablets by mouth in the morning. 60 Tablet 11 4 Active Vitamin D 50 MCG (2000 UT) Oral CapsuleIndications :Vitamin D deficiency Take 4,000 Units by mouth in the morning. 4,000 units daily. 60 Capsule 4 Active Omeprazole 20 MG Oral Capsule Delayed Release (PriLOSEC)Indicati ons:Gastroesophage al reflux disease with esophagitis take 1 capsule every day 1 hour before the first meal of the day. 90 Capsule 1 4 Active Metoprolol Succinate ER 50 MG Oral Tablet Extended Release 24 Hour (toPROL XL)Indications:Par oxysmal atrial fibrillation (HCC) 1 1/2 tablets in the morning and 1 1/2 tablets in the evening 270 Tablet 3 4 Active Spiriva Respimat 2.5 MCG/ACT Inhalation Aerosol Solution (Tiotropium Hindman Monohydrate)Indica tions:COPD, group B, by GOLD 2017 classification ([facility]) Inhale 2 Puffs by mouth in the morning. 4 g 11 4 Active Venlafaxine HCl ER 75 MG Oral Capsule Extended Release 24 Hour (Effexor XR)Indications:Adj ustment disorder with depressed mood TAKE ONE CAPSULE BY MOUTH EVERY DAY DO NOT CUT, CRUSH, OR CHEW, 90 Capsule 2 4 Active Torsemide 20 MG Oral Tablet (Demadex)Indicatio ns:Acute on chronic diastolic (congestive) heart failure (HCC) Take 1 Tablet by mouth in the morning and 1 Tablet before bedtime. 180 Tablet 2 4 Active Atorvastatin Calcium 40 MG Oral Tablet (Lipitor)Indicatio ns:Dyslipidemia, goal LDL below 100 Take 1 Tablet by mouth in the morning. 90 Tablet 3 4 Active Warfarin Sodium 2.5 MG Oral Tablet (Coumadin)Indicati ons:Paroxysmal atrial fibrillation (HCC),Anticoagulat ion management encounter Take 1-2 tablets by mouth daily as directed by anticoagulation clinic 180 Tablet 3 4 Active Levothyroxine Sodium 100 MCG Oral Tablet (Levoxyl)Indicatio ns:Acquired hypothyroidism TAKE ONE TABLET BY MOUTH EVERY MORNING 30 minutes BEFORE breakfast OR other meds 90 Tablet 1 4 Active Albuterol Sulfate HFA 108 (90 Base) MCG/ACT Inhalation Aerosol SolutionIndication s:COPD, group B, by GOLD 2017 classification ([facility]) Inhale 2 Puffs by mouth every 6 hours as needed for Cough, Shortness of Breath or Wheezing. 18 g 11 3 02/06/20 24 Discontinu ed(Refill) documented as of this encounter (statuses as of 02/06/2024) Active Problems Problem Noted Date Diagnosed Date [...] brochure given to patient at 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 Pre-op testing Dyslipidemia, goal LDL below 100 Total knee replacement status Adjustment disorder with depressed mood SBE (subacute bacterial endocarditis) prophylaxi s candidate History of tobacco use documented as of this encounter (statuses as of 02/06/2024) Resolved Problems Problem Noted Date Diagnosed Date [...] id ventricular response 06/18/2016 12/13/2016 Overview: admitted [facility] pulse 140s OBESITY, BMI 30-34 (SEE ACTUAL [...] as of this encounter (statuses as of 02/06/2024) Immunizations Name Administration Dates Next Due COVID-19 mRNA, LNP-s, No Pre serve, 2-Dose Series (Wantr) 07/24/2021,01/30/2021,01/05/2021 COVID-19, LNP-s, No Preserve , Vito-sucrose, Ages 12+ (Pfizer) 07/24/2021 COVID-19, MRNA-LNP, 23-24, P F, 30 MCG/0.3 mL, 12 YRS AND ABOVE, IM ([facility]) 05/06/2023 Covid-19, Mrna, Lnp-s, Pf, B ivalent, 30 Mcg, IM, 12 yrs and above (Wantr) 04/30/2022 Pneumococcal Conjugate Vacc, 13 Valent (Prevnar) [...] 2:26 PM EST Sexual Orientation Straight 07/02/2021 2 :26 PM EST Job Start Date Occupation Industry Not on file Not on file Not on file documented as of this encounter Progress Notes * Cass Dorsey, [facility] - 02/06/2024 11:18 AM EDT Medication Therapy Disease Management - Anticoagulation Patient: Melissa Figueroa | : 1950 Subjective Patient-Reported Symptoms: Patient Findings Negatives: Signs/symptoms of thrombosis, Signs/symptoms of bleeding, Change in health, Change in alcohol use, Change in activity, Upcoming invasive procedure, Missed doses, Extra doses, Change in medications, Change in diet/appetite, Bruising Objective Current Warfarin Dose As of 02/06/2024 Warfarin maintenance plan: 3.75 mg (2.5 mg x 1.5) every Mon, Fri; 2.5 mg (2.5 mg x 1) all other days INR Result As of 02/06/2024 INR goal: 2.0-3.0 INR used for dosin.5 (02/06/2024) Assessment & Plan Warfarin Plan As of 02/06/2024 Full warfarin instructions: 3.75 mg every Mon, Fri; 2.5 mg all other days No change documented: Cass Dorsey RPh Next INR check: 03/04/2024 Repeat PT/INR in 4 week(s) Weekly dose: [...] another provider/QHP. Cass Dorsey RPh Clinical Pharmacist 02/06/2024, 11:18 AM documented in this encounter Plan of Treatment Upcoming Encounters Date Type Department Care Team (Latest Contact Info) Description 02/06/2024 11:50 AM EDT Laboratory Laboratory [address] [place] [phone] [place] [address] 02/06/2024 12:00 PM EDT Office Visit Family Medicine [address] [place] [phone] Daniella Brito PA-C [address] [place] [address] [place] [address] COPD, group B, by GOLD 2017 classification ([facility])*; Chronic diastolic heart failure (HCC); Chronic hypoxemic respiratory failure ([facility]); Chronic right-sided CHF (congestive heart failure) ([facility]); Body mass index (BMI) of 40.0 to 44.9 in adult ([facility]); Paroxysmal atrial fibrillation (HCC); Acquired hypothyroidism; Adjustment disorder with depressed mood; Dyslipidemia, goal LDL below 100; History of tobacco use; S/P ascending aortic aneurysm repair; S/P AVR (aortic valve replacement) 03/04/2024 3:30 PM EDT Anticoagulation Pharmacy, [address] [place] [address] [place] [address] 04/06/2024 3:30 PM EDT Office Visit Cardiology [address] [place] [address] Wes Bourgeois PA-C [address] [place] [address] 08/24/2024 2:30 PM EDT Nurse Only Ancillary [address] [place] [address] [place], Nurse [address] [place] [address] 09/02/2024 3:20 PM EDT Office Visit Nephrology [address] [place] [address] Vivien Diez MD [facility] [place] [address] Health Maintenance Due Date Last Done Comments [...] 02/06/2024 DXA Scan 03/09/2026 03/09/2019 Lipid Panel 05/16/2028 [...] this encounter Medical Devices Implanted Type Area Belly Dump Driver Device Identifier Shelf Expiration Date Model / Serial / Lot Suture Steel 6 B&S19 M654g - [id number] Implanted:Qty : 4 on 06/18/2018 by Handy Farmer MD at [place] [facility] N/A: Sternum JNJ : [employer] 01/06/2023 [id number] / / [id number] Valve Heart Aortic Epic 23mm - [id number] Implanted:03/2019 by Handy Farmer MD at OR [facility] (Quantity not on file) N/A: Heart ST KERRI : CARDIOVASCULAR 12/28/2021 [id number] / [id number] / LOT NA Graft Gelweave Valsalva 28mm - [id number] - [id number] Implanted:Qty : 1 on 06/18/2018 by Handy Farmer MD at OR [facility] N/A: Aorta [employer] CHANTAL 04/08/2021 [id number] / [id number] / [id number] [place] Ptfe 6x6in X5 - [id number] Implanted:Qty : 1 on 06/18/2018 by Handy Farmer MD at OR [facility] N/A: Aorta CR BARD : PERIPHERAL VASCULAR 12/04/2022 [id number] / / [id number] 6in X 6in (15cm X 15cm) Ptfe [place], 1.65mm Thick Implanted:Qty : 1 on 06/18/2018 by Handy Farmer MD at OR [facility] N/A: Aorta CR BARD : PERIPHERAL VASCULAR 12/04/2022 [id number] / / [id number] 6in X 6in (15cm X 15cm) Ptfe [place], 1.65mm Thick Implanted:Qty : 1 on 06/18/2018 by Handy Farmer MD at OR [facility] N/A: Aorta CR BARD : PERIPHERAL VASCULAR 12/04/2022 [id number] / / [id number] 6in X 6in (15cm X 15cm) Ptfe [place], 1.65mm Thick Implanted:Qty : 1 on 06/18/2018 by Handy Farmer MD at OR [facility] N/A: Aorta CR BARD : PERIPHERAL VASCULAR 12/04/2022 [id number] / / [id number] documented as of this encounter Procedures Procedure Name Priority Date/Time Associated Diagnosis Comments INR FINGERSTICK, POINT OF CARE STAT 02/06/2024 11:20 AM EDT Paroxysmal atrial fibrillation (HCC) Anticoagulation management encounter documented in this encounter Results * INR FINGERSTICK, POINT OF CARE (02/06/2024 11:20 AM EDT) Fingerstick INR 2.5 INR 11:23 AM EDT [facility] Blood 02/06/2024 11:2 0 AM EDT 02/06/2024 11:23 AM EDT Narrative [facility] - 02/06/2024 11:23 AM EDT Therapeutic ranges for non-operative patients: Prophylaxsis/treatment of DVT: (Range:2.0-3.0) Treatment of pulmonary embolism:(Range:2.0-3.0) Prevention of systemic embolism from: -tissue heart valves -acute myocardial infarction -valvular heart disease -atrial fibrillation (Range: 2.0-3.0) Mechanical prosthetic valves: (Range: 2.5-3.5) Cass Dorsey [facility] POINT OF CARE TEST DOCKED DEVICE UNSOLICITED RESULTS [facility] [place] [phone] [place], [place] [id number] documented in this encounter Visit Diagnoses Diagnosis COPD, group B, by GOLD 2017 classification ([facility])- Primary Chronic diastolic heart failure (HCC) Chronic diastolic heart failure Chronic hypoxemic respiratory failure (HCC) Chronic respiratory failure Chronic right-sided CHF (congestive heart failure) (HCC) Congestive heart failure, unspecified Body mass index (BMI) of 40.0 to 44.9 in adult (HCC) Paroxysmal atrial fibrillation (HCC) Atrial fibrillation Acquired hypothyroidism Unspecified hypothyroidism Adjustment disorder with depressed mood Dyslipidemia, goal LDL below 100 Other and unspecified hyperlipidemia History of tobacco use Personal history of tobacco use, presenting hazards to health S/P ascending aortic aneurysm repair Other postprocedural status S/P AVR (aortic valve replacement) Heart valve replaced by other means Anticoagulation management encounter- Primary Encounter for therapeutic drug monitoring Paroxysmal atrial fibrillation (HCC) Atrial fibrillation documented in this encounter Advance Directives * Full Code (Latest Code Status on File) Date Activated Date Inactivated Comments 06/18/2018 6:43 PM 06/25/2018 6:16 PM This order r eflects the patients wishes and were consensually agreed upon. Care Teams Double Back Operator Relationship Specialty Start Date End Date Nat Salter MD [address] [place] [address] [place] [address] PCP - General Family Medicine 11/13/18 documented as of this encounter"
--- OUTSIDE RECORDS SUMMARY | 2024-04-07 13:12 | External Medical Summary | Summary of Care ---
Author Name Unknown Organization [facility] Address [address] [place] [address] Phone [phone] Care Team Providers Care Poultry Tender Name Role Phone Nat Salter MD Primary Care Prov ider Reason for Visit * Reason Comments eRx-Medication Refill Encounter Details Date Type Department Care Team (Late st Contact Info) Description 02/17/2024 Refill Cardiology [address] [place] [address] Bayron Champion, DO [address] [place] [address] Chronic right-sided CHF (congestive heart failure) (HCC) Allergies Active Allergy Reactions Criticality Noted Date Comments Prednisone Other (Please comment) Medium 12/28/2015 Stated it caused her to go into AFib documented as of this encounter (statuses as of 02/18/2024) Medications Medication Sig Dispensed Refills Start Date End Date Status DIURETIC TITRATION PLANIndications:Ch ronic right-sided CHF (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 1 Each 02/19/20 19 Active Aspirin 81 MG Oral Tablet Delayed Release Take 1 Tablet by mouth in the morning. Active oxygen IN GASIndications:Chr onic right-sided CHF (congestive heart failure) ([facility]),Chronic hypoxemic respiratory failure ([facility]),COPD, group B, by GOLD 2017 classification ([facility]) Use 3 L/min(Oxygen) as directed continuous. 1 Each 04/23/20 22 Active Budesonide-Formote rol Fumarate 160-4.5 MCG/ACT Inhalation Aerosol (Symbicort)Indicat ions:COPD, group B, by GOLD 2017 classification ([facility]) Inhale 2 Puffs by mouth in the morning and 2 Puffs before bedtime. 10.2 g 08/06/19 23 Active Potassium Chloride Stefania ER 20 MEQ Oral Tablet Extended ReleaseIndications :Paroxysmal atrial fibrillation ([facility]),Chronic diastolic heart failure ([facility]),Chronic right-sided CHF (congestive heart failure) ([facility]) TAKE ONE TABLET BY MOUTH IN THE MORNING AND TAKE THREE TABLETS ON DAYS WHEN TAKING METALAZONE 90 Tablet 3 08/07/19 24 Active Allopurinol 100 MG Oral Tablet (Zyloprim)Indicati ons:Kidney disease, chronic, stage IV (GFR 15-29 ml/min) ([facility]),Hyperuricemi a Take 2 Tablets by mouth in the morning. 60 Tablet 08/07/19 24 Active Vitamin D 50 MCG (2000 UT) Oral CapsuleIndications :Vitamin D deficiency Take 4,000 Units by mouth in the morning. 4,000 units daily. 60 Capsule 08/07/19 24 Active Omeprazole 20 MG Oral Capsule Delayed Release (PriLOSEC)Indicati ons:Gastroesophage al reflux disease with esophagitis take 1 capsule every day 1 hour before the first meal of the day. 90 Capsule 1 10/01/19 24 Active Metoprolol Succinate ER 50 MG Oral Tablet Extended Release 24 Hour (toPROL XL)Indications:Par oxysmal atrial fibrillation ([facility]) 1 1/2 tablets in the morning and 1 1/2 tablets in the evening 270 Tablet 3 10/03/19 24 Active Spiriva Respimat 2.5 MCG/ACT Inhalation Aerosol Solution (Tiotropium Lerna Monohydrate)Indica tions:COPD, group B, by GOLD 2017 classification ([facility]) Inhale 2 Puffs by mouth in the morning. 4 g 11/04/19 24 Active Venlafaxine HCl ER 75 MG Oral Capsule Extended Release 24 Hour (Effexor XR)Indications:Adj ustment disorder with depressed mood TAKE ONE CAPSULE BY MOUTH EVERY DAY DO NOT CUT, CRUSH, OR CHEW, 90 Capsule 2 11/05/19 24 Active Torsemide 20 MG Oral Tablet (Demadex)Indicatio [...] s:COPD, group B, by GOLD 2017 classification ([facility]) Inhale 2 Puffs by mouth every 6 hours as needed for Cough, Shortness of Breath or Wheezing. 18 g 11 02/06/20 24 Active Spironolactone 25 MG Oral Tablet (Aldactone)Indicat ions:Chronic right-sided CHF (congestive heart failure) (HCC) TAKE 1/2 TABLET BY MOUTH IN THE MORNING 45 Tablet 3 02/18/20 24 Active Spironolactone 25 MG Oral Tablet (Aldactone)Indicat ions:Chronic right-sided CHF (congestive heart failure) (HCC) Take 0.5 Tablets by mouth in the morning. 17 Tablet 11 01/24/20 23 024 Discontinued documented as of this encounter (statuses as of 02/18/2024) Active Problems Problem Noted Date Diagnosed Date [...] brochure given to patient at 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 Pre-op testing Dyslipidemia, goal LDL below 100 Total knee replacement status Adjustment disorder with depressed mood SBE (subacute bacterial endocarditis) prophylaxi s candidate History of tobacco use documented as of this encounter (statuses as of 02/18/2024) Resolved Problems Problem Noted Date Diagnosed Date [...] id ventricular response 06/18/2016 12/13/2016 Overview: admitted [facility] pulse 140s OBESITY, BMI 30-34 (SEE [...] as of this encounter (statuses as of 02/18/2024) Immunizations Name Administration Dates Next Due COVID-19 mRNA, LNP-s, No Pre serve, 2-Dose Series (ApoCell) 07/24/2021,01/30/2021,01/05/2021 COVID-19, LNP-s, No Preserve , Vito-sucrose, [...] No 11/27/2023 Does the household have a [facility] source of income? (Household - for ages [...] encounter Miscellaneous Notes * Telephone Encounter - Shanique Tineo PA-C - 02/18/2024 12:17 PM EDTSigned Prescriptions: Disp Refills Spironolactone 25 MG Oral Tablet (Aldacton*45 Tab*3 Sig: TAKE 1/2 TABLET BY MOUTH IN THE MORNING Authorizing Provider: SHANIQUE TINEO * Telephone Encounter - Laurel Carrasquillo CMA - 02/18/2024 11:56 AM EDTPending Prescriptions: Disp Refills Spironolactone 25 MG Oral Tablet (Aldacton*45 Tab*3 Sig: TAKE 1/2 TABLET BY MOUTH IN THE MORNING * Telephone Encounter - Laurel Carrasquillo CMA - 02/18/2024 11:56 AM EDT Did you pend patient's preferred pharmacy and medication before forwarding?yes Pharmacy: [facility], [address] [place] Pending Prescriptions: Disp Refills Spironolactone 25 MG Oral Tablet (Aldacto*45 Tab*3 Sig: TAKE 1/2 TABLET BY MOUTH IN THE MORNING Last Visit: 09/23/2023 (in office), Visit date not found (telemedicine) Next Visit: 04/06/2024 If no future appointments scheduled, and last appointment is greater than a year ago, please schedule patient for a follow-up appointment Last date the medication was ordered: 01-23-2023 Is this request for a controlled substance?No Urine Drug Screen:No results found. However, due to the size of the patient record, not all encounters were searched. Please check Results Review for a complete set of results. Patient Phone Numbers Labs: Lab Results Component Value Date/Time CREAT 1.7 (H) 02/06/2024 11:48 AM CREAT 1.2 (H) 08/10/2019 10:15 AM POTASSIUM 4.5 02/06/2024 11:48 AM POTASSIUM 3.8 08/10/2019 10:15 AM TSH 3.80 05/16/2023 12:40 PM TSH 1.21 07/15/2019 02:23 PM LDL 51 02/06/2024 11:48 AM LDL 59 08/10/2019 10:15 AM LDL NOT APPLICABLE 08/10/2019 10:15 AM ALT 16 02/06/2024 11:48 AM ALT 33 07/15/2019 02:23 PM HGBA1C 6.1 (H) 05/27/2018 05:42 PM documented in this encounter Plan of Treatment Upcoming Encounters Date Type Department Care Team (Late st Contact Info) Description 03/04/2024 3:30 PM EDT Anticoagulation Pharmacy, [address] [place] [address] [place] [address] 04/06/2024 3:30 PM EDT Office Visit Cardiology [address] [place] [address] Shanique Tineo PA-C [address] [place] [address] 08/24/2024 2:30 PM EDT Nurse Only Ancillary [address] [place] [address] [place], Nurse [address] [place] [address] 09/02/2024 3:20 PM EDT Office Visit Nephrology [address] [place] [address] Vivien Diez MD [address] [facility] [place], [place] [address] Health Maintenance Due Date Last Done Comments [...] this encounter Medical Devices Implanted Type Area Benefits Assistant Device Identifier Shelf Expiration Date Model / Serial / Lot Suture Steel 6 B&S19 M654g - [id number] Implanted:Qty : 4 on 06/18/2018 by Handy Farmer MD at [place] [facility] [place] N/A: Sternum JNJ : [employer] 01/06/2023 M654G / / [id number] Valve Heart Aortic Epic 23mm - [id number] Implanted:03/2019 by Handy Farmer MD at [place] [facility] [place] (Quantity not on file) N/A: Heart ST KERRI : CARDIOVASCULAR 12/28/2021 [id number] / [id number] / LOT NA Graft Gelweave Valsalva 28mm - [id number] - [id number] Implanted:Qty : 1 on 06/18/2018 by Handy Farmer MD at [place] [facility] [place] N/A: Aorta [employer] CHANTAL 04/08/2021 [id number] / [id number] / [id number] [place] Ptfe 6x6in X5 - [id number] Implanted:Qty : 1 on 06/18/2018 by Handy Farmer MD at [place] [facility] [place] N/A: Aorta CR BARD : PERIPHERAL VASCULAR 12/04/2022 [id number] / / [id number] 6in X 6in (15cm X 15cm) Ptfe [place], 1.65mm Thick Implanted:Qty : 1 on 06/18/2018 by Handy Farmer MD at [place] [facility] [place] N/A: Aorta CR BARD : PERIPHERAL VASCULAR 12/04/2022 [id number] / / [id number] 6in X 6in (15cm X 15cm) Ptfe [place], 1.65mm Thick Implanted:Qty : 1 on 06/18/2018 by Handy Farmer MD at [place] [facility] [place] N/A: Aorta CR BARD : PERIPHERAL VASCULAR 12/04/2022 [id number] / / [id number] 6in X 6in (15cm X 15cm) Ptfe [place], 1.65mm Thick Implanted:Qty : 1 on 06/18/2018 by Handy Farmer MD at [place] [facility] [place] N/A: Aorta CR BARD : PERIPHERAL VASCULAR 12/04/2022 [id number] / / [id number] documented as of this encounter Visit Diagnoses Diagnosis Chronic right-sided CHF (congestive heart failure) (HCC) Congestive heart failure, unspecified documented in this encounter Advance Directives * Full Code (Latest Code Status on File) Date Activated Date Inactivated Comments 06/18/2018 6:43 PM 06/25/2018 6:16 PM This order r eflects the patients wishes and were consensually agreed upon. Care Teams Poultry Tender Relationship Specialty Start Date End Date Nat Salter MD [address] [place] [address] [place] [address] PCP - General Family Medicine 11/13/18 documented as of this encounter
--- OUTSIDE RECORDS SUMMARY | 2024-04-07 13:12 | External Medical Summary | Summary of Care ---
Author Name Unknown Organization [facility] Address [address] [place] [address] Phone [phone] Care Team Providers Care Seismograph Helper Name Role Phone Nat Salter MD Primary Care Prov ider Reason for Visit * Reason Comments Outpatient Testing Encounter Details Date Type Department Care Team (Late st Contact Info) Description 02/06/2024 11:50 AM EDT Laboratory Laboratory [address] [place] [id number] [facility] [address] [place] [address] Encounter for long-term (current) use of medications; Chronic right-sided CHF (congestive heart failure) (HCC); Dyslipidemia, goal LDL below 100 Allergies Active Allergy Reactions Criticality Noted Date [...] mouth in the morning. Active oxygen IN GASIndications:Pipe Finisher otf right-sided CHF (congestive heart failure) (HCC),Chronic [...] before bedtime. 10.2 g 12 08/06/2022 Active Spironolactone 25 MG Oral Tablet (Aldactone)Indicati ons:Chronic right-sided CHF (congestive heart failure) ([facility]) Take 0.5 Tablets by mouth in the morning. 17 Tablet 11 01/23/2023 Active Potassium Chloride Stefania ER 20 MEQ Oral Tablet Extended ReleaseIndications: Paroxysmal atrial fibrillation ([facility]),Chronic diastolic heart failure (HCC),Chronic right-sided CHF (congestive heart failure) ([facility] [...] first meal of the day. 90 Capsule 10/01/2023 Active Metoprolol Succinate ER 50 MG Oral Tablet Extended Release 24 Hour (toPROL XL)Indications:Paro xysmal atrial fibrillation (HCC) 1 1/2 tablets in the morning and 1 1/2 tablets in the evening 270 Tablet 3 10/03/2023 Active Spiriva Respimat 2.5 MCG/ACT Inhalation Aerosol Solution (Tiotropium [place] Monohydrate)Indicat ions:COPD, group B, by GOLD 2017 [...] or Wheezing. 18 g 11 02/06/2024 Active documented as of this encounter (statuses [...] brochure given to patient at 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 long term care pharmacist current use of anticoagulant therapy 0 12/25/2004 [...] id ventricular response 06/18/2016 12/13/2016 Overview: admitted [facility] pulse 140s OBESITY, BMI 30-34 (SEE ACTUAL [...] mRNA, LNP-s, No Pre serve, 2-Dose Series ([employer] [place]) 07/24/2021,01/30/2021,01/05/2021 COVID-19, LNP-s, No Preserve , Vito-sucrose, Ages 12+ (Pfizer) 07/24/2021 COVID-19, MRNA-LNP, 23-24, P F, 30 MCG/0.3 mL, 12 YRS AND ABOVE, IM ([facility] 05/06/2023 Covid-19, Mrna, Lnp-s, Pf, B ivalent, [...] Description 03/04/2024 3:30 PM EDT Anticoagulation Pharmacy, [address] [place] [address] [place] [address] 04/06/2024 3:30 PM EDT Office Visit Cardiology [address] [place] [address] Wes Bourgeois PA-C [address] [place] [phone] 08/24/2024 2:30 PM EDT Nurse Only Ancillary [address] [place] [address] [place], Nurse [address] [place] [address] 09/02/2024 3:20 PM EDT Office Visit Nephrology [address] [place] [address] Vivien Diez MD [address] [facility] [address] Pending Results Name Type Priority Associated Diagnoses Date /Time MAGNESIUM Lab Routine Encounter for long-term (current) use of medications 02/06/2024 11:48 AM EDT COMPREHENSIVE METABOLIC PANEL Lab Routine Chronic right-sided CHF (congestive heart failure) (HCC) 02/06/2024 11:48 AM EDT LIPID PANEL WITH DIRECT LDL IF TG IS HIGH Lab Routine Dyslipidemia, goal LDL below 100 02/06/2024 11:48 AM EDT Health Maintenance Due Date Last Done [...] this encounter Medical Devices Implanted Type Area Lock Stitch Channeler Device Identifier Shelf Expiration Date Model / Serial / Lot Suture Steel 6 B&S19 M654g - [id number] Implanted:Qty : 4 on 06/18/2018 by Handy Farmer MD at [facility] N/A: Sternum JNJ : [employer] 01/06/2023 [id number] / / [id number] Valve Heart Aortic Epic 23mm - [id number] Implanted:03/2019 by Handy Farmer MD at [facility] (Quantity not on file) N/A: Heart [facility] : CARDIOVASCULAR 12/28/2021 [id number] / [id number] / LOT NA Graft Gelweave Valsalva 28mm - [id number] - [id number] Implanted:Qty : 1 on 06/18/2018 by Handy Farmer MD at [facility] N/A: Aorta [employer] 04/08/2021 [id number] / [id number] / [id number] [place] Ptfe 6x6in X5 - [id number] Implanted:Qty : 1 on 06/18/2018 by Handy Farmer MD at [facility] N/A: Aorta CR BARD : PERIPHERAL VASCULAR 12/04/2022 [id number] / / [id number] 6in X 6in (15cm X 15cm) Ptfe [place], 1.65mm Thick Implanted:Qty : 1 on 06/18/2018 by Handy Farmer MD at [facility] N/A: Aorta CR BARD : PERIPHERAL VASCULAR 12/04/2022 [id number] / / [id number] 6in X 6in (15cm X 15cm) Ptfe [place], 1.65mm Thick Implanted:Qty : 1 on 06/18/2018 by Handy Farmer MD at [facility] N/A: Aorta CR BARD : PERIPHERAL VASCULAR 12/04/2022 [id number] / / [id number] 6in X 6in (15cm X 15cm) Ptfe [place], 1.65mm Thick Implanted:Qty : 1 on 06/18/2018 by Handy Farmer MD at [facility] N/A: Aorta CR BARD : PERIPHERAL VASCULAR 12/04/2022 [id number] / / [id number] documented as of this encounter Visit Diagnoses Diagnosis Encounter for long-term (current) use of medications Encounter for long-term (current) use of other medications Chronic right-sided CHF (congestive heart failure) (HCC) Congestive heart failure, unspecified Dyslipidemia, goal LDL below 100 Other and unspecified hyperlipidemia documented in this encounter Advance Directives * Full Code (Latest Code Status on File) Date Activated Date Inactivated Comments 06/18/2018 6:43 PM 06/25/2018 6:16 PM This order r eflects the patients wishes and were consensually agreed upon. Care Teams Seismograph Helper Relationship Specialty Start Date End Date Nat Salter MD NPI: [id number] [place] [address] [place] [address] PCP - General Family Medicine 11/13/18 documented as of this encounter
--- OUTSIDE RECORDS SUMMARY | 2024-04-07 13:12 | External Medical Summary ---
Author Name Unknown Address Unknown Organization K01:[facility]ATORY [facility] - [address] [facility] [place] [address] Laboratory Report Ordering Provider Test Date Status RACHEL MICHAEL 02/06/2024 11:48:35 Final Observation Date Value Abnormality Reference (Units ) Status BUN 02/06/2024 11:48:35 26 Above high normal 6-20 (mg/dL) Final Creatinine 02/06/2024 11:48:35 1.7 Above high normal 0.5-1.0 (mg/dL) Final Glomerular filtration rate/1.73 sq M.predicted [Volume Rate/Area] in Serum, Plasma or Blood by Creatinine-based formula (CKD-EPI) 02/06/2024 11:48:35 33 Below low normal >=60 (mL/min) Final eGFR is calculated based on the CKD-EPI 2020 equation. Sodium 02/06/2024 11:48:35 140 135-146 (m mol/L) Final Potassium 02/06/2024 11:48:35 4.5 3.5-5.1 (m mol/L) Final Cl 02/06/2024 11:48:35 98 98-107 (mm ol/L) Final CO2 02/06/2024 11:48:35 29 22-32 (mmo l/L) Final Anion gap 02/06/2024 11:48:35 13 7-15 (mmol /L) Final Glucose 02/06/2024 11:48:35 121 Above high normal 70 -120 (mg/dL) Final Albumin 02/06/2024 11:48:35 4.3 3.8-5.0 (g /dL) Final AST (Aspartate aminotransferase) 02/06/2024 11:48:35 23 10-35 (U/L) Fin al Alk Phos 02/06/2024 11:48:35 144 Above high normal 35 -130 (U/L) Final Bilirubin, Total 02/06/2024 11:48:35 0.6 <=1 .2 (mg/dL) Final Calcium 02/06/2024 11:48:35 9.5 8.4-10.2 ( mg/dL) Final Protein 02/06/2024 11:48:35 7.4 6.0-8.3 (g /dL) Final ALT (Alanine aminotransferase) 02/06/2024 11:48:35 16 10-35 (U/L) Norm figueroa Performing Location [facility] [place] [facility] [address] [facility] [address]
--- OUTSIDE RECORDS SUMMARY | 2024-04-07 13:12 | External Medical Summary | Summary of Care ---
Author Name Unknown Organization [facility] Address [address] [place] [address] Phone [phone] Care Team Providers Care Sheet Sewer Name Role Phone Nat Salter MD Primary Care Prov ider Reason for Referral * Ancillary Services (Within 30 days (routine)) - Authorized Specialty Diagnoses / Procedures Referred By Erasto gupta Referred To Contact Gastroenterology Diagnoses Bright red rectal bleeding Emerson Hernandez MD [address] [place] [address] [place] [address] Referral ID Status Reason Start Date Expiration Date Visits Requested Visits Authorized [id number] Authorized Ancillary Services Required 4 [phone] Question Answer Referral Priority Within 30 days (routine) Where should this appointment be scheduled? [facility] Comments ALERT: Do not order for pediatric patients (18 years or younger). Cancel off screen and order PEDS GASTROENTEROLOGY CONSULT (Type: 1 visit only-Evaluate and Treat) The following Pt. Instructions are available: - Gastro Colonoscopy Prep Instructions [52802] - Gastro Colonoscopy Prep Instructions (Dutch Version) [[id number]] Go to the Pt. Instructions section within the Visit Navigator to access. Colonoscopy ASGE Guidelines: Hematochezia and Average risk screening (begin at age 50, 10 year intervals) ADDITIONAL INFORMATION 1. Is the patient on Coumadin? Yes--Coumadin can be stopped for 5 days 2. Is the patient on Pradaxa? No Reason for Visit * Reason Comments Acute Pt c/o rectal bleedi ng with bowel movements x 4 days. Encounter Details Date Type Department Care Team (Late st Contact Info) Description 03/18/2024 2:40 PM EDT Office Visit Family Medicine [address] [place] [phone] Emerson Hernandez MD [address] [place] [address] [place] [address] Bright red rectal bleeding* Allergies Active Allergy Reactions Criticality Noted Date [...] mouth in the morning. 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 1 Each 2 Active Budesonide-Formoter ol Fumarate 160-4.5 MCG/ACT Inhalation Aerosol (Symbicort)Indicati ons:COPD, group B, by GOLD 2017 classification (HCC) Inhale 2 Puffs by mouth in the [...] stage IV (GFR 15-29 ml/min) ([facility]),Hyperuricemia Take 2 Tablets by mouth in the morning. 60 Tablet 11 4 Active Vitamin D 50 MCG (2000 UT) Oral CapsuleIndications: Vitamin D deficiency Take 4,000 Units by mouth in the morning. 4,000 units daily. 60 Capsule 11 4 Active Omeprazole 20 MG Oral Capsule [...] Respimat 2.5 MCG/ACT Inhalation Aerosol Solution (Tiotropium [place] Monohydrate)Indicat ions:COPD, group B, by GOLD 2017 classification ([facility]) Inhale 2 Puffs by mouth in the [...] :COPD, group B, by GOLD 2017 classification ([facility]) Inhale 2 Puffs by mouth every 6 hours as needed for Cough, Shortness of Breath or Wheezing. 18 g 11 4 Active Spironolactone 25 MG Oral Tablet (Aldactone)Indicati ons:Chronic right-sided CHF (congestive heart failure) ([facility]) TAKE 1/2 TABLET BY MOUTH IN THE [...] brochure given to patient at 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 care home current use of anticoagulant therapy 0 12/25/2004 [...] ventricular response 06/18/2016 12/13/2016 Overview: admitted [facility] pulse 140s OBESITY, BMI 30-34 (SEE ACTUAL [...] mRNA, LNP-s, No Pre serve, 2-Dose Series (Real Food Real Kitchens) 07/24/2021,01/30/2021,01/05/2021 COVID-19, LNP-s, No Preserve , Vito-sucrose, Ages 12+ (Real [employer] Real Kitchens) 07/24/2021 COVID-19, MRNA-LNP, 23-24, P F, 30 MCG/0.3 mL, 12 YRS AND ABOVE, IM (Neuronetrix-Comirnaty) 05/06/2023 Covid-19, Mrna, Lnp-s, Pf, B ivalent, 30 Mcg, IM, 12 yrs and above ([employer] Real Kitchens) 04/30/2022 Pneumococcal Conjugate Vacc, 13 Valent (Prevnar) [...] Sign Reading Time Taken Comments Blood Pressure 108/60 03/18/2024 2:29 PM EDT Pulse 120 03/18/2024 2:29 PM EDT Temperature - - Respiratory Rate - - Oxygen Saturation 97% 03/18/2024 2:29 PM EDT O2: 3L/min Inhaled Oxygen Concentration - - Weight 90.9 kg (200 lb 8 oz) 03/18/2024 2:29 PM EDT Height - - Body Mass Index 39.16 08/21/2023 2:54 PM EDT documented in this encounter Progress Notes * Emerson Hernandez MD - 03/18/2024 2:29 PM EDT Melissa started with some bright red rectal bleeding. And a couple of clots. She has a little more gas and feels fine otherwise. No rectal pain. She realizes it is time for colonoscopy. She is on Coumadin. She does not feel anything externally. Never had colonoscopy Flu shot today. Patient Active Problem List Diagnosis S/P Ross procedure care home current use of anticoagulant therapy ADVANCE DIRECTIVE INFORMATION Pre-op testing Elevated C-reactive protein (CRP) Dyslipidemia, goal LDL below 100 Vitamin D deficiency Total knee replacement status Adjustment disorder with depressed mood Essential tremor SBE (subacute bacterial endocarditis) prophylaxis candidate Paroxysmal atrial fibrillation ([facility]) Chronic right-sided CHF (congestive heart failure) ([facility]) S/P AVR (aortic valve replacement) S/P ascending aortic aneurysm repair History of tobacco use HINSON (dyspnea on exertion) Acquired hypothyroidism Chronic hypoxemic respiratory failure ([facility]) Chronic diastolic heart failure ([facility]) Menopause COPD, group B, by GOLD 2017 classification ([facility]) Body mass index (BMI) of 40.0 to 44.9 in adult ([facility]) Body mass index (BMI) of 45.0 to 49.9 in adult ([facility]) Past Medical History: Diagnosis Date Adjustment disorder with depressed mood Aortic valve disorder Had Ross procedure Atrial fibrillation ([facility]) 07/25/2004 sudden onset AF with rate 152 Atrial fibrillation with rapid ventricular response ([facility]) 07/26/2015 [facility] Atrial fibrillation with rapid ventricular response ([facility]) 06/18/2016 admitted [facility] pulse 140s, converted back to NSR Atrial fibrillation with RVR ([facility]) 07/12/2017 [facility] BMI 36.0-36.9,adult COPD (chronic obstructive pulmonary disease) ([facility]) Dyslipidemia, goal LDL below 100 Elevated C-reactive protein (CRP) 06/28/2008 CRP 9.31 Essential and other specified forms of tremor 10/28/2013 History of tobacco use Kidney disease, chronic, stage III (GFR 30-59 ml/min) ([facility]) 02/15/2019 Per CKD protocol Loss of teeth due to trauma, extraction, or periodontal disease upper and lower dentures Lung nodule Major depressive disorder, single episode, moderate ([facility]) MEDICATION USE AGREEMENT 08/20/2006 hydrocodone for knee Morbid obesity with BMI of 40.0-44.9, adult ([facility]) Need for hepatitis C screening test 08/27/2013 [...] clip performed by Handy Farmer MD at [facility] CARPAL TUNNEL SURGERY 1988 right wrist CV ECHO, NIRMAL INTRAOPERATIVE N/A 06/18/2018 ECHOCARDIOGRAPHY, TRANSESOPHAGEAL; INCLUDING PROBE PLACEMENT, IMAGE ACQUISITION, INTERPRETATION ANDREPORT performed by Handy Farmer MD at OR [facility] DEFIB/CARDIOVERSION 07/26/15 [facility] ECHO, COMPLETE (2D), TRANS-THORACIC 09/30/08 1+ AI and PI, NL LV wall motion and thickness, EF 50-55%, stable,S/P Ross procedure ECHO,TTE W/O SPECTRAL + COLOR-FLOW DOPPLER 07/31/04 EF normal, bioprosthesis in Aortic position looks stable, Pulmonic bioprosthesis not well seen HEART ELECTROCONVERSION, EXTERNAL 07/13/2017 [facility] MAMMOGRAM SCREENING BILATERAL Bilateral 05/26/15 almost entirely [...] performed by Handy Farmer MD at OR [facility] REPLACEMENT AORTIC VALVE, BYPASS WITH PROSTHETIC VALVE N/A 06/18/2018 Aortic Root replacement performed by Handy Farmer MD at [facility] REPLACEMENT OF AORTIC VALVE (ROSS) 12/20/99 Ross Procedure, [facility] TRANSESOPHAGEAL ECHO (COMPLETE) 09/03/2018 LA moderately dilated, mild conc LVF with no wall motion abnormalities, EF 55- 60%, Aortic valve well seated XR FOOT 2 VIEWS 12/24/02 PAH-undisplaced frature of the distal phalanx of the great toe XR HAND 3 OR MORE VIEWS 04/08/03 PAH- no fracture Review of patient's allergies indicates: Allergen Reactions Prednisone Other (Please comment) Stated it caused her to go into AFib Social History Socioeconomic History Marital status: Spouse name: Not on file Number of children: Not on file Years of education: Not on file Highest education level: Not on file Occupational History Not on file Tobacco Use Smoking status: Former Current packs/day: 0.00 Average packs/day: 1 pack/day for 50.0 years (50.0 ttl pk-yrs) Types: Cigarettes Start date: 09/08/1967 Quit date: 09/07/2017 Years since quittin.5 Smokeless tobacco: Never Vaping Use Vaping status: Never Used Substance and Sexual Activity Alcohol use: No Drug use: No Sexual activity: Not Currently Comment: not since 2000 Other Topics Concern Not on file Social History Narrative 1977 Social Determinants of Health Financial Resource Strain: Low Risk (11/27/2023) Financial Resource Strain Do you have any trouble paying for your medications, or do you think you might in the future? (Adult - for ages 18 years and over): No Does your family have trouble paying for medicine? (Household - for ages 0-17 years): Not on file Food Insecurity: No Food Insecurity (11/27/2023) Food Insecurity Do you need food for this week? (Adult - for ages 18 years and over): No Are you able to get enough food for your family? (Household - for ages 0-17 years): Not on file Does your family need food this week? (Household - for ages 0-17 years): Not on file Do you always have enough food for your family? (Household - for ages 0-17 years): Not on file Transportation Needs: No Transportation Needs (11/27/2023) Transportation Needs Do you have trouble getting a ride to medical visits or work? (Adult - for ages 18 years and over):Never True Does your family have a hard time getting a ride to doctors visits? (Household - for ages 0-17 years): Not on file Has lack of transportation kept you from medical appointments, meetings, work, or from getting things needed for daily living? Check all that apply. (Adult - for ages 18 years and over): No Do you (or your family) have trouble finding or paying for a ride (transportation)? (Household - for ages 0-17 years): Not on file Social Connections: Socially Integrated (11/27/2023) Social Connections How often do you feel lonely or isolated from those around you? (Adult - for ages 18 years and over): Never Housing Stability: Low Risk (11/27/2023) Housing Stability Do you currently live in a [place] or have no steady place to sleep at night? (Adult - for ages 18 years and over): No Do you think you are at risk of becoming homeless? (Adult - for ages 18 years and over): No Does your family worry about paying for your home or becoming homeless? (Household - for ages 0-17 years): Not on file Are you homeless or worried that you might be in the future? (Adult - for ages 18 years and over): No Are you (or your family) homeless or worried that you might be in the future? (Household - for ages0-17 years): Not on file Current Outpatient Medications Medication Sig Dispense Refill DIURETIC TITRATION PLAN If no improvement on day 3, contact heart failure managing provider. 1 Each0 Aspirin 81 MG Oral Tablet Delayed Release Take 1 Tablet by mouth in the morning. oxygen IN GAS Use 3 L/min(Oxygen) as directed continuous. 1 Each 0 Budesonide-Formoterol Fumarate 160-4.5 MCG/ACT Inhalation Aerosol (Symbicort) Inhale 2 Puffs by mouth in the morning and 2 Puffs before bedtime. 10.2 g 12 Potassium Chloride Stefania ER 20 MEQ Oral [...] morning. 4,000 units daily. 60 Capsule 11 Omeprazole 20 MG Oral Capsule Delayed Release (PriLOSEC) take 1 capsule every day 1 hour before thefirst meal of the day. 90 Capsule 1 Metoprolol Succinate ER 50 MG Oral Tablet Extended Release 24 Hour (toPROL XL) 1 1/2 tablets in themorning and 1 1/2 tablets in the evening 270 Tablet 3 Spiriva Respimat 2.5 MCG/ACT Inhalation Aerosol Solution (Tiotropium [place] Monohydrate) Inhale 2 Puffs by mouth in [...] MOUTH IN THE MORNING 45 Tablet 3 No current facility-administered medications for this visit. Immunization History Administered Date(s) Administered COVID-19 mRNA, LNP-s, No Preserve, 2-Dose Series (Real Food Real Kitchens) 01/05/2021, 01/30/2021, 07/24/2021 COVID-19, LNP-s, No Preserve, Vito-sucrose, Ages 12+ (Pfizer) 07/24/2021 COVID-19, MRNA-LNP, 23-24, PF, 30 MCG/0.3 mL, 12 YRS AND ABOVE, IM (PFIZER- Comirnaty) 05/06/2023 Covid-19, Mrna, Lnp-s, Pf, Bivalent, 30 Mcg, IM, 12 yrs and above (Pfizer) 04/30/2022 Pneumococcal Conjugate Vacc, 13 Valent (Prevnar) 10/21/2017 Pneumococcal Polysaccharide PPV23 (Pneumovax) 03/10/2008, 03/10/2008, 11/13/2018 Season Influenza, Quad, PF, Adjuvanted, 65+ Yrs, IM (FLUAD) 07/06/2020 Seasonal Influenza Vac., MDV, IM, 0.5 mL (Fluzone) 04/07/2007, 04/07/2008, 05/24/2011, 05/23/2012, 05/09/2013, 03/31/2014, 03/09/2017 Seasonal Influenza, Quadrivalent Hd (Fluzone Hd) 02/23/2021, 03/14/2022, 03/18/2023 Seasonal Influenza, Quadrivalent, No Preserve, IM 05/26/2015, 06/26/2016, 05/13/2018 Seasonal Influenza, Trivalent, Adjuvanted, 65+ YRS, PF, (Fluad) 02/18/2019 TDAP, Age 7 and older, IM (Adacel) 06/15/2007 O: Blood pressure 108/60, pulse 120, weight 90.9 kg (200 lb 8 oz), SpO2 97%, not currently . General appearance: well developed, well nourished and in no acute distress. Neck is supple without adenopathy or thyromegaly. Chest is symmetrical and moves normally. The lungs are clear without wheezes, rales, rhonchi or rubs, and the heart is regular without murmurs or gallops, or ectopy. PMI not displaced. A: Bright red rectal bleeding (Primary) - Hydrocortisone Acetate 25 MG Rectal Suppository (Anusol-HC); Administer into the rectum 2 times aday in the morning and at bedtime as needed for Hemorrhoids. Up to 2 weeks. - COLONOSCOPY, GI REFERRAL OP - [facility]; Future; Expected date: 03/18/2024 Other orders - INFLUENZA VAC., TRIVALENT, HD, PF, 65 AND ABOVE, 0.5 ML IM (FLUZONE HD) Follow Up: Return if symptoms worsen or fail to improve. documented in this encounter Plan of Treatment Upcoming Encounters Date Type Department Care Team (Latest Contact Info) Description 03/18/2024 3:00 PM EDT Laboratory Laboratory [address] [place] [phone] [facility] [address] [place] [address] Bright red rectal bleeding 04/06/2024 3:10 PM EDT Anticoagulation Pharmacy, [address] [place] [address] [place] [address] 04/06/2024 3:30 PM EDT Office Visit Cardiology [address] [place] [address] Wes Bourgeois PA-C [address] [place] [address] 08/24/2024 2:30 PM EDT Nurse Only Ancillary [address] [place] [address] [place], Nurse [address] [place] [address] 09/02/2024 3:20 PM EDT Office Visit Nephrology [address] [place] [address] Vivien Diez MD [address] [facility], [place] [address] Pending Results Name Type Priority Associated Diagnoses Date /Time [facility] Lab Routine Bright red rectal bleeding 03/18/2024 2:43 PM EDT Scheduled Orders Name Type Priority Associated Diagnoses Orde r Schedule [facility] Lab Routine Bright red rectal bleeding Expected: 03/18/2024 (Approximate), Expires: 03/18/2025 Scheduled Referrals Name Type Priority Associated Diagnoses Orde r Schedule COLONOSCOPY, GI REFERRAL OP Referral Within 30 days (routine) Bright red rectal bleeding Ordered: 03/18/2024 Health Maintenance Due Date Last Done Comments [...] this encounter Medical Devices Implanted Type Area Packer Inspector Device Identifier Shelf Expiration Date Model / Serial / Lot Suture Steel 6 B&S19 M654g - [id number] Implanted:Qty : 4 on 06/18/2018 by Handy Farmer MD at OR [facility] N/A: Sternum KEVON : [employer] 01/06/2023 [id number] / / [id number] Valve Heart Aortic Epic 23mm - [id number] Implanted:03/2019 by Handy Farmer MD at OR [facility] (Quantity not on file) N/A: Heart ST KERRI : CARDIOVASCULAR 12/28/2021 [id number] / [id number] / LOT NA Graft Gelweave Valsalva 28mm - [id number] - [id number] Implanted:Qty : 1 on 06/18/2018 by Handy Farmer MD at OR [facility] N/A: Aorta [employer] 04/08/2021 [id number] / [id number] / [id number] [place] Ptfe 6x6in X5 - [id number] Implanted:Qty : 1 on 06/18/2018 by Handy Farmer MD at OR [facility] N/A: Aorta CR BARD : PERIPHERAL VASCULAR 12/04/2022 [id number] / / [id number] 6in X 6in (15cm X 15cm) Ptfe [place], 1.65mm Thick Implanted:Qty : 1 on 06/18/2018 by Handy Farmer MD at OR [facility] N/A: Aorta CR BARD : PERIPHERAL VASCULAR 12/04/2022 [id number] / / [id number] 6in X 6in (15cm X 15cm) Ptfe [place], 1.65mm Thick Implanted:Qty : 1 on 06/18/2018 by Handy Farmer MD at OR [facility] N/A: Aorta CR BARD : PERIPHERAL VASCULAR 12/04/2022 [id number] / / [id number] 6in X 6in (15cm X 15cm) Ptfe [place], 1.65mm Thick Implanted:Qty : 1 on 06/18/2018 by Handy Farmer MD at OR [facility] N/A: Aorta CR BARD : PERIPHERAL VASCULAR 12/04/2022 [id number] / / [id number] documented as of this encounter Visit Diagnoses Diagnosis Bright red rectal bleeding- Primary Hemorrhage of rectum and anus Bright red rectal bleeding Hemorrhage of rectum and anus documented in this encounter Advance Directives * Full Code (Latest Code Status on File) Date Activated Date Inactivated Comments 06/18/2018 6:43 PM 06/25/2018 6:16 PM This order r eflects the patients wishes and were consensually agreed upon. Care Teams Sheet Sewer Relationship Specialty Start Date End Date Nat Salter MD [address] [place] [address] [place] [address] PCP - General Family Medicine 11/13/18 documented as of this encounter
--- OUTSIDE RECORDS SUMMARY | 2024-04-07 13:12 | External Medical Summary | Summary of Care ---
Author Name Unknown Organization [facility] Address [address] [place] [address] Phone [phone] Care Team Providers Care Supervising Floorperson Name Role Phone Nat Salter MD Primary Care Prov ider Reason for Referral * Medication Prior Authorization - Closed Specialty Diagnoses / Procedures Referred By Contmitra t Referred To Contact Diagnoses COPD, group B, by GOLD 2017 classification (HCC) Daniella Brito PA-C [address] [place] [address] [place] [address] Referral ID Status Reason Start Date Expiration Date Visits Re quested Visits Authorized [id number] Closed 999 999 Reason for Visit * Reason Comments Re-Check Pt denies any concer ns at this time. Encounter Details Date Type Department Care Team (Latest Contact Info) Description 02/06/2024 12:00 PM EDT Office Visit Family Medicine [address] [place] [id number] Daniella Brito PA-C [address] [place] [address] [place] [id number] COPD, group B, by GOLD 2017 classification ([facility])*; Chronic diastolic heart failure (HCC); Chronic hypoxemic respiratory failure (HCC); Chronic right-sided CHF (congestive heart failure) (HCC); Body mass index (BMI) of 40.0 to 44.9 in adult (HCC); Paroxysmal atrial fibrillation (HCC); Acquired hypothyroidism; Adjustment disorder with depressed mood; Dyslipidemia, goal LDL below 100; History of tobacco use; S/P ascending aortic aneurysm repair; S/P AVR (aortic valve replacement) Allergies Active Allergy Reactions Criticality Noted Date Comments Prednisone Other (Please comment) Medium 12/28/2015 Stated it caused her to go into AFib documented as of this encounter (statuses as of 02/06/2024) Medications Medication Sig Dispensed Refills Start Date End Date Status DIURETIC TITRATION PLANIndications:Ch ronic right-sided CHF (congestive heart failure) ([facility]) If no improvement on day 3, contact heart failure managing provider. 1 Each 9 Active Aspirin 81 MG Oral Tablet Delayed Release Take 1 Tablet by mouth in the morning. Active oxygen IN GASIndications:Chr onic right-sided CHF (congestive heart failure) ([facility]),Chronic hypoxemic respiratory failure (HCC),COPD, group B, by GOLD 2017 classification ([facility]) Use 3 L/min(Oxygen) as directed continuous. 1 Each 2 Active Budesonide-Formote rol Fumarate 160-4.5 MCG/ACT Inhalation Aerosol (Symbicort)Indicat ions:COPD, group B, by GOLD 2017 classification ([facility]) Inhale 2 Puffs by mouth in the morning and 2 Puffs before bedtime. 10.2 g 12 3 Active Spironolactone 25 MG Oral Tablet (Aldactone)Indicat ions:Chronic right-sided CHF (congestive heart failure) (HCC) Take 0.5 Tablets by mouth in the morning. 17 Tablet 11 3 Active Potassium Chloride Stefania ER 20 MEQ Oral Tablet Extended ReleaseIndications :Paroxysmal atrial fibrillation (HCC),Chronic diastolic heart failure (HCC),Chronic right-sided CHF (congestive heart failure) (HCC) TAKE ONE TABLET BY MOUTH IN THE MORNING AND TAKE THREE TABLETS ON DAYS WHEN TAKING METALAZONE 90 Tablet 3 4 Active Allopurinol 100 MG Oral Tablet (Zyloprim)Indicati ons:Kidney disease, chronic, stage IV (GFR 15-29 ml/min) ([facility]),Hyperuricemi a Take 2 Tablets by mouth in the morning. 60 Tablet 11 4 Active Vitamin D 50 MCG (1999 UT) Oral CapsuleIndications :Vitamin D deficiency Take [...] 24 Hour (toPROL XL)Indications:Par oxysmal atrial fibrillation ([facility]) 1 1/2 tablets in the morning and 1 1/2 tablets in the evening 270 Tablet 3 4 Active Spiriva Respimat 2.5 MCG/ACT Inhalation Aerosol Solution (Tiotropium [place] Monohydrate)Indica tions:COPD, group B, by GOLD 2017 classification ([facility]) Inhale 2 Puffs by mouth in the morning. 4 g 4 Active Venlafaxine HCl ER 75 MG Oral Capsule Extended Release 24 Hour (Effexor XR)Indications:Adj ustment disorder with depressed mood TAKE ONE CAPSULE BY MOUTH EVERY DAY DO NOT CUT, CRUSH, OR CHEW, 90 Capsule 2 4 Active Torsemide 20 MG Oral Tablet (Demadex)Indicatio ns:Acute on chronic diastolic (congestive) heart failure ([facility]) Take 1 Tablet by mouth in the morning and 1 Tablet before bedtime. 180 Tablet 2 4 Active Atorvastatin Calcium 40 MG Oral Tablet (Lipitor)Indicatio ns:Dyslipidemia, goal LDL below 100 Take 1 Tablet by mouth in the morning. 90 Tablet 3 4 Active Warfarin Sodium 2.5 MG Oral Tablet (Coumadin)Indicati ons:Paroxysmal atrial fibrillation ([facility]),Anticoagulat ion management encounter Take 1-2 tablets by [...] s:COPD, group B, by GOLD 2017 classification ([facility]) Inhale 2 Puffs by mouth every 6 hours as needed for Cough, Shortness of Breath or Wheezing. 18 g 11 4 Active Albuterol Sulfate HFA 108 (90 Base) MCG/ACT Inhalation Aerosol SolutionIndication s:COPD, group B, by GOLD 2017 classification ([facility]) Inhale 2 Puffs by mouth every 6 [...] brochure given to patient at 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 0 [...] id ventricular response 06/18/2016 12/13/2016 Overview: admitted [facility] pulse 140s OBESITY, BMI [...] mRNA, LNP-s, No Pre serve, 2-Dose Series (GetQuik) 07/24/2021,01/30/2021,01/05/2021 COVID-19, LNP-s, No Preserve , Vito-sucrose, Ages 12+ (Pfizer) 07/24/2021 COVID-19, MRNA-LNP, 23-24, P F, 30 MCG/0.3 mL, 12 YRS AND ABOVE, IM ([employer]-Comirnaty) 05/06/2023 Covid-19, Mrna, Lnp-s, Pf, B ivalent, [...] Sign Reading Time Taken Comments Blood Pressure 110/66 02/06/2024 11:31 AM EDT Pulse 105 02/06/2024 11:31 AM EDT Temperature 36.2 C (97.1 F) 02/06/2024 1 1:31 AM EDT Respiratory Rate - - Oxygen Saturation 96% 02/06/2024 11: 31 AM EDT O2: 3L/min Inhaled Oxygen Concentration - - Weight 91.8 kg (202 lb 6.4 oz) 02/06/20 11:31 AM EDT Height - - Body Mass Index 39.53 08/21/2023 2:54 PM EDT documented in this encounter Progress Notes * Daniella Brito PA-C - 02/06/2024 11:32 AM EDT Chief Complaint Patient presents with Re-Check Pt denies any concerns at this time. Pt here today for recheck. Pt with PMH of gout, GERD, HTN, depression/anxiety, dyslipidemia, hypothyroid, CHF, COPD, A. Fib, SP AVR. Pt follows with cardiology and nephrology. Pt has no issues at this time. Breathing is ok. No swelling or chest pain or SOB. Wearing O2. Review of patient's allergies indicates: Allergen Reactions [...] 2 Puffs before bedtime. 10.2 g 12 Albuterol Sulfate HFA 108 (90 Base) MCG/ACT Inhalation Aerosol Solution Inhale 2 Puffs by mouth every 6 hours as needed for Cough, Shortness of Breath or Wheezing. 18 g 11 Spironolactone 25 MG Oral Tablet (Aldactone) Take 0.5 Tablets by mouth in the morning. 17 Tablet 11 Potassium Chloride Stefania ER 20 MEQ Oral [...] Respimat 2.5 MCG/ACT Inhalation Aerosol Solution (Tiotropium [place]akin Monohydrate) Inhale 2 Puffs by mouth in [...] breakfast OR other meds 90 Tablet 1 No current facility-administered medications for this visit. Past Medical History: Diagnosis Date Adjustment disorder with depressed mood Aortic valve disorder Had Ross procedure Atrial fibrillation ([facility]) 07/25/2004 sudden onset AF with rate 152 Atrial fibrillation with rapid ventricular response ([facility]) 07/26/2015 [facility] Atrial fibrillation with rapid ventricular response ([facility]) 06/18/2016 admitted [facility] pulse 140s, converted back to NSR Atrial fibrillation with RVR ([facility]) 07/12/2017 [facility] BMI 36.0-36.9,adult COPD (chronic obstructive pulmonary disease) ([facility]) Dyslipidemia, goal LDL below 100 Elevated C-reactive protein (CRP) 06/28/2008 CRP 9.31 Essential and other specified forms of tremor 10/28/2013 History of tobacco use Kidney disease, chronic, stage III (GFR 30-59 ml/min) ([facility]) 02/15/2019 Per CKD protocol Loss of teeth due to trauma, extraction, or periodontal disease upper and lower dentures Lung nodule Major depressive disorder, single episode, moderate ([facility]) MEDICATION USE AGREEMENT 08/20/2006 hydrocodone for knee Morbid obesity with BMI of 40.0-44.9, adult ([facility]) Need for hepatitis C screening test 08/27/2013 Hepatitis C negative Other internal derangement of knee(717.89) 07/03/2006 right medial meniscus tear with cyst and probable loose body Other specified prophylactic or treatment measure Needs SBE prophylaxis Paroxysmal atrial fibrillation ([facility]) 03/11/2017 cardioverted, sotalol 120 mg BID Pneumonia SBE (subacute bacterial endocarditis) prophylaxis candidate Sleep apnea, obstructive Tobacco use disorder Total knee replacement status right Vitamin D deficiency 10/12/2009 Vitamin D 20.1 Social History Socioeconomic History Marital status: Spouse name: Not on file Number of children: Not on file Years of education: Not on file Highest education level: Not on file Occupational History Not on file Tobacco Use Smoking status: Former Current packs/day: 0.00 Average packs/day: 1 pack/day for 50.0 years (50.0 ttl pk-yrs) Types: Cigarettes Start date: 09/08/1967 Quit date: 09/07/2017 Years since quittin.4 Smokeless tobacco: Never Vaping Use Vaping status: [...] Stability Do you currently live in a fpc or have no steady place to sleep [...] - for ages0-17 years): Not on file O:Blood pressure 110/66, pulse 105, temperature 36.2 C (97.1 F), weight 91.8 kg (202 lb 6.4 oz), SpO2 96%, not currently . GENERAL: alert, healthy, and no distress NECK: supple, no adenopathy, no bruits, thyroid normal size, non-tender, without nodularity EYES: PERRLA, conjunctiva are pink and non-injected, sclera clear EARS: External ears normal, Canals clear, TM's Normal NOSE: no mucosal erythema, no mucosal edema, no purulent discharge OROPHARYNX: no exudate, no erythema, lips, buccal mucosa, and tongue normal, and mucous membranes are moist HEART: regular rate & rhythm, no murmur, and no gallops LUNGS: chest symmetric with normal AP diameter, no chest deformities noted, no chest wall tenderness, lungs clear to auscultation ABDOMEN: abdomen soft, non-tender, normal bowel sounds, and no masses or organomegaly EXTREMITIES: no joint deformities, effusion, or inflammation, no edema A:COPD, group B, by GOLD 2017 classification ([facility]) (Primary) - Albuterol Sulfate HFA 108 (90 Base) MCG/ACT Inhalation Aerosol Solution; Inhale 2 Puffs by mouth every 6 hours as needed for Cough, Shortness of Breath or Wheezing. Chronic diastolic heart failure (HCC) Chronic hypoxemic respiratory failure (HCC) Chronic right-sided CHF (congestive heart failure) ([facility]) - COMPREHENSIVE METABOLIC PANEL; Future; Expected date: 02/06/2024 Body mass index (BMI) of 40.0 to 44.9 in adult ([facility]) Paroxysmal atrial fibrillation ([facility]) Acquired hypothyroidism Adjustment disorder with depressed mood Dyslipidemia, goal LDL below 100 - LIPID PANEL WITH DIRECT LDL IF TG IS HIGH; Future; Expected date: 02/06/2024 History of tobacco use S/P ascending aortic aneurysm repair S/P AVR (aortic valve replacement) Will check some labs. Continue current meds. Any questions/problems, please call. If anything changes, worsens, develops new sx, please call NICK. Follow Up: Return if symptoms worsen or fail to improve. Daniella Brito PA-C documented in this encounter Plan of Treatment Upcoming Encounters Date Type Department Care Team (Late st Contact Info) Description 03/04/2024 3:30 PM EDT Anticoagulation Pharmacy, [address] [place] [phone] [place] [address] 04/06/2024 3:30 PM EDT Office Visit Cardiology [address] [place] [address] Wes Bourgeois PA-C [address] [place] [address] 08/24/2024 2:30 PM EDT Nurse Only Ancillary [address] [place] [address] [place], Nurse [address] [place] [address] 09/02/2024 3:20 PM EDT Office Visit Nephrology [address] [place] [address] [facility] [address] [facility] [address] Pending Results Name Type Priority Associated Diagnoses Date /Time COMPREHENSIVE METABOLIC PANEL Lab Routine Chronic right-sided CHF (congestive heart failure) (HCC) 02/06/2024 11:48 AM EDT LIPID PANEL WITH DIRECT LDL IF TG IS HIGH Lab Routine Dyslipidemia, goal LDL below 100 02/06/2024 11:48 AM EDT Scheduled Orders Name Type Priority Associated Diagnoses Orde r Schedule COMPREHENSIVE METABOLIC PANEL Lab Routine Chronic right-sided CHF (congestive heart failure) (HCC) Expected: 02/06/2024 (Approximate), Expires: 02/05/2025 LIPID PANEL WITH DIRECT LDL IF TG IS HIGH Lab Routine Dyslipidemia, goal LDL below 100 Expected: 02/06/2024, Expires: 02/05/2025 Health Maintenance Due Date Last Done Comments [...] this encounter Medical Devices Implanted Type Area C Developer Device Identifier Shelf Expiration Date Model / Serial / Lot Suture Steel 6 B&S19 [id number] - [id number] Implanted:Qty : 4 on 06/18/2018 by Handy Farmer MD at [place] [facility] [place] N/A: Sternum [place] : [employer] 01/06/2023 [id number] / / [id number] Valve Heart Aortic Epic 23mm - [id number] Implanted:03/2019 by Handy Farmer MD at [place] [facility] [place] (Quantity not on file) N/A: Heart [facility] : CARDIOVASCULAR 12/28/2021 [id number] / [id number] / LOT NA Graft Gelweave Valsalva 28mm - [id number] - [id number] Implanted:Qty : 1 on 06/18/2018 by Handy Farmer MD at [place] [facility] [place] N/A: Aorta [employer] 04/08/2021 [id number] / [id number] / [id number] [place] Ptfe 6x6in X5 - [id number] Implanted:Qty : 1 on 06/18/2018 by Handy Farmer MD at [place] [facility] [place] N/A: Aorta CR [employer]ARD : PERIPHERAL VASCULAR 12/04/2022 [id number] / / [id number] 6in X 6in (15cm X 15cm) Ptfe [place], 1.65mm Thick Implanted:Qty : 1 on 06/18/2018 by Handy Farmer MD at [place] [facility] [place] N/A: Aorta CR [employer]ARD : PERIPHERAL VASCULAR 12/04/2022 [id number] / / [id number] 6in X 6in (15cm X 15cm) Ptfe [place], 1.65mm Thick Implanted:Qty : 1 on 06/18/2018 by Handy Farmer MD at [place] [facility] [place] N/A: Aorta CR BARD : PERIPHERAL VASCULAR 12/04/2022 [id number] / / [id number] 6in X 6in (15cm X 15cm) Ptfe [place], 1.65mm Thick Implanted:Qty : 1 on 06/18/2018 by Handy Farmer MD at [place] [facility] [place] N/A: Aorta CR BARD : PERIPHERAL VASCULAR 12/04/2022 [id number] / / [id number] documented as of this encounter Visit Diagnoses Diagnosis COPD, group B, by GOLD 2017 classification ([facility])- Primary Chronic diastolic heart failure (HCC) Chronic [...] replacement) Heart valve replaced by other means documented in this encounter Advance Directives * Full Code (Latest Code Status on File) Date Activated Date Inactivated Comments 06/18/2018 6:43 PM 06/25/2018 6:16 PM This order r eflects the patients wishes and were consensually agreed upon. Care Teams Supervising Floorperson Relationship Specialty Start Date End Date Nat Salter MD [address] [place] [address] [place] [address] PCP - General Family Medicine 11/13/18 documented as of this encounter
--- OUTSIDE RECORDS SUMMARY | 2024-04-07 13:12 | External Medical Summary ---
Author Name Unknown Address Unknown Organization : Laboratory Report Ordering Provider Test Date Status LUIS GALLEGOS 03/04/2024 15:34:35 Final Therapeutic ranges for non-o perative patients:
Prophylaxsis/treatment of DVT: (Range:2.0-3.0)
Treatment of pulmonary embolism:(Range:2.0-3.0)
Prevention of systemic embolism from:
-tissue heart valves
-acute myocardial infarction
-valvular heart disease
-atrial fibrillation
(Range: 2.0-3.0)
Mechanical prosthetic valves: (Range: 2.5-3.5) Observation Date Value Abnormality Reference (Units ) Status INR in Capillary blood by Coagulation assay 03/04/2024 15:34:35 2.7 (INR) Final Performing Location
--- OUTSIDE RECORDS SUMMARY | 2024-04-07 13:13 | External Medical Summary | Summary of Care ---
Author Name Unknown Organization [facility] Address [address] [place] [address] Phone [phone] Care Team Providers Care Blast Furnace Operator Name Role Phone Nat Salter MD Primary Care Prov ider Reason for Visit * Reason Comments Dosage Adjustment In Person (Anticoag Cl inic) Encounter Details Date Type Department Care Team (Latest Contact Info) Description 11/18/2023 3:20 PM EDT Anticoagulation Pharmacy, [address] [place] [address] [place] [address] Anticoagulation management encounter*; Paroxysmal atrial fibrillation (HCC) Allergies Active Allergy Reactions Criticality Noted Date Comments Prednisone Other (Please comment) Medium 12/28/2015 Stated it caused her to go into AFib documented as of this encounter (statuses as of 11/18/2023) Medications Medication Sig Dispensed Refills Start Date End Date Status DIURETIC TITRATION PLANIndications:Ch ronic right-sided CHF (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 1 Each 02/19/20 19 Active Aspirin 81 MG Oral Tablet Delayed Release Take 1 Tablet by mouth in the morning. Active oxygen IN GASIndications:Chr onic right-sided CHF (congestive heart failure) ([facility]),Chronic hypoxemic respiratory failure (HCC),COPD, group B, by GOLD 2017 classification ([facility]) Use 3 L/min(Oxygen) as directed continuous. 1 Each 04/23/20 22 Active Budesonide-Formote rol Fumarate 160-4.5 MCG/ACT Inhalation Aerosol (Symbicort)Indicat ions:COPD, group B, by GOLD 2017 classification ([facility]) Inhale 2 Puffs by mouth in the morning and 2 Puffs before bedtime. 10.2 g 08/06/19 23 Active Albuterol Sulfate HFA 108 (90 Base) MCG/ACT Inhalation Aerosol SolutionIndication s:COPD, group B, by GOLD 2017 classification ([facility]) Inhale 2 Puffs by mouth every 6 hours as needed for Cough, Shortness of Breath or Wheezing. 18 g 08/06/19 23 Active Spironolactone 25 MG Oral Tablet (Aldactone)Indicat ions:Chronic right-sided CHF (congestive heart failure) ([facility]) Take 0.5 Tablets by mouth in the morning. 17 Tablet 11 01/24/20 23 Active Levothyroxine Sodium 100 MCG Oral Tablet (Levoxyl)Indicatio ns:Acquired hypothyroidism TAKE ONE TABLET BY MOUTH EVERY MORNING 30 minutes BEFORE breakfast OR other meds 90 Tablet 1 05/06/20 23 Active DIURETIC TITRATION PLAN If no improvement on day 3, contact heart failure managing provider. 1 Each 05/21/20 23 Active Potassium Chloride Stefania ER 20 MEQ Oral Tablet Extended ReleaseIndications :Paroxysmal atrial fibrillation ([facility]),Chronic diastolic heart failure (HCC),Chronic right-sided CHF (congestive heart failure) ([facility]) TAKE ONE TABLET BY MOUTH IN THE MORNING AND TAKE THREE TABLETS ON DAYS WHEN TAKING METALAZONE 90 Tablet 3 08/07/19 24 Active Allopurinol 100 MG Oral Tablet (Zyloprim)Indicati ons:Kidney disease, chronic, stage IV (GFR 15-29 ml/min) ([facility]),Hyperuricemi a Take 2 Tablets by mouth in the morning. 60 Tablet 08/07/19 24 Active Vitamin D 50 MCG (1999 UT) [...] Respimat 2.5 MCG/ACT Inhalation Aerosol Solution (Tiotropium [place] Monohydrate)Indica tions:COPD, group B, by GOLD 2017 classification ([facility]) Inhale 2 Puffs by mouth in the morning. 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 Pre-op testing Dyslipidemia, goal LDL below 100 Total knee replacement status Adjustment disorder with depressed mood SBE (subacute bacterial endocarditis) prophylaxi s candidate History of tobacco use documented as of this encounter (statuses as of 11/18/2023) Resolved Problems Problem Noted Date Diagnosed Date [...] ventricular response 06/18/2016 12/13/2016 Overview: admitted [facility] pulse 140s OBESITY, BMI 30-34 (SEE [...] as of this encounter (statuses as of 11/18/2023) Immunizations Name Administration Dates Next Due COVID-19 mRNA, LNP-s, No Pre serve, 2-Dose Series (Everyone Counts) 07/24/2021,01/30/2021,01/05/2021 COVID-19, LNP-s, No Preserve , Vito-sucrose, Ages 12+ (Everyone Counts) 07/24/2021 COVID-19, MRNA-LNP, 23-24, P F, 30 MCG/0.3 mL, 12 YRS AND ABOVE, IM ([employer]) 05/06/2023 Covid-19, Mrna, Lnp-s, Pf, B ivalent, 30 Mcg, IM, 12 yrs and above (Everyone Counts) 04/30/2022 Pneumococcal Conjugate Vacc, 13 Valent (Prevnar) [...] the money to buy more. Never true 08/21/19 24 Within the past 12 months, t he food you bought just didn't last and you didn't have money to get more. Never true 08/21/2023 Sex and Gender Information Value Date Recorded Sex Assigned at Female 07/02/2021 2:26 PM EST Gender Identity Female 07/02/2021 2:26 PM EST Sexual Orientation Straight 07/02/2021 2: 26 PM EST Job Start Date Occupation Industry Not on file Not on file Not on file documented as of this encounter Progress Notes * Cass Dorsey RPh - 11/18/2023 3:20 PM EDT Medication Therapy Disease Management - Anticoagulation Patient: Melissa Figueroa | : 1950 Subjective Patient-Reported Symptoms: Patient Findings Negatives: Signs/symptoms of thrombosis, Signs/symptoms of bleeding, Change in health, Change in alcohol use, Change in activity, Upcoming invasive procedure, Missed doses, Extra doses, Change in medications, Change in diet/appetite, Bruising Objective Current Warfarin Dose As of 11/18/2023 Warfarin maintenance plan: 3.75 mg (2.5 mg x 1.5) every Mon, Fri; 2.5 mg (2.5 mg x 1) all other days INR Result As of 11/18/2023 INR goal: 2.0-3.0 INR used for dosin.9 (11/18/2023) Assessment & Plan Warfarin Plan As of 11/18/2023 Full warfarin instructions: 3.75 mg every Mon, Fri; 2.5 mg all other days No change documented: Cass Dorsey RPh Next INR check: 12/09/2023 Repeat PT/INR in 3 week(s) Weekly dose: not changed Additional Dosing Information: Description Amiodarone 200 mg BID (01/03/22) --> DAILY after DCC 02/19/22 --> STOPPED by Cardio on 08/06/23 Cass Dorsey RPh Clinical Pharmacist 11/18/2023, 3:20 PM documented in this encounter Plan of Treatment Upcoming Encounters Date Type Department Care Team (Late st Contact Info) Description 12/09/2023 3:40 PM EDT Anticoagulation Pharmacy, [address] [place] [phone] [place] [address] 01/06/2024 11:20 AM EDT Office Visit Family Medicine [address] [place] [phone] Nat Salter MD [address] [place] [address] [place] [address] 04/06/2024 3:30 PM EDT Office Visit Cardiology [address] [place] [address] Wes Bourgeois PA-C [address] [place] [address] 08/24/2024 2:30 PM EDT Nurse Only Ancillary [address] [place] [address] Angy, Nurse Annual Wellness [address] [place] [address] [place] [address] Health Maintenance Due Date Last Done Comments Colonoscopy 1997 Fecal Occult Blood Test 1997 Sigmoidoscopy 1997 Zoster Vaccines (1 of 2) 2002 DTaP,Tdap,and Td Vaccines (2 - Td or Tdap) 06/15/2017 06/15/2007 Cologuard 10/01/2021 10/01/2018 Colorectal Cancer Screening 10/01/2021 COVID-19 Vaccine ( season) 2023 05/06/2023, 04/30/2022, 07/24/2021, Additional history exists TSH 05/16/2024 05/16/2023, 04/10, 10/30/2022, Additional history exists Mammogram 08/04/2024 08/04/2023, 1008/2021, 03/11/2022, Additional history exists Depression Screening 08/20/2024 08/21/2023 O2 ASSESSMENT COMPLETED IN PAST YEAR FOR COPD 08/20/2024 08/21/2023 DXA Scan 03/09/2026 03/09/2019 Lipid Panel 05/16/2028 05/16/2023, 10/08, 01/03/2022, Additional history exists Pneumococcal Vaccine: 65+ Years Completed 11/13/2018, 10/21/2017, 03/10/2008, Additional history exists Alpha-1 Antitrypsin Completed 10/10/2020 Albumin/Creatinine Ratio Discontinued 023, 01/03/2022, 03/26/2021 Lung Cancer Screening Completed 11/05/2022 , 06/07/2022, 11/30/2021, Additional history exists Influenza Vaccine (FLU shot) Completed 03/18/2023, 03/14/2022, 02/23/2021, Additional history exists GARDASIL-HPV IMMUNIZATION SERIES Aged Out No longer eligible based on patient's age to complete this topic Hepatitis B Aged Out No longer eligi ble based on patient's age to complete this topic MENINGOCOCCAL (MENACTRA/MENVEO) Aged Out No longer eligible based on patient's age to complete this topic documented as of this encounter Medical Devices Implanted Type Area Ambulance Driver Device Identifier Shelf Expiration Date Model / Serial / Lot Suture Steel 6 B&S19 M654g - [id number] Implanted:Qty : 4 on 06/18/2018 by Handy Farmer MD at OR [facility] [place] N/A: Sternum JNJ : [employer] 01/06/2023 [id number] / / [id number] Valve Heart Aortic Epic 23mm - [id number] Implanted:03/2019 by Handy Farmer MD at OR [facility] [place] (Quantity not on file) N/A: Heart ST KERRI : CARDIOVASCULAR 12/28/2021 [id number] / [id number] / LOT NA Graft Gelweave Valsalva 28mm - [id number] - [id number] Implanted:Qty : 1 on 06/18/2018 by Handy Farmer MD at OR [facility] [place] N/A: Aorta [employer] 04/08/2021 [id number] / [id number] / [id number] Ptfe 6x6in X5 - [id number] Implanted:Qty : 1 on 06/18/2018 by Handy Farmer MD at OR [facility] [place] N/A: Aorta CR BARD : PERIPHERAL VASCULAR 12/04/2022 [id number] / / [id number] 6in X 6in (15cm X 15cm) Ptfe [place], 1.65mm Thick Implanted:Qty : 1 on 06/18/2018 by Handy Farmer MD at OR [facility] [place] N/A: Aorta CR BARD : PERIPHERAL VASCULAR 12/04/2022 [id number] / / [id number] 6in X 6in (15cm X 15cm) Ptfe [place], 1.65mm Thick Implanted:Qty : 1 on 06/18/2018 by Handy Farmer MD at OR [facility] [place] N/A: Aorta CR BARD : PERIPHERAL VASCULAR 12/04/2022 [id number] / / [id number] 6in X 6in (15cm X 15cm) Ptfe [place], 1.65mm Thick Implanted:Qty : 1 on 06/18/2018 by Handy Farmer MD at OR [facility] [place] N/A: Aorta CR BARD : PERIPHERAL VASCULAR 12/04/2022 [id number] / / [id number] documented as of this encounter Procedures Procedure Name Priority Date/Time Associated Diagnosis Comments INR FINGERSTICK, POINT OF CARE STAT 11/18/2023 3:24 PM EDT Paroxysmal atrial fibrillation (HCC) Anticoagulation management encounter documented in this encounter Results * INR FINGERSTICK, POINT OF CARE (11/18/2023 3:24 PM EDT) Fingerstick INR 2.9 INR 3:25 PM EDT [facility]00 Blood 11/18/2023 3:24 PM EDT 11/18/2023 3:25 PM EDT Narrative [facility] [place]-00 - 11/18/2023 3:25 PM EDT Therapeutic ranges for non-operative patients: Prophylaxsis/treatment of DVT: (Range:2.0-3.0) Treatment of pulmonary embolism:(Range:2.0-3.0) Prevention of systemic embolism from: -tissue heart valves -acute myocardial infarction -valvular heart disease -atrial fibrillation (Range: 2.0-3.0) Mechanical prosthetic valves: (Range: 2.5-3.5) Cass Dorsey [facility] POINT OF CARE TEST DOCKED DEVICE UNSOLICITED RESULTS [facility] [place] [address] [place] [address] [place] [id number] documented in this encounter Visit Diagnoses Diagnosis Anticoagulation management encounter- Primary Encounter for therapeutic drug monitoring Paroxysmal atrial fibrillation (HCC) Atrial fibrillation documented in this encounter Advance Directives * Full Code (Latest Code Status on File) Date Activated Date Inactivated Comments 06/18/2018 6:43 PM 06/25/2018 6:16 PM This order r eflects the patients wishes and were consensually agreed upon. Care Teams Blast Furnace Operator Relationship Specialty Start Date End Date Nat Salter MD [address] [place] [address] [place] [address] PCP - General Family Medicine 11/13/18 documented as of this encounter"
--- OUTSIDE RECORDS SUMMARY | 2024-04-07 13:13 | External Medical Summary ---
Author Name Unknown Address Unknown Organization : Laboratory Report Ordering Provider Test Date Status LUIS GALLEGOS 01/19/2024 15:02:29 Final Therapeutic ranges for non-o perative patients:
Prophylaxsis/treatment of DVT: (Range:2.0-3.0)
Treatment of pulmonary embolism:(Range:2.0-3.0)
Prevention of systemic embolism from:
-tissue heart valves
-acute myocardial infarction
-valvular heart disease
-atrial fibrillation
(Range: 2.0-3.0)
Mechanical prosthetic valves: (Range: 2.5-3.5) Observation Date Value Abnormality Reference (Units ) Status INR in Capillary blood by Coagulation assay 01/19/2024 15:02:29 1.8 (INR) Final Performing Location
--- OUTSIDE RECORDS SUMMARY | 2024-04-07 13:13 | External Medical Summary | Summary of Care ---
Author Name Unknown Organization [facility] Address [address] [place] [address] Phone [phone] Care Team Providers Care Call Center Agent Name Role Phone Nat Salter MD Primary Care Prov ider Reason for Visit * Reason Onset Date Comments FYI 11/04/2023 Encounter Details Date Type Department Care Team (Late st Contact Info) Description 11/04/2023 Telephone Family [address] [phone] Nat Salter MD [address] [place] [address] [place] [address] FYI Allergies Active Allergy Reactions Criticality Noted Date Comments Prednisone Other (Please comment) Medium 12/28/2015 Stated it caused her to go into AFib documented as of this encounter (statuses as of 11/04/2023) Medications Medication Sig Dispensed Refills Start Date End Date Status DIURETIC TITRATION PLANIndications: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 1 Each 02/18/2019 Active Aspirin 81 MG Oral Tablet Delayed Release Take 1 Tablet by mouth in the morning. Active oxygen IN GASIndications:Chron ic right-sided CHF (congestive heart failure) (HCC),Chronic hypoxemic respiratory failure (HCC),COPD, group B, by GOLD 2017 classification ([facility]) Use 3 L/min(Oxygen) as directed continuous. 1 Each 04/23/2022 Active Budesonide-Formotero l Fumarate 160-4.5 MCG/ACT Inhalation Aerosol (Symbicort)Indicatio ns:COPD, group B, by GOLD 2017 classification ([facility]) Inhale 2 Puffs by mouth in the morning and 2 Puffs before bedtime. 10.2 g 12 08/06/2022 Active Albuterol Sulfate HFA 108 (90 Base) MCG/ACT Inhalation Aerosol SolutionIndications: COPD, group B, by GOLD 2017 classification ([facility]) Inhale 2 Puffs by mouth every 6 hours as needed for Cough, Shortness of Breath or Wheezing. 18 g 08/06/2022 Active Spironolactone 25 MG Oral Tablet (Aldactone)Indicatio ns:Chronic right-sided CHF (congestive heart failure) ([facility]) Take 0.5 Tablets by mouth in the morning. 17 Tablet 11 01/23/2023 Active Venlafaxine HCl ER 75 MG Oral Capsule Extended Release 24 Hour (Effexor XR)Indications:Adjus tment disorder with depressed mood TAKE ONE CAPSULE BY MOUTH EVERY DAY DO NOT CUT, CRUSH, OR CHEW, 90 Capsule 1 04/24/2023 Active Atorvastatin Calcium 40 MG Oral Tablet (Lipitor)Indications :Dyslipidemia, goal LDL below 100 TAKE ONE TABLET BY MOUTH EVERY DAY 90 Tablet 1 04/29/2023 Active Levothyroxine Sodium 100 MCG Oral Tablet (Levoxyl)Indications :Acquired hypothyroidism TAKE ONE TABLET BY MOUTH EVERY MORNING 30 minutes BEFORE breakfast OR other meds 90 Tablet 1 05/06/2023 Active Torsemide 20 MG Oral Tablet (Demadex)Indications :Acute on chronic diastolic (congestive) heart failure (HCC) Take 1 Tablet by mouth in the morning and 1 Tablet before bedtime. 180 Tablet 1 05/06/2023 Active DIURETIC TITRATION PLAN If no improvement on day 3, contact heart failure managing provider. 1 Each 05/21/2023 Active Potassium Chloride Stefania ER 20 MEQ Oral Tablet Extended ReleaseIndications:P aroxysmal atrial fibrillation (HCC),Chronic diastolic heart failure (HCC),Chronic right-sided CHF (congestive heart failure) (HCC) TAKE ONE TABLET BY MOUTH IN THE MORNING AND TAKE THREE TABLETS ON DAYS WHEN TAKING METALAZONE 90 Tablet 3 08/07/2023 Active Allopurinol 100 MG Oral Tablet (Zyloprim)Indication s:Kidney disease, chronic, stage IV (GFR 15-29 ml/min) ([facility]),Hyperuricemia Take 2 Tablets by mouth in the morning. 60 Tablet 11 08/07/2023 Active Vitamin D 50 MCG (2000 UT) Oral CapsuleIndications:V itamin D deficiency Take 4,000 Units by mouth in the morning. 4,000 units daily. 60 Capsule 11 08/07/2023 Active Warfarin Sodium 2.5 MG Oral Tablet (Coumadin)Indication s:Paroxysmal atrial fibrillation ([facility]),Anticoagulatio n management encounter,retirement current use of anticoagulant therapy TAKE ONE TABLET BY MOUTH EVERY DAY EXCEPT tuesdays 90 Tablet 3 08/21/2023 Active Omeprazole 20 MG Oral Capsule Delayed Release (PriLOSEC)Indication s:Gastroesophageal reflux disease with esophagitis take 1 capsule every day 1 hour before the first meal of the day. 90 Capsule 1 10/01/2023 Active Metoprolol Succinate ER 50 MG Oral Tablet Extended Release 24 Hour (toPROL XL)Indications:Parox ysmal atrial fibrillation ([facility]) 1 1/2 tablets in the morning and 1 1/2 tablets in the evening 270 Tablet 3 10/03/2023 Active Spiriva Respimat 2.5 MCG/ACT Inhalation Aerosol Solution (Tiotropium [place] Monohydrate)Indicati ons:COPD, group B, by GOLD 2017 classification ([facility]) Inhale 2 Puffs by mouth in the morning. 4 g 11 11/04/2023 Active documented as of this encounter (statuses as of 11/04/2023) Active Problems Problem Noted Date Diagnosed Date [...] brochure given to patient at 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 Pre-op testing Dyslipidemia, goal LDL below 100 Total knee replacement status Adjustment disorder with depressed mood SBE (subacute bacterial endocarditis) prophylaxi s candidate History of tobacco use documented as of this encounter (statuses as of 11/04/2023) Resolved Problems Problem Noted Date Diagnosed Date [...] ventricular response 06/18/2016 12/13/2016 Overview: admitted [facility] pulse 140s OBESITY, BMI 30-34 (SEE ACTUAL [...] as of this encounter (statuses as of 11/04/2023) Immunizations Name Administration Dates Next Due COVID-19 mRNA, LNP-s, No Pre serve, 2-Dose Series ([place] [facility]) 07/24/2021,01/30/2021,01/05/2021 COVID-19, LNP-s, No Preserve , Vito-sucrose, Ages 12+ (Pfizer) 07/24/2021 COVID-19, MRNA-LNP, 23-24, P F, 30 MCG/0.3 mL, 12 YRS AND ABOVE, IM ([facility]) 05/06/2023 Covid-19, Mrna, Lnp-s, Pf, B ivalent, 30 Mcg, IM, 12 yrs and above ([facility]) 04/30/2022 Pneumococcal Conjugate Vacc, 13 Valent (Prevnar) 10/21/2017 Pneumococcal Polysaccharide PPV23 (Pneumovax) 11/13/2018,03/10/2008,03/10/2008 Season Influenza, Quad, PF, Adjuvanted, 65+ Yrs, IM (FLUAD) 07/06/2020 Seasonal Influenza, Quadriva lent Hd (Fluzone Hd) 03/18/2023,03/14/2022,02/23/2021 Seasonal Influenza, Quadriva lent, No Preserve, IM 05/13/2018,06/26/2016,05/26/2015 Seasonal Influenza, Split, I IV3, With Preserve, Inj 03/09/2017,03/31/2014,05/09/2013,05/23,05/24/2011,04/07/2008,04/07/2007 Seasonal Influenza, Trivalen t, Adjuvanted, 65+ yrs 02/18/2019 TDAP (age 11 and older)(Adacel) 06/15/2007 documented as of this encounter Social [...] encounter Miscellaneous Notes * Telephone Encounter - Kate Murray CPhT - 11/04/2023 9:27 AM EDT Returned call from pharmacy overflow Voice mail no answer Thank you, Kate Murray Core Shaper Sides II [facility] ([facility] (formerly Telepharmacy) 11/04/2023 9:27 AM documented in this encounter Plan of Treatment Upcoming Encounters Date Type Department Care Team (Late st Contact Info) Description 11/11/2023 3:50 PM EDT Anticoagulation Pharmacy, [address] [place] [address] [place] [address] 11/17/2023 3:45 PM EDT Imaging Radiology [address] [facility] [place] [address] 01/06/2024 11:20 AM EDT Office Visit Family Medicine [address] [place] [phone] Nat Salter MD [address] [place] [address] [place] [address] 04/06/2024 3:30 PM EDT Office Visit Cardiology [address] [place] [address] Wes Bourgeois PA-C [address] [place] [address] 08/24/2024 2:30 PM EDT Nurse Only Ancillary [place] [address] [place] [address] Angy Nurse [address] [place] [address] Health Maintenance Due Date Last Done Comments Colonoscopy 1997 Fecal Occult Blood Test 1997 Sigmoidoscopy 1997 Zoster Vaccines (1 of 2) 2002 DTaP,Tdap,and Td Vaccines (2 - Td or Tdap) 06/15/2017 06/15/2007 Cologuard 10/01/2021 10/01/2018 Colorectal Cancer Screening 10/01/2021 COVID-19 Vaccine ( season) 2023 05/06/2023, 04/30/2022, 07/24/2021, Additional history exists TSH 05/16/2024 05/16/2023, 04/10, 10/30/2022, Additional history exists Mammogram 08/04/2024 08/04/2023, 08/2021, 03/11/2022, Additional history exists Depression Screening 08/20/2024 [...] this encounter Medical Devices Implanted Type Area Hand Heel Seat Fitter Device Identifier Shelf Expiration Date Model / Serial / Lot Suture Steel 6 B&S19 M654g - [id number] Implanted:Qty : 4 on 06/18/2018 by Handy Farmer MD at OR [facility] [place] N/A: Sternum JNJ : [employer] 01/06/2023 [id number] / / [id number] Valve Heart Aortic Epic 23mm - [id number] Implanted:03/2019 by Handy Farmer MD at OR [facility] [place] (Quantity not on file) N/A: Heart ST KERRI : CARDIOVASCULAR 12/28/2021 [id number] / [id number] / LOT NA Graft Gelweave Valsalva 28mm - [id number] - [id number] Implanted:Qty : 1 on 06/18/2018 by Handy Farmer MD at OR [facility] [place] N/A: Aorta [employer] 04/08/2021 [id number] / [id number] / [id number] Ptfe 6x6in X5 - [id number] Implanted:Qty : 1 on 06/18/2018 by Handy Farmer MD at OR [facility] [place] N/A: Aorta CR BARD : PERIPHERAL VASCULAR 12/04/2022 [id number] / / [id number] 6in X 6in (15cm X 15cm) Ptfe [place], 1.65mm Thick Implanted:Qty : 1 on 06/18/2018 by Handy Farmer MD at OR [facility] [place] N/A: Aorta CR BARD : PERIPHERAL VASCULAR 12/04/2022 [id number] / / [id number] 6in X 6in (15cm X 15cm) Ptfe [place], 1.65mm Thick Implanted:Qty : 1 on 06/18/2018 by Handy Farmer MD at OR [facility] [place] N/A: Aorta CR BARD : PERIPHERAL VASCULAR 12/04/2022 [id number] / / [id number] 6in X 6in (15cm X 15cm) Ptfe [place], 1.65mm Thick Implanted:Qty : 1 on 06/18/2018 by Handy Farmer MD at OR [facility] N/A: Aorta CR BARD : PERIPHERAL VASCULAR 12/04/2022 [id number] / / [id number] documented as of this encounter Advance Directives * Full Code (Latest Code Status on File) Date Activated Date Inactivated Comments 06/18/2018 6:43 PM 06/25/2018 6:16 PM This order r eflects the patients wishes and were consensually agreed upon. Care Teams Call Center Agent Relationship Specialty Start Date End Date Nat Salter MD [address] [place] [address] [place] [phone] PCP - General Family Medicine 11/13/18 documented as of this encounter
--- OUTSIDE RECORDS SUMMARY | 2024-04-07 13:13 | External Medical Summary | Summary of Care ---
Author Name Unknown Organization [facility] Address [address] [place] [address] Phone [phone] Care Team Providers Care Rivet Sorter Name Role Phone Nat Salter MD Primary Care Prov ider Reason for Visit * Reason Comments eRx-Medication Refill Encounter Details Date Type Department Care Team (Late st Contact Info) Description 01/15/2024 Refill Family [address] [phone] Nat Salter MD [address] [place] [address] [place] [address] Acquired hypothyroidism Allergies Active Allergy Reactions Criticality Noted Date Comments Prednisone Other (Please comment) Medium 12/28/2015 Stated it caused her to go into AFib documented as of this encounter (statuses as of 01/16/2024) Medications Medication Sig Dispensed Refills Start Date [...] group B, by GOLD 2017 classification ([facility]) Use 3 L/min(Oxygen) as directed continuous. 1 Each 04/23/20 22 Active Budesonide-Formote rol Fumarate 160-4.5 MCG/ACT Inhalation Aerosol (Symbicort)Indicat ions:COPD, group B, by GOLD 2017 classification ([facility]) Inhale 2 Puffs by mouth in the morning and 2 Puffs before bedtime. 10.2 g 12 08/06/19 23 Active Additional Information Patient not taking.Reported on 11/27/2023 Albuterol Sulfate HFA 108 (90 Base) MCG/ACT Inhalation Aerosol SolutionIndication s:COPD, group B, by GOLD 2017 classification ([facility]) Inhale 2 Puffs by mouth every 6 hours as needed for Cough, Shortness of Breath or Wheezing. 18 g 08/06/19 23 Active Spironolactone 25 MG Oral Tablet (Aldactone)Indicat ions:Chronic right-sided CHF (congestive heart failure) ([facility]) Take 0.5 Tablets by mouth in the morning. 17 Tablet 11 01/24/20 23 Active Potassium Chloride Stefania ER 20 MEQ Oral Tablet Extended ReleaseIndications :Paroxysmal atrial fibrillation ([facility]),Chronic diastolic heart failure ([facility]),Chronic right-sided CHF (congestive heart failure) ([facility]) TAKE ONE TABLET BY MOUTH IN THE MORNING AND TAKE THREE TABLETS ON DAYS WHEN TAKING METALAZONE 90 Tablet 3 08/07/19 24 Active Allopurinol 100 MG Oral Tablet (Zyloprim)Indicati ons:Kidney disease, chronic, stage IV (GFR 15-29 ml/min) ([facility]),Hyperuricemi a Take 2 Tablets by mouth [...] (toPROL XL)Indications:Par oxysmal atrial fibrillation (HCC) 1 2 tablets in the morning and 1 1/2 tablets in the evening 270 Tablet 3 10/03/19 24 Active Spiriva Respimat 2.5 MCG/ACT Inhalation Aerosol Solution (Tiotropium [place] Monohydrate)Indica tions:COPD, group B, by GOLD 2017 classification ([facility]) Inhale 2 Puffs by mouth [...] meds 90 Tablet 1 01/16/20 24 Active Levothyroxine Sodium 100 MCG Oral Tablet (Levoxyl)Indicatio ns:Acquired hypothyroidism TAKE ONE TABLET BY MOUTH EVERY MORNING 30 minutes BEFORE breakfast OR other meds 90 Tablet 1 05/06/20 23 024 Discontinued documented as of this encounter (statuses as of 01/16/2024) Active Problems Problem Noted Date Diagnosed Date [...] as of this encounter (statuses as of 01/16/2024) Resolved Problems Problem Noted Date Diagnosed Date [...] id ventricular response 06/18/2016 12/13/2016 Overview: admitted [facility] pulse 140s OBESITY, BMI 30-34 (SEE [...] as of this encounter (statuses as of 01/16/2024) Immunizations Name Administration Dates Next Due COVID-19 mRNA, LNP-s, No Pre serve, 2-Dose Series ([employer]) 07/24/2021,01/30/2021,01/05/2021 COVID-19, LNP-s, No Preserve , Vito-sucrose, Ages 12+ (Pfizer) 07/24/2021 COVID-19, MRNA-LNP, 23-24, P F, 30 MCG/0.3 mL, 12 YRS AND ABOVE, IM ([employer]) 05/06/2023 Covid-19, Mrna, Lnp-s, Pf, B ivalent, 30 Mcg, IM, 12 yrs and above ([employer]) 04/30/2022 Pneumococcal Conjugate Vacc, 13 Valent (Prevnar) [...] encounter Miscellaneous Notes * Telephone Encounter - Armida French, [facility] - 01/16/2024 10:09 AM EDT Signed Prescriptions: Disp Refills Levothyroxine Sodium 100 MCG Oral Tablet (*90 Tab*1 Sig: TAKE ONE TABLET BY MOUTH EVERY MORNING 30 minutes BEFORE breakfast OR other medsAuthorizing Provider: NAT MARIE User: ARMIDA FRENCH documented in this encounter Plan of Treatment Upcoming Encounters Date Type Department Care Team (Late st Contact Info) Description 01/16/2024 2:30 PM EDT Telemedicine Care Coordination and Integration [address] [place] [address] Nanci Powell, [place] [address] [place] [address] 01/19/2024 3:00 PM EDT Anticoagulation Pharmacy, [address] [place] [address] [place] [address] 02/06/2024 12:00 PM EDT Office Visit Family Medicine [address] [place] [phone] Daniella Brito PA-C [address] [place] [address] [place] [address] 04/06/2024 3:30 PM EDT Office Visit Cardiology [address] [place] [address] Wes Bourgeois PA-C [address] [place] [address] 08/24/2024 2:30 PM EDT Nurse Only Ancillary [address] [place] [address] [place], Nurse Annual Wellness [address] [place] [address] [place] [address] 09/02/2024 3:20 PM EDT Office Visit Nephrology [address] [place] [address] Vivien Diez MD [address] [place] [address] [place] [address] Health Maintenance Due Date Last Done Comments [...] this encounter Medical Devices Implanted Type Area Bus Monitor Device Identifier Shelf Expiration Date Model / Serial / Lot Suture Steel 6 B&S19 M654g - [id number] Implanted:Qty : 4 on 06/18/2018 by Handy Farmer MD at OR [facility] [place] N/A: Sternum JNJ : [employer] 01/06/2023 [id number] / / [id number] Valve Heart Aortic Epic 23mm - [id number] Implanted:03/2019 by Handy Farmer MD at OR [facility] [place] (Quantity not on file) N/A: Heart [employer]ER[employer] : CARDIOVASCULAR 12/28/2021 [id number] 00 / [id number] / LOT NA Graft Gelweave Valsalva 28mm - [id number] - [id number] Implanted:Qty : 1 on 06/18/2018 by Handy Farmer MD at OR [facility] [place] N/A: Aorta [employer] 04/08/2021 [id number] / [id number] / [id number] [place] Ptfe 6x6in X5 - [id number] Implanted:Qty : 1 on 06/18/2018 by Handy Farmer MD at OR [facility] [place] N/A: Aorta CR BARD : PERIPHERAL VASCULAR 12/04/2022 [id number] / / [id number] 6in X 6in (15cm X 15cm) Ptfe [place], 1.65mm Thick Implanted:Qty : 1 on 06/18/2018 by Handy Farmer MD at OR [facility] [place] N/A: Aorta CR BARD : PERIPHERAL VASCULAR 12/04/2022 [id number] / / [id number] 6in X 6in (15cm X 15cm) Ptfe [place], 1.65mm Thick Implanted:Qty : 1 on 06/18/2018 by Hnady Farmer MD at OR [facility] [place] N/A: Aorta CR BARD : PERIPHERAL VASCULAR 12/04/2022 [id number] / / [id number] 6in X 6in (15cm X 15cm) Ptfe [place], 1.65mm Thick Implanted:Qty : 1 on 06/18/2018 by Handy Farmer MD at OR [facility] [place] N/A: Aorta CR BARD : PERIPHERAL VASCULAR 12/04/2022 [id number] / / [id number] documented as of this encounter Visit Diagnoses Diagnosis Acquired hypothyroidism Unspecified hypothyroidism documented in this encounter Advance Directives * Full Code (Latest Code Status on File) Date Activated Date Inactivated Comments 06/18/2018 6:43 PM 06/25/2018 6:16 PM This order r eflects the patients wishes and were consensually agreed upon. Care Teams Rivet Sorter Relationship Specialty Start Date End Date Nat Salter MD [address] [place] [address] [place] [address] PCP - General Family Medicine 11/13/18 documented as of this encounter
--- OUTSIDE RECORDS SUMMARY | 2024-04-07 13:13 | External Medical Summary ---
Author Name Unknown Address Unknown Organization : Laboratory Report Ordering Provider Test Date Status LUIS GALLEGOS 12/09/2023 15:33:58 Final Therapeutic ranges for non-o perative patients:
Prophylaxsis/treatment of DVT: (Range:2.0-3.0)
Treatment of pulmonary embolism:(Range:2.0-3.0)
Prevention of systemic embolism from:
-tissue heart valves
-acute myocardial infarction
-valvular heart disease
-atrial fibrillation
(Range: 2.0-3.0)
Mechanical prosthetic valves: (Range: 2.5-3.5) Observation Date Value Abnormality Reference (Units ) Status INR in Capillary blood by Coagulation assay 12/09/2023 15:33:58 2.9 (INR) Final Performing Location
--- OUTSIDE RECORDS SUMMARY | 2024-04-07 13:13 | External Medical Summary | Summary of Care ---
Author Name Unknown Organization [facility] Address [address] [place] [address] Phone [phone] Care Team Providers Care Consulting Networking Engineer Name Role Phone Nat Salter MD Primary Care Prov ider Reason for Visit * Reason Onset Date Comments Appointment 11/27/2023 Encounter Details Date Type Department Care Team (Late st Contact Info) Description 11/27/2023 Telephone NephrologyEmelyn [address] [place] [address] Vivien Diez MD [address] [place] [address] Appointment Allergies Active Allergy Reactions Criticality Noted Date Comments Prednisone Other (Please comment) Medium 12/28/2015 Stated it caused her to go into AFib documented as of this encounter (statuses as of 11/28/2023) Medications Medication Sig Dispensed Refills Start Date End Date Status DIURETIC TITRATION PLANIndications:Chr onic right-sided CHF (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 1 Each 02/18/2019 Active Aspirin 81 MG Oral Tablet Delayed Release Take 1 Tablet by mouth in the morning. Active oxygen IN GASIndications:Pretzel Twister otf right-sided CHF (congestive heart failure) (HCC),Chronic hypoxemic respiratory failure (HCC),COPD, group B, by GOLD 2017 classification ([facility]) Use 3 L/min(Oxygen) as directed continuous. 1 Each 04/23/2022 Active Budesonide-Formoter ol Fumarate 160-4.5 MCG/ACT Inhalation Aerosol (Symbicort)Indicati ons:COPD, group B, by GOLD 2017 classification ([facility]) Inhale 2 Puffs by mouth in the morning and 2 Puffs before bedtime. 10.2 g 12 08/06/2022 Active Additional Information Patient not taking.Reported on 11/27/2023 Albuterol Sulfate HFA 108 (90 Base) MCG/ACT Inhalation Aerosol SolutionIndications :COPD, group B, by GOLD 2017 classification ([facility]) Inhale 2 Puffs by mouth every 6 hours as needed for Cough, Shortness of Breath or Wheezing. 18 g 08/06/2022 Active Spironolactone 25 MG Oral Tablet (Aldactone)Indicati ons:Chronic right-sided CHF (congestive heart failure) ([facility]) Take 0.5 Tablets by mouth in the morning. 17 Tablet 11 01/23/2023 Active Levothyroxine Sodium 100 MCG Oral Tablet (Levoxyl)Indication s:Acquired hypothyroidism TAKE ONE TABLET BY MOUTH EVERY MORNING 30 minutes BEFORE breakfast OR other meds 90 Tablet 1 05/06/2023 Active Potassium Chloride Stefania ER 20 MEQ Oral Tablet Extended ReleaseIndications: Paroxysmal atrial fibrillation ([facility]),Chronic diastolic heart failure ([facility]),Chronic right-sided CHF (congestive heart failure) ([facility]) TAKE ONE TABLET BY MOUTH IN THE MORNING AND TAKE THREE TABLETS ON DAYS WHEN TAKING METALAZONE 90 Tablet 3 08/07/2023 Active Allopurinol 100 MG Oral Tablet (Zyloprim)Indicatio ns:Kidney disease, chronic, stage IV (GFR 15-29 ml/min) ([facility]),Hyperuricemia Take 2 Tablets by mouth in the morning. 60 Tablet 08/07/2023 Active Vitamin D 50 MCG (2000 UT) Oral CapsuleIndications: Vitamin D deficiency Take 4,000 Units by mouth in the morning. 4,000 units daily. 60 Capsule 11 08/07/2023 Active Omeprazole 20 MG Oral Capsule [...] Respimat 2.5 MCG/ACT Inhalation Aerosol Solution (Tiotropium [place] Monohydrate)Indicat ions:COPD, group B, by GOLD 2017 classification ([facility]) Inhale 2 Puffs by mouth in [...] anticoagulation clinic 180 Tablet 3 11/18/2023 Active documented as of this encounter (statuses as of 11/28/2023) Active Problems Problem Noted Date Diagnosed Date [...] brochure given to patient at 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 Pre-op testing Dyslipidemia, goal LDL below 100 Total knee replacement status Adjustment disorder with depressed mood SBE (subacute bacterial endocarditis) prophylaxi s candidate History of tobacco use documented as of this encounter (statuses as of 11/28/2023) Resolved Problems Problem Noted Date Diagnosed Date [...] id ventricular response 06/18/2016 12/13/2016 Overview: admitted [facility] pulse 140s OBESITY, BMI 30-34 [...] as of this encounter (statuses as of 11/28/2023) Immunizations Name Administration Dates Next Due COVID-19 mRNA, LNP-s, No Pre serve, 2-Dose Series ([employer]) 07/24/2021,01/30/2021,01/05/2021 COVID-19, LNP-s, No Preserve , Vito-sucrose, [...] No 11/27/2023 Does the household have a [facility] source [facility] income? (Household - for ages [...] encounter Miscellaneous Notes * Telephone Encounter - Karley Heart RN - 11/27/2023 3:54 PM EDT Pt see in clinic in July and due to be seen in December. Please schedule next available appoinntment at [facility]. documented in this encounter Plan of Treatment Upcoming Encounters Date Type Department Care Team (Late st Contact Info) Description 12/09/2023 3:40 PM EDT Anticoagulation Pharmacy, [place] [facility] [place] [address] [place] [address] 01/06/2024 11:20 AM EDT Office Visit Family Medicine [address] [place] [phone] Nat Salter MD [address] [place] [address] [place] [address] 04/06/2024 3:30 PM EDT Office Visit Cardiology [address] [place] [address] Wes Bourgeois PA-C [address] [place] [address] 08/24/2024 2:30 PM EDT Nurse Only Ancillary [address] [place] [address] [place], Nurse Annual Wellness [address] [place] [address] [place] [address] Health Maintenance Due Date Last Done Comments [...] 08/04/2024 08/04/2023, 1008/2021, 03/11/2022, Additional history exists O2 ASSESSMENT COMPLETED IN PAST YEAR FOR COPD 08/20/2024 08/21/2023 Depression Screening 11/26/2024 11/27/2023 DXA Scan 03/09/2026 03/09/2019 Lipid Panel 05/16/2028 05/16/2023, 10/08, 01/03/2022, Additional history exists Pneumococcal Vaccine: 65+ Years Completed 11/13/2018, 10/21/2017, 03/10/2008, Additional history exists Alpha-1 Antitrypsin Completed 10/10/2020 Albumin/Creatinine Ratio Discontinued 023, 01/03/2022, 03/26/2021 Influenza Vaccine (FLU shot) Completed 03/18/2023, 03/14/2022, 02/23/2021, Additional history exists Lung Cancer Screening Completed 11/17/2023 , 11/05/2022, 06/07/2022, Additional history exists GARDASIL-HPV IMMUNIZATION SERIES Aged Out No longer eligible based on patient's age to complete this topic Hepatitis B Aged Out No longer eligi ble based on patient's age to complete this topic MENINGOCOCCAL (MENACTRA/MENVEO) Aged Out No longer eligible based on patient's age to complete this topic documented as of this encounter Medical Devices Implanted Type Area Hotel Front Office Manager Device Identifier Shelf Expiration Date Model / Serial / Lot Suture Steel 6 B&S19 M654g - [id number] Implanted:Qty : 4 on 06/18/2018 by Handy Farmer MD at OR [facility] [place] N/A: Sternum JNJ : [employer] 01/06/2023 M654G / / [id number] Valve Heart Aortic Epic 23mm - [id number] Implanted:03/2019 by Handy Farmer MD at OR [facility] [place] (Quantity not on file) N/A: Heart ST KER[employer] : CARDIOVASCULAR 12/28/2021 [id number] 00 / [id number] / LOT NA Graft Gelweave Valsalva 28mm - [id number] - [id number] Implanted:Qty : 1 on 06/18/2018 by Handy Farmer MD at OR [facility] [place] N/A: Aorta [employer] 04/08/2021 [id number] / [id number] / [id number] [place] Ptfe 6x6in X5 - [id number] Implanted:Qty : 1 on 06/18/2018 by Handy Farmer MD at OR [facility] [place] N/A: Aorta CR BARD : PERIPHERAL VASCULAR 12/04/2022 [id number] / / [id number] 6in X 6in (15cm X 15cm) Ptfe [place], 1.65mm Thick Implanted:Qty : 1 on 06/18/2018 by Handy Farmer MD at OR [facility] [place] N/A: Aorta CR BARD : PERIPHERAL VASCULAR 12/04/2022 [id number] / / [id number] 6in X 6in (15cm X 15cm) Ptfe [place], 1.65mm Thick Implanted:Qty : 1 on 06/18/2018 by Handy Farmer MD at OR [facility] [place] N/A: Aorta CR BARD : PERIPHERAL VASCULAR 12/04/2022 [id number] / / [id number] 6in X 6in (15cm X 15cm) Ptfe [place], 1.65mm Thick Implanted:Qty : 1 on 06/18/2018 by Handy Farmer MD at OR [facility] [place] N/A: Aorta CR BARD : PERIPHERAL VASCULAR 12/04/2022 [id number] / / [id number] documented as of this encounter Advance Directives * Full Code (Latest Code Status on File) Date Activated Date Inactivated Comments 06/18/2018 6:43 PM 06/25/2018 6:16 PM This order r eflects the patients wishes and were consensually agreed upon. Care Teams Consulting Networking Engineer Relationship Specialty Start Date End Date Nat Salter MD [address] [place] [address] [place] [address] PCP - General Family Medicine 11/13/18 documented as of this encounter
--- OUTSIDE RECORDS SUMMARY | 2024-04-07 13:13 | External Medical Summary | Summary of Care ---
Author Name Unknown Organization [facility] Address [address] [place] [address] Phone [phone] Care Team Providers Care Link Trainer Maintenance Man Name Role Phone Nat Salter MD Primary Care Prov ider Reason for Visit * Reason Onset Date Comments Medication Refill 10/31/2023 Spiriva 2.5 Re spimate Inhal spr Encounter Details Date Type Department Care Team (Late st Contact Info) Description 10/31/2023 Refill Pulmonary Medicine Raghavendra Bell [address] [phone] Manuelito Scott MD [address] [address] COPD, group B, by GOLD 2017 classification ([facility])* Allergies Active Allergy Reactions Criticality Noted Date Comments Prednisone Other (Please comment) Medium 12/28/2015 Stated it caused her to go into AFib documented as of this encounter (statuses as of 11/04/2023) Medications Medication Sig Dispensed Refills Start Date End Date Status DIURETIC TITRATION PLANIndications:Chr onic right-sided CHF (congestive heart failure) ([facility]) If no improvement on day 3, contact heart failure managing provider. 1 Each 02/18/2019 Active Aspirin 81 MG Oral Tablet Delayed Release Take 1 Tablet by mouth in the morning. Active oxygen IN GASIndications:Lace Machine Operator otf right-sided CHF (congestive heart failure) (HCC),Chronic [...] of Breath or Wheezing. 18 g 11 08/06/2022 Active Spironolactone 25 MG Oral Tablet [...] Tablet (Lipitor)Indication s:Dyslipidemia, goal LDL below 100 TAKE ONE TABLET BY MOUTH EVERY DAY 90 Tablet 1 04/29/2023 Active Levothyroxine Sodium 100 MCG Oral Tablet (Levoxyl)Indication s:Acquired hypothyroidism TAKE ONE TABLET BY MOUTH EVERY MORNING 30 minutes BEFORE breakfast OR other meds 90 Tablet 1 05/06/2023 Active Torsemide 20 MG Oral Tablet (Demadex)Indication [...] disease, chronic, stage IV (GFR 15-29 ml/min) (HCC),Hyperuricemia Take 2 Tablets by mouth in the morning. 60 Tablet 08/07/2023 Active Vitamin D 50 MCG (2000 UT) Oral CapsuleIndications: Vitamin D deficiency Take 4,000 Units by mouth in the morning. 4,000 units daily. 60 Capsule 08/07/2023 Active Warfarin Sodium 2.5 MG Oral Tablet (Coumadin)Indicatio ns:Paroxysmal atrial fibrillation (HCC),Anticoagulati on management encounter,custodial current use of anticoagulant therapy TAKE ONE [...] Respimat 2.5 MCG/ACT Inhalation Aerosol Solution (Tiotropium [place] Monohydrate)Indicat ions:COPD, group B, by GOLD 2017 classification ([facility]) Inhale 2 Puffs by mouth in the morning. 4 g 11/04/2023 Active Spiriva Respimat 2.5 MCG/ACT Inhalation Aerosol Solution (Tiotropium [place] Monohydrate)Indicat ions:COPD, group B, by GOLD 2017 classification ([facility]) Inhale 2 Puffs by mouth in the morning. 4 g 01/02/2023 4 Discontinu ed(Refill) documented as of this encounter [...] brochure given to patient at 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 custodial current use of anticoagulant therapy 0 12/25/2004 [...] id ventricular response 06/18/2016 12/13/2016 Overview: admitted [facility] pulse 140s OBESITY, BMI 30-34 (SEE [...] mRNA, LNP-s, No Pre serve, 2-Dose Series ([employer]) 07/24/2021,01/30/2021,01/05/2021 COVID-19, LNP-s, No Preserve , Vito-sucrose, Ages 12+ (Pfizer) 07/24/2021 COVID-19, MRNA-LNP, 23-24, P F, 30 MCG/0.3 mL, 12 YRS AND ABOVE, IM ([facility]) 05/06/2023 Covid-19, Mrna, Lnp-s, Pf, B [...] money to buy more. Never true 08/21/19 Within the past 12 months, t he [...] encounter Miscellaneous Notes * Telephone Encounter - Manuelito Scott MD - 11/04/2023 6:49 AM EDT Signed Prescriptions: Disp Refills Spiriva Respimat 2.5 MCG/ACT Inhalation Ae*4 g 11 Sig: Inhale 2 Puffs by mouth in the morning.Authorizing Provider: MANUELITO SCOTT documented in this encounter Plan of Treatment Upcoming Encounters Date Type Department Care Team (Late st Contact Info) Description 11/11/2023 3:50 PM EDT Anticoagulation Pharmacy, [address] [place] [address] [place] [address] 11/17/2023 3:45 PM EDT Imaging Radiology [address] [place] [address] 01/06/2024 11:20 AM EDT Office Visit Family Medicine [address] [place] [phone] Nat Salter MD [address] [place] [address] [place] [address] 04/06/2024 3:30 PM EDT Office Visit Cardiology [address] [place] [address] Wes Bourgeois PA-C [address] [place] [address] 08/24/2024 2:30 PM EDT Nurse Only Ancillary [address] [place] [address] [place], Nurse Annual Wellness [address] [place] [address] [place] [address] Health Maintenance Due Date Last Done Comments [...] this encounter Medical Devices Implanted Type Area Clutch Mechanic Device Identifier Shelf Expiration Date Model / Serial / Lot Suture Steel 6 B&S19 M654g - [id number] Implanted:Qty : 4 on 06/18/2018 by Handy Farmer MD at OR [facility] N/A: Sternum JNJ : [employer] 01/06/2023 M654G / / [id number] Valve Heart Aortic Epic 23mm - [id number] Implanted:03/2019 by Handy Farmer MD at OR [facility] (Quantity not on file) N/A: Heart ST KERRI : CARDIOVASCULAR 12/28/2021 [id number] / [id number] / LOT NA Graft Gelweave Valsalva 28mm - [id number] - [id number] Implanted:Qty : 1 on 06/18/2018 by Handy Farmer MD at OR [facility] N/A: Aorta [employer] CHANT[employer] 04/08/2021 [id number] / [id number] / [id number] [place] Ptfe 6x6in X5 - [id number] Implanted:Qty : 1 on 06/18/2018 by Handy aFrmer MD at OR [facility] N/A: Aorta CR BARD : PERIPHERAL VASCULAR 12/04/2022 [id number] / / [id number] 6in X 6in (15cm X 15cm) Ptfe [place], 1.65mm Thick Implanted:Qty : 1 on 06/18/2018 by Handy Farmer MD at OR [facility] N/A: Aorta CR BARD : PERIPHERAL VASCULAR 12/04/2022 [id number] / / [id number] 6in X 6in (15cm X 15cm) Ptfe [place], 1.65mm Thick Implanted:Qty : 1 on 06/18/2018 by Handy Farmer MD at OR [facility] N/A: Aorta CR BARD : PERIPHERAL VASCULAR 12/04/2022 [id number] / / [id number] 6in X 6in (15cm X 15cm) Ptfe [place], 1.65mm Thick Implanted:Qty : 1 on 06/18/2018 by Handy Farmer MD at OR [facility] N/A: Aorta CR BARD : PERIPHERAL VASCULAR 12/04/2022 [id number] / / [id number] documented as of this encounter Visit Diagnoses Diagnosis COPD, group B, by GOLD 2017 classification (HCC)- Primary documented in this encounter Advance Directives * Full Code (Latest Code Status on File) Date Activated Date Inactivated Comments 06/18/2018 6:43 PM 06/25/2018 6:16 PM This order r eflects the patients wishes and were consensually agreed upon. Care Teams Link Trainer Maintenance Man Relationship Specialty Start Date End Date Nat Salter MD [address] [place] [address] [place] [phone] PCP - General Family Medicine 11/13/18 documented as of this encounter
--- OUTSIDE RECORDS SUMMARY | 2024-04-07 13:13 | External Medical Summary ---
Author Name Unknown Address Unknown Organization : Laboratory Report Ordering Provider Test Date Status LUIS GALLEGOS 11/18/2023 15:24:07 Final Therapeutic ranges for non-o perative patients:
Prophylaxsis/treatment of DVT: (Range:2.0-3.0)
Treatment of pulmonary embolism:(Range:2.0-3.0)
Prevention of systemic embolism from:
-tissue heart valves
-acute myocardial infarction
-valvular heart disease
-atrial fibrillation
(Range: 2.0-3.0)
Mechanical prosthetic valves: (Range: 2.5-3.5) Observation Date Value Abnormality Reference (Units ) Status INR in Capillary blood by Coagulation assay 11/18/2023 15:24:07 2.9 (INR) Final Performing Location
--- OUTSIDE RECORDS SUMMARY | 2024-04-07 13:13 | External Medical Summary | Summary of Care ---
Author Name Unknown Organization [facility] Address [address] [place] [address] Phone [phone] Care Team Providers Care Graphic Artist Name Role Phone Nat Salter MD Primary Care Prov ider Reason for Visit * Reason Onset Date Comments Medication Refill 11/04/2023 Encounter Details Date Type Department Care Team (Late st Contact Info) Description 11/04/2023 Refill Cardiology, [facility] [address] [place] [address] Shanique Tineo PA-C [address] [place] [address] Dyslipidemia, goal LDL below 100 Allergies Active [...] mouth in the morning. 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 1 Each 04/23/2022 Active Budesonide-Formoter ol Fumarate 160-4.5 MCG/ACT Inhalation Aerosol (Symbicort)Indicati ons:COPD, group B, by GOLD 2017 classification ([facility]) Inhale 2 Puffs by mouth in the morning and 2 Puffs before bedtime. 10.2 g 12 08/06/2022 Active Albuterol Sulfate HFA 108 (90 Base) MCG/ACT Inhalation Aerosol SolutionIndications :COPD, group B, by GOLD 2017 classification ([facility]) Inhale 2 Puffs by mouth every [...] OR CHEW, 90 Capsule 1 04/24/2023 Active Levothyroxine Sodium 100 MCG Oral Tablet [...] stage IV (GFR 15-29 ml/min) ([facility]),Hyperuricemia Take 2 Tablets by mouth in the morning. 60 Tablet 11 08/07/2023 Active Vitamin D 50 MCG (2000 UT) Oral CapsuleIndications: Vitamin D deficiency Take 4,000 Units by mouth in the morning. 4,000 units daily. 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 4 g 11 11/04/2023 Active Atorvastatin Calcium 40 MG Oral Tablet (Lipitor)Indication s:Dyslipidemia, goal LDL below 100 Take 1 Tablet by mouth in the morning. 90 Tablet 3 11/04/2023 Active Atorvastatin Calcium 40 MG Oral Tablet (Lipitor)Indication s:Dyslipidemia, goal LDL below 100 TAKE ONE TABLET BY MOUTH EVERY DAY 90 Tablet 1 04/29/2023 4 Discontinu ed(Refill) documented as of this [...] brochure given to patient at 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 [facility] current use of anticoagulant therapy 0 12/25/2004 [...] id ventricular response 06/18/2016 12/13/2016 Overview: admitted [facility] pulse 140s OBESITY, BMI [...] mRNA, LNP-s, No Pre serve, 2-Dose Series ([employer]) 07/24/2021,01/30/2021,01/05/2021 COVID-19, LNP-s, No Preserve , Vito-sucrose, Ages 12+ (Pfizer) 07/24/2021 COVID-19, MRNA-LNP, 23-24, P F, 30 MCG/0.3 mL, 12 YRS AND ABOVE, IM ([facility] 05/06/2023 Covid-19, Mrna, Lnp-s, Pf, B ivalent, 30 Mcg, IM, 12 yrs and above ([employer]) 04/30/2022 Pneumococcal Conjugate Vacc, 13 Valent (Prevnar) [...] Telephone Encounter - Shanique Tineo PA-C - 11/04/2023 4:49 PM EDTSigned Prescriptions: Disp Refills Atorvastatin Calcium 40 MG Oral Tablet (Li*90 Tab*3 Sig: Take 1 Tablet by mouth in the morning. Authorizing Provider: SHANIQUE TINEO * Telephone Encounter - Jazmin Dhillon CMA - 11/04/2023 4:28 PM EDTPending Prescriptions: Disp Refills Atorvastatin Calcium 40 MG Oral Tablet (Li*90 Tab*3 Sig: Take 1 Tablet by mouth in the morning. * Telephone Encounter - Agustina Kelsey OSA - 11/04/2023 9:41 AM EDT Patient is up to date for office visits. Pending Prescriptions: Disp Refills Atorvastatin Calcium 40 MG Oral Tablet (L*90 Tab*1 Sig: Take 1 Tablet by mouth in the morning. Last Visit: 08/06/2023 (in office), Visit date not found (telemedicine) Next Visit: Visit date not found If no future appointments scheduled, and last appointment is greater than a year ago, please schedule patient for a follow-up appointment Last date the medication was ordered: 04/29/2023 Pharmacy: [facility], [address] [place] Is this request for a controlled substance?No it is not controlled. Urine Drug Screen:No results found. However, due to the size of the patient record, not all encounters were searched. Please check Results Review for a complete set of results. Patient Phone Numbers Labs: Lab Results Component Value Date/Time CREAT 1.8 (H) 07/30/2023 11:48 AM CREAT 1.2 (H) 08/10/2019 10:15 AM POTASSIUM 3.9 07/30/2023 11:48 AM POTASSIUM 3.8 08/10/2019 10:15 AM TSH 3.80 05/16/2023 12:40 PM TSH 1.21 07/15/2019 02:23 PM LDLCALC 53 05/16/2023 12:40 PM LDLCALC 59 08/10/2019 10:15 AM LDLDIRECT 55 01/03/2022 01:36 PM LDLDIRECT NOT APPLICABLE 08/10/2019 10:15 AM LDLDIRECT 105 (H) 12/05/2006 03:01 PM ALT 21 05/16/2023 12:40 PM ALT 33 07/15/2019 02:23 PM HGBA1C 6.1 (H) 05/27/2018 05:42 PM documented in this encounter Plan of Treatment Upcoming Encounters Date Type Department Care Team (Late st Contact Info) Description 11/17/2023 3:45 PM EDT Imaging Radiology [address] [place] [address] 11/18/2023 3:20 PM EDT Anticoagulation Pharmacy, [address] [place] [address] [place] [address] 01/06/2024 11:20 AM EDT Office Visit Family Medicine [address] [place] [phone] Nat Salter MD [address] [place] [address] [place] [address] 04/06/2024 3:30 PM EDT Office Visit Cardiology [address] [place] [address] Shanique Tineo PA-C [address] [place] [address] 08/24/2024 2:30 PM EDT Nurse Only Ancillary [address] [place] [address] [place], Nurse Annual Wellness [address] [place] [address] [place] [address] Health Maintenance Due Date Last Done Comments [...] this encounter Medical Devices Implanted Type Area Office Supervisor Device Identifier Shelf Expiration Date Model / Serial / Lot Suture Steel 6 B&S19 M654g - [id number] Implanted:Qty : 4 on 06/18/2018 by Handy Farmer [place] [facility]A: Sternum JNJ : [employer] 01/06/2023 M654G / / [id number] Valve Heart Aortic Epic 23mm - [id number] Implanted:03/2019 by Handy Farmer [place] [facility] [place] (Quantity not on file) N/A: Heart ST KERRI : CARDIOVASCULAR 12/28/2021 [id number] / [id number] / LOT NA Graft Gelweave Valsalva 28mm - [id number] - [id number] Implanted:Qty : 1 on 06/18/2018 by Handy Farmer MD [place] [facility] N/A: Aorta [employer] CHANTAL 04/08/2021 [id number] / [id number] / [id number] [place] Ptfe 6x6in X5 - [id number] Implanted:Qty : 1 on 06/18/2018 by Handy Farmer MD [place] [facility] [place]/A: Aorta CR BARD : PERIPHERAL VASCULAR 12/04/2022 [id number] / / [id number] 6in X 6in (15cm X 15cm) Ptfe [place], 1.65mm Thick Implanted:Qty : 1 on 06/18/2018 by Handy Farmer [place] [facility]/A: Aorta CR BARD : PERIPHERAL VASCULAR 12/04/2022 [id number] / / [id number] 6in X 6in (15cm X 15cm) Ptfe [place], 1.65mm Thick Implanted:Qty : 1 on 06/18/2018 by Handy Farmer MD [place] [facility] [place]/A: Aorta CR BARD : PERIPHERAL VASCULAR 12/04/2022 [id number] / / [id number] 6in X 6in (15cm X 15cm) Ptfe [place], 1.65mm Thick Implanted:Qty : 1 on 06/18/2018 by Handy Farmer MD [place] [facility] [place]/A: Aorta CR BARD : PERIPHERAL VASCULAR 12/04/2022 [id number] / / [id number] documented as of this encounter Visit Diagnoses Diagnosis Dyslipidemia, goal LDL below 100 Other and unspecified hyperlipidemia documented in this encounter Advance Directives * Full Code (Latest Code Status on File) Date Activated Date Inactivated Comments 06/18/2018 6:43 PM 06/25/2018 6:16 PM This order r eflects the patients wishes and were consensually agreed upon. Care Teams Graphic Artist Relationship Specialty Start Date End Date Nat Salter MD [address] [place] [address] [place] [phone] PCP - General Family Medicine 11/13/18 documented as of this encounter
--- OUTSIDE RECORDS SUMMARY | 2024-04-07 13:13 | External Medical Summary | Summary of Care ---
Author Name Unknown Organization [facility] Address [address] [place] [address] Phone [phone] Care Team Providers Care .Net Developer Name Role Phone Nat Salter MD Primary Care Prov ider Reason for Visit * Reason Onset Date Comments Medication Refill 11/04/2023 Encounter Details Date Type Department Care Team (Late st Contact Info) Description 11/04/2023 Refill Family [address] [phone] Nat Salter MD [address] [place], [place] [address] [address] Adjustment disorder with depressed mood; Acute on chronic diastolic (congestive) heart failure (HCC) Allergies Active Allergy Reactions Criticality Noted Date Comments Prednisone Other (Please comment) Medium 12/28/2015 Stated it caused her to go into AFib documented as of this encounter (statuses as of 11/05/2023) Medications Medication Sig Dispensed Refills Start Date End Date Status DIURETIC TITRATION PLANIndications:Chr onic right-sided CHF (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 1 Each 02/18/2019 Active Aspirin 81 MG Oral Tablet Delayed Release Take 1 Tablet by mouth in the morning. 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 1 Each 04/23/2022 Active Budesonide-Formoter ol Fumarate 160-4.5 MCG/ACT Inhalation Aerosol (Symbicort)Indicati ons:COPD, group B, by GOLD 2017 classification ([facility]) Inhale 2 Puffs by mouth in the morning and 2 Puffs before bedtime. 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 180 Tablet 2 11/05/2023 Active Venlafaxine HCl ER 75 MG Oral Capsule Extended Release 24 Hour (Effexor XR)Indications:Adju stment disorder with depressed mood TAKE ONE CAPSULE BY MOUTH EVERY DAY DO NOT CUT, CRUSH, OR CHEW, 90 Capsule 1 04/24/2023 4 Discontinu ed(Refill) Torsemide 20 MG Oral Tablet (Demadex)Indication s:Acute on chronic diastolic (congestive) heart failure (HCC) Take 1 Tablet by mouth in the morning and 1 Tablet before bedtime. 180 Tablet 1 05/06/2023 4 Discontinu ed(Refill) documented as of this encounter (statuses as of 11/05/2023) Active Problems Problem Noted Date Diagnosed Date [...] brochure given to patient at 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 Pre-op testing Dyslipidemia, goal LDL below 100 Total knee replacement status Adjustment disorder with depressed mood SBE (subacute bacterial endocarditis) prophylaxi s candidate History of tobacco use documented as of this encounter (statuses as of 11/05/2023) Resolved Problems Problem Noted Date Diagnosed Date [...] ventricular response 06/18/2016 12/13/2016 Overview: admitted [facility] pulse 140s OBESITY, BMI 30-34 (SEE [...] as of this encounter (statuses as of 11/05/2023) Immunizations Name Administration Dates Next Due COVID-19 mRNA, LNP-s, No Pre serve, 2-Dose Series ([employer]) 07/24/2021,01/30/2021,01/05/2021 COVID-19, LNP-s, No Preserve , Vito-sucrose, Ages 12+ (Pfizer) 07/24/2021 COVID-19, MRNA-LNP, 23-24, P F, 30 MCG/0.3 mL, 12 YRS AND ABOVE, IM ([facility]) 05/06/2023 Covid-19, Mrna, Lnp-s, Pf, [...] encounter Miscellaneous Notes * Telephone Encounter - Audra Rodriguez RPh - 11/05/2023 2:44 PM EDTSigned Prescriptions: Disp Refills Venlafaxine HCl ER 75 MG Oral Capsule Exte*90 Cap*2 Sig: TAKE ONE CAPSULE BY MOUTH EVERY DAY DO NOT CUT, CRUSH, OR CHEW, Authorizing Provider: NAT SALTER Ordering User: AUDRA RODRIGUEZ Torsemide 20 MG Oral Tablet (Demadex) 180 Ta*2 Sig: Take 1 Tablet by mouth in the morning and 1 Tablet before be dtime. Authorizing Provider: NAT SALTER Ordering User: AUDRA RODRIGUEZ * Telephone Encounter - Zuleika Cruz CPhT - 11/04/2023 9:37 AM EDT Did you pend patient's preferred pharmacy and medication before forwarding?yes Pharmacy: [facility], [address] [place] Pending Prescriptions: Disp Refills Venlafaxine HCl ER 75 MG Oral Capsule Ext*90 Cap*1 Sig: TAKE ONE CAPSULE BY MOUTH EVERY DAY DO NOT CUT, CRUSH, OR CHEW, Torsemide 20 MG Oral Tablet (Demadex) 180 Ta*1 Sig: Take 1 Tablet by mouth in the morning and 1 Tablet before bedtime. Last Visit: 08/06/2023 (in office), Visit date not found (telemedicine) Next Visit: 01/06/2024 If no future appointments scheduled, and last appointment is greater than a year ago, please schedule patient for a follow-up appointment Last date the medication was ordered: 04/24/23, 05/06/23 Is this request for a controlled substance?No [...] Description 11/17/2023 3:45 PM EDT Imaging Radiology [facility] [place] [place] [address] [place] [address] 11/18/2023 3:20 PM EDT Anticoagulation Pharmacy, [address] [place] [address] [place] [address] 01/06/2024 11:20 AM EDT Office Visit Family Medicine [address] [place] [phone] Nat Salter MD [address] [place] [address] [place] [address] 04/06/2024 3:30 PM EDT Office Visit Cardiology [address] [place] [address] Wes Bourgeois [place] [address] [place] [address] 08/24/2024 2:30 PM EDT Nurse Only Ancillary [address] [place] [address] [place], Nurse Annual Wellness [address] [place] [address] [place] [address] Health Maintenance Due Date Last Done Comments [...] this encounter Medical Devices Implanted Type Area Filtrose Crusher Device Identifier Shelf Expiration Date Model / Serial / Lot Suture Steel 6 B&S19 M654g - [id number] Implanted:Qty : 4 on 06/18/2018 [place] Farmer [place] [facility] [place]: Sternum JNJ : [employer] 01/06/2023 [id number] / / [id number] Valve Heart Aortic Epic 23mm - [id number] Implanted:03/2019 by Handy Farmer [place] [facility] [place] (Quantity not on file) N/A: Heart ST KER[employer] : CARDIOVASCULAR 12/28/2021 [id number] / [id number] / LOT NA Graft Gelweave Valsalva 28mm - [id number] - [id number] Implanted:Qty : 1 on 06/18/2018 by Handy Farmer [place] [facility] [place]/A: Aorta [employer] 04/08/2021 [id number] / [id number] / [id number] [place] Ptfe 6x6in X5 - [id number] Implanted:Qty : 1 on 06/18/2018 by Handy Farmer [place] [facility] [place]/A: Aorta CR BARD : PERIPHERAL VASCULAR 12/04/2022 [id number] / / [id number] 6in X 6in (15cm X 15cm) Ptfe [place], 1.65mm Thick Implanted:Qty : 1 on 06/18/2018 by Handy Farmer [place] [facility] [place]A: Aorta CR BARD : PERIPHERAL VASCULAR 12/04/2022 [id number] / / [id number] 6in X 6in (15cm X 15cm) Ptfe [place], 1.65mm Thick Implanted:Qty : 1 on 06/18/2018 by Handy Farmer [place] [facility] [place]A: Aorta CR BARD : PERIPHERAL VASCULAR 12/04/2022 [id number] / / [id number] 6in X 6in (15cm X 15cm) Ptfe [place], 1.65mm Thick Implanted:Qty : 1 on 06/18/2018 by Handy Farmer [place] [facility] [place]/A: Aorta CR BARD : PERIPHERAL VASCULAR 12/04/2022 [id number] / / [id number] documented as of this encounter Visit Diagnoses Diagnosis Adjustment disorder with depressed mood Acute on chronic diastolic (congestive) heart failure (HCC) documented in this encounter Advance Directives * Full Code (Latest Code Status on File) Date Activated Date Inactivated Comments 06/18/2018 6:43 PM 06/25/2018 6:16 PM This order r eflects the patients wishes and were consensually agreed upon. Care Teams .Net Developer Relationship Specialty Start Date End Date Nat Salter MD [address] [place] [address] [place] [address] PCP - General Family Medicine 11/13/18 documented as of this encounter
--- OUTSIDE RECORDS SUMMARY | 2024-04-07 13:13 | External Medical Summary | Summary of Care ---
Author Name Unknown Organization [facility] Address [address] [place] [address] Phone [phone] Care Team Providers Care Opal Miner Name Role Phone Nat Salter MD Primary Care Prov ider Reason for Visit * Reason Comments Dosage Adjustment In Person (Anticoag Cl inic) Encounter Details Date Type Department Care Team (Latest Contact Info) Description 12/09/2023 3:40 PM EDT Anticoagulation Pharmacy, [address] [place] [phone] [place] [address] Anticoagulation management encounter*; Paroxysmal atrial fibrillation (HCC) Allergies Active Allergy Reactions Criticality Noted Date Comments Prednisone Other (Please comment) Medium 12/28/2015 Stated it caused her to go into AFib documented as of this encounter (statuses as of 12/09/2023) Medications Medication Sig Dispensed Refills Start Date End Date Status DIURETIC TITRATION PLANIndications:Chr onic right-sided CHF (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 1 Each 02/18/2019 Active Aspirin 81 MG Oral Tablet Delayed Release Take 1 Tablet by mouth in the morning. 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) Use 3 L/min(Oxygen) as directed continuous. 1 Each 04/23/2022 Active Budesonide-Formoter ol Fumarate 160-4.5 MCG/ACT Inhalation Aerosol (Symbicort)Indicati ons:COPD, group B, by GOLD 2017 classification ([facility]) Inhale 2 Puffs by mouth in the morning and 2 Puffs before bedtime. 10.2 g 12 08/06/2022 Active Additional Information Patient not taking.Reported on 11/27/2023 Albuterol Sulfate HFA 108 (90 Base) MCG/ACT Inhalation Aerosol SolutionIndications :COPD, group B, by GOLD 2017 classification ([facility]) Inhale 2 Puffs by mouth every 6 hours as needed for Cough, Shortness of Breath or Wheezing. 18 g 11 08/06/2022 Active Spironolactone 25 MG Oral Tablet (Aldactone)Indicati ons:Chronic right-sided CHF (congestive heart failure) ([facility]) Take 0.5 Tablets by mouth in [...] disease, chronic, stage IV (GFR 15-29 ml/min) ([facility]),Hyperuricemia Take 2 Tablets by mouth in [...] Respimat 2.5 MCG/ACT Inhalation Aerosol Solution (Tiotropium [place] Monohydrate)Indicat ions:COPD, group B, by GOLD 2017 classification ([facility]) Inhale 2 Puffs by mouth in [...] as of this encounter (statuses as of 12/09/2023) Active Problems Problem Noted Date Diagnosed Date [...] brochure given to patient at 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 Pre-op testing Dyslipidemia, goal LDL below 100 Total knee replacement status Adjustment disorder with depressed mood SBE (subacute bacterial endocarditis) prophylaxi s candidate History of tobacco use documented as of this encounter (statuses as of 12/09/2023) Resolved Problems Problem Noted Date Diagnosed Date [...] 12/13/2016 Overview: admitted [facility] pulse 140s OBESITY, BMI 30-34 (SEE ACTUAL [...] as of this encounter (statuses as of 12/09/2023) Immunizations Name Administration Dates Next Due COVID-19 mRNA, LNP-s, No Pre serve, 2-Dose Series ([employer]) 07/24/2021,01/30/2021,01/05/2021 COVID-19, LNP-s, No Preserve , Vito-sucrose, Ages 12+ (Pfizer) 07/24/2021 COVID-19, MRNA-LNP, 23-24, P F, 30 MCG/0.3 mL, 12 YRS AND ABOVE, IM ([facility]) 05/06/2023 Covid-19, Mrna, Lnp-s, Pf, B ivalent, 30 Mcg, IM, 12 yrs and above ([employer]) 04/30/2022 Pneumococcal Conjugate Vacc, 13 Valent (Prevnar) [...] this encounter Progress Notes * Cass Dorsey, [facility] - 12/09/2023 3:29 PM EDT Medication Therapy Disease Management - Anticoagulation Patient: Melissa Figueroa | : 1950 Subjective Patient-Reported Symptoms: Patient Findings Negatives: Signs/symptoms of thrombosis, Signs/symptoms of bleeding, Change in health, Change in alcohol use, Change in activity, Upcoming invasive procedure, Missed doses, Extra doses, Change in medications, Change in diet/appetite, Bruising Objective Current Warfarin Dose As of 12/09/2023 Warfarin maintenance plan: 3.75 mg (2.5 mg x 1.5) every Mon, Fri; 2.5 mg (2.5 mg x 1) all other days INR Result As of 12/09/2023 INR goal: 2.0-3.0 INR used for dosin.9 (12/09/2023) Assessment & Plan Warfarin Plan As of 12/09/2023 Full warfarin instructions: 3.75 mg every Mon, Fri; 2.5 mg all other days No change documented: Cass Dorsey RPh Next INR check: 01/06/2024 Repeat PT/INR in 4 week(s) Weekly dose: not changed Additional Dosing Information: Description Amiodarone 200 mg BID (01/03/22) --> DAILY after DCC 02/19/22 --> STOPPED by Cardio on 08/06/23 Cass Dorsey RPh Clinical Pharmacist 12/09/2023, 3:29 PM documented in this encounter Plan of Treatment Upcoming Encounters Date Type Department Care Team (Late st Contact Info) Description 01/06/2024 11:10 AM EDT Anticoagulation Pharmacy, [address] [place] [address] [place] [address] 01/06/2024 11:20 AM EDT Office Visit Family Medicine [address] [place] [phone] Nat Salter MD [address] [place] [address] [place] [address] 04/06/2024 3:30 PM EDT Office Visit Cardiology [address] [place] [address] Wes Bourgeois PA-C [address] [place] [address] 08/24/2024 2:30 PM EDT Nurse Only Ancillary [address] [place] [address] [place], Nurse Annual [address] [place] [address] 09/02/2024 3:20 PM EDT Office Visit Nephrology [address] [place] [address] Vivien Diez MD [address] [place] [address] Health Maintenance Due Date Last Done Comments [...] 08/04/2024 08/04/2023, 07/11, 03/11/2022, Additional history exists O2 ASSESSMENT COMPLETED [...] this encounter Medical Devices Implanted Type Area Finance Attorney Device Identifier Shelf Expiration Date Model / Serial / Lot Suture Steel 6 B&S19 M654g - [id number] Implanted:Qty : 4 on 06/18/2018 by Handy Farmer MD [place] [facility] [place] N/A: Sternum JNJ : [employer] 01/06/2023 M654G / / [id number] Valve Heart Aortic Epic 23mm - [id number] Implanted:03/2019 by Handy Farmer MD at [place] [facility] [place] (Quantity not on file) N/A: Heart [employer] : CARDIOVASCULAR 12/28/2021 [id number] / [id number] / LOT NA Graft Gelweave Valsalva 28mm - [id number] - [id number] Implanted:Qty : 1 on 06/18/2018 by Handy Farmer MD at [place] [facility] [place] N/A: Aorta [employer] 04/08/2021 [id number] / [id number] / [id number] [place] Ptfe 6x6in X5 - [id number] Implanted:Qty : 1 on 06/18/2018 by Handy Farmer MD at [place] [facility] [place] N/A: Aorta CR BARD : PERIPHERAL VASCULAR 12/04/2022 [id number] / / [id number] 6in X 6in (15cm X 15cm) Ptfe [place], 1.65mm Thick Implanted:Qty : 1 on 06/18/2018 by Handy Farmer MD at [place] [facility] [place] N/A: Aorta CR BARD : PERIPHERAL VASCULAR 12/04/2022 [id number] / / [id number] 6in X 6in (15cm X 15cm) Ptfe [place], 1.65mm Thick Implanted:Qty : 1 on 06/18/2018 by Handy Farmer MD at [place] [facility] [place] N/A: Aorta CR BARD : PERIPHERAL VASCULAR 12/04/2022 [id number] / / [id number] 6in X 6in (15cm X 15cm) Ptfe [place], 1.65mm Thick Implanted:Qty : 1 on 06/18/2018 by Handy Farmer MD at [place] [facility] [place] N/A: Aorta CR BARD : PERIPHERAL VASCULAR 12/04/2022 [id number] / / [id number] documented as of this encounter Procedures Procedure Name Priority Date/Time Associated Diagnosis Comments INR FINGERSTICK, POINT OF CARE STAT 12/09/2023 3:33 PM EDT Paroxysmal atrial fibrillation (HCC) Anticoagulation management encounter documented in this encounter Results * INR FINGERSTICK, POINT OF CARE (12/09/2023 3:33 PM EDT) Fingerstick INR 2.9 INR 3:35 PM EDT [facility] [place] [address] Blood 12/09/2023 3:33 PM EDT 12/09/2023 3:35 PM EDT [facility] [place] [id number] - 12/09/2023 3:35 PM EDT Therapeutic ranges for non-operative patients: Prophylaxsis/treatment of DVT: (Range:2.0-3.0) Treatment of pulmonary embolism:(Range:2.0-3.0) Prevention of systemic embolism from: -tissue heart valves -acute myocardial infarction -valvular heart disease -atrial fibrillation (Range: 2.0-3.0) Mechanical prosthetic valves: (Range: 2.5-3.5) Cass Dorsey [facility] LAB POINT OF CARE TEST DOCKED DEVICE UNSOLICITED RESULTS LABORATORY [address] [address] documented in this encounter Visit Diagnoses Diagnosis Anticoagulation management encounter- Primary Encounter for therapeutic drug monitoring Paroxysmal atrial fibrillation (HCC) Atrial fibrillation documented in this encounter Advance Directives * Full Code (Latest Code Status on File) Date Activated Date Inactivated Comments 06/18/2018 6:43 PM 06/25/2018 6:16 PM This order r eflects the patients wishes and were consensually agreed upon. Care Teams Opal Miner Relationship Specialty Start Date End Date Nat Salter MD [address] [place] [address] [place] [address] PCP - General Family Medicine 11/13/18 documented as of this encounter"
--- OUTSIDE RECORDS SUMMARY | 2024-04-07 13:14 | External Medical Summary | Summary of Care ---
Author Name Unknown Organization [facility] Address [address] [place] [address] Phone [phone] Care Team Providers Care Machine Fancy Stitcher Name Role Phone Nat Salter MD Primary Care Prov ider Reason for Visit * Reason Comments Dosage Adjustment In Person (Anticoag Cl inic) Encounter Details Date Type Department Care Team (Latest Contact Info) Description 10/28/2023 3:20 PM EDT Anticoagulation Pharmacy, [address] [place] [address] [place] [address] Anticoagulation management encounter*; Paroxysmal atrial fibrillation (HCC) Allergies Active Allergy Reactions Criticality Noted Date Comments Prednisone Other (Please comment) Medium 12/28/2015 Stated it caused her to go into AFib documented as of this encounter (statuses as of 10/28/2023) Medications Medication Sig Dispensed Refills Start Date End Date Status DIURETIC TITRATION PLANIndications: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 1 Each 02/18/2019 Active Aspirin 81 MG Oral Tablet Delayed Release Take 1 Tablet by mouth in the morning. Active oxygen IN GASIndications:Chron ic right-sided CHF (congestive heart failure) (HCC),Chronic hypoxemic respiratory failure (HCC),COPD, group B, by GOLD 2017 classification ([facility]) Use 3 L/min(Oxygen) as directed continuous. 1 Each 04/23/2022 Active Budesonide-Formotero l Fumarate 160-4.5 MCG/ACT Inhalation Aerosol (Symbicort)Indicatio ns:COPD, group B, by GOLD 2017 classification ([facility]) Inhale 2 Puffs by mouth in the morning and 2 Puffs before bedtime. 10.2 g 12 08/06/2022 Active Albuterol Sulfate HFA 108 (90 Base) MCG/ACT Inhalation Aerosol SolutionIndications: COPD, group B, by GOLD 2017 classification ([facility]) Inhale 2 Puffs by mouth every 6 hours as needed for Cough, Shortness of Breath or Wheezing. 18 g 08/06/2022 Active Spiriva Respimat 2.5 MCG/ACT Inhalation Aerosol Solution (Tiotropium [place] Monohydrate)Indicati ons:COPD, group B, by GOLD 2017 classification ([facility]) Inhale 2 Puffs by mouth in the morning. 4 g 11 01/02/2023 Active Spironolactone 25 MG Oral Tablet (Aldactone)Indicatio ns:Chronic right-sided CHF (congestive heart failure) (HCC) Take 0.5 Tablets by mouth in the morning. 17 Tablet 01/23/2023 Active Venlafaxine HCl ER 75 MG [...] 11 08/07/2023 Active Vitamin D 50 MCG (1999 UT) Oral CapsuleIndications:V itamin D deficiency Take 4,000 Units by mouth in the morning. 4,000 units daily. 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 Pre-op testing Dyslipidemia, goal LDL below 100 Total knee replacement status Adjustment disorder with depressed mood SBE (subacute bacterial endocarditis) prophylaxi s candidate History of tobacco use documented as of this encounter (statuses as of 10/28/2023) Resolved Problems Problem Noted Date Diagnosed Date [...] id ventricular response 06/18/2016 12/13/2016 Overview: admitted [facility] pulse 140s OBESITY, BMI 30-34 [...] as of this encounter (statuses as of 10/28/2023) Immunizations Name Administration Dates Next Due COVID-19 mRNA, LNP-s, No Pre serve, 2-Dose Series ([employer]) 07/24/2021,01/30/2021,01/05/2021 COVID-19, LNP-s, No Preserve , Vito-sucrose, Ages 12+ (Pfizer) 07/24/2021 COVID-19, MRNA-LNP, 23-24, P F, 30 MCG/0.3 mL, 12 YRS AND ABOVE, IM ([facility]) 05/06/2023 Covid-19, Mrna, Lnp-s, Pf, B ivalent, 30 Mcg, IM, 12 yrs and above ([employer]) 04/30/2022 Pneumococcal Conjugate Vacc, 13 Valent (Prevnar) [...] Progress Notes * Cass Dorsey RPh - 10/28/2023 3:14 PM EDT Images from the original note [...] Bruising Objective Current Warfarin Dose As of 10/28/2023 Warfarin maintenance plan: 3.75 mg (2.5 mg x 1.5) every Mon; 2.5 mg (2.5 mg x 1) all other days INR Result As of 10/28/2023 INR goal: 2.0-3.0 INR used for dosin.9 (10/28/2023) Assessment & Plan Warfarin Plan As of 10/28/2023 Full warfarin instructions: 3.75 mg every Mon, Fri; 2.5 mg all other days Next INR check: 11/11/2023 Repeat PT/INR in 2 week(s) Weekly dose: increased 6.7% Additional Dosing Information: Description Amiodarone 200 mg BID (01/03/22) --> DAILY after DCC 02/19/22 --> STOPPED by Cardio on 08/06/23 Cass Dorsey RPh Clinical Pharmacist 10/28/2023, 3:14 PM documented in this encounter Plan of Treatment Upcoming Encounters Date Type Department Care Team (Late st Contact Info) Description 11/11/2023 3:50 PM EDT Anticoagulation Pharmacy, [address] [place] [address] [place] [address] 11/17/2023 3:45 PM EDT Imaging Radiology [address] [place] [address] 01/06/2024 11:20 AM EDT Office Visit Family Medicine [address] [place] [phone] Nat Salter MD [address] [place] [address] [place] [address] 04/06/2024 3:30 PM EDT Office Visit Cardiology [address] [place] [address] Wes Bourgeois PA-C [address] [place] [address] 08/24/2024 2:30 PM EDT Nurse Only Ancillary [address] [place] [address] [place], Nurse Annual [address] [place] [address] Health Maintenance Due Date Last Done Comments [...] this encounter Medical Devices Implanted Type Area Packing Machine Pilot Can Router Device Identifier Shelf Expiration Date Model / Serial / Lot Suture Steel 6 B&S19 [id number] - [id number] Implanted:Qty : 4 on 06/18/2018 by Handy Farmer MD at OR [facility] N/A: Sternum JN[place] : [employer] 01/06/2023 [id number] / / [id number] Valve Heart Aortic Epic 23mm - [id number] Implanted:03/2019 by Handy Farmer MD at OR [facility] (Quantity not on file) N/A: Heart ST KERRI : CARDIOVASCULAR 12/28/2021 [id number] / [id number] / LOT NA Graft Gelweave Valsalva 28mm - [id number] - [id number] Implanted:Qty : 1 on 06/18/2018 by Handy Farmer MD at OR [facility] N/A: Aorta [employer] 04/08/2021 [id number] / [id number] / [id number] [place] Ptfe 6x6in X5 - [id number] Implanted:Qty : 1 on 06/18/2018 by Handy Farmer MD at OR [facility] N/A: Aorta CR BARD : PERIPHERAL VASCULAR 12/04/2022 [id number] / / [id number] 6in X 6in (15cm X 15cm) Ptfe [place], 1.65mm Thick Implanted:Qty : 1 on 06/18/2018 by Handy Farmer MD at OR [facility] N/A: Aorta CR BARD : PERIPHERAL VASCULAR 12/04/2022 [id number] / / [id number] 6in X 6in (15cm X 15cm) Ptfe [place], 1.65mm Thick Implanted:Qty : 1 on 06/18/2018 by Handy Farmer MD at OR [facility] N/A: Aorta CR BARD : PERIPHERAL VASCULAR 12/04/2022 [id number] / / [id number] 6in X 6in (15cm X 15cm) Ptfe [place], 1.65mm Thick Implanted:Qty : 1 on 06/18/2018 by Handy Farmer MD at OR [facility] N/A: Aorta CR BARD : PERIPHERAL VASCULAR 12/04/2022 [id number] / / [id number] documented as of this encounter Procedures Procedure Name Priority Date/Time Associated Diagnosis Comments INR FINGERSTICK, POINT OF CARE STAT 10/28/2023 3:18 PM EDT Paroxysmal atrial fibrillation (HCC) Anticoagulation management encounter documented in this encounter Results * INR FINGERSTICK, POINT OF CARE (10/28/2023 3:18 PM EDT) Fingerstick INR 1.9 INR 3:20 PM EDT [facility] Blood 10/28/2023 3:18 PM EDT 10/28/2023 3:19 PM EDT Narrative [facility] - 10/28/2023 3:20 PM EDT Therapeutic ranges for non-operative patients: Prophylaxsis/treatment of DVT: (Range:2.0-3.0) Treatment of pulmonary embolism:(Range:2.0-3.0) Prevention of systemic embolism from: -tissue heart valves -acute myocardial infarction -valvular heart disease -atrial fibrillation (Range: 2.0-3.0) Mechanical prosthetic valves: (Range: 2.5-3.5) Cass Dorsey [facility] POINT OF CARE TEST DOCKED DEVICE UNSOLICITED RESULTS [facility] [place] [address] [place] [address] documented in this encounter Visit Diagnoses Diagnosis Anticoagulation management encounter- Primary Encounter for therapeutic drug monitoring Paroxysmal atrial fibrillation (HCC) Atrial fibrillation documented in this encounter Advance Directives * Full Code (Latest Code Status on File) Date Activated Date Inactivated Comments 06/18/2018 6:43 PM 06/25/2018 6:16 PM This order r eflects the patients wishes and were consensually agreed upon. Care Teams Machine Fancy Stitcher Relationship Specialty Start Date End Date Nat Salter MD [address] [place] [address] [place] [address] PCP - General Family Medicine 11/13/18 documented as of this encounter"
--- OUTSIDE RECORDS SUMMARY | 2024-04-07 13:14 | External Medical Summary ---
Author Name Unknown Address Unknown Organization : Laboratory Report Ordering Provider Test Date Status LUIS GALLEGOS 10/28/2023 15:18:21 Final Therapeutic ranges for non-o perative patients:
Prophylaxsis/treatment of DVT: (Range:2.0-3.0)
Treatment of pulmonary embolism:(Range:2.0-3.0)
Prevention of systemic embolism from:
-tissue heart valves
-acute myocardial infarction
-valvular heart disease
-atrial fibrillation
(Range: 2.0-3.0)
Mechanical prosthetic valves: (Range: 2.5-3.5) Observation Date Value Abnormality Reference (Units ) Status INR in Capillary blood by Coagulation assay 10/28/2023 15:18:21 1.9 (INR) Final Performing Location
[2024-04-07] MEDS ORDERED: ACETAMINOPHEN 325 MG TAB PO PRN (14:17)
[2024-04-07] MEDS ORDERED: ALBUTEROL HFA 8 GM INHALER INH PRN (14:17)
--- NOTE | 2024-04-07 14:36 | Electrocardiogram Report ---
Test Reason : Blood Pressure : */* mmHG Vent. Rate : 97 BPM Atrial Rate : * BPM P-R Int : * ms QRS Dur : 122 ms QT Int : 410 ms P-R-T Axes : * 95 132 degrees QTcB Int : 520 ms Atrial fibrillation Right bundle branch block Abnormal ECG When compared with ECG of 19-Feb-2022 07:18, Atrial fibrillation has replaced Sinus rhythm Vent. rate has increased by 44 bpm QT has lengthened Confirmed by David Jordan ([id number]) on 04/07/2024 2:36:03 PM Referred By: REFERRED SELF Confirmed By: David Jordan
--- NOTE | 2024-04-07 14:44 | Gastrointestinal Consultation ---
Date of Consultation April 07, 2024 Assessment & Plan (1) Symptomatic anemia: -Clear liquid diet today -NPO after midnight with exception of bowel prep -EGD & colonoscopy on 04/08/24 pending cardiac clearance -Iron studies ordered -Continue to monitor H/H -Hold Coumadin, monitor INR Supervising Physician Co-Signing Physician Notes I examined the patient and reviewed patient's chart , laboratory data and imaging studies. I agree with with assessment and plan of care as suggested by advanced practice provider History of Present Illness Reason for Consultation: Anemia Attending Physician: Bull Eden MD History of Present Illness Patient is a 73 yo female with PMH of Afib on Coumadin, Chronic diastolic CHF, history of bicuspid aortic valve with severe aortic regurg s/p Ross procedure and aortic root repair in 2000, s/p repair of ascending thoracic aortic aneurysm with Bentall procedure in 2018, chronic hypoxic respiratory failure, COPD, DESHAUN, HLD, hypothyroidism, vitamin D deficiency, CKD3, who presents to the hospital with SOB x 1 week. She has an upcoming colonoscopy scheduled for May for anemia, but had a recent drop in her hemoglobin from 10 to 8.1 within 2 weeks. She presented to the cardiology office for HINSON. She was referred to the hospital. She takes Coumadin. INR 1.7. Current H/H 8.1/26.1. She notes one episode of BRBPR recently, but no ongoing GI symptoms. Troponin 18. No personal history of GI issues. Has never had a colonoscopy. No pertinent family history. Allergies Allergy/AdvReac Type Severity Reaction Status Date / Time prednisone Allergy Intermediate a-fib Verified 04/07/24 11:43 Home Medications Medication Instructions Recorded Confirmed Type albuterol sulfate 90 mcg/actuation 2 puff inhalation Q4H PRN sob 02/10/18 04/07/24 History aerosol inhaler (Ventolin HFA) venlafaxine 75 mg capsule,extended 75 mg PO HS 02/10/18 04/07/24 History release 24 hr potassium chloride 20 mEq 20 meq PO QAM 07/30/18 04/07/24 History tablet,extended release aspirin 81 mg tablet,delayed 81 mg PO QAM 09/01/18 04/07/24 History release atorvastatin 40 mg tablet 40 mg PO HS 10/17/20 04/07/24 History metoprolol succinate 50 mg 75 mg PO BID 10/17/20 04/07/24 History tablet,extended release 24 hr omeprazole 20 mg capsule,delayed 20 mg PO QAM 10/17/20 04/07/24 History release spironolactone 25 mg tablet 12.5 mg PO QAM 10/17/20 04/07/24 History tiotropium bromide 2.5 2 inh inhalation QAM 10/17/20 04/07/24 History mcg/actuation mist for inhalation (Spiriva Respimat) torsemide 20 mg tablet 20 mg PO QAM 10/17/20 04/07/24 History warfarin 5 mg tablet (Jantoven) See Rx Instructions .Route .COMPLEX 10/17/20 04/07/24 History levothyroxine 100 mcg tablet 100 mcg PO QAM 02/14/22 04/07/24 History (Synthroid) allopurinol 100 mg tablet 200 mg PO QAM 04/07/24 04/07/24 History cholecalciferol (vitamin D3) 50 4,000 unit PO QAM 04/07/24 04/07/24 History mcg (2,000 unit) capsule (Vitamin D3) warfarin 2.5 mg tablet 2.5 mg PO DAILY 04/07/24 04/07/24 History Patient History Medical History Chronic kidney disease Creatinine levels between 1.7-2.1 dating back to 08/2021 [facility] Aortic valve, bicuspid S/p remote Ross procedure and then on "06/18/2018 she underwent redo surgery for findings of an ascending thoracic aortic aneurysm with Bentall procedure with a [address] Varun Epic bioprosthetic valve and a 28 mm Gelweave Valsalva graft" Ascending aortic aneurysm S/p repair Degenerative disc disease Arthritis GERD (gastroesophageal reflux disease) Hypothyroidism CHF (congestive heart failure) On home oxygen therapy 3L with exertion and occasional HS Chronic obstructive pulmonary disease daily/prn inh Sleep apnea 3L NIGHT ("SOMETIMES") Surgical History Hx of inguinal hernia repair ~age 5, bilateral hernia repair History of section X 1 History of tooth extraction History of cardiac cath X 2 (NO STENTS) Most recent 2017 H/O transesophageal echocardiography (NIRMAL) for monitoring Nausea and vomiting after administration of anesthetic agent History of total knee replacement RIGHT Family History Grandfather (Paternal) Family history of diabetes mellitus Mother Coronary heart disease Father No problems noted. Other No family history of adverse response to anesthesia Social History Smoking Status: Former smoker Tobacco Type: Cigarettes Second Hand Exposure: No; Do You Dip or Chew Tobacco: No; Hx Alcohol Use: No Hx Substance Use: No Preferred Language: Kyrgyz Communication Ability: Effective Deployment Manager Required: No Beliefs That Will Affect Care: None Current Living Situation: Alone Feels Safe at Home: Yes Safety Concerns: Feels Safe At This Time Assistive Devices: Oxygen - Continuous and Walker Review of Systems Constitutional: no fever and no chills Respiratory: no cough and no dyspnea Gastrointestinal: no abdominal pain, no diarrhea/loose stools and no melena Psychiatric: no problem reported Hematologic / Lymphatic: no unexplained weight loss Physical Exam Constitutional: well developed Respiratory: normal respiratory effort Cardiovascular: Rate/Rhythm: regular rate Gastrointestinal (Abdomen): normal bowel sounds, soft, nontender, no hepatosplenomegaly Psychiatric: Orientation: alert and oriented x 3 Results & Data Vital Signs (Past 12 Hours) Vital Signs Temp Pulse Pulse Resp BP BP Pulse Ox 04/07/24 14:20 36.6 C 104 H 20 140/85 98 04/07/24 14:12 04/07/24 13:45 23 04/07/24 13:39 94 H 27 H 79 L 04/07/24 13:30 134/106 H 04/07/24 13:30 134/106 H 04/07/24 13:06 88 20 76 L 04/07/24 12:51 105 H 25 H 96 04/07/24 12:45 84 20 04/07/24 12:45 88 17 115/59 L 98 04/07/24 12:43 92 H 04/07/24 12:39 88 21 91 04/07/24 12:27 81 16 100 04/07/24 12:12 99 H 13 98 04/07/24 12:00 95 H 24 100 04/07/24 11:51 97 H 18 95 04/07/24 11:45 87 18 100 04/07/24 11:00 84 23 100 04/07/24 10:57 97 H 17 92 04/07/24 10:30 36.3 C L 102 H 24 111/70 96 O2 Del Method O2 Flow Rate 04/07/24 14:20 Nasal Cannula 3 04/07/24 14:12 Nasal Cannula 3 04/07/24 13:45 04/07/24 13:39 04/07/24 13:30 04/07/24 13:30 04/07/24 13:06 04/07/24 12:51 04/07/24 12:45 04/07/24 12:45 Room Air 04/07/24 12:43 04/07/24 12:39 04/07/24 12:27 04/07/24 12:12 04/07/24 12:00 04/07/24 11:51 04/07/24 11:45 04/07/24 11:00 04/07/24 10:57 04/07/24 10:30 Nasal Cannula 3 PG Care Time/CCT Total # of Minutes Spent Total Time Spent with Patient: Total time spent is greater than 50% in coordination of care (as documented) at patient's floor/unit and/or counseling patient: Coding Level of Care Code 71989 INT INP/OBS CARE 3/75MIN Diagnoses Symptomatic anemia D64.9
[2024-04-07 15:08] LABS: Iron 23 mcg/dl (35-150); Total Iron Binding Cap Calc 411 mcg/dl (250-450); Transferrin (FE) Percent Satur 6 % (15-50); Unsaturated Iron Binding Cap 388 mcg/dl (155-355)
[2024-04-07] MEDS: Patient's HEIGHT &/or WEIGHT Needed SCH (16:25)
--- NOTE | 2024-04-07 16:25 | Cardiology Consultation ---
Date of Consultation April 07, 2024 Assessment & Plan (1) Symptomatic anemia: (2) Chronic anticoagulation: (3) H/O aortic valve repair: Patient notes symptoms of easy fatigability, shortness of breath with exertion. Baseline hemoglobin while on anticoagulation with Coumadin in April, was 14.1 and has since trended down to 8.1 grams per deciliter. Patient hemodynamically stable. Rate controlled atrial fibrillation noted. INR 1.7 and Coumadin is on hold. Continue chronic treatment with metoprolol. Her creatinine level of 1.6 to is not much different than her recent baseline of 1.7 to 1.8 mg/dL. Agree with holding spironolactone and torsemide for now. Will supplement her potassium for level of 3.4 mmol/L. Most recent echocardiogram performed in August, with findings as noted above. I do not think this needs to be repeated at present. Patient stable from a cardiology perspective to undergo EGD/colonoscopy. History of Present Illness Attending Physician: Bull Eden MD History of Present Illness Melissa Ramírez is a 73-year-old female seen in cardiology consultation per the request of Dr. Eden for preoperative cardiac evaluation prior to proposed EGD and colonoscopy. Patient well-known to our cardiology service. She describes that two weeks ago she had bloody bowel movements that lasted for days to 1 week and then stopped spontaneously. She had remained on her Coumadin. She believes that for the last 2 or perhaps 3 weeks she has had progressive generalized weakness and shortness of breath. She believes her symptoms with re gards to her easy fatigability and shortness of breath exertion have gotten worse every day this week. A complete blood count had been performed at the visit with primary care on 03/18/2024 with hemoglobin down to 10.3 g/dL having been 14.1 in April,. She had been seen cardiology follow-up yesterday and a another CBC was performed and hemoglobin had trended down again to 8.7 g/dL with noted evidence of iron deficiency on her iron studies. Due to her symptoms she was referred to the hospital for expedited workup. At present in bed she is comfortable without acute complaints. Telemetry reveals rate controlled atrial fibrillation in the 80s. Problem List: 1.Bicuspid aortic valve with history of severe aortic regurgitation and aortic root aneurysm a.Status post Ross procedure and aortic root repair in 2000 b.Status post June 18, 2018 redo surgery for findings of an ascending thoracic aortic aneurysm with Bentall procedure - [address] Varun Epic bi oprosthetic valve and a 28 mm Gelweave Valsalva graft with Dr. Farmer. 2.Diagnostic cardiac catheterization in 2000 revealed normal coronaries 3.Preoperative cardiac catheterization May 2018 also demonstrated normal coronaries 4.Paroxysmal atrial fibrillation with rapid ventricular response a.Previously treated with sotalol initially prescribed in July 2015 b.Amiodarone initiated in June 2018 c.Status post direct current cardioversions in July 2015, July 2018, August 2018, October 2020, February 2022 d.Recurrence in July 2023, changing from rhythm control to rate control strategy. Amiodarone discontinued. Metoprolol increased. 5.Chronic coumadin anticoagulation 6.Chronic diastolic heart failure 7.Hypertension 8.Dyslipidemia 9.Chronic tobacco abuse, reformed circa 2015 10.Chronic respiratory failure with hypoxia, COPD, pulmonary nodules, chronic oxygen supplementation. 11.Obesity 12.Obstructive sleep apnea intolerant to CPAP therapy 13.Acquired hypothyroidism Allergies Allergy/AdvReac Type Severity Reaction Status Date / Time prednisone Allergy Intermediate a-fib Verified 04/07/24 11:43 Home Medications Medication Instructions Recorded Confirmed Type albuterol sulfate 90 mcg/actuation 2 puff inhalation Q4H PRN sob 02/10/18 04/07/24 History aerosol inhaler (Ventolin HFA) venlafaxine 75 mg capsule,extended 75 mg PO HS 02/10/18 04/07/24 History release 24 hr potassium chloride 20 mEq 20 meq PO QAM 07/30/18 04/07/24 History tablet,extended release aspirin 81 mg tablet,delayed 81 mg PO QAM 09/01/18 04/07/24 History release atorvastatin 40 mg tablet 40 mg PO HS 10/17/20 04/07/24 History metoprolol succinate 50 mg 75 mg PO BID 10/17/20 04/07/24 History tablet,extended release 24 hr omeprazole 20 mg capsule,delayed 20 mg PO QAM 10/17/20 04/07/24 History release spironolactone 25 mg tablet 12.5 mg PO QAM 10/17/20 04/07/24 History tiotropium bromide 2.5 2 inh inhalation QAM 10/17/20 04/07/24 History mcg/actuation mist for inhalation (Spiriva Respimat) torsemide 20 mg tablet 20 mg PO QAM 10/17/20 04/07/24 History warfarin 5 mg tablet (Jantoven) See Rx Instructions .Route .COMPLEX 10/17/20 04/07/24 History levothyroxine 100 mcg tablet 100 mcg PO QAM 02/14/22 04/07/24 History (Synthroid) allopurinol 100 mg tablet 200 mg PO QAM 04/07/24 04/07/24 History cholecalciferol (vitamin D3) 50 4,000 unit PO QAM 04/07/24 04/07/24 History mcg (2,000 unit) capsule (Vitamin D3) warfarin 2.5 mg tablet 2.5 mg PO DAILY 04/07/24 04/07/24 History Patient History Medical History Chronic kidney disease Creatinine levels between 1.7-2.1 dating back to 08/2021 [facility] labs Aortic valve, bicuspid S/p remote Ross procedure and then on "06/18/2018 she underwent redo surgery for findings of an ascending thoracic aortic aneurysm with Bentall procedure with a [address] Varun Epic bioprosthetic valve and a 28 mm Gelweave Valsalva graft" Ascending aortic aneurysm S/p repair Degenerative disc disease Arthritis GERD (gastroesophageal reflux disease) Hypothyroidism CHF (congestive heart failure) On home oxygen therapy 3L with exertion and occasional HS Chronic obstructive pulmonary disease daily/prn inh Sleep apnea 3L NIGHT ("SOMETIMES") Surgical History Hx of inguinal hernia repair ~age 5, bilateral hernia repair History of section X 1 History of tooth extraction History of cardiac cath X 2 (NO STENTS) Most recent 2018 H/O transesophageal echocardiography (NIRMAL) for monitoring Nausea and vomiting after administration of anesthetic agent History of total knee replacement RIGHT Family History Grandfather (Paternal) Family history of diabetes mellitus Mother Coronary heart disease Father No problems noted. Other No family history of adverse response to anesthesia Social History Smoking Status: Former smoker Tobacco Type: Cigarettes Second Hand Exposure: No; Do You Dip or Chew Tobacco: No; Hx Alcohol Use: No Hx Substance Use: No Preferred Language: Slovak Communication Ability: Effective Rn Medicare Required: No Beliefs That Will Affect Care: None Current Living Situation: Alone Feels Safe at Home: Yes Safety Concerns: Feels Safe At This Time Assistive Devices: Oxygen - Continuous and Walker Review of Systems Review of Systems: All systems reviewed & are unremarkable except as noted in HPI & below Physical Exam 2 Physical Exam: Temp Pulse Resp BP Pulse Ox O2 Del Method O2 Flow Rate 36.6 C 104 H 20 140/85 98 Nasal Cannula 3 04/07/24 14:20 04/07/24 14:20 04/07/24 14:20 04/07/24 14:20 04/07/24 14:20 04/07/24 14:20 04/07/24 14:20 General: no acute distress and stated age Eyes: conjunctiva are pink and non-injected, sclera clear Neck: normal jugular venous pulse, no hepatojugular reflux Chest: normal shape and normal respiratory effort Lungs: clear to auscultation and percussion Cardiac Exam: -Regular rhythm, no tachycardia, no murmurs Abdomen: abdomen soft, non-tender, no abnormal masses and no hepatosplenomegaly Musculoskeletal: no gait disturbance, no weakness Extremities: no edema and no cyanosis Neuro:awake, conversant, follows commands, no focal motor deficits Psych: appropriate affect and insight. Results & Data Laboratory Results Cardiac Enzymes 04/07/24 Range/Units 11:12 AST 14 (13-39) U/L Troponin I High Sens 18.2 H (0-14) pg/ml Coagulation 04/07/24 Range/Units 11:12 PT 17.7 H (9.0-12.0) Seconds CBC 04/07/24 Range/Units 11:12 WBC 4.59 L (4.8-10.8) K/ul RBC 2.81 L (4.20-5.40) M/uL Hgb 8.1 L (12.0-16.0) g/dl Hct 26.1 L (37.0-47.0) % Plt Count 245 (130-400) K/uL Neut # (Auto) 3.28 (1.40-6.50) K/uL Lymph # (Auto) 0.82 L (1.20-3.40) K/uL [place] # (Auto) 0.22 (0.11-0.59) K/uL Eos # (Auto) 0.20 (0.00-0.50) K/uL Baso # (Auto) 0.07 (0.00-0.20) K/uL Comprehensive Metabolic Panel 04/07/24 Range/Units 11:12 Sodium 136 (136-145) mmol/L Potassium 3.4 L (3.5-5.1) mmol/L Chloride 100 (98-107) mmol/L Carbon Dioxide 30 (21-32) mmol/L BUN 22 (6-23) mg/dl Creatinine 1.62 H (0.6-1.2) mg/dl Glucose 146 H (70-99(Fasting)) mg/dl Calcium 9.2 (8.6-10.3) mg/dl AST 14 (13-39) U/L ALT 9 (7-52) U/L Alkaline Phosphatase 139 H (34-104) U/L Total Protein 7.2 (6.0-8.3) gm/dl Albumin 4.0 (3.4-5.0) gm/dl Intake and Output 04/07/24 04/07/24 04/07/24 06:59 14:59 22:59 Intake Total 1000 / 1000 Balance 1000 / 1000 Intake: IV 1000 / 1000 Lactated Ringer's 1,000 ml @ 1000 / 1000 999 mls/hr IV .Q1H1M ONE Rx#: [id number] Other: Weight 91.989 kg Weight Measurement Method Built in [facility] Patient Weight 04/08/24 06:59 Weight 91.989 kg Diagnostic Findings EKG performed 04/07/2024 and interpret independently: Atrial fibrillation at 97 bpm, right bundle branch block, relatively stable findings compared to previous outpatient EKG. August 14, 2023 TTE Interpretation Summary (as per Dr. Lopez): There was atrial fibrillation during the examination. The left ventricular cavity size is normal. The LV wall thickness is normal. The septal motion is abnormal consistent with interventricular conduction delay. The regional left ventricular wall motion is otherwise normal. The qualitative LV ejection fraction is 50-54% (normal). The left ventricular diastolic function is abnormal by 2-D findings. The left atrium is mildly enlarged. There is an aortic valve bioprosthetic present. The aortic valve prosthesis systolic gradients are normal for this type prosthesis. Moderate tricuspid regurgitation is present. Compared to prior study of October 17, 2020, there is no significant change.
[2024-04-07] MEDS: POTASSIUM CHLORIDE CRTAB 20 MEQ TABCR PO STA (16:48)
[2024-04-07 18:13] LABS: Hematocrit (blood only) 26.2 % (37.0-47.0)
[2024-04-07] MEDS: LAVAGE SOLUTION 4000ML PO SCH (18:53)
[2024-04-07] MEDS: VENLAFAXINE HCL XR 75 MG CAPXR PO SCH (20:37)
[2024-04-07] MEDS: METOPROLOL SUCC 25MG EXT REL TAB PO SCH (20:37)
[2024-04-07] MEDS: ATORVASTATIN 40 MG TAB PO SCH (20:38)
[2024-04-07] MEDS: POTASSIUM CHLORIDE 20 MEQ/15 ML UDC PO STA (20:40)
[2024-04-07] MEDS: PANTOprazole 40 MG/10 ML SYR IV SCH (22:29)
[2024-04-08] MEDS: LAVAGE SOLUTION 4000ML PO SCH (04:02)
[2024-04-08] MEDS: LEVOTHYROXINE SODIUM 100 MCG TABLET PO SCH (06:26)
[2024-04-08 06:47] LABS: Hematocrit (blood only) 28.7 % (37.0-47.0); Mean Corpuscular Hemoglobin 28.8 pg (25.0-34.0); Mean Corpuscular Hgb Conc 31.4 g/dL (32.0-36.0); Mean Platelet Volume 8.9 fL (9.4-12.4); Platelet Count 292 K/uL (130-400); RDW Coefficient of Variation 15.2 % (11.5-14.5); RDW Standard Deviation 51.8 fL (36.4-46.3); Red Blood Count 3.12 M/uL (4.20-5.40); White Blood Count 6.76 K/ul (4.8-10.8)
[2024-04-08 07:08] LABS: BUN Creatinine Ratio 11.9 (10-20); Calcium 9.5 mg/dl (8.6-10.3); Potassium 3.7 mmol/L (3.5-5.1)
[2024-04-08] MEDS: CHOLECALCIFEROL 25 MCG (1000 UNITS) TAB PO SCH (08:11)
[2024-04-08] MEDS: FERROUS SULFATE 325 MG/7.4 ML UDP PO SCH (08:11)
[2024-04-08] MEDS: allopurinoL 100 MG TAB PO SCH (08:11)
[2024-04-08] MEDS: UMECLIDINIUM BROMIDE 62.5MCG/BLISTER 7 PUFFS/INHALER INH SCH (08:12)
[2024-04-08] MEDS: POTASSIUM CHLORIDE CRTAB 20 MEQ TABCR PO SCH (08:32)
--- NOTE | 2024-04-08 12:05 | Gastroenterology Progress Note ---
Date of Service April 08, 2024 Assessment & Plan (1) Symptomatic anemia: Plan: Continue current therapy and supportive care Proceed with EGD and colonoscopy now Further recommendations to follow. Admission and Anticipated Discharge Date Admission Date: April 07, 2024 Subjective Feeling well today. No lightheadedness or dizziness. No overt GI bleeding. No abdominal pain. Tolerated bowel prep. Review of Systems Review of Systems: All systems reviewed & are unremarkable except as noted in Subjective Physical Exam Constitutional: WD/WN, vitals as above Respiratory: normal respiratory effort, lungs clear to auscultation Cardiovascular: RRR, no murmur, no edema Gastrointestinal (Abdomen): normal bowel sounds, soft, nontender, no hepatosplenomegaly Results & Data Results & Data Vital Signs (Past 12 Hours) Vital Signs Temp Pulse Pulse Pulse Resp BP Pulse Ox 04/08/24 11:45 36.3 C L 89 16 111/67 94 04/08/24 08:05 04/08/24 07:57 36.5 C 84 18 106/66 100 04/08/24 07:09 97 H 04/08/24 03:39 36.6 C 90 20 147/77 H 93 O2 Del Method O2 Flow Rate 04/08/24 11:45 Nasal Cannula 3 04/08/24 08:05 Nasal Cannula 2 04/08/24 07:57 Nasal Cannula 3.0 04/08/24 07:09 04/08/24 03:39 Nasal Cannula 2 PG Care Time/CCT Total # of Minutes Spent Total Time Spent with Patient: Total time spent is greater than 50% in coordination of care (as documented) at patient's floor/unit and/or counseling patient: Coding Level of Care Code 01408 SUB INP/OBS CARE 3/50MIN Diagnoses Symptomatic anemia D64.9
--- NOTE | 2024-04-08 12:27 | Anesthesiology Consultation ---
Date of Service April 08, 2024 Assessment & Plan ASA ASA4 Proposed Anesthesia Anesthesia Type: MAC Risk / Benefits Reviewed With: PT / POA / Parent / Guardian, Accepts Plan and Informed Consent Obtained History Surgery Operation Date: 04/08/24 16:30 Proposed Procedures p Colonoscopy EGD Dr. Ritter - Tod Ritter, DO Height/Weight Height: 5 ft Weight: 91.989 kg Allergies Allergy/AdvReac Type Severity Reaction Status Date / Time prednisone Allergy Intermediate a-fib Verified 04/08/24 11:41 Medications Home Medications Medication Instructions Recorded Confirmed Last Taken albuterol sulfate 90 mcg/actuation 2 puff inhalation Q4H PRN sob 02/10/18 04/07/24 08/31/18 aerosol inhaler (Ventolin HFA) venlafaxine 75 mg capsule,extended 75 mg PO HS 02/10/18 04/07/24 04/06/24 release 24 hr potassium chloride 20 mEq 20 meq PO QAM 07/30/18 04/07/24 04/07/24 tablet,extended release aspirin 81 mg tablet,delayed 81 mg PO QAM 09/01/18 04/07/24 04/07/24 release atorvastatin 40 mg tablet 40 mg PO HS 10/17/20 04/07/24 04/06/24 metoprolol succinate 50 mg 75 mg PO BID 10/17/20 04/07/24 04/07/24 tablet,extended release 24 hr omeprazole 20 mg capsule,delayed 20 mg PO QAM 10/17/20 04/07/24 04/07/24 release spironolactone 25 mg tablet 12.5 mg PO QAM 10/17/20 04/07/24 04/07/24 tiotropium bromide 2.5 2 inh inhalation QAM 10/17/20 04/07/24 04/07/24 mcg/actuation mist for inhalation (Spiriva Respimat) torsemide 20 mg tablet 20 mg PO QAM 10/17/20 04/07/24 04/07/24 warfarin 5 mg tablet (Jantoven) See Rx Instructions .Route .COMPLEX 10/17/20 04/07/24 04/06/24 levothyroxine 100 mcg tablet 100 mcg PO QAM 02/14/22 04/07/24 04/07/24 (Synthroid) allopurinol 100 mg tablet 200 mg PO QAM 04/07/24 04/07/24 04/07/24 cholecalciferol (vitamin D3) 50 4,000 unit PO QAM 04/07/24 04/07/24 04/06/24 mcg (2,000 unit) capsule (Vitamin D3) warfarin 2.5 mg tablet 2.5 mg PO DAILY 04/07/24 04/07/24 04/06/24 Active Medications Generic Name Dose Route Start Last Admin Trade Name Myron PRN Reason Stop Dose Admin Allopurinol 200 mg 04/08/24 09:00 04/08/24 08:11 Allopurinol 100 Mg Tab PO 05/08/24 08:59 200 mg QAM DOMINIQUE Administration Atorvastatin Calcium 40 mg 04/07/24 21:00 04/07/24 20:38 Atorvastatin 40 Mg Tab PO 05/07/24 20:59 40 mg HS DOMINIQUE Administration Ferrous Sulfate 325 mg 04/08/24 08:00 04/08/24 08:11 Ferrous Sulfate 325 Mg/7.4 Ml Udp PO 05/08/24 07:59 325 mg BIDM DOMINIQUE Administration Pantoprazole Sodium 40 mg in 10 mls @ 5 mls/min 04/07/24 21:00 04/08/24 08:12 Protonix IV 05/07/24 20:59 5 mls/min BID DOMINIQUE Administration Levothyroxine Sodium 100 mcg 04/08/24 06:30 04/08/24 06:26 Levothyroxine Sodium 100 Mcg Tablet PO 05/08/24 06:29 100 mcg DAILYBB DOMINIQUE Administration Metoprolol Succinate 75 mg 04/07/24 21:00 04/08/24 08:11 Metoprolol Succ 25mg Ext Rel Tab PO 05/07/24 20:59 75 mg BID DOMINIQUE Administration Potassium Chloride 20 meq 04/08/24 09:00 04/08/24 08:32 Potassium Chloride Crtab 20 Meq Tabcr PO 05/08/24 08:59 Not Given QAM DOMINIQUE Umeclidinium [place] 1 puffs 04/08/24 09:00 04/08/24 08:12 Umeclidinium [place] 62.5mcg/Blister 7 Puffs/Inhaler INH 05/08/24 08:59 1 puffs QAM DOMINIQUE Administration Venlafaxine HCl 75 mg 04/07/24 21:00 04/07/24 20:37 Venlafaxine Hcl Xr 75 Mg Capxr PO 05/07/24 20:59 75 mg HS DOMINIQUE Administration Vitamin D 100 mcg 04/08/24 09:00 04/08/24 08:11 Cholecalciferol 25 Mcg (1000 Units) Tab PO 05/08/24 08:59 100 mcg QAM DOMINIQUE Administration NPO Date Last Intake of Fluids: 04/08/24 Time Last Intake of Fluids: 07:00 Date Last Intake of Solids: 04/06/24 Time Last Intake of Solids: 18:00 Past Medical History Medical History Chronic kidney disease Creatinine levels between 1.7-2.1 dating back to 08/2021 [facility] labs Aortic valve, bicuspid S/p remote Ross procedure and then on "06/18/2018 she underwent redo surgery for findings of an ascending thoracic aortic aneurysm with Bentall procedure with a [address] Varun Epic bioprosthetic valve and a 28 mm Gelweave Valsalva graft" Ascending aortic aneurysm S/p repair Degenerative disc disease Arthritis GERD (gastroesophageal reflux disease) Hypothyroidism CHF (congestive heart failure) On home oxygen therapy 3L with exertion and occasional HS Chronic obstructive pulmonary disease daily/prn inh Sleep apnea 3L NIGHT ("SOMETIMES") Exercise / Class Metabolic Activity III < 4 Walking/Shop/Light housework Past Family History Family History Grandfather (Paternal) Family history of diabetes mellitus Mother Coronary heart disease Father No problems noted. Other No family history of adverse response to anesthesia Past Surgical History Surgical History Hx of inguinal hernia repair ~age 5, bilateral hernia repair History of section X 1 History of tooth extraction History of cardiac cath X 2 (NO STENTS) Most recent 2018 H/O transesophageal echocardiography (NIRMAL) for monitoring Nausea and vomiting after administration of anesthetic agent History of total knee replacement RIGHT Past Anesthesia History No Hx of Anesthesia Complications and No Family Hx of Anesthesia Complications History of PONV No Hx of PONV and No Hx of Motion Sickness Social History Smoking Status: Former smoker tobacco type: cigarettes Do You Dip or Chew Tobacco: No Hx Alcohol Use: No Hx Substance Use: No substance use type: does not use Physical Exam Vital Signs Last Vital Signs Temp 36.3 C L 04/08/24 11:45 Pulse 89 04/08/24 11:45 Resp 16 04/08/24 11:45 BP 111/67 04/08/24 11:45 Pulse Ox 94 04/08/24 11:45 O2 Del Method Nasal Cannula 04/08/24 11:45 O2 Flow Rate 3 04/08/24 11:45 Constitutional no acute distress ENMT Mouth: + dentition abnormality and + edentulous Thyromental Distance: > or= 3.5 Finger Breadths Mallampati Class: II Neck normal visual inspection Respiratory normal respiratory effort; no respiratory distress Auscultation: lungs clear to auscultation bilaterally Cardiovascular Rate/Rhythm: regular rate and regular rhythm Heart Sounds: no murmur Musculoskeletal Spine: normal cervical ROM Psychiatric Orientation: alert and oriented x 3 Testing Laboratory Results 04/08/24 06:23 04/08/24 06:23 PT 17.7 Seconds (9.0-12.0) H 04/07/24 11:12 INR 1.7 (0.9-1.1) H 04/07/24 11:12 Blood Type O Positive 04/07/24 11:12 Antibody Screen NEGATIVE 04/07/24 11:12 Day of Procedure Evaluation. Date of Surgery April 08, 2024 Height/Weight Height: 5 ft Weight: 91.989 kg Vital Signs Last Vital Signs Temp 36.3 C L 04/08/24 11:45 Pulse 89 04/08/24 11:45 Resp 16 04/08/24 11:45 BP 111/67 04/08/24 11:45 Pulse Ox 94 04/08/24 11:45 O2 Del Method Nasal Cannula 04/08/24 11:45 O2 Flow Rate 3 04/08/24 11:45 Allergies Allergy/AdvReac Type Severity Reaction Status Date / Time prednisone Allergy Intermediate a-fib Verified 04/08/24 11:41 Medications Home Medications Medication Instructions Recorded Confirmed Last Taken albuterol sulfate 90 mcg/actuation 2 puff inhalation Q4H PRN sob 02/10/18 04/07/24 08/31/18 aerosol inhaler (Ventolin HFA) venlafaxine 75 mg capsule,extended 75 mg PO HS 02/10/18 04/07/24 04/06/24 release 24 hr potassium chloride 20 mEq 20 meq PO QAM 07/30/18 04/07/24 04/07/24 tablet,extended release aspirin 81 mg tablet,delayed 81 mg PO QAM 09/01/18 04/07/24 04/07/24 release atorvastatin 40 mg tablet 40 mg PO HS 10/17/20 04/07/24 04/06/24 metoprolol succinate 50 mg 75 mg PO BID 10/17/20 04/07/24 04/07/24 tablet,extended release 24 hr omeprazole 20 mg capsule,delayed 20 mg PO QAM 10/17/20 04/07/24 04/07/24 release spironolactone 25 mg tablet 12.5 mg PO QAM 10/17/20 04/07/24 04/07/24 tiotropium bromide 2.5 2 inh inhalation QA 10/17/20 04/07/24 04/07/24 mcg/actuation mist for inhalation (Spiriva Respimat) torsemide 20 mg tablet 20 mg PO QAM 10/17/20 04/07/24 04/07/24 warfarin 5 mg tablet (Jantoven) See Rx Instructions .Route .COMPLEX 10/17/20 04/07/24 04/06/24 levothyroxine 100 mcg tablet 100 mcg PO QAM 02/14/22 04/07/24 04/07/24 (Synthroid) allopurinol 100 mg tablet 200 mg PO QAM 04/07/24 04/07/24 04/07/24 cholecalciferol (vitamin D3) 50 4,000 unit PO QAM 04/07/24 04/07/24 04/06/24 mcg (2,000 unit) capsule (Vitamin D3) warfarin 2.5 mg tablet 2.5 mg PO DAILY 04/07/24 04/07/24 04/06/24 Active Medications Generic Name Dose Route Start Last Admin Trade Name Freq PRN Reason Stop Dose Admin Allopurinol 200 mg 04/08/24 09:00 04/08/24 08:11 Allopurinol 100 Mg Tab PO 05/08/24 08:59 200 mg QAM DOMINIQUE Administration Atorvastatin Calcium 40 mg 04/07/24 21:00 04/07/24 20:38 Atorvastatin 40 Mg Tab PO 05/07/24 20:59 40 mg HS DOMINIQUE Administration Ferrous Sulfate 325 mg 04/08/24 08:00 04/08/24 08:11 Ferrous Sulfate 325 Mg/7.4 Ml Udp PO 05/08/24 07:59 325 mg BIDM DOMINIQUE Administration Pantoprazole Sodium 40 mg in 10 mls @ 5 mls/min 04/07/24 21:00 04/08/24 08:12 Protonix IV 05/07/24 20:59 5 mls/min BID DOMINIQUE Administration Levothyroxine Sodium 100 mcg 04/08/24 06:30 04/08/24 06:26 Levothyroxine Sodium 100 Mcg Tablet PO 05/08/24 06:29 100 mcg DAILYBB DOMINIQUE Administration Metoprolol Succinate 75 mg 04/07/24 21:00 04/08/24 08:11 Metoprolol Succ 25mg Ext Rel Tab PO 05/07/24 20:59 75 mg BID DOMINIQUE Administration Potassium Chloride 20 meq 04/08/24 09:00 04/08/24 08:32 Potassium Chloride Crtab 20 Meq Tabcr PO 05/08/24 08:59 Not Given QAM DOMINIQUE Umeclidinium [place] 1 puffs 04/08/24 09:00 04/08/24 08:12 Umeclidinium [place] 62.5mcg/Blister 7 Puffs/Inhaler INH 05/08/24 08:59 1 puffs QAM DOMINIQUE Administration Venlafaxine HCl 75 mg 04/07/24 21:00 04/07/24 20:37 Venlafaxine Hcl Xr 75 Mg Capxr PO 05/07/24 20:59 75 mg HS DOMINIQUE Administration Vitamin D 100 mcg 04/08/24 09:00 04/08/24 08:11 Cholecalciferol 25 Mcg (1000 Units) Tab PO 05/08/24 08:59 100 mcg QAM DOMINIQUE Administration Past Anesthesia History No Hx of Anesthesia Complications and No Family Hx of Anesthesia Complications History of PONV No Hx of PONV and No Hx of Motion Sickness NPO Date Last Intake of Fluids: 04/08/24 Time Last Intake of Fluids: 07:00 Date Last Intake of Solids: 04/06/24 Time Last Intake of Solids: 18:00 Home Medications Home Medications Medication Instructions Recorded Confirmed Last Taken albuterol sulfate 90 mcg/actuation 2 puff inhalation Q4H PRN sob 02/10/18 04/07/24 08/31/18 aerosol inhaler (Ventolin HFA) venlafaxine 75 mg capsule,extended 75 mg PO HS 02/10/18 04/07/24 04/06/24 release 24 hr potassium chloride 20 mEq 20 meq PO QAM 07/30/18 04/07/24 04/07/24 tablet,extended release aspirin 81 mg tablet,delayed 81 mg PO QAM 09/01/18 04/07/24 04/07/24 release atorvastatin 40 mg tablet 40 mg PO HS 10/17/20 04/07/24 04/06/24 metoprolol succinate 50 mg 75 mg PO BID 10/17/20 04/07/24 04/07/24 tablet,extended release 24 hr omeprazole 20 mg capsule,delayed 20 mg PO QAM 10/17/20 04/07/24 04/07/24 release spironolactone 25 mg tablet 12.5 mg PO QAM 10/17/20 04/07/24 04/07/24 tiotropium bromide 2.5 2 inh inhalation QA 10/17/20 04/07/24 04/07/24 mcg/actuation mist for inhalation (Spiriva Respimat) torsemide 20 mg tablet 20 mg PO QAM 10/17/20 04/07/24 04/07/24 warfarin 5 mg tablet (Jantoven) See Rx Instructions .Route .COMPLEX 10/17/20 04/07/24 04/06/24 levothyroxine 100 mcg tablet 100 mcg PO QAM 02/14/22 04/07/24 04/07/24 (Synthroid) allopurinol 100 mg tablet 200 mg PO QAM 04/07/24 04/07/24 04/07/24 cholecalciferol (vitamin D3) 50 4,000 unit PO QAM 04/07/24 04/07/24 04/06/24 mcg (2,000 unit) capsule (Vitamin D3) warfarin 2.5 mg tablet 2.5 mg PO DAILY 04/07/24 04/07/24 04/06/24 Active Medications Generic Name Dose Route Start Last Admin Trade Name Freq PRN Reason Stop Dose Admin Allopurinol 200 mg 04/08/24 09:00 04/08/24 08:11 Allopurinol 100 Mg Tab PO 05/08/24 08:59 200 mg QAM DOMINIQUE Administration Atorvastatin Calcium 40 mg 04/07/24 21:00 04/07/24 20:38 Atorvastatin 40 Mg Tab PO 05/07/24 20:59 40 mg HS DOMINIQUE Administration Ferrous Sulfate 325 mg 04/08/24 08:00 04/08/24 08:11 Ferrous Sulfate 325 Mg/7.4 Ml Udp PO 05/08/24 07:59 325 mg BIDM DOMINIQUE Administration Pantoprazole Sodium 40 mg in 10 mls @ 5 mls/min 04/07/24 21:00 04/08/24 08:12 Protonix IV 05/07/24 20:59 5 mls/min BID DOMINIQUE Administration Levothyroxine Sodium 100 mcg 04/08/24 06:30 04/08/24 06:26 Levothyroxine Sodium 100 Mcg Tablet PO 05/08/24 06:29 100 mcg DAILYBB DOMINIQUE Administration Metoprolol Succinate 75 mg 04/07/24 21:00 04/08/24 08:11 Metoprolol Succ 25mg Ext Rel Tab PO 05/07/24 20:59 75 mg BID DOMINIQUE Administration Potassium Chloride 20 meq 04/08/24 09:00 04/08/24 08:32 Potassium Chloride Crtab 20 Meq Tabcr PO 05/08/24 08:59 Not Given QAM DOMINIQUE Umeclidinium [place] 1 puffs 04/08/24 09:00 04/08/24 08:12 Umeclidinium [place] 62.5mcg/Blister 7 Puffs/Inhaler INH 05/08/24 08:59 1 puffs QAM DOMINIQUE Administration Venlafaxine HCl 75 mg 04/07/24 21:00 04/07/24 20:37 Venlafaxine Hcl Xr 75 Mg Capxr PO 05/07/24 20:59 75 mg HS DOMINIQUE Administration Vitamin D 100 mcg 04/08/24 09:00 04/08/24 08:11 Cholecalciferol 25 Mcg (1000 Units) Tab PO 05/08/24 08:59 100 mcg QAM DOMINIQUE Administration Exercise / Class Metabolic Activity Metabolic Activity: III < 4 Walking/Shop/Light housework Physical Exam Constitutional: no acute distress Mouth: + dentition abnormality and + edentulous Thyromental Distance: > or= 3.5 Finger Breadths Mallampati Class: II Neck: + visual inspection normal Respiratory: + respiratory effort normal and + clear to auscultation bilaterally; no respiratory distress Cardiovascular: + regular rate and + regular rhythm; no murmur Musculoskeletal: no limited cervical ROM Psychiatric: + alert and + oriented x 3 ASA ASA4 Proposed Anesthesia Proposed Anesthesia: MAC Risk / Benefits Reviewed With: PT / POA / Parent / Guardian, Accepts Plan and Informed Consent Obtained
--- NOTE | 2024-04-08 12:57 | GI REPORT ---
[facility] Patient: AYE KIM : 1950 Sex at : Female Age: 73 Years Procedure: Upper GI endoscopy Date: 04/08/2024 Attending Physician: Tod Ritter DO Referring MD: Referred Self Indications: - Anemia Medications: - Monitored Anesthesia Care Complications: - No immediate complications. Estimated Blood Loss: - Estimated blood loss: None. Procedure: - Prior to the procedure, a History and Physical was performed, and patient medications and allergies were reviewed. The patient's tolerance of previous anesthesia was also reviewed. The risks and benefits of the procedure and the sedation options and risks were discussed with the patient. All questions were answered, and informed consent was obtained. Prior Anticoagulants: The patient has taken Coumadin (warfarin), last dose was 2 days prior to procedure. ASA Grade Assessment: IV - A patient with severe systemic disease that is a constant threat to life. After reviewing the risks and benefits, the patient was deemed in satisfactory condition to undergo the procedure. - The pediatric colonoscope was introduced through the mouth and advanced to the fourth part of the duodenum. - The upper GI endoscopy was accomplished without difficulty. - The patient tolerated the procedure well. Findings: - The examined esophagus was normal. - The entire examined stomach was normal. - The examined duodenum was normal. Impression: - Normal esophagus. - Normal stomach. - Normal examined duodenum. - No specimens collected. Recommendation: - Discharge patient to home (ambulatory). - Resume previous diet. - Continue present medications. - Await pathology results. - Resume Coumadin (warfarin) at prior dose tomorrow. - Return to primary care physician as previously scheduled. - Patient has a contact number available for emergencies. The signs and symptoms of potential delayed complications were discussed with the patient. Return to normal activities tomorrow. Written discharge instructions were provided to the patient. Procedure Code(s): - 79185, Esophagogastroduodenoscopy, flexible, transoral; diagnostic, including collection of specimen(s) by brushing or washing, when performed (separate procedure) Diagnosis Code(s): - D64.9, Anemia, unspecified CPT(R) - 2022 copyright [employer]. All Rights Reserved. The CPT codes, CCI edits and ICD codes generated are intended as suggestions and were generated based on input data. These codes are preliminary and upon inspector health care facilities review may be revised to meet current compliance and payer requirements. The provider is responsible for the final determination of appropriate codes, and modifiers. Dr. Tod Ritter, DO This document has been electronically signed. Note Initiated:04/08/2024 Note Completed:04/08/2024 12:55 PM [email or web address]\[email or web address]\Results\[email or web address]\[id number]
--- NOTE | 2024-04-08 12:58 | GI REPORT ---
[facility] Patient: AYE KIM : 1950 Sex at : Female Age: 73 Years Procedure: Colonoscopy Date: 04/08/2024 Attending Physician: Tod Ritter DO Referring MD: Referred Self Indications: - Anemia Medications: - Monitored Anesthesia Care Complications: - No immediate complications. Estimated Blood Loss: - Estimated blood loss: None. Procedure: - Prior to the procedure, a History and Physical was performed, and patient medications and allergies were reviewed. The patient's tolerance of previous anesthesia was also reviewed. The risks and benefits of the procedure and the sedation options and risks were discussed with the patient. All questions were answered, and informed consent was obtained. Prior Anticoagulants: The patient has taken Coumadin (warfarin), last dose was 2 days prior to procedure. ASA Grade Assessment: IV - A patient with severe systemic disease that is a constant threat to life. After reviewing the risks and benefits, the patient was deemed in satisfactory condition to undergo the procedure. - The pediatric colonoscope was introduced through the anus and advanced to the terminal ileum, with identification of the appendiceal orifice and ileocecal valve. - The colonoscopy was performed without difficulty. - The patient tolerated the procedure well. - The quality of the bowel preparation was good. - The terminal ileum, ileocecal valve, appendiceal orifice, and rectum were photographed. Findings: - The perianal examination was normal. - Normal mucosa was found in the entire colon. Impression: - Normal mucosa in the entire examined colon. - No specimens collected. Recommendation: - Discharge patient to home (ambulatory). - Resume previous diet. - Continue present medications. - Repeat colonoscopy in 5 years for surveillance. - Return to referring physician as previously scheduled. - Patient has a contact number available for emergencies. The signs and symptoms of potential delayed complications were discussed with the patient. Return to normal activities tomorrow. Written discharge instructions were provided to the patient. - Resume Coumadin (warfarin) at prior dose tomorrow. Procedure Code(s): - 97730, Colonoscopy, flexible; diagnostic, including collection of specimen(s) by brushing or washing, when performed (separate procedure) Diagnosis Code(s): - D64.9, Anemia, unspecified CPT(R) - 2022 copyright [employer]. All Rights Reserved. The CPT codes, CCI edits and ICD codes generated are intended as suggestions and were generated based on input data. These codes are preliminary and upon mixing and molding machine operator review may be revised to meet current compliance and payer requirements. The provider is responsible for the final determination of appropriate codes, and modifiers. Dr. Tod Ritter, DO This document has been electronically signed. Note Initiated:04/08/2024 Note Completed:04/08/2024 12:57 PM \\[email or web address]\[email or web address]\Results\[email or web address]\[id number]
[2024-04-08] MEDS: LIDOCAINE 2% 2 ML VIAL/AMP(20MG/ML) INFIL ONE (14:05)
[2024-04-08] MEDS: PROPOFOL IV EMULSION 10 MG/ML 20 ML VIAL IV ONE (14:06)
[2024-04-08] MEDS: MIDAZOLAM HCL 1 MG/ML 2ML VIAL ONE (14:06)
[2024-04-08] MEDS: ONDANSETRON INJ 2 MG/ML 2 ML VIAL ONE (14:06)
--- NOTE | 2024-04-08 14:37 | Hospitalist Progress Note ---
Date of Service April 08, 2024 Assessment & Plan (1) Symptomatic anemia: (2) Paroxysmal atrial fibrillation: (3) Chronic anticoagulation: (4) History of cardioversion: (5) Dyslipidemia: (6) H/O aortic valve repair: (7) Hypertension: (8) H/O aortic valve replacement using Ross procedure: (9) Chronic right-sided heart failure: (10) Hypothyroidism: (11) Chronic kidney disease: (12) Chronic obstructive pulmonary disease: (13) Asthma: Plan This is a 73-year-old female with PMHx of paroxysmal A-fib on Coumadin, chronic diastolic CHF, history of bicuspid aortic valve with history of severe aortic regurg, s/p Ross procedure and aortic root repair in 2000, status post repair of ascending thoracic aortic aneurysm with Bentall procedure in 2018, chronic hypoxic respiratory failure, COPD, DESHAUN intolerant to CPAP, hyperlipidemia, hypothyroidism, history of AAA repair, vitamin D deficiency, CKD stage III who presents to the hospital with worsening shortness of breath x 1 week as well as noted hemoglobin drop on outpatient labs from 10-8.1 within the past 2 weeks. Symptomatic anemia Iron Deficiency Anemia Possible GI blood loss Dyspnea on exertion Pt presenting with BRBPR Hgb 8.1 down from 10 in 2 weeks FOBT negative in the ED on warfarin at home IV PPI GI consulted, appreciate recs -s/p EGD and colonoscopy on 04/08/24 Continue iron supplements with one dose of IV venofer given. Continue to monitor H/H Paroxysmal atrial fibrillation Chronic anticoagulation INR 1.7 on admission, Coumadin currently on hold Rate controlled with metoprolol succinate 75 mg BID cardiology consulted, appreciate recs (see below) Chronic diastolic CHF History of bicuspid aortic valve with history of severe aortic regurg s/p Ross procedure and aortic root repair in 2000 s/p repair of ascending thoracic aortic aneurysm with Bentall procedure in 2018 Pt Was instructed to increase diuretic per cardiology yesterday for possible fluid congestion along with potassium supplementation with diuresis Holding home Torsemide and spironolactone Cardiology consulted, recommended/stated the following: "Patient notes symptoms of easy fatigability, shortness of breath with e xertion. Baseline hemoglobin while on anticoagulation with Coumadin in April, was 14.1 and has since trended down to 8.1 grams per deciliter. Patient hemodynamically stable. Rate controlled atrial fibrillation noted. INR 1.7 and Coumadin is on hold. Continue chronic treatment with metoprolol. Her creatinine level of 1.6 to is not much different than her recent baseline of 1.7 to 1.8 mg/dL. Agree with holding spironolactone and torsemide for now. Will supplement her potassium for level of 3.4 mmol/L. Most recent echocardiogram performed in August, with findings as noted above. I do not think this needs to be repeated at present. Patient stable from a cardiology perspective to undergo EGD/colonoscopy." CKD Stage III Cr noted to be elevated btu improving Continue to monitor COPD Chronic hypoxic respiratory failure Continue O2 via NC, at baseline wears 3L which is what she is currently on Symbicort, Spiriva Hypothyroidism TSH 2.61 on most recent labs yesterday on outpatient epic review Continue levothyroxine DVT ppx: teds, scds, warfarin on hold FEN/GI: HH diet CODE: Full Dispo: PT/OT for further recs Admission and Anticipated Discharge Date Admission Date: April 07, 2024 Subjective Patient was seen with family at bedside. She was seen before her EGD and colonoscopy. States that she had been having bright red blood with multiple bowel movements Denied any chest pain, shortness of breath or dizziness. Denied a history of hemorrhoids or chronic NSAID use or alcohol use. States she uses oxygen at baseline for history of COPD. Denied acute concerns at the time of exam. Review of Systems Review of Systems: All systems reviewed & are unremarkable except as noted in Subjective Physical Exam Physical Exam: General: Alert, oriented. No acute distress Psych: Appropriate mood and affect HEENT: NC/AT CV: RRR Resp: Breath sounds with wheezes bilaterally, no increased effort of breathing Abdomen: Soft, nontender Extremities: edema in lower extremities bilaterally. Results & Data Results & Data Vital Signs (Past 12 Hours) Vital Signs Temp Pulse Pulse Pulse Resp BP Pulse Ox 04/08/24 14:17 86 18 93/61 L 90 04/08/24 13:45 88 16 94/63 L 92 04/08/24 13:30 36.4 C L 85 16 95/63 L 100 04/08/24 13:21 84 16 96/60 L 100 04/08/24 13:06 81 16 91/63 L 97 04/08/24 12:51 89 16 87/56 L 98 04/08/24 11:45 36.3 C L 89 16 111/67 94 04/08/24 11:14 36.5 C 93 H 18 105/63 100 04/08/24 08:05 04/08/24 07:57 36.5 C 84 18 106/66 100 04/08/24 07:09 97 H 04/08/24 03:39 36.6 C 90 20 147/77 H 93 O2 Del Method O2 Flow Rate 04/08/24 14:17 Nasal Cannula 3 04/08/24 13:45 Nasal Cannula 3 04/08/24 13:30 Nasal Cannula 3 04/08/24 13:21 Nasal Cannula 3 04/08/24 13:06 Nasal Cannula 3 04/08/24 12:51 Oxymask 3 04/08/24 11:45 Nasal Cannula 3 04/08/24 11:14 Nasal Cannula 3.0 04/08/24 08:05 Nasal Cannula 2 04/08/24 07:57 Nasal Cannula 3.0 04/08/24 07:09 04/08/24 03:39 Nasal Cannula 2 Diagnostic Findings Chest X-Ray 04/07/24 10:46 XR chest 1V portable CLINICAL HISTORY: Chest pain, nonspecific TECHNIQUE: Single frontal radiograph of the chest was obtained. Comparison: Comparison is made to chest radiograph 09/01/2018 FINDINGS: Median sternotomy wires are unchanged. Cardiomegaly is noted. The lungs are clear. No evidence of pleural effusion or pneumothorax. IMPRESSION: No acute chest disease. Cardiomegaly is noted. ACT 112: Negative or not required by law. Electronically signed by: Tay Vincent M.D. 04/07/2024 11:09 AM
[2024-04-08] MEDS: IRON SUCROSE 200 MG in SODIUM CHLORIDE 0.9% 100 ML IV ONE (17:00)
[2024-04-08] MEDS ORDERED: ALBUT/IPRATROP 3MG/0.5MG NEB 3 ML VIAL NEB PRN (19:39)
[2024-04-08] MEDS: SODIUM CHLORIDE 0.9% 1,000 ML IV ONE (22:07)
[2024-04-09 06:22] LABS: Basophils # (auto) 0.04 K/uL (0.00-0.20); Basophils % (auto) 0.8 %; Hematocrit (blood only) 24.4 % (37.0-47.0); Hemoglobin 7.7 g/dl (12.0-16.0); Immature Granulocytes # (auto) 0.02 K/uL (0.01-0.20); Immature Granulocytes % (auto) 0.4 %; Lymphocytes # (auto) 0.99 K/uL (1.20-3.40); Mean Corpuscular Hemoglobin 29.6 pg (25.0-34.0); Mean Corpuscular Hgb Conc 31.6 g/dL (32.0-36.0); Mean Corpuscular Volume 93.8 fL (80.0-100.0); Mean Platelet Volume 9.3 fL (9.4-12.4); Monocytes # (auto) 0.29 K/uL (0.11-0.59); Monocytes % (auto) 5.9 %; Neutrophils % (auto) 68.9 %; Platelet Count 219 K/uL (130-400); RDW Coefficient of Variation 15.6 % (11.5-14.5); White Blood Count 4.94 K/ul (4.8-10.8)
[2024-04-09 06:41] LABS: Polychromasia 1+
[2024-04-09 06:45] LABS: Albumin Globulin Ratio 1.1 (0.9-2); Albumin Level 3.5 gm/dl (3.4-5.0); Bilirubin,Total 0.8 mg/dl (0.2-1.0); Creatinine Clr Calc Pharmacy 33.9 ml/min; Globulin 3.1 gm/dl (2.5-4.0); Magnesium 2.1 mg/dl (1.7-2.4); Phosphorus 3.1 mg/dl (2.5-4.9); Potassium 3.6 mmol/L (3.5-5.1); Total Protein 6.6 gm/dl (6.0-8.3)
[2024-04-09 06:46] LABS: INR 1.7 (0.9-1.1); Prothrombin Time 17.8 Seconds (9.0-12.0)
--- NOTE | 2024-04-09 09:19 | Cardiology Progress Note ---
Date of Service April 09, 2024 Assessment & Plan (1) Symptomatic anemia: (2) Chronic anticoagulation: (3) H/O aortic valve repair: Plan: Patient notes symptoms of easy fatigability, shortness of breath with exertion. Hemoglobin down to 7 this morning. Consider transfusion for goal hemoglobin 8 to 9 g/dL given the fact the patient is a cardiac patient with chronic diastolic heart failure and is profoundly symptomatic. Rate controlled atrial fibrillation noted. INR 1.7 and Coumadin is on hold. Continue chronic treatment with metoprolol. Her creatinine level of 1.54 to is not much different than her recent baseline of 1.7 to 1.8 mg/dL. Agree with holding spironolactone and torsemide for now.Would administer furosemide 20 mg IV after a unit of packed red blood cells if she was to receive transfusion Potassium improved with supplementation Most recent echocardiogram performed in August, with findings as noted above. I do not think this needs to be repeated at present. I would like to see some improvement in her hemoglobin before Coumadin is reinitiated. Dr Lizama rounding for weekend. Call with questions or concerns. Admission and Anticipated Discharge Date Admission Date: April 07, 2024 Subjective Patient seen in cardiology follow-up. Underwent EGD and colonoscopy yesterday. Tolerated procedures well from a cardiac perspective. No source of bleeding was noted. Physical Exam Physical Exam: Temp Pulse Resp BP Pulse Ox O2 Del Method O2 Flow Rate 36.8 C 95 H 18 102/52 L 98 Nasal Cannula 3 04/09/24 07:52 04/09/24 07:52 04/09/24 07:52 04/09/24 07:52 04/09/24 07:52 04/09/24 07:52 04/09/24 07:52 General: no acute distress and stated age Eyes: conjunctiva are pink and non-injected, sclera clear Neck: normal jugular venous pulse, no hepatojugular reflux Chest: normal shape and normal respiratory effort Lungs: clear to auscultation and percussion Cardiac Exam: -Regular rhythm, no tachycardia, no murmurs Abdomen: abdomen soft, non-tender, no abnormal masses and no hepatosplenomegaly Musculoskeletal: no gait disturbance, no weakness Extremities: no edema and no cyanosis Neuro:awake, conversant, follows commands, no focal motor deficits Psych: appropriate affect and insight. Results & Data Vital Signs (Past 12 Hours) Vital Signs Temp Pulse Resp BP BP Pulse Ox O2 Del Method 04/09/24 07:52 36.8 C 95 H 18 102/52 L 98 Nasal Cannula 04/09/24 03:06 36.7 C 65 18 110/60 97 Nasal Cannula 04/09/24 00:05 36.8 C 98 H 18 101/62 94 Nasal Cannula O2 Flow Rate 04/09/24 07:52 3 04/09/24 03:06 3.0 04/09/24 00:05 3.0 Laboratory Results Cardiac Enzymes 04/09/24 Range/Units 05:18 AST 15 (13-39) U/L Coagulation 04/09/24 Range/Units 05:18 PT 17.8 H (9.0-12.0) Seconds CBC 04/09/24 Range/Units 05:18 WBC 4.94 (4.8-10.8) K/ul RBC 2.60 L (4.20-5.40) M/uL Hgb 7.7 L (12.0-16.0) g/dl Hct 24.4 L (37.0-47.0) % Plt Count 219 (130-400) K/uL Neut # (Auto) 3.40 (1.40-6.50) K/uL Lymph # (Auto) 0.99 L (1.20-3.40) K/uL [place] # (Auto) 0.29 (0.11-0.59) K/uL Eos # (Auto) 0.20 (0.00-0.50) K/uL Baso # (Auto) 0.04 (0.00-0.20) K/uL Comprehensive Metabolic Panel 04/09/24 Range/Units 05:18 Sodium 137 (136-145) mmol/L Potassium 3.6 (3.5-5.1) mmol/L Chloride 102 (98-107) mmol/L Carbon Dioxide 28 (21-32) mmol/L BUN 17 (6-23) mg/dl Creatinine 1.54 H (0.6-1.2) mg/dl Glucose 113 H (70-99(Fasting)) mg/dl Calcium 9.0 (8.6-10.3) mg/dl AST 15 (13-39) U/L ALT 8 (7-52) U/L Alkaline Phosphatase 116 H (34-104) U/L Total Protein 6.6 (6.0-8.3) gm/dl Albumin 3.5 (3.4-5.0) gm/dl Intake and Output 04/08/24 04/09/24 04/09/24 22:59 06:59 14:59 Intake Total 650.000 / 1368.667 718.667 / 1368.667 533.333 / 533.333 Output Total Balance 649.000 / 1367.667 718.667 / 1367.667 533.333 / 533.333 Intake: IV 110.000 / 428.667 318.667 / 428.667 533.333 / 533.333 Iron Sucrose 200 mg In Sodium 110.000 / 110.000 Chloride 0.9% 100 ml @ 220 mls/ hr IV TODAY ONE Rx#:[id number] Sodium Chloride 0.9% 1,000 ml @ 318.667 / 318.667 533.333 / 533.333 80 mls/hr IV .[id number] ONE Rx#: [id number] Oral 540 / 940 400 / 940 Output: # Bowel Movements Other: # Unmeasured Voids 1 3 Weight 92 kg
--- NOTE | 2024-04-09 09:28 | Communication Note ---
Date of Service: April 09, 2024 Patient underwent an EGD & colonoscopy on 04/08/24 for anemia. These were unremarkable for sources of GI bleeding. H/H 7.7/.4. Continue to monitor H/H. Consider outpatient VCE & hematology evaluation.
[2024-04-09 13:22] LABS: Hematocrit (blood only) 24.4 % (37.0-47.0); Hemoglobin 7.6 g/dl (12.0-16.0)
--- NOTE | 2024-04-09 16:35 | Hospitalist Progress Note ---
Date of Service April 09, 2024 Assessment & Plan (1) Symptomatic anemia: (2) Paroxysmal atrial fibrillation: (3) Chronic anticoagulation: (4) History of cardioversion: (5) Dyslipidemia: (6) H/O aortic valve repair: (7) Hypertension: (8) H/O aortic valve replacement using Ross procedure: (9) Chronic right-sided heart failure: (10) Hypothyroidism: (11) Chronic kidney disease: (12) Chronic obstructive pulmonary disease: (13) Asthma: Plan This is a 73-year-old female with PMHx of paroxysmal A-fib on Coumadin, chronic diastolic CHF, history of bicuspid aortic valve with history of severe aortic regurg, s/p Ross procedure and aortic root repair in 2000, status post repair of ascending thoracic aortic aneurysm with Bentall procedure in 2019, chronic hypoxic respiratory failure, COPD, DESHAUN intolerant to CPAP, hyperlipidemia, hypothyroidism, history of AAA repair, vitamin D deficiency, CKD stage III who presents to the hospital with worsening shortness of breath x 1 week as well as noted hemoglobin drop on outpatient labs from 10-8.1 within the past 2 weeks. Symptomatic anemia Iron Deficiency Anemia Possible GI blood loss Dyspnea on exertion Pt presenting with BRBPR Hgb 8.1 down from 10 in 2 weeks FOBT negative in the ED on warfarin at home, currently on hold IV PPI GI consulted, appreciate recs -s/p EGD and colonoscopy on 04/08/24 -noted the following on 04/09: "Patient underwent an EGD & colonoscopy on 04/08/24 for anemia. These were unremarkable for sources of GI bleeding. H/H 7.7/24.4. Continue to monitor H/H. Consider outpatient VCE & hematology evaluation." Continue iron supplements with one dose of IV venofer given. Continue to monitor H/H Stable at 7.6 at this time Paroxysmal atrial fibrillation Chronic anticoagulation INR 1.7 on admission, Coumadin currently on hold Rate controlled with metoprolol succinate 75 mg BID cardiology consulted, appreciate recs (see below) Chronic diastolic CHF History of bicuspid aortic valve with history of severe aortic regurg s/p Ross procedure and aortic root repair in 2000 s/p repair of ascending thoracic aortic aneurysm with Bentall procedure in 2019 Pt Was instructed to increase diuretic per cardiology yesterday for possible fluid congestion along with potassium supplementation with diuresis Holding home Torsemide and spironolactone Cardiology consulted, recommended/stated the following on 04/09: "Patient notes symptoms of easy fatigability, shortness of breath with exertion. Hemoglobin down to 7 this morning. Consider transfusion for goal hemoglobin 8 to 9 g/dL given the fact the patient is a cardiac patient with chronic diastolic heart failure and is profoundly symptomatic. Rate controlled atrial fibrillation noted. INR 1.7 and Coumadin is on hold. Continue chronic treatment with metoprolol. Her creatinine level of 1.54 to is not much different than her recent baseline of 1.7 to 1.8 mg/dL. Agree with holding spironolactone and torsemide for now.Would administer furosemide 20 mg IV after a unit of packed red blood cells if she was to receive transfusion Potassium improved with supplementation Most recent echocardiogram performed in August, with findings as noted above. I do not think this needs to be repeated at present. I would like to see some improvement in her hemoglobin before Coumadin is reinitiated." CKD Stage III Cr noted to be elevated but improving Continue to monitor COPD Chronic hypoxic respiratory failure Continue O2 via NC, at baseline wears 3L which is what she is currently on Symbicort, Spiriva Hypothyroidism TSH 2.61 on most recent labs yesterday on outpatient epic review Continue levothyroxine DVT ppx: teds, scds, warfarin on hold FEN/GI: HH diet CODE: Full Dispo: PT/OT for further recs Admission and Anticipated Discharge Date Admission Date: April 07, 2024 Subjective Ann was seen getting into her bed. Was able to do so with the assistance of nursing. Denies any dizziness, has some shortness of breath denies any further episodes of bloody bowel movement Review of Systems Review of Systems: All systems reviewed & are unremarkable except as noted in Subjective Physical Exam Physical Exam: General: Alert, oriented. No acute distress Psych: Appropriate mood and affect HEENT: NC/AT CV: RRR Resp: Breath sounds with wheezes bilaterally, no increased effort of breathing Abdomen: Soft, nontender Extremities: edema in lower extremities bilaterally. Results & Data Results & Data Vital Signs (Past 12 Hours) Vital Signs Temp Pulse Pulse Resp BP BP Pulse Ox 04/09/24 15:59 36.9 C 101 H 18 97/58 L 98 04/09/24 15:33 110 H 04/09/24 11:06 36.7 C 110 H 18 112/71 96 04/09/24 07:52 36.8 C 95 H 18 102/52 L 98 04/09/24 07:45 87 04/09/24 07:45 O2 Del Method O2 Flow Rate 04/09/24 15:59 Nasal Cannula 3 04/09/24 15:33 04/09/24 11:06 Nasal Cannula 3.0 04/09/24 07:52 Nasal Cannula 3 04/09/24 07:45 04/09/24 07:45 Nasal Cannula 3 Diagnostic Findings Chest X-Ray 04/07/24 10:46 XR chest 1V portable CLINICAL HISTORY: Chest pain, nonspecific TECHNIQUE: Single frontal radiograph of the chest was obtained. Comparison: Comparison is made to chest radiograph 09/01/2018 FINDINGS: Median sternotomy wires are unchanged. Cardiomegaly is noted. The lungs are clear. No evidence of pleural effusion or pneumothorax. IMPRESSION: No acute chest disease. Cardiomegaly is noted. ACT 112: Negative or not required by law. Electronically signed by: Tay Vincent M.D. 04/07/2024 11:09 AM
[2024-04-10 06:04] LABS: Basophils # (auto) 0.05 K/uL (0.00-0.20); Eosinophils # (auto) 0.17 K/uL (0.00-0.50); Eosinophils % (auto) 3.3 %; Hematocrit (blood only) 24.6 % (37.0-47.0); Hemoglobin 7.5 g/dl (12.0-16.0); Immature Granulocytes # (auto) 0.02 K/uL (0.01-0.20); Immature Granulocytes % (auto) 0.4 %; Lymphocytes # (auto) 1.13 K/uL (1.20-3.40); Lymphocytes % (auto) 21.8 %; Mean Corpuscular Hemoglobin 29.1 pg (25.0-34.0); Mean Corpuscular Hgb Conc 30.5 g/dL (32.0-36.0); Mean Corpuscular Volume 95.3 fL (80.0-100.0); Mean Platelet Volume 9.4 fL (9.4-12.4); Monocytes % (auto) 7.7 %; Neutrophils # (auto) 3.42 K/uL (1.40-6.50); Neutrophils % (auto) 65.8 %; Nucleated RBC # (auto) 0.02 K/uL (0.00-0.12); Nucleated RBC % (auto) 0.4 %; Platelet Count 199 K/uL (130-400); RDW Coefficient of Variation 15.9 % (11.5-14.5); RDW Standard Deviation 55.5 fL (36.4-46.3); Red Blood Count 2.58 M/uL (4.20-5.40); White Blood Count 5.19 K/ul (4.8-10.8)
[2024-04-10 06:16] LABS: Albumin Globulin Ratio 1.1 (0.9-2); Albumin Level 3.5 gm/dl (3.4-5.0); Bilirubin,Total 0.6 mg/dl (0.2-1.0); Calcium 9.3 mg/dl (8.6-10.3); Creatinine Clr Calc Pharmacy 35.9 ml/min; Globulin 3.1 gm/dl (2.5-4.0); Magnesium 2.1 mg/dl (1.7-2.4); Phosphorus 3.1 mg/dl (2.5-4.9); Potassium 4.1 mmol/L (3.5-5.1); Total Protein 6.6 gm/dl (6.0-8.3)
[2024-04-10 06:28] LABS: Polychromasia 2+; Stomatocytes 1+
[2024-04-10 06:34] LABS: INR 1.5 (0.9-1.1); Prothrombin Time 15.7 Seconds (9.0-12.0)
[2024-04-10 12:22] LABS: Hematocrit (blood only) 25.9 % (37.0-47.0); Hemoglobin 7.9 g/dl (12.0-16.0)
--- NOTE | 2024-04-10 13:28 | Hospitalist Progress Note ---
Date of Service April 10, 2024 Assessment & Plan (1) Symptomatic anemia: (2) Paroxysmal atrial fibrillation: (3) Chronic anticoagulation: (4) History of cardioversion: (5) Dyslipidemia: (6) H/O aortic valve repair: (7) Hypertension: (8) H/O aortic valve replacement using Ross procedure: (9) Chronic right-sided heart failure: (10) Hypothyroidism: (11) Chronic kidney disease: (12) Chronic obstructive pulmonary disease: (13) Asthma: Plan This is a 73-year-old female with PMHx of paroxysmal A-fib on Coumadin, chronic diastolic CHF, history of bicuspid aortic valve with history of severe aortic regurg, s/p Ross procedure and aortic root repair in 2000, status post repair of ascending thoracic aortic aneurysm with Bentall procedure in 2019, chronic hypoxic respiratory failure, COPD, DESHAUN intolerant to CPAP, hyperlipidemia, hypothyroidism, history of AAA repair, vitamin D deficiency, CKD stage III who presents to the hospital with worsening shortness of breath x 1 week as well as noted hemoglobin drop on outpatient labs from 10-8.1 within the past 2 weeks. Symptomatic anemia Iron Deficiency Anemia Possible GI blood loss Dyspnea on exertion Pt presenting with BRBPR Hgb 8.1 down from 10 in 2 weeks FOBT negative in the ED on warfarin at home, currently on hold IV PPI GI consulted, appreciate recs -s/p EGD and colonoscopy on 04/08/24 -noted the following on 04/09: "Patient underwent an EGD & colonoscopy on 04/08/24 for anemia. These were unremarkable for sources of GI bleeding. H/H 7.7/24.4. Continue to monitor H/H. Consider outpatient VCE & hematology evaluation." Continue iron supplements with one dose of IV venofer given on 04/08. Continue to monitor H/H Stable at about 7.5 at at this time, coumadin still on hold per recs of cardiology Continue to monitor H/H Paroxysmal atrial fibrillation Chronic anticoagulation INR 1.7 on admission, Coumadin currently on hold Rate controlled with metoprolol succinate 75 mg BID cardiology consulted, appreciate recs (see below) Per Dr Champion "I would like to see some improvement in her hemoglobin before Coumadin is reinitiated." Chronic diastolic CHF History of bicuspid aortic valve with history of severe aortic regurg s/p Ross procedure and aortic root repair in 2000 s/p repair of ascending thoracic aortic aneurysm with Bentall procedure in 2019 Pt Was instructed to increase diuretic per cardiology yesterday for possible fluid congestion along with potassium supplementation with diuresis Holding home Torsemide and spironolactone Cardiology consulted, recommended/stated the following on 04/09: "Patient notes symptoms of easy fatigability, shortness of breath with exertion. Hemoglobin down to 7 this morning. Consider transfusion for goal hemoglobin 8 to 9 g/dL given the fact the patient is a cardiac patient with chronic diastolic heart failure and is profoundly symptomatic. Rate controlled atrial fibrillation noted. INR 1.7 and Coumadin is on hold. Continue chronic treatment with metoprolol. Her creatinine level of 1.54 to is not much different than her recent baseline of 1.7 to 1.8 mg/dL. Agree with holding spironolactone and torsemide for now.Would administer furosemide 20 mg IV after a unit of packed red blood cells if she was to receive transfusion Potassium improved with supplementation Most recent echocardiogram performed in August, with findings as noted above. I do not think this needs to be repeated at present. I would like to see some improvement in her hemoglobin before Coumadin is reinitiated." CKD Stage III Cr noted to be elevated but improving Continue to monitor COPD Chronic hypoxic respiratory failure Continue O2 via NC, at baseline wears 3L which is what she is currently on Symbicort, Spiriva Hypothyroidism TSH 2.61 on most recent labs yesterday on outpatient epic review Continue levothyroxine DVT ppx: teds, scds, warfarin on hold FEN/GI: HH diet CODE: Full Dispo: PT/OT recommending return home Admission and Anticipated Discharge Date Admission Date: April 07, 2024 Subjective Patient was seen laying in bed. States she feels a bit stronger today and was up and ambulating to the bathroom Still some occasional shortness of breath Attempts made to call family to update were unsuccessful Review of Systems Review of Systems: All systems reviewed & are unremarkable except as noted in Subjective Physical Exam Physical Exam: General: Alert, oriented. No acute distress Psych: Appropriate mood and affect HEENT: NC/AT CV: RRR Resp: Breath sounds with wheezes bilaterally, no increased effort of breathing Abdomen: Soft, nontender Extremities: edema in lower extremities bilaterally. Results & Data Results & Data Vital Signs (Past 12 Hours) Vital Signs Temp Pulse Pulse Resp BP Pulse Ox O2 Del Method 04/10/24 10:37 36.7 C 94 H 18 99/62 L 99 Nasal Cannula 04/10/24 07:37 36.6 C 104 H 18 104/58 L 98 Room Air 04/10/24 07:34 102 H 04/10/24 07:34 Nasal Cannula 04/10/24 03:49 36.6 C 111 H 18 101/67 99 Nasal Cannula O2 Flow Rate 04/10/24 10:37 3 04/10/24 07:37 04/10/24 07:34 04/10/24 07:34 3 04/10/24 03:49
[2024-04-11 05:14] LABS: Basophils # (auto) 0.04 K/uL (0.00-0.20); Basophils % (auto) 0.8 %; Eosinophils # (auto) 0.24 K/uL (0.00-0.50); Eosinophils % (auto) 4.8 %; Hematocrit (blood only) 24.4 % (37.0-47.0); Hemoglobin 7.6 g/dl (12.0-16.0); Immature Granulocytes # (auto) 0.01 K/uL (0.01-0.20); Immature Granulocytes % (auto) 0.2 %; Lymphocytes # (auto) 0.78 K/uL (1.20-3.40); Lymphocytes % (auto) 15.8 %; Mean Corpuscular Hemoglobin 29.5 pg (25.0-34.0); Mean Corpuscular Hgb Conc 31.1 g/dL (32.0-36.0); Mean Corpuscular Volume 94.6 fL (80.0-100.0); Mean Platelet Volume 9.2 fL (9.4-12.4); Monocytes % (auto) 8.1 %; Neutrophils # (auto) 3.48 K/uL (1.40-6.50); Neutrophils % (auto) 70.3 %; Nucleated RBC # (auto) 0.02 K/uL (0.00-0.12); Nucleated RBC % (auto) 0.4 %; Platelet Count 178 K/uL (130-400); RDW Coefficient of Variation 16.1 % (11.5-14.5); RDW Standard Deviation 55.9 fL (36.4-46.3); Red Blood Count 2.58 M/uL (4.20-5.40); White Blood Count 4.95 K/ul (4.8-10.8)
[2024-04-11 05:32] LABS: Albumin Globulin Ratio 1.2 (0.9-2); Albumin Level 3.5 gm/dl (3.4-5.0); BUN Creatinine Ratio 13.8 (10-20); Bilirubin,Total 0.6 mg/dl (0.2-1.0); Calcium 9.3 mg/dl (8.6-10.3); Magnesium 2.2 mg/dl (1.7-2.4); Phosphorus 3.4 mg/dl (2.5-4.9); Polychromasia 2+; Potassium 4.6 mmol/L (3.5-5.1); Stomatocytes 1+; Total Protein 6.5 gm/dl (6.0-8.3)
[2024-04-11 05:45] LABS: INR 1.3 (0.9-1.1); Prothrombin Time 13.4 Seconds (9.0-12.0)
[2024-04-11 11:12] VITALS: RESP 19; TEMP 97.9; O2SAT 97
--- NOTE | 2024-04-11 12:22 | Discharge Summary ---
Discharge Summary Date of Service April 11, 2024 Principal Dx & Hospital Course #1 = Principal Diagnosis (1) Symptomatic anemia: (2) Paroxysmal atrial fibrillation: (3) Chronic anticoagulation: (4) History of cardioversion: (5) Dyslipidemia: (6) H/O aortic valve repair: (7) Hypertension: (8) H/O aortic valve replacement using Ross procedure: (9) Chronic right-sided heart failure: (10) Hypothyroidism: (11) Chronic kidney disease: (12) Chronic obstructive pulmonary disease: (13) Asthma: Plan This is a 73-year-old female with PMHx of paroxysmal A-fib on Coumadin, chronic diastolic CHF, history of bicuspid aortic valve with history of severe aortic regurg, s/p Ross procedure and aortic root repair in 2000, status post repair of ascending thoracic aortic aneurysm with Bentall procedure in 2019, chronic hypoxic respiratory failure, COPD, DESHAUN intolerant to CPAP, hyperlipidemia, hypothyroidism, history of AAA repair, vitamin D deficiency, CKD stage III who presents to the hospital with worsening shortness of breath x 1 week as well as noted hemoglobin drop on outpatient labs from 10-8.1 within the past 2 weeks. Symptomatic anemia Iron Deficiency Anemia Possible GI blood loss Dyspnea on exertion Pt presenting with BRBPR Hgb 8.1 on arrival down from 10 in 2 weeks, has been stable at ~7.5 post procedures FOBT negative in the ED on warfarin at home, was held while hospitalized IV PPI GI consulted, appreciate recs -s/p EGD and colonoscopy on 04/08/24 -noted the following on 04/09: "Patient underwent an EGD & colonoscopy on 04/08/24 for anemia. These were unremarkable for sources of GI bleeding. H/H 7.7/24.4. Continue to monitor H/H. Consider outpatient VCE & hematology evaluation." Continue iron supplements with one dose of IV venofer given on 04/08. Pt discharged with po ferrous sulfate. Continue to monitor H/H After discharge and ensure stability. Repeat CBC in 2-3 days after discharge but no later than 1 week after discharge. Case was discussed with cardiology (Kylee Dinh PA-C and Dr Lizama) on day of discharge. Recommended that patient continue to hold home warfarin. Cardiology recommended resuming warfarin when hemoglobin in sustained 8-9 range. Aspirin also on hold. Please ensure follow-up with gastroenterology after discharge for recommended VCE. Please ensure Hematology follow up as well Pt was discharged in stable condition with hgb of 7.6 at 4:45AM and 8.3 at 12pm on 04/11/24. Paroxysmal atrial fibrillation Chronic anticoagulation INR 1.7 on admission, Coumadin currently on hold Rate controlled with metoprolol succinate 75 mg BID cardiology consulted, appreciate recs (see below) Per Dr Champion "I would like to see some improvement in her hemoglobin before Coumadin is reinitiated." Case was discussed with cardiology (Kylee Dinh PA-C and Dr Lizama) on day of discharge. Recommended that patient continue to hold home warfarin. Cardiology recommended resuming warfarin when hemoglobin in sustained 8-9 range. Close Cardiology followup after discharge Chronic diastolic CHF History of bicuspid aortic valve with history of severe aortic regurg s/p Ross procedure and aortic root repair in 2000 s/p repair of ascending thoracic aortic aneurysm with Bentall procedure in 2018 Pt was instructed to increase diuretic per cardiology yesterday for possible fluid congestion along with potassium supplementation with diuresis Held home Torsemide and spironolactone Cardiology consulted, recommended/stated the following on 04/09: "Patient notes symptoms of easy fatigability, shortness of breath with exertion. Hemoglobin down to 7 this morning. Consider transfusion for goal hemoglobin 8 to 9 g/dL given the fact the patient is a cardiac patient with chronic diastolic heart failure and is profoundly symptomatic. Rate controlled atrial fibrillation noted. INR 1.7 and Coumadin is on hold. Continue chronic treatment with metoprolol. Her creatinine level of 1.54 to is not much different than her recent baseline of 1.7 to 1.8 mg/dL. Agree with holding spironolactone and torsemide for now. Would administer furosemide 20 mg IV after a unit of packed red blood cells if she was to receive transfusion Potassium improved with supplementation Most recent echocardiogram performed in August, with findings as noted above. I do not think this needs to be repeated at present. I would like to see some improvement in her hemoglobin before Coumadin is reinitiated." Case was discussed with cardiology (Kylee Dinh PA-C and Dr Lizama) on day of discharge. Recommended resuming home torsemide on discharge but continuing to hold spironolactone. Please continue to monitor patient's blood pressure after discharge. Close cardiology followup after discharge. CKD Stage III Cr noted to be elevated at 1.62 but improved to 1.3 on discharge Continue to monitor PCP followup for continued monitoring and to ensure improvement/stability COPD Chronic hypoxic respiratory failure Continue O2 via NC, at baseline wears 3L which is what she is currently on Symbicort, Spiriva Stable, pcp follow up Hypothyroidism TSH 2.61 on most recent labs yesterday on outpatient epic review Continue levothyroxine PCP follow up Notes For Next Care Provider Continue to monitor H/H after discharge and ensure stability. Repeat CBC in 2-3 days after discharge but no later than 1 week after discharge. Cardiology recommended resuming warfarin when hemoglobin in sustained 8-9 range. Please continue to monitor kidney function Please continue to monitor Blood pressure Cardiology recommended resuming home torsemide on discharge but continuing to hold spironolactone. Medication Changes From Visit HOLD WARFARIN until hgb sustained in 8-9 range HOLD ASPIRIN HOLD HOME SPIRONOLACTONE Start po ferrous sulfate supplements Admission HPI Per Admitting Provider This is a 73-year-old female with PMHx of paroxysmal A-fib on Coumadin, chronic diastolic CHF, history of bicuspid aortic valve with history of severe aortic regurg, s/p Ross procedure and aortic root repair in 2000, status post repair of ascending thoracic aortic aneurysm with Bentall procedure in 2019, chronic hypoxic respiratory failure, COPD, DESHAUN intolerant to CPAP, hyperlipidemia, hypothyroidism, history of AAA repair, vitamin D deficiency, CKD stage III who presents to the hospital with worsening shortness of breath x 1 week as well as noted hemoglobin drop on outpatient labs from 10-8.1 within the past 2 weeks. Daughter and son in law are present at bedside. Melissa notably had experienced significant bright red blood per rectum approximately 2 weeks ago and was seen by her PCP, and bleeding was attributed to hemorrhoids which cleared up with topical cream. She denies visualizing any BRBPR since that time, melana, hematochezia, abd pain, nausea, vomiting, lightheadedness or dizziness. Main complaint remains progressive shortness of breath with minimal walking or exertion. Colonoscopy is scheduled for May 13, 2024. Her hemoglobin on March 18, 2024 was 10.3, down from 14.1 in April 2023. She presented to routine cardiology appointment on 04/06 and complained of progressive acute on chronic dyspnea over the last 1 week. Initially thought that she was retaining water, therefore started taking an extra water pill for a day or 2 which she thinks may have helped. Patient does wear 3L supplemental O2 at baseline, feels weak, is coughing up thick phlegm occasionally but states this is chronic. She denies fever, chills, sweats, sick contacts of feeling ill otherwise. Basic laboratories and chest x-ray were ordered as outpatient. CXR shows findings including a retrocardiac opacity, suggesting infiltrate, no pleural fluid or pneumothorax. Hemoglobin of 8.7 on 04/06, this morning on repeat blood work here at hospital hemoglobin is 8.1. The patient will be admitted for further workup of anemia, possible needs for transfusion, as well as GI evaluation for possible endoscopic procedure. Admission Exam Per Admitting Provider General: awake, alert, no apparent distress, obese white female, no pallor Head: Normocephalic, atraumatic ENT: PERRL, EOMI, no pharyngeal exudate, mucous membranes moist Chest: Clear to auscultation, on room air, no adventitious breath sounds Cardiac: Irregular rhythm, rate controlled, no murmur, no JVD, normal peripheral pulses, good capillary refill Abdominal: NABS x 4 quadrants, soft, nondistended, nontender to palpation, no rebound or guarding Extremities: Normal inspection, no peripheral edema or erythema, calfs nontender to palpation Psych: Normal mood and affect Neuro: AAO x 3, strength intact bilaterally and rated 5/5, no motor deficits, speech is clear, no peripheral sensory deficits Discharge Exam General: Alert, oriented. No acute distress Psych: Appropriate mood and affect HEENT: NC/AT CV: RRR Resp: Breath sounds with wheezes bilaterally, no increased effort of breathing Abdomen: Soft, nontender Extremities: edema in lower extremities bilaterally. Updated Medication List Medication Instructions Recorded Confirmed Type albuterol sulfate 90 mcg/actuation 2 puff inhalation Q4H PRN sob 02/10/18 04/07/24 History aerosol inhaler (Ventolin HFA) venlafaxine 75 mg capsule,extended 75 mg PO HS 02/10/18 04/07/24 History release 24 hr potassium chloride 20 mEq 20 meq PO QAM 07/30/18 04/07/24 History tablet,extended release aspirin 81 mg tablet,delayed 81 mg PO QAM 09/01/18 04/07/24 History release atorvastatin 40 mg tablet 40 mg PO HS 10/17/20 04/07/24 History metoprolol succinate 50 mg 75 mg PO BID 10/17/20 04/07/24 History tablet,extended release 24 hr omeprazole 20 mg capsule,delayed 20 mg PO QAM 10/17/20 04/07/24 History release spironolactone 25 mg tablet 12.5 mg PO QAM 10/17/20 04/07/24 History tiotropium bromide 2.5 2 inh inhalation QAM 10/17/20 04/07/24 History mcg/actuation mist for inhalation (Spiriva Respimat) torsemide 20 mg tablet 20 mg PO QAM 10/17/20 04/07/24 History warfarin 5 mg tablet (Jantoven) See Rx Instructions .Route .COMPLEX 10/17/20 History levothyroxine 100 mcg tablet 100 mcg PO QAM 02/14/22 04/07/24 History (Synthroid) allopurinol 100 mg tablet 200 mg PO QAM 04/07/24 04/07/24 History cholecalciferol (vitamin D3) 50 4,000 unit PO QAM 04/07/24 04/07/24 History mcg (2,000 unit) capsule (Vitamin D3) warfarin 2.5 mg tablet 2.5 mg PO DAILY 04/07/24 04/07/24 History ferrous sulfate 325 mg (65 mg 325 mg PO DAILY #30 tabs 04/11/24 Rx iron) tablet,delayed release Hospital Stay Data Consultations 04/07/24 12:24 ED Decision to Admit Stat 04/07/24 14:17 Consult Gastroenterology Routine 04/07/24 14:46 Consult Cardiology Routine Procedures Performed Operation Date: 04/08/24 16:30 Actual Procedures p Esophagogastroduodenoscopy - Tod G. Case, DO s Colonoscopy - Tod G. Case, DO Diagnostic Imagining Performed Chest X-Ray 04/07/24 10:46 XR chest 1V portable CLINICAL HISTORY: Chest pain, nonspecific TECHNIQUE: Single frontal radiograph of the chest was obtained. Comparison: Comparison is made to chest radiograph 09/01/2018 FINDINGS: Median sternotomy wires are unchanged. Cardiomegaly is noted. The lungs are clear. No evidence of pleural effusion or pneumothorax. IMPRESSION: No acute chest disease. Cardiomegaly is noted. ACT 112: Negative or not required by law. Electronically signed by: Tay Vincent M.D. 04/07/2024 11:09 AM Discharge Instructions Given to Patient (Per Discharging Provider) Melissa, You were seen by the irrigation flume layer for concern of a gastrointestinal bleed. You had an EGD and colonoscopy done by GI which did not show a possible cause of your bleeding. They recommend that you follow-up as an outpatient for video capsule endoscopy as well as a hematology evaluation. Please continue to hold your warfarin and aspirin that you have at home. Do not take again until you follow-up with your primary care provider. We also discharging you home with oral iron tablets. Please take as prescribed. Should you develop any nausea, or vomiting or constipation can try taking it every other day and f ollowing up closely with your primary care provider for further recommendations and evaluation. You are also seen by the category director who recommends that you continue with your home torsemide but you stop taking your home spironolactone at this time. Please continue to follow-up with cardiology after discharge. Please keep close follow up with your primary care provider after discharge. Please do not hesitate to come back to the emergency room if your symptoms worsen or return. It was a pleasure taking care of you while you were here. Total Time Total Time Spent Total Time Spent (In Minutes): 65
[2024-04-11 12:38] LABS: Hematocrit (blood only) 27.5 % (37.0-47.0); Hemoglobin 8.3 g/dl (12.0-16.0)
[2024-04-11 13:07] VITALS: BP 90/56; PULSE 93
== END 2024-04-11 15:02 | disposition home or self-care (01) | DRG 378 ==
LOC: ED 10:21 → SUATTDRO 12:30 → 4W 12:30